=== PATIENT | female | born 1955 | race Caucasian/White ===

== ENCOUNTER 2017-02-25 12:13 | Day surgery (SDC) | payer MEDICARE, OTHER ==
[~2017-02-25] VITALS: Ht 162.6 cm; Wt 107.5 kg
[~2017-02-25 12:13] MED LIST: AMITRIPTYLINE H25 MG PO; ATIVAN0.5 MG PO; CYCLOBENZAPRINE10 MG PO; FLUOXETINE HCL20 MG PO; GABAPENTIN300 MG PO; GABAPENTIN600 MG PO; HYDROCHLOROTHIA25 MG PO; HYDROMORPHONE HC4 MG PO; LAMOTRIGINE100 MG PO; LEVOTHYROXINE75 MCG PO; LIPITOR40 MG PO; LISINOPRIL10 MG PO; LISINOPRIL20 MG PO; LORAZEPAM1 MG PO; METOPROLOL TART25 MG PO; NORCO 10-325 T1 EACH PO; NUCYNTA50 MG PO; PLAVIX75 MG PO; PRAZOSIN HCL5 MG PO; SIMVASTATIN20 MG PO
--- NOTE | 2017-02-25 14:08 | NUR ---
02/25/17 1408 Lori Oquendo 1404-PATIENT ARRIVED TO PACU ON 5L NC 97%. PATIENT REACTIVE TO VOICE. LAYING ON LEFT SIDE. PATIENT ENCOURAGED TO PASS FLATUS. ABDOMEN ROUND AND DISTENDED,
--- NOTE | 2017-02-27 10:36 | OR ---
[facility] [address], [place] [address] Signed DATE OF PROCEDURE: 02/25/17 PREOPERATIVE DIAGNOSES Chronic pain syndrome. Left lower abdominal pain. POSTOPERATIVE DIAGNOSES Intolerance of typical intravenous sedation requiring Propofol infusional sedation. Extensive diverticular changes of sigmoid without obstruction. Polyps x3. PROCEDURE Total colonoscopy to cecum with cold morcellation polypectomy x1 and hot snare polypectomy x2. SURGEON: Maxx Faye M.D. ANESTHESIA Intravenous sedation Fentanyl 150 mcg, Versed 9 mg with addition of Propofol infusional anesthesia (Radha Maxwell CRNA). 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 She is a patient of Dr. Braga. She has had complaints of left lower abdominal pain. Most notably, she has a chronic pain syndrome otherwise. She has had some diarrhea, but no constipation and no rectal bleeding. She has no family history of colon cancer. She is self-described as having "PTSD" as well as depression and numerous other medical issues. She is admitted at this time to undergo colonoscopy understanding the risks of bleeding, infection, perforation, and so on. FINDINGS The prep was quite good. Complete colonoscopy was undertaken to the cecum. There were numerous diverticula of the sigmoid and left colon almost certainly accounting for pain problem. Additionally, she had 3 polyps of the left colon including at 70 cm, 85 cm, and 40 cm, all of which were excised completely. She had significant tolerance for pain medication requiring the addition of Propofol infusional sedation by nurse curatorial specialist with good success. PROCEDURE The patient was brought to the endoscopy suite and placed in lateral decubitus position, given intravenous sedation. Full cardiopulmonary monitoring was maintained. Digital Electronically Signed By: MAXX FAYE MD 02/27/17 1036 PATIENT NAME: NOHEMY ASHTON OPERATIVE REPORT DATE OF : 57 PHYSICIAN: MAXX FAYE MD REPORT #: [id number] REPORT IS CONFIDENTIAL AND NOT TO BE RELEASED WITHOUT AUTHORIZATION [facility] [address], [place] [address] Signed rectal examination was normal. An Olympus video colonoscope was passed in the rectum and manipulated into the sigmoid where numerous diverticula were noted. Despite giving a fair amount of intravenous sedation including fentanyl 150 mcg and Versed 9 mg, she was markedly uncomfortable and unable to tolerate any further manipulation of the scope. This was despite no real angulation deformity, stricture, for other particular problem. On that basis, nurse curatorial specialist, Radha Maxwell, MARANDA, was summoned and was able to give Propofol infusional sedation with airway management. This allowed for tolerance to allow for progression of the colonoscopy. Scope was ultimately manipulated throughout the colon ultimately intubating the cecum itself. The ileocecal valve and appendiceal orifice were normal. The scope was withdrawn from that point. Careful examination was undertaken and impressively good bowel prep was noted. At approximately the splenic flexure at 85 cm with a small polyp, this was excised with hot snare polypectomy technique. Further withdrawal of scope showed another sessile polyp, this one at 70 cm, it was excised similarly. The other polyp at 40 cm was excised with a combination of cold morcellation and snare technique. Retroflexed view in the rectum was normal upon withdrawal the scope. There were no other findings of concern. The patient was taken recovery room in good condition. CONCLUDING DIAGNOSES Left-sided abdominal pain most likely related to diverticular disease. Polyps x3 (excised). Significant tolerance tissue and chronic pain syndrome. PLAN Would recommend high-fiber diet as regards to diverticular disease. Future colonoscopy should include Propofol infusional sedation. We will review pathology reports to better determine the interval of time for future colonoscopy. MD CHRISTOPHER Lopez/Devon /[id number] Electronically Signed By: MAXX FAYE MD 02/27/17 1036 PATIENT NAME: NOHEMY ASHTON OPERATIVE REPORT DATE OF : 57 PHYSICIAN: MAXX FAYE MD REPORT #: [id number] REPORT IS CONFIDENTIAL AND NOT TO BE RELEASED WITHOUT AUTHORIZATION [facility] [address] [place] [id number] Signed cc: Clayton Braga DO Electronically Signed By: MAXX FAYE MD 02/27/17 1036 PATIENT NAME: NOHEMY ASHTON MAHIN OPERATIVE REPORT DATE OF : 57 PHYSICIAN: MAXX FAYE MD REPORT #: [id number] REPORT IS CONFIDENTIAL AND NOT TO BE RELEASED WITHOUT AUTHORIZATION
== END 2017-02-25 14:56 | disposition home or self-care (01) ==
LOC: OPS 12:13 → DS 13:00 → OPS 13:00
PROVIDERS: Surgery
PROC: 0DBF8ZX Excision of Right Large Intestine, Via Natural or Artificial Opening Endoscopic, Diagnostic (ICD-10-PCS; 2017-02-25)
PROC: 0DBE8ZX Excision of Large Intestine, Via Natural or Artificial Opening Endoscopic, Diagnostic (ICD-10-PCS; 2017-02-25)
PROC: 0DBN8ZX Excision of Sigmoid Colon, Via Natural or Artificial Opening Endoscopic, Diagnostic (ICD-10-PCS; principal; 2017-02-25 13:00)
DX: D12.6 Benign neoplasm of colon, unspecified (principal); K57.30 Diverticulosis of large intestine without perforation or abscess without bleeding; M19.90 Unspecified osteoarthritis, unspecified site; K21.9 Gastro-esophageal reflux disease without esophagitis; E78.00 Pure hypercholesterolemia, unspecified; E03.9 Hypothyroidism, unspecified; I10 Essential (primary) hypertension; G47.30 Sleep apnea, unspecified; Z96.651 Presence of right artificial knee joint; Z88.2 Allergy status to sulfonamides; Z88.8 Allergy status to other drugs, medicaments and biological substances; Z88.5 Allergy status to narcotic agent; Z99.81 Dependence on supplemental oxygen; Z90.89 Acquired absence of other organs; Z90.710 Acquired absence of both cervix and uterus; Z90.49 Acquired absence of other specified parts of digestive tract; Z98.890 Other specified postprocedural states; Z79.899 Other long term (current) drug therapy
CPT/HCPCS: 00810; J0694; J2250; J2704; J3010; J7120

== ENCOUNTER 2018-07-01 08:36 | Emergency (ER) | payer MEDICARE, OTHER ==
[~2018-07-01] VITALS: Ht 162.6 cm; Wt 108.9 kg
[~2018-07-01 08:36] MED LIST changes: +FLUTICASONE PRO16 GM NAS; +HYDROCODON-ACE1 EAC8 PO; +LISINOPRIL40 MG PO; +METOPROLOL TART50 MG PO; +MIRALAX17 GM PO; +NARCAN4 MG NAS; +NORVASC10 MG PO; +SENNA LAX8.6 MG PO; +SERTRALINE HCL50 MG PO; +TRAMADOL HCL50 MG PO
== END 2018-07-01 09:18 | disposition home or self-care (01) ==
LOC: ED 08:36
DX: G89.18 Other acute postprocedural pain (principal); M25.562 Pain in left knee; Z96.652 Presence of left artificial knee joint; G47.30 Sleep apnea, unspecified; Z86.73 Personal history of transient ischemic attack (TIA), and cerebral infarction without residual deficits; I10 Essential (primary) hypertension; E03.9 Hypothyroidism, unspecified; Z90.710 Acquired absence of both cervix and uterus; Z91.041 Radiographic dye allergy status; Z88.6 Allergy status to analgesic agent; Z91.09 Other allergy status, other than to drugs and biological substances; Z88.8 Allergy status to other drugs, medicaments and biological substances; Z79.899 Other long term (current) drug therapy
CPT/HCPCS: 96372; 99283-25; J2270

== ENCOUNTER 2018-07-16 11:40 | Emergency (ER) | payer MEDICARE, OTHER ==
[~2018-07-16] VITALS: Ht 162.6 cm; Wt 108.9 kg
--- OUTSIDE RECORDS SUMMARY | 2018-07-16 11:42 | XMS ---
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 Mindy VISIT COUNT (12 MO.) 3 R[facility] Gaspar TOTAL 3 NOTE: Visits indicate total known visits. ED/UCC VISIT TRACKING (12 MO.) 07/16/2018 11:41 [facility] [place] TYPE: Emergency COMPLAINT: - LT KNEE PAIN 07/01/2018 08:37 [facility] [place] TYPE: Emergency COMPLAINT: - LEFT KNEE PAIN/POST OP PROB DIAGNOSES: - Personal history of transient ischemic attack (TIA), and cerebral infarction without residual deficits - Presence of left artificial knee joint - Radiographic dye allergy status - Other prison (current) drug therapy - Other allergy status, other than to drugs and biological substances - Other acute postprocedural pain - Sleep apnea, unspecified - Acquired absence of both cervix and uterus - Pain in left knee - Essential (primary) hypertension - Allergy status to other drugs, medicaments and biological substances status - Hypothyroidism, unspecified - Allergy status to analgesic agent status 05/31/2018 17:51 [facility] [place] TYPE: Emergency COMPLAINT: - L KNEE PAIN,NON INJURY DIAGNOSES: - Pain in left knee - Encounter for other general examination INPATIENT VISIT TRACKING (12 MO.) 05/23/2018 06:40 [facility] [place] TYPE: Medical Surgical COMPLAINT: - LT TOTAL KNEE REPLACEMENT DIAGNOSES: - Radiographic dye allergy status - Personal history of nicotine dependence - intermediate frame tender (current) use of opiate analgesic - Allergy status to other drugs, medicaments and biological substances status - [facility]FP (current) use of antithrombotics/antiplatelets - MCFP (current) use of antithrombotics/antiplatelets - Hyperlipidemia, unspecified - Unilateral primary osteoarthritis, left knee - Hypothyroidism, unspecified - Personal history of nicotine dependence - Spondylolysis, lumbar region - Personal history of transient ischemic attack (TIA), and cerebral infarction without residual deficits - Hypothyroidism, unspecified - Spondylolysis, lumbar region - Unilateral primary osteoarthritis, left knee - Anxiety disorder, unspecified - Allergy status to narcotic agent status - Fibromyalgia - Sleep terrors [night terrors] - Anxiety disorder, unspecified - Essential (primary) hypertension - Personal history of transient ischemic attack (TIA), and cerebral infarction without residual deficits - Allergy status to narcotic agent status - Dorsalgia, unspecified - Allergy status to other drugs, medicaments and biological substances status - Chronic pain syndrome - Other prison (current) drug therapy - Sleep terrors [night terrors] - Essential (primary) hypertension - Fibromyalgia - Radiographic dye allergy status - Hyperlipidemia, unspecified - Other acute postprocedural pain - MCFP (current) use of opiate analgesic - Other acute postprocedural pain - Chronic pain syndrome - Other prison (current) drug therapy [email or web address]
== END 2018-07-16 14:40 | disposition home or self-care (01) ==
LOC: ED 11:40
DX: M48.061 Spinal stenosis, lumbar region without neurogenic claudication (principal); M46.96 Unspecified inflammatory spondylopathy, lumbar region; I10 Essential (primary) hypertension; E03.9 Hypothyroidism, unspecified; Z91.041 Radiographic dye allergy status; Z88.8 Allergy status to other drugs, medicaments and biological substances; Z88.6 Allergy status to analgesic agent; Z88.5 Allergy status to narcotic agent; Z79.899 Other long term (current) drug therapy
CPT/HCPCS: 72131; 73560; 80053; 81001; 85025; 96374; 96375; 99284-25; J1170; J2405

== ENCOUNTER 2019-08-13 10:34 | Emergency (ER) | payer MEDICARE, OTHER ==
[~2019-08-13] VITALS: Ht 162.6 cm; Wt 117.9 kg
--- OUTSIDE RECORDS SUMMARY | 2019-08-13 10:38 | XMS ---
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 Mindy VISIT COUNT (12 MO.) 1 [facility] 1 RUPALI Gaspar TOTAL 2 NOTE: Visits indicate total known visits. ED/UCC VISIT TRACKING (12 MO.) 08/13/2019 10:35 [facility] [place] TYPE: Emergency COMPLAINT: - SOB, [facility] DIAGNOSES: - poss DVT - Other specified soft tissue disorders - Leg Pain - Pain in left lower leg INPATIENT VISIT TRACKING (12 MO.) No inpatient visits to display in this time frame [email or web address]
[2019-08-13] MEDS ORDERED: CHLORTHALIDONE25 MG PO (14:57)
[2019-08-13] MEDS ORDERED: CELEBREX200 MG PO (14:58)
[2019-08-13] MEDS ORDERED: NEURONTIN300 MG PO (14:59)
[2019-08-13] MEDS ORDERED: K-TAB ER20 MEQ PO (15:32)
[2019-08-13] MEDS ORDERED: LASIX20 MG PO (15:32)
--- NOTE | 2019-08-13 19:08 | EKG ---
[facility] [address] [facility] [place], [place] [address] Signed Undetermined rhythm Cannot rule out Anterior infarct , age undetermined ST \T\ T wave abnormality, consider inferolateral ischemia Abnormal ECG When compared with ECG of 15-APR-2018 13:06, Significant changes have occurred Confirmed by ELIA HIDALGO MD ([id number]) on 08/13/2019 7:08:46 PM Electronically Signed By: ELIA HIDALGO MD 08/13/19 1908 PATIENT NAME: NOHEMY ASHTON MAHIN Electrocardiogram DATE OF : 57 PHYSICIAN: ELIA HIDALGO MD REPORT #: [id number] REPORT IS CONFIDENTIAL AND NOT TO BE RELEASED WITHOUT AUTHORIZATION
--- NOTE | 2019-08-13 19:09 | EKG ---
[facility] [address] [place] [address] Signed Sinus bradycardia Otherwise normal ECG When compared with ECG of 13-AUG-2019 09:39, (Unconfirmed) Previous ECG has undetermined rhythm, needs review QRS duration has decreased Minimal criteria for Anterior infarct are no longer present ST no longer depressed in Inferior leads T wave inversion no longer evident in Inferior leads T wave inversion no longer evident in Lateral leads QT has shortened Confirmed by ELIA HIDALGO MD ([id number]) on 08/13/2019 7:08:56 PM Electronically Signed By: ELIA HIDALGO MD 08/13/19 1909 PATIENT NAME: NOHEMY ASHTON Electrocardiogram DATE OF : 57 PHYSICIAN: ELIA HIDALGO MD REPORT #: [id number] REPORT IS CONFIDENTIAL AND NOT TO BE RELEASED WITHOUT AUTHORIZATION
--- NOTE | 2019-08-14 10:00 | NUR ---
Heart Failure nurse follow up call post ED visit. 08/13 spoke to pt on phone she will call me if she wants further HF ed and support after PCP visit. Has not had an echo for definitive diagnosis/ treatment plans. Discussed importance of self management.
== END 2019-08-13 15:45 | disposition home or self-care (01) ==
LOC: ED 10:34
DX: I11.0 Hypertensive heart disease with heart failure (principal); I50.9 Heart failure, unspecified; G47.30 Sleep apnea, unspecified; Z86.73 Personal history of transient ischemic attack (TIA), and cerebral infarction without residual deficits; E03.9 Hypothyroidism, unspecified; Z87.891 Personal history of nicotine dependence; Z91.041 Radiographic dye allergy status; Z88.8 Allergy status to other drugs, medicaments and biological substances; Z88.6 Allergy status to analgesic agent; Z88.5 Allergy status to narcotic agent; Z91.048 Other nonmedicinal substance allergy status; Z79.899 Other long term (current) drug therapy
CPT/HCPCS: 71045; 80053; 83735; 83880; 84484; 85025; 85379; 93005; 93010; 96374; 99285-25; J1940

== ENCOUNTER 2020-01-29 10:36 | Emergency (ER) | payer MEDICARE, OTHER ==
[~2020-01-29] VITALS: Ht 162.6 cm; Wt 122.5 kg
--- OUTSIDE RECORDS SUMMARY | ~2020-01-29 | XMS | Encounter Summary ---
Demographics + + + | Address | [address] | | | [place] [address] | + + + | Home Phone | | + + + | Preferred Language | Unknown | + + + | Marital Status | | + + + | Anglican Affiliation | Unknown | + + + | Race | White | + + + | Ethnic Group | Not or | + + + Author + + + | Author | [facility] | | | and [place] | + + + | Organization | [facility] | | | and [place] | + + + | Address | Unknown | + + + | Phone | Unavailable | + + + Support + + + + + | Name | Relationship | Address | Phone | + + + + + | Keisha Franki | ECON | Unknown | | + + + + + | Amina Contreras | ECON | [address] | | | | | [place] | | | | | [address] | | + + + + + Care Team Providers + +------+ + | Care Lead Welder Name | Role | Phone | + +------+ + | Crow Braga DO | PCP | | + +------+ + Reason for Visit Diagnostic/Screening (Routine) +--------+--------+ + + + + | Status | Reason | Specialty | Diagnoses / | Referred By | Referred To | | | | | Procedures | Contact | Contact | +--------+--------+ + + + + | Closed | | Radiology | Procedures | Provider, | | | | | | MRI Lumbar | Historical, | | | | | | Spine wo | [address] | | | | | | Contrast | [address] | | | | | | | [place] | | | | | | | [address] | | +--------+--------+ + + + + Encounter Details +--------+ + + + + | Date | Type | Department | Care Team | Description | +--------+ + + + + | 11/24/ | Imaging | [facility] | Provider, | | | 2016 | Exam | [facility] | [address], [address] | | | | | IM[address] | [address] | | | | | [address] | [place] [address] | | | | | [place] [address] | | | | | | [phone] | | | +--------+ + + + + Social History + + + +--------+ + | Tobacco Use | Types | Packs/Day | Years | Date | | | | | Used | | + + + +--------+ + | Former Smoker | Cigarettes | 0.5 | 42 | Quit: 12/31/2013 | + + + +--------+ + + +---+---+---+ | Smokeless Tobacco: | | | | | Never Used | | | | + +---+---+---+ + + +---------+ + | Alcohol Use | Drinks/Week | oz/Week | Comments | + + +---------+ + | No | 0 Standard drinks | 0.0 | rare | | | or equivalent | | | + + +---------+ + + + + | Sex Assigned at | Date Recorded | | | | + + + | Not on file | | + + + documented as of this encounter Functional Status + + + + | Functional Status | Response | Date of Assessment | + + + + | Are you deaf or do you have serious | No | 04/03/2016 | | difficulty hearing? | | | + + + + | Are you blind or do you have serious | No | 04/03/2016 | | difficulty seeing, even when wearing | | | | glasses? | | | + + + + | Do you have serious difficulty walking or | No | 04/03/2016 | | climbing stairs? (5 years old or older) | | | + + + + | Do you have difficulty dressing or bathing? | No | 04/03/2016 | | (5 years old or older) | | | + + + + | Because of a physical, mental, or emotional | No | 04/03/2016 | | condition, do you have difficulty doing | | | | errands alone such as visiting a doctor's | | | | office or shopping? [15 years old or | | | | older)] | | | + + + + + + + + | Cognitive Status | Response | Date of Assessment | + + + + | Because of a physical, mental, or emotional | No | 04/03/2016 | | condition, do you have serious difficulty | | | | concentrating, remembering, or making | | | | decisions? (5 years old or older) | | | + + + + documented as of this encounter Plan of Treatment Not on filedocumented as of this encounter Procedures + +--------+ + + + | Procedure Name | Priori | Date/Time | Associated Diagnosis | Comments | | | ty | | | | + +--------+ + + + | MRI LUMBAR SPINE WO | Routin | 11/20/2016 | | Results for this | | CONTRAST | e | 2:55 PM | | procedure are in the | | | | PDT | | results section. | + +--------+ + + + documented in this encounter Results MRI Lumbar Spine wo Contrast (11/20/2016 2:55 PM PDT) + + | Specimen | + + | | + + + + + | Narrative | Performed At | + + + | External films for comparison only - no result from Mal. | [facility] | + + + + +---------+ + + | Performing | Address | City/State/Zipcode | Phone Number | | Organization | | | | + +---------+ + + | [facility] | | | | + +---------+ + + documented in this encounter Visit Diagnoses Not on filedocumented in this encounter"
--- OUTSIDE RECORDS SUMMARY | ~2020-01-29 | XMS | Encounter Summary ---
Demographics + + + | Address | [address] | | | [place] [address] | + + + | Home Phone | | + + + | Preferred Language | Unknown | + + + | Marital Status | | + + + | Methodist Affiliation | Unknown | + + + | Race | White | + + + | Ethnic Group | Not or | + + + Author + + + | Author | [facility] | | | and [place] | + + + | Organization | [facility] | | | and [place] | + + + | Address | Unknown | + + + | Phone | Unavailable | + + + Support + + + + + | Name | Relationship | Address | Phone | + + + + + | Keisha Doan | ECON | Unknown | | + + + + + | Amina Contreras | ECON | [address] | | | | | [place] | | | | | [address] | | + + + + + Care Team Providers + +------+ + | Care Generating Station Mechanic Name | Role | Phone | + +------+ + | Crow Braga DO | PCP | | + +------+ + Encounter Details +--------+ + + + + | Date | Type | Department | Care Team | Description | +--------+ + + + + | 03/11/ | Hospital | [facility] | Joel Burger, | | | 2016 | Encounter | [facility] | DO [address] | | | | | [address] | [address] [place], [place] | | | | | [place], [place] | [id number] | | | | | [address] | | | | | | [phone] | | | +--------+ + + + [...] Smokeless Tobacco: | | | | | Former User | | | | + +---+---+---+ + [...] + + documented as of this encounter Medications at Time of Discharge + + + +---------+ + + | Medication | Sig | Dispensed | Refills | Start | End Date | | | | | | Date | | + + + +---------+ + + | atorvaSTATin | Take 40 mg by mouth | | 0 | | | | (LIPITOR) 40 mg | nightly. | | | | | | tablet | | | | | | + + + +---------+ + + | gabapentin | Take 300 mg by mouth | | 0 | 02/18/20 | | | (NEURONTIN) 300 mg | 2 times daily. | | | 12 | | | capsule | | | | | | + + + +---------+ + + | | Take 1-2 tablets by | 120 | 0 | 04/03/20 | | | HYDROcodone-acetamin | mouth every 4 hours | tablet | | 16 | | | ophen (NORCO) 10-325 | as needed for Pain. | | | | | | mg per tablet | | | | | | + + + +---------+ + + | levothyroxine | Take 75 mcg by mouth | | 0 | | | | (SYNTHROID, | every morning | | | | | | LEVOTHROID) 75 MCG | (before breakfast). | | | | | | tablet | | | | | | + + + +---------+ + + | atorvaSTATin | Take 40 mg by mouth. | | 0 | 07/17/19 | | | (LIPITOR) 40 mg | | | | 15 | 8 | | tablet | | | | | | + + + +---------+ + + | clopidogrel | Take 75 mg by mouth | | 0 | | | | (PLAVIX) 75 mg | Daily. | | | | 6 | | tablet | | | | | | + + + +---------+ + + | cyclobenzaprine | Take 5 mg by mouth 3 | | 0 | | | | (FLEXERIL) 10 mg | times daily as | | | | 6 | | tablet | needed. | | | | | + + + +---------+ + + | diazePAM (VALIUM) | Take 1 tablet by | 90 | 0 | 04/03/20 | | | 5 mg tablet | mouth every 8 hours | tablet | | 16 | 7 | | | as needed. | | | | | + + + +---------+ + + | | Take 1 tablet by | | 0 | | | | HYDROcodone-acetamin | mouth every 6 hours | | | | 6 | | ophen (NORCO) 10-325 | as needed for Pain. | | | | | | mg per tablet | | | | | | + + + +---------+ + + | lactulose 10 g/15 | Take 30 mLs by mouth | 240 mL | 2 | 04/03/20 | | | mL solution | 2 times daily. For | | | 16 | 6 | | | constipation | | | | | + + + +---------+ + + | lamoTRIgine | Take 150 mg by mouth | | 0 | | | | (LAMICTAL) 25 MG | Daily. | | | | 6 | | tablet | | | | | | + + + +---------+ + + | lisinopril | Take 20 mg by mouth | | 0 | 02/18/20 | | | (PRINIVIL, ZESTRIL) | Daily. | | | 12 | 9 | | 20 mg tablet | | | | | | + + + +---------+ + + | LORazepam (ATIVAN) | Take 0.5 mg by mouth | | 0 | | | | 0.5 mg tablet | every 6 hours as | | | | 7 | | | needed. | | | | | + + + +---------+ + + | medical marijuana | Inhale into the | | 0 | | | | (CANNABIS) | lungs as needed | | | | 7 | | inhalation | (Patent states " | | | | | | | ONLY USING EDIBLES | | | | | | | NOT SMOKING"). | | | | | + + + +---------+ + + | metoprolol | Take 25 mg by mouth | | 0 | | | | succinate | Daily. | | | | 8 | | (TOPROL-XL) 25 mg 24 | | | | | | | hr tablet | | | | | | + + + +---------+ + + | metoprolol | Take 25 mg by mouth. | | 0 | 07/17/19 | | | tartrate (LOPRESSOR) | | | | 15 | 9 | | 25 mg tablet | | | | | | + + + +---------+ + + | prazosin | Take 5 mg by mouth | | 0 | | | | (MINIPRESS) 5 mg | nightly. | | | | 6 | | capsule | | | | | | + + + +---------+ + + documented as of this encounter Plan of Treatment Not on filedocumented as of this encounter Visit Diagnoses Not on filedocumented in this encounter
--- OUTSIDE RECORDS SUMMARY | ~2020-01-29 | XMS | Encounter Summary ---
Demographics + + + | Address | [address] | | | [place] [address] | + + + | Home Phone | | + + + | Preferred Language | Unknown | + + + | Marital Status | | + + + | Rastafarian Affiliation | Unknown | + + + | Race | White | + + + | Ethnic Group | Not or | + + + Author + + + | Author | [facility] | | | and [place] | + + + | Organization | [facility] | | | and [...] [place] | | | | | [address] | | + + + + + Care Team Providers + +------+ + | Care Public Records Researcher Name | Role | Phone | + +------+ + | Nathan Kent | PCP | | | MD | | | + +------+ + Reason for Referral Evaluate & Treat (Routine) +--------+ + + + + + | Status | Reason | Specialty | Diagnoses / | Referred By | Referred To | | | | | Procedures | Contact | Contact | +--------+ + + + + + | Closed | Specialty | Physical | Diagnoses | Tim, | Jasmine, | | | Services | Medicine and | Bilateral | LI Nelson | Saúl Rosario MD | | | Required | Rehabilitatio | leg numbness | [address] | | | | n | Procedures | [address] | [address] [place] | | | | | HI NEEDLE | [address] | [place], [place] | | | | | EMG EA | [place], | [address] Phone: | | | | | EXTREMITY | [place] [address] | [phone] | | | | | W/PARASPINL | Phone: | Fax: | | | | | AREA LIMITED | [phone] | [phone] | | | | | HI MOTOR | Fax: | | | | | | &/SENS 13/> | [phone] | | | | | | NRV CNDJ | | | | | | | PRECONF | | | | | | | ELTRODE LIMB | | | +--------+ + + + + + Reason for Visit + + + | Reason | Comments | + + + | Back Pain | | + + + Encounter Details +--------+---------+ + + + | Date | Type | Department | Care Team | Description | +--------+---------+ + + + | 10/18/ | Office | [facility] | Omar Dumont, | Chronic low back | | 2019 | Visit | PHYSIATRY [address] | PA-C [address] | pain, unspecified | | | | [address] | [address] [place] | back pain | | | | [place] [facility], [place] | [place] [address] | laterality, with | | | | [address] | [phone] | sciatica presence | | | | [phone] | | unspecified (Primary | | | | | | Dx); Lumbar | | | | | | radiculopathy; | | | | | | Bilateral leg | | | | | | numbness | +--------+---------+ + + + Social History + + [...] + + documented as of this encounter Last Filed Vital Signs + + + + + | Vital Sign | Reading | Time Taken | Comments | + + + + + | Blood Pressure | 142/70 | 10/18/2018 3:25 PM | | | | | PDT | | + + + + + | Pulse | 83 | 10/18/2018 3:25 PM | | | | | PDT | | + + + + + | Temperature | - | - | | + + + + + | Respiratory Rate | - | - | | + + + + + | Oxygen Saturation | - | - | | + + + + + | Inhaled Oxygen | - | - | | | Concentration | | | | + + + + + | Weight | 108.4 kg (239 lb) | 10/18/2018 3:25 PM | | | | | PDT | | + + + + + | Height | 162.6 cm (5' 4") | 10/18/2018 3:25 PM | | | | | PDT | | + + + + + | Body Mass Index | 41.02 | 10/18/2018 3:25 PM | | | | | PDT | | + + + + + documented in this encounter Functional Status + + + [...] + + documented as of this encounter Patient Instructions Patient Instructions Omar Dumont PA-C - 10/18/2018 3:40 PM PDTLeft L4/5 steroid injecti on ordered. Hold plavix 7 days before injection Bilateral leg nerve conduction study ordered Possible Causes of Low Back or Leg Pain BIG: The symptoms in your back or leg may be due to pressure on a nerve. This pressure may be caused by a damaged disk or by abnormal bone growth. Either way, you may feel pain, burni ng, tingling, or numbness. If you have pressure on a nerve that connects to the sciatic nerv e, pain may shoot down your leg. Pressure from the disk Constant wear and tear can weaken a disk over time and cause back pain. The disk can then b e damaged by a sudden movement or injury. If its soft center starts to bulge, the disk may p ress on a nerve. Or the outside of the disk may tear, and the soft center may squeeze throug h and pinch a nerve. Pressure from bone As a disk wears out, the vertebrae right above and below the disk start to touch. This can put pressure on a nerve. Often, abnormal bone (called bone spurs) grows where the vertebrae rub against each other. This can cause the foramen or the spinal canal to narrow (called apple nosis) and press against a nerve. Date Last Reviewed: 08/05/201719996538-2579 [employer]. [address] [place] [address], [place] [address]. All righ ts reserved. This information is not intended as a substitute for professional medical care. Always follow your healthcare professional's instructions. documented in this encounter Progress Notes Omar Dumont PA-C - 10/18/2018 3:40 PM PDTFormatting of this note might be different fro m the original. CHIEF COMPLAINT: Chief Complaint Patient presents with Back Pain HISTORY OF PRESENT ILLNESS: Ann Santiago is a 63 y.o. female being seen today in follow-up for complaints of low b ack pain with radiation down both legs, L>R. She was recently referred to us for a nerve co nduction study to bilateral lower extremities by her primary care provider. In the past, we have seen her for SI joint injections which have offered little relief. She was last seen in December 2017. Since then she has had a new lumbar MRI in 07/2018 which shows mild disc bulge at L4-5 causing mild neural foraminal stenosis left greater than right. There is also mild subarticular recess stenosis in the left L5-S1 region. Also complains of new swelling in the left lower extremity/left foot. She reports this is been a new symptom over the past week or so. He describes the leg symptoms as more of a num bness/tingling. She describes the symptoms as being 80% in the left leg and 20% on the righ t leg. She rates the pain as moderate-severe with and is worse with walking. She describes the pa in as aching, sharp, stabbing and burning with radiation into left hip and down bilaeral lat eral/anterior thighs and into left foot. Her symptoms worsen with standing, walking, bendin g, twisting, stooping. Her symptoms improve with lying down, sleeping at night, use of pain medications. The patient does describe numbness of the bilateral anterior thighs. She reports weakness of the legs. The patient does not report recent falls or trauma. She does not have bowel and bladder dysfunction. She does not have saddle anesthesia. Treatments for these complaints have included physical therapy, use of NSAIDS, tylenol and narcotics. Patient's medications, allergies, past medical, surgical, social and family histories were reviewed and updated as appropriate. CURRENT MEDICATIONS: Current Outpatient Medications Medication Sig Dispense Refill atorvaSTATin (LIPITOR) 40 mg tablet Take 40 mg by mouth nightly. clopidogrel (PLAVIX) 75 mg tablet Take 75 mg by mouth Daily. diazePAM (VALIUM) 5 mg tablet Take 1 tablet by mouth every 6 hours as needed (muscle sp asm). 90 tablet 1 fluticasone (FLONASE) 50 mcg/nasal spray Daily. 0 gabapentin (NEURONTIN) 300 mg capsule Take 300 mg by mouth 2 times daily. (Patient katelynn ng differently: Take 600 mg by mouth 3 times daily. Taking 1 tab am, 1 tab noon, and 2 at be dtime) HYDROcodone-acetaminophen (NORCO) 10-325 mg per tablet Take 1-2 tablets by mouth every 4 hours as needed for Pain. 120 tablet 0 levothyroxine (SYNTHROID, LEVOTHROID) 75 MCG tablet Take 75 mcg by mouth every morning (before breakfast). lisinopril (PRINIVIL,ZESTRIL) 40 MG tablet Take 40 mg by mouth. metoprolol tartrate (LOPRESSOR) 50 mg tablet Take 50 mg by mouth Daily. sertraline (ZOLOFT) 50 mg tablet Take 50 mg by mouth Daily. 0 VOLTAREN 1 % GEL Apply topically 2 times daily. 0 No current facility-administered medications for this visit. ALLERGIES: Allergies Allergen Reactions Bupropion Other reaction(s): Other (See Comments) Per patient "breaking out in rash" Food Hives and Swelling Other reaction(s): Other (See Comments) Per patient "small blisters and redness" Dissolving stitches Ibuprofen Rash Adhesive & Tape Aspirin Bupropion Hcl Cymbalta [Duloxetine] Oxycodone-Aspirin REVIEW OF SYSTEMS: (in the last 24 hours) GENERALLY: No fever, chills, weight changes. EYES: No vision changes. EARS, NOSE, AND THROAT: No hearing loss or tinnitis,no difficulty swallowing, no hoarseness . NEUROMUSCULAR: Please see the review of systems discussed above in the history of present illness. In addition, the patient has no dizziness, no blackouts, no headaches. CARDIOVASCULAR: No chest pain, no palpitations PULMONARY: No shortness of breath, no cough. GASTROINTESTINAL: No nausea, vomiting or diarrhea GENITOURINARY: No dysuria or hematuria SKIN: No rashes. HEMATOLOGIC/LYMPHATIC: No abnormal bleeding PHYSICAL EXAMINATION: Vitals: 10/18/18 1525 BP: 142/70 Pulse: 83 PainSc: 4 PainLoc: Back Body mass index is 41.02 kg/m. GENERAL: The patient is well developed and well nourished. She does appear uncomfortable w hen seated and has to shift around a lot. HEENT: HEAD/FACE: EYES: Normocephalic and atraumatic. There are no areas of recent trauma. Normal sclerae without icterus. SKIN Limited skin exam shows no significant rashes or lesions. There are not scars in the lumbar region. CHEST: The patient is in no acute respiratory distress with unlabored respirations. HEART: There is not lower extremity edema. ABDOMEN: The patient is obese, BMI=41. NEUROLOGIC: The patient is awake, alert, and oriented to time, place, person. She follows simple and complex commands. Her speech is fluent. She comprehends speech well. 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 She has appropriate fund of knowledge Cranial nerves 2-12 appear grossly intact. Sensory exam does not show diminished sensation to light touch in the lower extremities. MUSCULOSKELETAL There is no major palpable deformity of the spine. Straight leg raise and slump-sit are negative. Ga's maneuver and impingement testing were positive for groin pain. There was tenderness to palpation over the sacral sulci. Th e patient localized the majority of the pain to the L5/S1 region. Lumbar facet loading was negative. Strength testing showed 5/5 strength throughout the lower extremities, 4/5 with l eft knee flexion. The patient was unable to heel and toe walk due to hip/back pain. There was no redness, effusion, warmth or joint line tenderness in the knees or ankles. RADIOGRAPHIC REVIEW: The patient's imaging was reviewed in detail with the patient today during the visit. Lumba r MRI in 07/2018 shows mild disc bulge at L4-5 causing mild neural foraminal stenosis left > right. There is also mild subarticular recess stenosis in the left L5-S1 region ASSESSMENT: 1. Chronic low back pain, unspecified back pain laterality, with sciatica presence unspecif ied 2. Lumbar radiculopathy 3. Bilateral leg numbness PLAN: 1) Today we discussed the patient's differential diagnosis with the likely primary issue be ing lumbar radiculopathy. Patient's description of symptoms, physical exam, and imaging sug gest this diagnosis at this time. 2) I counseled patient on treatment options which included conservative self management usi ng OTC NSAIDs/Ice and heat packs, physical therapy, prescription medications, epidural stero id injection, as well as possible surgical intervention. 3) Imaging: As above 4) The patient has had significant conservative care including medications (NSAIDS and narc otics), PT (multiple sessions over the years) and careers counsellor. Unfortunately Ann Santiago continues to have significant discomfort. It appears to me that the pain is primar michelle coming from L5/S1 region. I did feel that Ann Santiago would be a good candidate for interventional procedures a nd I offered a LEFT L4/5 TFESI to be done. Patient is currently taking 1800mg gabapentin/day. She is also taking 4 hydrocodones per da y. No additional medications added. Patient was also scheduled for bilateral lower extremity nerve conduction study. I info rmed her that if L4-5 TF HARMONY resolves most of her symptoms then she can cancel this nerve co nduction study. Due to scheduling I informed her that nerve conduction study may take sever al months before she is able to get an. 5) Patient will follow up with me 3 weeks post injection/as needed to discuss any imaging a nd/or progress with today's treatment plan. 6) If current treatment plan is insufficient for symptom relief we could try NCS/EMG as the next therapy option. I spent 30 minutes in visit with Ann Santiago today with the majority of time spent co unselling the patient on her diagnosis, options for her care, and coordinating her care. ELECTRONICALLY SIGNED BY: Omar Dumont PA-C, 10/18/2018 CC:Jen Bundytronically signed by Omar Dumont PA-C at 10/18/2018 4: 28 PM PDTdocumented in this encounter Plan of Treatment + + +--------+ + + | Name | Type | Priori | Associated Diagnoses | Order Schedule | | | | ty | | | + + +--------+ + + | * [facility] [place] | Outpatient | Routin | Bilateral leg | Ordered: 10/18/2018 | | Physiatry - AMB | Referral | e | numbness | | | Referral | | | | | + + +--------+ + + documented as of this encounter Results FL HARMONY Lumbar Transforaminal (11/21/2018 3:51 PM PDT) + + | Specimen | + + | | + + + + + | Narrative | Performed At | + + + | 11/21/2018 | [facility] | | Transforaminal Epidural Steroid InjectionDiagnosis: Lumbar | | | radiculopathyICD-10 Code M54.16 Ann Santiago presents to the | | | fluoroscopy suite for a fluoroscopically-guided left L4-L5 | | | transforaminal epidural steroid injection as part of conservative | | | management for chronic pain with lumbar radiculopathy and degenerative | | | disc disease. After informed consent was obtained, the patient lay | | | in the prone position on the fluoroscopy table. The area was | | | identified under fluoroscopic guidance. The area was prepped and | | | draped in sterile fashion. A 25-gauge, 1.5-inch needle was inserted | | | into this region and approximately 3 mL of buffered 1% lidocaine was | | | infused. Then, a 22-gauge spinal needle was inserted into the | | | posterior superior transforaminal space and advanced into the epidural | | | space under fluoroscopic guidance. Confirmation into the epidural | | | space was obtained with infusion of approximately 1 mL of Omnipaque | | | contrast which showed epidural flow as well as nerve sheath flow. | | | Then, a combination of 1.5 mL of 1% lidocaine and 1 mL of 10 | | | mg/mL Dexamethasone was infused. The patient tolerated the procedure | | | well without complications. Pre- and post-procedure blood pressures | | | were stable. The patient was given verbal as well as written | | | follow-up instructions. Prior to the start of the procedure, the | | | following were performed and/or verified, including correct patient | | | identity, correct site/side marked and visible, agreement on the | | | procedure to be done, correct patient positioning and an accurate | | | procedure consent form. Any safety precautions based on clinical | | | history and/or medication use have been addressed. I personally | | | performed the procedure above. Estimated blood loss: | | | MinimalComplications: NoneFindings: As expectedAnesthesia: Local | | | 1% Lidocaine | | |addressed. | | |I personally performed the procedure above. | | | | | |Estimated blood loss: Minimal | | |Complications: None | | |Findings: As expected | | |Anesthesia: Local 1% Lidocaine | | | | | + + + + +---------+ + + | Performing | Address | City/State/Zipcode | Phone Number | | Organization | | | | + +---------+ + + | [facility] | | | | + +---------+ + + documented in this encounter Visit Diagnoses + + | Diagnosis | + + | Chronic low back pain, unspecified back pain laterality, with sciatica presence | | unspecified - Primary | + + | Lumbar radiculopathy Thoracic or lumbosacral neuritis or radiculitis, unspecified | + + | Bilateral leg numbness Disturbance of skin sensation | + + documented in this encounter
--- OUTSIDE RECORDS SUMMARY | ~2020-01-29 | XMS | Encounter Summary ---
Demographics + + + | Address | [address] | | | [place] [address] | + + + | Home Phone | | + + + | Preferred Language | Unknown | + + + | Marital Status | | + + + | Scientologist Affiliation | Unknown | + + + | Race | White | + + + | Ethnic Group | Not or | + + + Author + + + | Author | [facility] | | | and [place] | + + + | Organization | [facility] | | | [...] [place] | | | | | [address] | | + + + + + Care Team Providers + +------+ + | Care Commercial Litigation Associate Name | Role | Phone | + +------+ + | Nathan Kent | PCP | | | MD | | | + +------+ + Reason for Visit Service/Procedure (Routine) +--------+--------+ + + + + | Status | Reason | Specialty | Diagnoses / | Referred By | Referred To | | | | | Procedures | Contact | Contact | +--------+--------+ + + + + | Closed | | Radiology | Diagnoses | | [facility] | | | | | Lumbar | [place], | [address] | | | | | radiculopath | Saúl Rosario MD | [place], | | | | | y | [address] | [place] | | | | | Procedures | [address] [place] | [address] | | | | | [place] INJECT | [facility], [place] | Phone: | | | | | ANES/STEROID | [address] | [phone] | | | | | FORAMEN | Phone: | Fax: | | | | | LUMBAR/SACRA | [phone] | [phone] | | | | | [address] [facility] | Fax: | | | | | | [address] | [phone] | | | | | | [place] | | | | | | | TRIAMCINOLON | | | | | | | E ACET INJ | | | | | | | NOS, 10 MG | | | | | | | Left L4-L5 | | | | | | | TFESI | | | | | | | Plavix | | | +--------+--------+ + + + + Encounter Details +--------+ + + + + | Date | Type | Department | Care Team | Description | +--------+ + + + + | 11/21/ | Hospital | [facility] | Omar Dumont, | Lumbar radiculopathy | | 2019 | Encounter | MED CTR XRAY [address] | PA-C [address] | | | | | [place] | [address] [place] | | | | | [place] [address] | [place] [address] | | | | | [phone] | [phone] | | | | | | | | | | | | Rn LactationMireille | | | | | | [place] | | +--------+ + + + + [...] this encounter Last Filed Vital Signs + +---------+ + + | Vital Sign | Reading | Time Taken | Comments | + +---------+ + + | Blood Pressure | 227/88 | 11/21/2018 4:25 PM | | | | | PDT | | + +---------+ + + | Pulse | 70 | 11/21/2018 4:25 PM | | | | | PDT | | + +---------+ + + | Temperature | - | - | | + +---------+ + + | Respiratory Rate | - | - | | + +---------+ + + | Oxygen Saturation | - | - | | + +---------+ + + | Inhaled Oxygen | - | - | | | Concentration | | | | + +---------+ + + | Weight | - | - | | + +---------+ + + | Height | - | - | | + +---------+ + + | Body Mass Index | - | - | | + +---------+ + + documented in this encounter Functional [...] mg | Daily. | | | | | | tablet | | | | | | + + + +---------+ + + | diazePAM (VALIUM) | Take 1 tablet by | 90 | 1 | 07/08/19 | | | 5 mg tablet | mouth every 6 hours | tablet | | 17 | | | | as needed (muscle | | | | | | | spasm). | | | | | + + + +---------+ + + | fluticasone | Daily. | | 0 | 12/17/19 | | | (FLONASE) 50 | | | | 18 | | | mcg/nasal spray | | | | | | + [...] +---------+ + + | lisinopril | Take 40 mg by mouth. | | 0 | | | | (PRINIVIL,ZESTRIL) | | | | | | | 40 MG tablet | | | | | | + + + +---------+ + + | metoprolol | Take 50 mg by mouth | | 0 | | | | tartrate (LOPRESSOR) | Daily. | | | | | | 50 mg tablet | | | | | | + + + +---------+ + + | sertraline | Take 50 mg by mouth | | 0 | 12/17/19 | | | (ZOLOFT) 50 mg | Daily. | | | 18 | | | tablet | | | | | | + + + +---------+ + + | VOLTAREN 1 % GEL | Apply topically 2 | | 0 | 12/10/19 | | | | times daily. | | | 18 | | + + + +---------+ + + documented as of this encounter Plan of Treatment Not on filedocumented as of this encounter Procedures + +--------+ + + + | Procedure Name | Priori | Date/Time | Associated Diagnosis | Comments | | | ty | | | | + +--------+ + + + | FL EPIDURAL STEROID | Routin | 11/21/2018 | Lumbar | Results for this | | INJECTION LUMBAR | e | 3:51 PM | radiculopathy | procedure are in the | | TRANSFORAMINAL | | PDT | | results section. | + +--------+ + + + documented in this encounter Results FL HARMONY Lumbar Transforaminal (11/21/2018 3:51 PM PDT) + + | Specimen | + + | | + + + + + | Narrative | Performed At | + + + | 11/21/2018 | [facility] | | Transforaminal Epidural Steroid InjectionDiagnosis: Lumbar | | | radiculopathyICD-10 Code M54.16 Ann Marie Santiago presents to the | | | [...] + | Diagnosis | + + | Lumbar radiculopathy Thoracic or lumbosacral neuritis or radiculitis, unspecified | + + documented in this encounter Administered Medications + +--------+ +-------+------+------+ | Medication Order | MAR | Action | Dose | Rate | Site | | | Action | Date | | | | + +--------+ +-------+------+------+ | dexamethasone (PF) 10 mg/mL | Given | 11/22/19 | 10 mg | | | | injection 10 mg 10 mg, Other, | | 19 4:18 | | | | | ONCE, Wed11/21/18 at 1600, For 1 | | PM PDT | | | | | dose, When ordered IV push: | | | | | | | Dilute to 10-20 mL with NS and | | | | | | | give slowly over 1-2 minutes., | | | | | | + +--------+ +-------+------+------+ +---+---+ | | | +---+---+ + +-------+ +-------+---+---+ | iohexol (OMNIPAQUE 300) 300 | Given | 11/22/19 | 3 mLs | | | | mg/mL injection 3 mL 3 mL, | | 19 4:14 | | | | | EPIDURAL, ONCE, Wed11/21/18 at | | PM PDT | | | | | 1600, For 1 dose | | | | | | + +-------+ +-------+---+---+ +---+---+ | | | +---+---+ + +-------+ +-------+---+---+ | lidocaine (PF) 1% injection 2 | Given | 11/22/19 | 2 mLs | | | | mL 2 mL, Other, ONCE, Mon | | 19 4:18 | | | | | 11/21/18 at 1600, For 1 dose | | PM PDT | | | | + +-------+ +-------+---+---+ +---+---+ | | | +---+---+ + +-------+ +-------+---+ + | lidocaine buffered 0.9% | Given | 11/22/19 | 3 mLs | | Other | | injection 3 mL 3 mL, | | 19 4:12 | | | (Comment | | Intradermal, ONCE, 11/21/18 at | | PM PDT | | | ) | | 1600, For 1 dose | | | | | | + +-------+ +-------+---+ + +---+---+ | | | +---+---+ documented in this encounter"
--- OUTSIDE RECORDS SUMMARY | ~2020-01-29 | XMS | Encounter Summary ---
Demographics + + + | Address | [address] | | | [place] [address] | + + + | Home Phone | | + + + | Preferred Language | Unknown | + + + | Marital Status | | + + + | Taoism Affiliation | Unknown | + + + | Race | White | + + + | Ethnic Group | Not or | + + + Author + + + | Author | [facility] | | | and [place] | + + + | Organization | [facility] | | | and [...] [place] | | | | | [address] | | + + + + + Care Team Providers + +------+ + | Care Supervisor Riveting Name | Role | Phone | + +------+ + | Crow Braga DO | PCP | | + +------+ + Reason for Visit + +--------+ + | Reason | Onset | Comments | | | Date | | + +--------+ + | Results, Imaging | 10/04/ | | | | 2017 | | + +--------+ + Encounter Details +--------+ + + + + | Date | Type | Department | Care Team | Description | +--------+ + + + + | 10/04/ | Telephone | [facility] | Maged Montgomery MD | Results, Imaging | | 2017 | | [facility] | [address] | | | | | CLIN[facility] [address] | [place] | | | | | [address] [place] [place], | [address] | | | | | [place] [address] | | | | | | [phone] | | | +--------+ + + + [...] + + documented as of this encounter Miscellaneous Notes Telephone Encounter - Maged Montgomery MD - 10/04/2017 5:38 PM PDTcalled and gave MRI of br ain results documented i n this encounter Plan of Treatment Not on filedocumented as of this encounter Visit Diagnoses Not on filedocumented in this encounter"
--- OUTSIDE RECORDS SUMMARY | ~2020-01-29 | XMS | Encounter Summary ---
Demographics + + + | Address | [address] | | | [place] [address] | + + + | Home Phone | | + + + | Preferred Language | Unknown | + + + | Marital Status | | + + + | Evangelical Affiliation | Unknown | + + + | Race | White | + + + | Ethnic Group | Not or | + + + Author + + + | Author | [facility] | | | and [place] | + + + | Organization | [facility] | | | [...] [place] | | | | | [address] | | + + + + + Care Team Providers + +------+ + | Care Program Advocate Name | Role | Phone | + +------+ + | Nathan Kent | PCP | | | MD | | | + +------+ + Reason for Visit + + + | Reason | Comments | + + + | Follow-up | Back Pain | + + + Encounter Details +--------+---------+ + + + | Date | Type | Department | Care Team | Description | +--------+---------+ + + + | 12/28/ | Office | [facility] | Omar Dumont, | Lumbar radiculopathy | | 2018 | Visit | PHYSIATRY [address] | PA-C [address] | (Primary Dx); Pain | | | | [address] | [address] [place] | of left hip joint; | | | | [place] [facility], [place] | [place] [address] | Chronic low back | | | | [address] | [phone] | pain, unspecified | | | | [phone] | | back pain | | | | | | laterality, with | | | | | | sciatica presence | | | | | | unspecified | +--------+---------+ + + + Social History [...] + + + | Blood Pressure | 142/58 | 12/28/2017 3:46 PM | | | | | PDT | | + + + + + | Pulse | 57 | 12/28/2017 3:46 PM | | | | | PDT [...] Weight | 108.4 kg (239 lb) | 12/28/2017 3:46 PM | | | | | PDT | | + + + + + | Height | 162.6 cm (5' 4") | 12/28/2017 3:46 PM | | | | | PDT | | + + + + + | Body Mass Index | 41.02 | 12/28/2017 3:46 PM | | | | | PDT [...] Instructions Patient Instructions Omar Dumont PA-C - 12/28/2017 3:40 PM PDTFormatting of this note m ight be different from the original. Follow up with Omar Dumont PA-C approximately 3 weeks after injection. Please remember to complete pain log form for this visit. Follow-up at the hospital thirty minutes before your scheduled procedure to allow for time to check in. You may eat and drink as usual on the day of the procedure. If you are scheduled for an epidural injection do not take any blood thinning medications f or at least 5-7 days prior to your procedure unless you have been instructed by another phys ician not to discontinue blood thinning medications. If you are having a procedure other than an epidural injection (i.e. facet injection, media l branch block, SI joint injection or other joint injection) it is not absolutely necessary to discontinue blood thinning medications but doing so will decrease the risk of bruising or bleeding. If you have had a prior stroke, DVT or PE or if you are taking blood thinning medication be cause you have atrial fibrillation, a prosthetic cardiac valve replacement or heart stenting do not stop taking your blood thinning medications unless you have permission from your car diologist or primary care provider. All other medications should be taken as usual on the day of the procedure. Common blood thinning medications include: Aspirin (a baby aspirin is o.k.) Ibuprofen (Advil or Motrin) Naproxen (Aleve) Nabumetone (Relafen) Clopidogrel (Plavix) Dipyridamole/ASA (Aggrenox) Warfarin (Coumadin) Dabigatran (Pradaxa) Rivaroxaban (Xarelto) There are many others. If you have questions about your medications and whether or not you should stop any medications please contact our office. If you are having an epidural injection or if you take any medication for relaxation/sedati on on the day of the procedure you must provide a independent driver to take you home. For all procedur es it is recommended that someone else drive you home. ------ Causes of Lumbar (Low Back) Pain Low back pain can be caused by problems with any part of the lumbar spine. A disk can herni ate (push out) and press on a nerve. Vertebrae can rub against each other or slip out of mahendra ce. This can irritate facet joints and nerves. It can also lead to stenosis, a narrowing of the spinal canal or foramen. Pressure from a disk Constant wear and tear on a disk can cause it to weaken and push outward. Part of the disk may then press on nearby nerves. There are two common types of herniated disks: Contained means the soft nucleus is protruding outward. Extruded means the firm annulus has torn, letting the soft center squeeze through. Pressure from bone An unstable spine With age, a disk may thin and wear out. Vertebrae above and below the disk maybegin to to uch. This can put pressure on nerves. It can also cause bone spurs (growths) to form where t he bones rub together. Stenosis results when bone spurs narrow the foramen or spinal canal. This also puts pressur e on nerves. Slipping vertebrae can irritate nerves and joints. They can also worsen stenosi s. In some cases, vertebrae become unstable andslip forward. This is called spondylolisthesi s. Date Last Reviewed: 03/18/201519995137-8621 The [email or web address]. [address] [place] [address], [place] [address]. All righ ts reserved. This information is not intended as a substitute for professional medical care. Always follow your healthcare professional's instructions. documented in this encounter Progress Notes Omar Dumont PA-C - 12/28/2017 3:40 PM PDTFormatting of this note might be different fro m the original. CHIEF COMPLAINT: Chief Complaint Patient presents with Follow-up Back Pain HISTORY OF PRESENT ILLNESS: Ann Santiago is a 62 y.o. female being seen today in follow-up for complaints of low b ack pain with radiation down both legs, L>R. We have seen her for this issue in the past a nd she received bilateral SI injections with about 2 weeks of relief. She recently underwen t a neck fusion with Dr. Burger. She reports the low back pain has worsened in the last 6 m onths. She rates the pain as moderate-severe with [...] not report recent falls or trauma. She doesnot have bowel a nd bladder dysfunction. She does not have saddle anesthesia. Treatments for these complaints have included physical therapy, use of NSAIDS, tylenol and narcotics. Patient's medications, allergies, past medical, surgical, social and family histories were reviewed and updated as appropriate. CURRENT MEDICATIONS: Current Outpatient Prescriptions Medication Sig Dispense Refill atorvaSTATin (LIPITOR) 40 [...] by mouth every morning (before breakfast). lisinopril (PRINIVIL, ZESTRIL) 20 mg tablet Take 20 mg by mouth Daily. lisinopril (PRINIVIL,ZESTRIL) 40 MG tablet Take 40 mg by mouth. metoprolol tartrate (LOPRESSOR) 25 mg tablet Take 25 mg by mouth. sertraline (ZOLOFT) 50 mg tablet Take 50 [...] Rash Adhesive & Tape Aspirin Bupropion Hcl Duloxetine Oxycodone-Aspirin REVIEW OF SYSTEMS: (in the last [...] HEMATOLOGIC/LYMPHATIC: No abnormal bleeding PHYSICAL EXAMINATION: Vitals: 12/28/17 1546 BP: 142/58 Pulse: 57 PainSc: 4 PainLoc: Back Body mass index [...] has no apparent deficits with short or senior living memory. She has appropriate fund of knowledge [...] majority of the pain to the L5/S1 region and bilateral SI region, sh e was very tender to light palpation. Lumbar facet loading was positive with pain at mid ba ck near T5. Strength testing showed 4/5 strength throughout the left lower extremity. The patient was unable to heel and toe walk due to hip/back pain. There was no redness, effusio n, warmth or joint line tenderness in the knees or ankles. RADIOGRAPHIC REVIEW: The patient's imaging was reviewed in detail with the patient today during the visit. Lumba r MRI from 10/2015 shows mild DDD, there is facet arthritis at multiple levels. ASSESSMENT: 1. Lumbar radiculopathy 2. Pain of left hip joint 3. Chronic low back pain, unspecified back pain laterality, with sciatica presence unspecif ied PLAN: 1) Today we discussed the patient's [...] PT (multiple sessions over the years) and client care specialist. Unfortunately Ann Santiago continues to have significant discomfort. It appears to me that the pain is primar michelle coming from L5/S1 region. I did feel that Ann Santiago would be a good candidate for interventional procedures a nd I offered a bilateral L5/S1 TFESI to be done. Patient is currently taking 2400mg of gabapentin daily. She has hx of bipolar mood disorder and therefore cannot be started on TCA for adjunctive therapy for neuropathic pain. 5) Patient will follow up with me 3 weeks post injection to discuss any imaging and/or prog ress with today's treatment plan. 6) If current treatment plan is insufficient for symptom relief we could try bilateral SI i njections as the next therapy option. I spent 30 minutes in visit with Ann Santiago today with the majority of time spent co unselling the patient on her diagnosis, options for her care, and coordinating her care. ELECTRONICALLY SIGNED BY: Omar Dumont PA-C, 12/28/2017 CC: Omi document ed in this encounter Plan of Treatment Not on filedocumented as of this encounter Results [facility] HARMONY Lumbar Transforaminal (02/21/2018 2:21 PM PDT) + + | Specimen | + + | | + + + + -+ | Narrative | Performed At | + + -+ | 02/21/2018 | [facility] | | Bilateral Transforaminal Epidural Steroid Injections Diagnosis: Lumbar | | | radiculopathy ICD-10 Code M54.16 Ann Santiago presents to the | | | fluoroscopy suite for fluoroscopically-guided bilateral L5-S1 | | | transforaminal epidural steroid injections as part of conservative | | | management for chronic pain with lumbar radiculopathy and degenerative | | | disc disease. After informed consent was obtained, the patient lay in | | | the prone position on the fluoroscopy table. The areas were | | | identified under fluoroscopic guidance. The areas were prepped and | | | draped in sterile fashion. A 25-gauge, 1.5-inch needle was inserted | | | into each region and approximately 3 mL of buffered 1% lidocaine was | | | infused. Then, a 22-gauge spinal needle was inserted into the | | | posterior superior transforaminal space bilaterally and advanced into | | | the epidural space under fluoroscopic guidance. Confirmation into the | | | epidural space was obtained with infusion of approximately 1 mL of | | | Omnipaque contrast which showed epidural flow as well as nerve sheath | | | flow. Then, a combination of 2 mL of 1% lidocaine and 2 mL of 10 mg/mL | | | betamethasone was infused, divided between the two sides. The patient | | | tolerated the procedure well without complications. Pre- and | | | post-procedure blood pressures were stable. The patient was given | | | verbal as well as written follow-up instructions. Prior to the start | | | of the procedure, the following were performed and/or verified, | | | including correct patient identity, correct site/side marked and | | | visible, agreement on the procedure to be done, correct patient | | | positioning and an accurate procedure consent form. Any safety | | | precautions based on clinical history and/or medication use have been | | | addressed. I personally performed the procedure above. Estimated blood | | | loss: MinimalComplications: NoneFindings: As expectedAnesthesia: | | | Local 1% Lidocaine | | |visible, agreement on the procedure to be done, correct patient | | |positioning and an accurate procedure consent form. Any safety precautions | | |based on clinical history and/or medication use have been addressed. I | | |personally performed the procedure above. | | | | | |Estimated blood loss: Minimal | | |Complications: None | | |Findings: As expected | | |Anesthesia: Local 1% Lidocaine | | | | | | | | + + -+ + +---------+ + + | Performing | Address | City/State/Zipcode | Phone Number | | Organization | | | | + +---------+ + + | [facility] | | | | + +---------+ + + documented in this encounter Visit Diagnoses + + | Diagnosis | + + | Lumbar radiculopathy - Primary Thoracic or lumbosacral neuritis or radiculitis, | | unspecified | + + | Pain of left hip joint | + + | Chronic low back pain, unspecified back pain laterality, with sciatica presence | | unspecified | + + documented in this encounter
--- OUTSIDE RECORDS SUMMARY | ~2020-01-29 | XMS | Encounter Summary ---
Demographics + + + | Address | [address] | | | [place] [address] | + + + | Home Phone | | + + + | Preferred Language | Unknown | + + + | Marital Status | | + + + | Taoism Affiliation | Unknown | + + + | Race | White | + + + | Ethnic Group | Not or | + + + Author + + + | Author | [facility] | | | and [place] | + + + | Organization | [facility] | | | [...] [place] | | | | | [address] | | + + + + + Care Team Providers + +------+ + | Care Product Development Director Name | Role | Phone | + +------+ + | Crow Braga DO | PCP | | + +------+ + Reason for Visit + +--------+ + | Reason | Onset | Comments | | | Date | | + +--------+ + | Lab Results | 10/19/ | | | | 2017 | | + +--------+ + Encounter Details +--------+ + + + + | Date | Type | Department | Care Team | Description | +--------+ + + + + | 10/19/ | Telephone | [facility] | Maged Montgomery MD | Lab Results | | 2017 | | [facility] | [address] | | | | | CLIN[facility] [address] | [place] | | | | | [address] [place], | [address] | | | | | [place] [address] | | | | | | [phone] | | | +--------+ + + + [...] Telephone Encounter - Maged Montgomery MD - 10/19/2017 5:22 PM PDTCalled and gave blood duy t results, neuropathic workup so far negativeElectronically signed by Maged Montgomery MD at 0 10/19/2017 5:22 PM PDTdocumented in this encounter Plan of Treatment Not on filedocumented as of this encounter Visit Diagnoses Not on filedocumented in this encounter"
--- OUTSIDE RECORDS SUMMARY | ~2020-01-29 | XMS | Encounter Summary ---
Demographics + + + | Address | [address] | | | [place] [address] | + + + | Home Phone | | + + + | Preferred Language | Unknown | + + + | Marital Status | | + + + | Synagogue Affiliation | Unknown | + + + | Race | White | + + + | Ethnic Group | Not or | + + + Author + + + | Author | [facility] | | | and [place] | + + + | Organization | [facility] | | | [...] [place] | | | | | [address] | | + + + + + Care Team Providers + +------+ + | Care Slinger Sequins Name | Role | Phone | + +------+ + | Crow Braga DO | PCP | | + +------+ + Reason for Visit + +--------+ + | Reason | Onset | Comments | | | Date | | + +--------+ + | Procedure | 04/01/ | | | | 2015 | | + +--------+ + Encounter Details +--------+ + + + + | Date | Type | Department | Care Team | Description | +--------+ + + + + | 04/01/ | Telephone | [facility] | Joel Burger, | Procedure | | 2015 | | NEUR[address]URGERY [address] | DO [address] | | | | | [address] [facility] [address] | [address] [place], [place] | | | | | [place], [place] | [id number] | | | | | [address] | | | | | | [phone] | | | +--------+ + + + [...] this encounter Miscellaneous Notes Telephone Encounter - Celeste Bradford Cert MA - 04/01/2016 1:28 PM PDTAll presurgical check -in instructions given Surgery date: 04/03/2016 Check-in Time: 7:15am No solids or liquids after midnight the night before surgery. Follow the cleansing instructions provided beginning the night before surgery after you dustin wer or bathe. No showering the morning of surgery. Please do not wear jewelry, contact lenses, nail albanian (on fingers or toes), or make-up to surgery check-in. If you have dentures, hearing aids, or glasses please bring the cases with you to check-in. Medications instructions: Lisinopril (hold the morning of surgery), Plavix Surgical Admit Anticipated Disposition reviewed and correct: "Yes Confirmation of procedure/approval: "Yes". elephone Shelli Cunningham - 04/01/2016 10:19 AM PDTPatient called to see if she has a check in josue e for surgery yet. documen timi in this encounter Plan of Treatment Not on filedocumented as of this encounter Visit Diagnoses Not on filedocumented in this encounter
--- OUTSIDE RECORDS SUMMARY | ~2020-01-29 | XMS | Encounter Summary ---
Demographics + + + | Address | [address] | | | [place] [address] | + + + | Home Phone | | + + + | Preferred Language | Unknown | + + + | Marital Status | | + + + | Adventism Affiliation | Unknown | + + + | Race | White | + + + | Ethnic Group | Not or | + + + Author + + + | Author | [facility] | | | and [place] | + + + | Organization | [facility] | | | [...] [place] | | | | | [address] | | + + + + + Care Team Providers + +------+ + | Care Meat Carrier Name | Role | Phone | + +------+ + PCP | Unavailable | + +------+ + Encounter Details +--------+ + + + + | Date | Type | Department | Care Team | Description | +--------+ + + + + | 10/08/ | Hospital | [facility] | | | | 1994 | Encounter | MED CTR GENERIC OP | | | | | | CONV DEPT [address] | | | | | | [place], | | | | | | [place] [address] | | | | | | [phone] | | | +--------+ + + + + Social History + +-------+ +--------+------+ | Tobacco Use | Types | Packs/Day | Years | Date | | | | | Used | | + +-------+ +--------+------+ | Never Assessed | | | | | + +-------+ +--------+------+ + + + | Sex Assigned at | Date Recorded | | | | + + + | Not on file | | + + + documented as of this encounter Plan of Treatment Not on filedocumented as of this encounter Visit Diagnoses Not on filedocumented in this encounter"
--- OUTSIDE RECORDS SUMMARY | ~2020-01-29 | XMS | Encounter Summary ---
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 active distress Eyes: Normal inspection, pupils equal and round, non-icteric ENT: Ears normal Nose normal Pharynx normal Neck: Normal inspection Supple No lymphadenopathy Cardiovascular: Regular rate and rhythm, no murmurs Respiratory: Lungs clear, no wheezing, no respiratory distress Abdomen: Soft, non-tender, non-distended No guarding or rebound Genitourinary: Deferred Rectal exam: Deferred Back: Normal inspection Skin: Color normal Warm and dry No rash Neuro: No motor deficit No sensory deficit Normal gait Medical Decision Making and Emergency Department Course Chest pain General The patient presents with a chief complaint of chest discomfort. The list of possible tanna gent diagnoses that the patient requires an evaluation for includes (but is not limited to) hypercoagulable state, anemia, dehydration, renal failure, electrolyte changes, unstable ang butch, aortic dissection, acute myocardial ischemia, arrhythmia, congestive heart failure, per icarditis, effusions, pulmonary edema and anxiety with hyperventilation. I feel that labora tory testing and further diagnostic testing is necessary to ensure that there is no acute em ergent cause of the symptoms. I have ordered a repeat 12 lead EKG, CBC with diff, CMP, INR, CK, CKMB, and troponin. Patient will be placed on the monitoring tech to ensure no life th reatening arrhythmia develops and will be given supplemental oxygen via nasal cannula. ED Department Course 4:02. Troponin here is negative. Hospitalist consult requested. Relevant history and wor kup of the case discussed with the hospitalist personal insurance advisor and they will evaluate patient in the emergency department for admission. Records Reviewed Old medical records. Laboratory Evaluation Labs Reviewed [facility] CARD PANEL W/O TRP (ED ONLY) - Abnormal; Notable for the following: GLUCOSE 132 (*) CREATININE 1.07 (*) CALCIUM 8.0 (*) AST 138 (*) ALT 195 (*) EGFR 56 (*) All other components within normal limits POC CARDIAC TROPONIN Results Procedure Component Value Units Date/Time Cardiac Panel [[id number]] (Abnormal) Collected: 07/15/14 0324 WBC 5.7 K/uL Updated: 07/15/14 0357 RBC 3.74 M/uL HGB 11.9 g/dL HCT 35.3 % MCV 94.4 fl MCH 31.9 pg MCHC 33.8 g/dL RDW SD 42.9 fl PLT 227 K/uL MPV 9.5 fl DIFF TYPE AUTOMATED NEUTROPHILS 53.1 % LYMPHOCYTES 36.7 % MONOCYTES 6.7 % EOSINOPHILS 2.7 % BASOPHILS 0.8 % NEUTROPHILS ABS 3.0 K/uL LYMPHOCYTES ABS 2.1 K/uL MONOCYTES ABS 0.4 K/uL EOSINOPHILS ABS 0.2 K/uL BASOPHILS ABS 0.0 K/uL SODIUM 138 mmol/L POTASSIUM 3.9 mmol/L CHLORIDE 106 mmol/L CO2 26 mmol/L ANION GAP AGAP 11 mmol/L GLUCOSE 132 (H) mg/dL BUN 13 mg/dL CREATININE 1.07 (H) mg/dL BUN/CREAT 12 CALCIUM 8.0 (L) mg/dL TOTAL PROTEIN 7.1 g/dL Albumin 3.6 g/dL GLOBULIN 3.5 g/dL A/G 1.0 TBIL 0.3 mg/dL ALK PHOS 106 U/L AST 138 (H) U/L ALT 195 (H) U/L EGFR 56 (L) mL/min/1.73m2 CPK 185 U/L INR 1.0 APTT 26 seconds MMB 1.9 ng/mL CK-MB Index 1.0 Available labs reviewed and interpreted by me. Radiology Evaluation Imaging Results None Available radiology studies reviewed and interpreted contemporaneously by me. EKG Interpretation Rhythm: Sinus Ventricular Rate: 85 NV Interval: Normal ST Segments: Normal Significant Q-waves: None Blocks: None Flat T waves ED Diagnosis Final diagnosis Chest pain Disposition: ED Disposition Admit/Observation Bed request special needs: None Diagnosis?: chest pain Procedures Additional Documentation Procedures Ronald Johnson MD 07/15/14 0408 onversion Transacti on, Provider Unknown - 07/15/2014 3:00 AM PSTFormatting of this note might be different fro m the original. ED Notes by Deb Steel RN at 07/15/14 0306 Author: Deb Steel RN Service: (none) Author Type: Registered Nurse Filed: 07/15/14299 Date of Service: 07/15/14299 Status: Signed Director Of Strategic Marketing: Deb Steel RN (Registered Nurse) Bed: 20 Expected date: Expected time: Means of arrival: Comments: onver daniela Transaction, Provider Unknown - 07/15/2014 1:42 AM PST ED Notes by Saul Toussaint RN at 07/15/14141 Author: Saul Toussaint RN Service: (none) Author Type: Registered Nurse Filed: 07/15/14142 Date of Service: 07/15/14141 Status: Signed Director Of Strategic Marketing: Saul Toussaint RN (Registered Nurse) Pt is a transfer from [facility] for chest pain. [facility]/o [facility] pain, onset about 2300. Pt also had episodes of chest pain earlier in the day. Pt had complete relief of chest pain with nitro SL x3 doses. Pt also had a dose of plavix in addition to her regular plavix home medication. CV NSR, no chest pain at time of transfer. Pt had mild SOB while she was experiencing chest pain. Is allergic to Aspirin . Saul Toussaint RN 07/15/14142 docume nted in this encounter Miscellaneous Notes Plan of Care - Conversion Transaction, Provider Unknown - 07/16/2014 8:51 PM PST Plan of Care by Lin Nunez RN at 07/16/142050 Author: Lin Nunez RN Service: (none) Author Type: Registered Nurse Filed: 07/16/142050 Date of Service: 07/16/142050 Status: Signed Director Of Strategic Marketing: Lin Nunez RN (Registered Nurse) Problem: Pain Goal: Patient s pain/discomfort is manageable Assess and monitor patient s pain using appropriate pain scale. Collaborate with interdis ciplinary team and initiate plan and interventions as ordered. Re-assess patient s pain le maria dolores approximately 1-2 hours after pain management intervention. Premedicate as needed. Outcome: Progressing Pt states pain level is at baseline. Problem: Safety Goal: Patient will be injury free during hospitalization Assess and monitor vitals signs, neurological status including level of consciousness and o rientation. Assess patient s risk for falls and implement fall prevention plan of care and interventions per hospital policy. Ensure arm band on, uncluttered walking paths in room, adequate room lighting, call light a nd overbed table within reach, bed in low position, wheels locked, side rails up per policy, and non-skid footwear provided. Outcome: Progressing Pt free from injury, call light with in reach bed in lowest position. lan o f [place], Charly Small MD - 07/15/2014 8:29 AM PST Plan of Care by Charly Marlow MD at 07/15/14828 Author: Charly Marlow MD Service: Hospitalist Author Type: Physician Filed: 07/15/142051 Date of Service: 07/15/14828 Status: Signed Director Of Strategic Marketing: Charly Marlow MD (Physician) Patietn seen briefly as had been seen by admitting hospitalist earlier this morning,Patietn no more chest pain Or SOB and cardiac enzymes still normal range. Will continue with plans on admission of Str ess test tomorrow if heart enzymes still normal after 3 sets documented in this encounter Plan of Treatment Not on filedocumented as of this encounter Procedures + +--------+ + + + | Procedure Name | Priori | Date/Time | Associated Diagnosis | Comments | | | ty | | | | + +--------+ + + + | ECG 12 LEAD | Routin | 07/17/2014 | | Results for this | | | e | 4:14 PM | | procedure are in the | | | | PST | | results section. | + +--------+ + + + | CV CARDIAC PROCEDURE | Routin | 07/17/2014 | | Results for this | | | e | 3:03 PM | | procedure are in the | | | | PST | | results section. | + +--------+ + + + | EXTERNAL LAB: CBC | Routin | 07/17/2014 | | Results for this | | | e | 7:29 AM | | procedure are in the | | | | PST | | results section. | + +--------+ + + + | BASIC METABOLIC | Routin | 07/17/2014 | | Results for this | | PANEL | e | 7:29 AM | | procedure are in the | | | | PST | | results section. | + +--------+ + + + | NM MYOCARDIAL | Routin | 07/16/2014 | | Results for this | | PERFUSION MULT SPECT | e | 10:21 AM | | procedure are in the | | | | PST | | results section. | + +--------+ + + + | EXTERNAL LAB: CBC | Routin | 07/16/2014 | | Results for this | | | e | 4:16 AM | | procedure are in the | | | | PST | | results section. | + +--------+ + + + | LIPID PANEL | Routin | 07/16/2014 | | Results for this | | | e | 4:16 AM | | procedure are in the | | | | PST | | results section. | + +--------+ + + + | TSH | Routin | 07/16/2014 | | Results for this | | | e | 4:16 AM | | procedure are in the | | | | PST | | results section. | + +--------+ + + + | PHOSPHORUS | Routin | 07/16/2014 | | Results for this | | | e | 4:16 AM | | procedure are in the | | | | PST | | results section. | + +--------+ + + + | MAGNESIUM | Routin | 07/16/2014 | | Results for this | | | e | 4:16 AM | | procedure are in the | | | | PST | | results section. | + +--------+ + + + | HEMOGLOBIN A1C | Routin | 07/16/2014 | | Results for this | | | e | 4:16 AM | | procedure are in the | | | | PST | | results section. | + +--------+ + + + | BILIRUBIN, DIRECT | Routin | 07/16/2014 | | Results for this | | | e | 4:16 AM | | procedure are in the | | | | PST | | results section. | + +--------+ + + + | COMPREHENSIVE | Routin | 07/16/2014 | | Results for this | | METABOLIC PANEL | e | 4:16 AM | | procedure are in the | | | | PST | | results section. | + +--------+ + + + | TROPONIN I | Routin | 07/15/2014 | | Results for this | | | e | 5:51 PM | | procedure are in the | | | | PST | | results section. | + +--------+ + + + | CK-MB | Routin | 07/15/2014 | | Results for this | | | e | 5:51 PM | | procedure are in the | | | | PST | | results section. | + +--------+ + + + | CK TOTAL | Routin | 07/15/2014 | | Results for this | | | e | 5:51 PM | | procedure are in the | | | | PST | | results section. | + +--------+ + + + | TROPONIN I | Routin | 07/15/2014 | | Results for this | | | e | 11:52 AM | | procedure are in the | | | | PST | | results section. | + +--------+ + + + | CK-MB | Routin | 07/15/2014 | | Results for this | | | e | 11:52 AM | | procedure are in the | | | | PST | | results section. | + +--------+ + + + | CK TOTAL | Routin | 07/15/2014 | | Results for this | | | e | 11:52 AM | | procedure are in the | | | | PST | | results section. | + +--------+ + + + | ECG 12 LEAD | Routin | 07/15/2014 | | Results for this | | | e | 6:34 AM | | procedure are in the | | | | PST | | results section. | + +--------+ + + + | TROPONIN I | Routin | 07/15/2014 | | Results for this | | | e | 5:39 AM | | procedure are in the | | | | PST | | results section. | + +--------+ + + + | CK-MB | Routin | 07/15/2014 | | Results for this | | | e | 5:39 AM | | procedure are in the | | | | PST | | results section. | + +--------+ + + + | CK TOTAL | Routin | 07/15/2014 | | Results for this | | | e | 5:39 AM | | procedure are in the | | | | PST | | results section. | + +--------+ + + + | HISTORICAL LAB PANEL | Routin | 07/15/2014 | | Results for this | | RESULT | e | 3:24 AM | | procedure are in the | | | | PST | | results section. | + +--------+ + + + | ECG 12 LEAD | Routin | 07/15/2014 | | Results for this | | | e | 3:00 AM | | procedure are in the | | | | PST | | results section. | + +--------+ + + + | XR CHEST 1 VIEW | Routin | 07/14/2014 | | Results for this | | | e | 3:02 AM | | procedure are in the | | | | PST | | results section. | + +--------+ + + + documented in this encounter Results ECG 12 lead (07/17/2014 4:14 PM PST) + + + + + + | Component | Value | Ref Range | Performed | Pathologist | | | | | At | Signature | + + + + + + | DIAGNOSIS: | Sinus rhythm with short | | EXTERNAL | | | | PRNonspecific T wave | | LAB | | | | abnormalityAbnormal | | | | | | ECGWhen compared with | | | | | | ECG of 16-JUL-2014 | | | | | | 09:29,Premature atrial | | | | | | complexes are no longer | | | | | | Present Confirmed by | | | | | | CHEKO SCOTT ([id number]) on | | | | | | 07/17/2014 8:32:07 PM | | | | + + + + + + + + | Specimen | + + | | + + + + + | Narrative | Performed At | + + + | Historically converted procedure from [facility] [employer] environment | EXTERNAL LAB | + + + + +---------+ + + | Performing | Address | City/State/Zipcode | Phone Number | | Organization | | | | + +---------+ + + | EXTERNAL LAB | | | | + +---------+ + + CV CARDIAC PROCEDURE (07/17/2014 3:03 PM PST) + + | Specimen | + + | | + + + + + | Narrative | Performed At | + + + | | | | | | | DATE OF PROCEDURE July 17, 2014 PROCEDURES 1. Femoral artery | | | approach. 2. Selective coronary angiography. 3. Left heart | | | catheterization with left ventriculogram. BRIEF HISTORY This is a | | | 59-year-old lady who was admitted with chest discomfort | | | and evaluated by Dr. Massey. Because of her multiple risk factors, | | | coronary angiography was recommended. For details regarding her | | | presentation, kindly refer to Dr. Massey's note. TECHNIQUE | | | Initially we started by choosing radial artery approach for coronary | | | angiography. The radial artery was instrumented with a 5-Qatari | | | sheath. Using a Wholey catheter a JL 3.5 catheter was advanced to the | | | ascending aorta but with multiple attempts it failed to engage with | | | the left main. The patient started having significant radial artery | | | spasm and therefore the radial artery approach was switched to | | | femoral artery approach. The patient was brought to the | | | catheterization lab in the fasting state and was prepped and draped | | | in the usual sterile fashion. Arterial access was obtained via right | | | femoral artery and a 6-Qatari arterial sheath was placed. A 6-Qatari | | | JL4 catheter was then advanced under fluoroscopic guidance and | | | engaged with the ostium of the left main coronary artery, and | | | multiple projections of the left coronary systems were obtained with | | | the use of contrast injections. The catheter was then exchanged to a | | | 6-Qatari JR4 catheter, which was advanced under fluoroscopic guidance | | | and engaged with the ostium of the right coronary artery, and | | | multiple projections of the right coronary artery were obtained with | | | the use of contrast injections. The catheter was then exchanged to a | | | 6-Qatari pigtail catheter which was advanced into the left ventricle, | | | and projections of left ventricular function in the RENAE view were | | | done with contrast injections. FINDINGS CONTRAST USED 88 mL. | | | HEMODYNAMICS Pressures: Aortic pressure 155/72 with mean of 109. | | | LV 158/24 with end-diastolic 30. Gradient: There was no gradient | | | between the LV and aorta. CORONARY ANGIOGRAPHY The coronary | | | system was right dominant. 1. The left main bifurcated into the LAD | | | and left circumflex. Left main was free of disease. 2. Left anterior | | | descending artery and the diagonal branches were free of disease. | | | 3. Left circumflex coronary artery and the marginal branches were free | | | of disease. 4. Right coronary artery was a large dominant vessel | | | and free of disease. LEFT VENTRICULOGRAM An RENAE view showed | | | borderline ejection fraction of 50%. ESTIMATED BLOOD LOSS Less | | | than 50 mL. CONCLUSION/RECOMMENDATIONS 1. Ejection fraction 50%. | | | 2. No significant coronary artery disease. 3. Recommend evaluation | | | for noncardiac chest pain. Read by ELVIS CARTER MD | | | 07/17/2014 09:21 P Electronically signed by Elvis Carter MD on | | | 07/23/2014 5:56 PM | | + + + + + | Procedure Note | + + | Avi Archer Conversion - 01/25/2019 2:42 PM PDT | | | | DATE OF PROCEDURE | | July 17, 2014 | | | | PROCEDURES | | 1. Femoral artery approach. | | 2. Selective coronary angiography. | | 3. Left heart catheterization with left ventriculogram. | | | | BRIEF HISTORY | | This is a 59-year-old lady who was admitted with chest | | discomfort and evaluated by Dr. Massey. Because of her multiple risk | | factors, coronary angiography was recommended. For details regarding her | | presentation, kindly refer to Dr. Massey's note. | | | | TECHNIQUE | | Initially we started by choosing radial artery approach for coronary | | angiography. The radial artery was instrumented with a 5-Qatari sheath. | | Using a Wholey catheter a JL 3.5 catheter was advanced to the ascending | | aorta but with multiple attempts it failed to engage with the left main. | | The patient started having significant radial artery spasm and therefore | | the radial artery approach was switched to femoral artery approach. | | | | The patient was brought to the catheterization lab in the fasting state | | and was prepped and draped in the usual sterile fashion. Arterial access | | was obtained via right femoral artery and a 6-Qatari arterial sheath was | | placed. A 6-Qatari JL4 catheter was then advanced under fluoroscopic | | guidance and engaged with the ostium of the left main coronary artery, and | | multiple projections of the left coronary systems were obtained with the | | use of contrast injections. The catheter was then exchanged to a 6-Qatari | | JR4 catheter, which was advanced under fluoroscopic guidance and engaged | | with the ostium of the right coronary artery, and multiple projections of | | the right coronary artery were obtained with the use of contrast | | injections. The catheter was then exchanged to a 6-Qatari pigtail catheter | | which was advanced into the left ventricle, and projections of left | | ventricular function in the RENAE view were done with contrast injections. | | | | FINDINGS | | | | CONTRAST USED | | 88 mL. | | | | HEMODYNAMICS | | Pressures: Aortic pressure 155/72 with mean of 109. LV 158/24 with | | end-diastolic 30. | | Gradient: There was no gradient between the LV and aorta. | | | | CORONARY ANGIOGRAPHY | | The coronary system was right dominant. | | 1. The left main bifurcated into the LAD and left circumflex. Left main | | was free of disease. | | 2. Left anterior descending artery and the diagonal branches were free of | | disease. | | 3. Left circumflex coronary artery and the marginal branches were free of | | disease. | | 4. Right coronary artery was a large dominant vessel and free of disease. | | | | LEFT VENTRICULOGRAM | | An RENAE view showed borderline ejection fraction of 50%. | | | | ESTIMATED BLOOD LOSS | | Less than 50 mL. | | | | CONCLUSION/RECOMMENDATIONS | | 1. Ejection fraction 50%. | | 2. No significant coronary artery disease. | | 3. Recommend evaluation for noncardiac chest pain. | | | | | | | | | | Read by ELVIS CARTER MD 07/17/2014 09:21 P | | | | | + + External Lab: CBC (07/17/2014 7:29 AM PST) + + + + + + | Component | Value | Ref Range | Performed | Pathologist | | | | | At | Signature | + + + + + + | WBC | 3.8Comment: Testing | 3.8 - 11.0 K/uL | EXTERNAL | | | | performed at [facility];[address] | | LAB | | | | [facility];[place], [place] | | | | | | [address] | | | | + + + + + + | Non- | 3.47 (L)Comment: Testing | 3.70 - 5.10 | EXTERNAL | | | Red Blood | performed at [facility];[address] | M/uL | LAB | | | Cells | [address];[place] | | | | | Counted | [id number] | | | | + + + + + + | Hemoglobin | 11.0 (L)Comment: Testing | 11.3 - 15.5 | EXTERNAL | | | | performed at [facility];[address] | g/dL | LAB | | | | [address];[place] | | | | | | [address] | | | | + + + + + + | Hematocrit, | 32.7 (L)Comment: Testing | 34.0 - 46.0 % | EXTERNAL | | | POC | performed at [facility];[address] | | LAB | | | | [address];[place] | | | | | | [address] | | | | + + + + + + | MCV | 94.4Comment: Testing | 80.0 - 100.0 fl | EXTERNAL | | | | performed at [facility];[address] | | LAB | | | | [address];[place] | | | | | | [address] | | | | + + + + + + | MCH | 31.8Comment: Testing | 27.0 - 34.0 pg | EXTERNAL | | | | performed at [facility];[address] | | LAB | | | | [address];[place] | | | | | | [address] | | | | + + + + + + | MCHC | 33.7Comment: Testing | 32.0 - 35.5 | EXTERNAL | | | | performed at [facility];[address] | g/dL | LAB | | | | [address];[place] | | | | | | [address] | | | | + + + + + + | RDW-CV | 42.9Comment: Testing | 37 - 53 fl | EXTERNAL | | | | performed at [facility];[address] | | LAB | | | | [address];[place] | | | | | | [address] | | | | + + + + + + | Platelet | 194Comment: Testing | 150 - 400 K/uL | EXTERNAL | | | Count | performed at [facility];[address] | | LAB | | | Plasma | [address];[place] | | | | | | [address] | | | | + + + + + + | MPV | 8.6Comment: Testing | fl | EXTERNAL | | | | performed at [facility];[address] | | LAB | | | | [address];[place] | | | | | | [address] | | | | + + + + + + | Differentia | AUTOMATEDComment: | | EXTERNAL | | | l Type | Testing performed at | | LAB | | | | [facility];[address];[place] [address] | | | | + + + + + + | % Segmented | 28.3Comment: Testing | % | EXTERNAL | | | | performed at [facility];[address] | | LAB | | | Neutrophils | [address];[place] | | | | | | [address] | | | | + + + + + + | % | 56.7Comment: Testing | % | EXTERNAL | | | Lymphocytes | performed at [facility];[address] | | LAB | | | | [address];[place] | | | | | | [address] | | | | + + + + + + | % Monocytes | 7.3Comment: Testing | % | EXTERNAL | | | | performed at [facility];[address] | | LAB | | | | [address];[place] | | | | | | [address] | | | | + + + + + + | % | 6.4Comment: Testing | % | EXTERNAL | | | Eosinophils | performed at [facility];[address] | | LAB | | | | [address];[place] | | | | | | [address] | | | | + + + + + + | % Basophils | 1.3Comment: Testing | % | EXTERNAL | | | | performed at [facility];[address] | | LAB | | | | [address];[place] | | | | | | [address] | | | | + + + + + + | Absolute | 1.1 (L)Comment: Testing | 1.9 - 7.4 K/uL | EXTERNAL | | | Segmented | performed at [facility];[address] | | LAB | | | Neutrophils | [address];[place] | | | | | | [address] | | | | + + + + + + | Absolute | 2.2Comment: Testing | 1.0 - 3.9 K/uL | EXTERNAL | | | Lymphocytes | performed at [facility];[address] | | LAB | | | | [address];[place] | | | | | | [address] | | | | + + + + + + | Absolute | 0.3Comment: Testing | 0 - 0.8 K/uL | EXTERNAL | | | Monocytes | performed at [facility];[address] | | LAB | | | | [address];[place] | | | | | | [address] | | | | + + + + + + | Absolute | 0.2Comment: Testing | 0 - 0.5 K/uL | EXTERNAL | | | Eosinophils | performed at [facility];[address] | | LAB | | | | [address];[place] | | | | | | [address] | | | | + + + + + + | Absolute | 0.1Comment: Testing | 0 - 0.1 K/uL | EXTERNAL | | | Basophils | performed at [facility];[address] | | LAB | | | | [address];[place] | | | | | | [address] | | | | + + + + + + + + | Specimen | + + | Blood specimen | | (specimen) | + + + +---------+ + + | Performing | Address | City/State/Zipcode | Phone Number | | Organization | | | | + +---------+ + + | EXTERNAL LAB | | | | + +---------+ + + Basic Metabolic Panel (07/17/2014 7:29 AM PST) + + + + + + | Component | Value | Ref Range | Performed | Pathologist | | | | | At | Signature | + + + + + + | Na | 140Comment: Testing | 135 - 143 | EXTERNAL | | | | performed at [facility];[address] | mmol/L | LAB | | | | [address];[place] | | | | | | [address] | | | | + + + + + + | K | 4.0Comment: Testing | 3.5 - 4.9 | EXTERNAL | | | | performed at [facility];[address] | mmol/L | LAB | | | | [address];[place] | | | | | | [address] | | | | + + + + + + | Cl | 103Comment: Testing | 99 - 109 mmol/L | EXTERNAL | | | | performed at [facility];[address] | | LAB | | | | [address];[place] | | | | | | [address] | | | | + + + + + + | CO2 | 32Comment: Testing | 23 - 32 mmol/L | EXTERNAL | | | | performed at [facility];[address] | | LAB | | | | [address];[place] | | | | | | [address] | | | | + + + + + + | Anion Gap | 9Comment: Testing | 5 - 20 mmol/L | EXTERNAL | | | | performed at [facility];[address] | | LAB | | | | [address];[place] | | | | | | [address] | | | | + + + + + + | Glucose, | 81Comment: Testing | 65 - 99 mg/dL | EXTERNAL | | | Fasting | performed at [facility];[address] | | LAB | | | | [address];[place] | | | | | | [address] | | | | + + + + + + | BUN | 13Comment: Testing | 8 - 25 mg/dL | EXTERNAL | | | | performed at [facility];[address] | | LAB | | | | [address];[place] | | | | | | [address] | | | | + + + + + + | Creatinine | 1.06 (H)Comment: Testing | 0.50 - 1.00 | EXTERNAL | | | | performed at [facility];[address] | mg/dL | LAB | | | | [address];[place] | | | | | | [address] | | | | + + + + + + | BUN/Creatin | 12Comment: Testing | | EXTERNAL | | | ine Ratio | performed at [facility];[address] | | LAB | | | | [address];[place] | | | | | | [address] | | | | + + + + + + | Calcium | 8.4 (L)Comment: NOTE NEW | 8.5 - 10.5 | EXTERNAL | | | | REFERENCE RANGETesting | mg/dL | LAB | | | | performed at [facility];[address] | | | | | | [address];[place] | | | | | | [address] | | | | + + + + + + | Estimated | 57 (L)Comment: GFR <60: | mL/min/1.73m2 | EXTERNAL | | | GFR | CHRONIC KIDNEY DISEASE, | | LAB | | | | IF FOUND OVER A 3 MONTH | | | | | | PERIOD.GFR <15: KIDNEY | | | | | | FAILURE.FOR | | | | | | AMERICANS, MULTIPLY THE | | | | | | CALCULATED GFR BY | | | | | | 1.210.Testing performed | | | | | | at [facility];[address] [facility] | | | | | | [facility];[place] [address] | | | | + + + + + + + + | Specimen | + + | Blood specimen | | (specimen) | + + + +---------+ + + | Performing | Address | City/State/Zipcode | Phone Number | | Organization | | | | + +---------+ + + | EXTERNAL LAB | | | | + +---------+ + + NM Myocardial Perfusion Mult SPECT (07/16/2014 10:21 AM PST) + + | Specimen | + + | | + + + + + | Impressions | Performed At | + + + | 1. There is elevation of the transient ischemic dilatation ratio | | | which is a negative prognostic factor and may suggest subendocardial | | | or balanced vessel ischemia. 2. Left ventricular ejection fraction | | | is calculated at 53%. | | + + + + + + | Narrative | Performed At | + + + | NOHEMY ASHTON 1955 MS MYOCARDIAL PERFUSION SPECT - STRESS | | | AND REST 07/16/2014 8:30 AM INDICATION: Chest pain COMPARISON: | | | None. TECHNIQUE: A same day, rest and stress protocol was | | | performed. For the resting portion of the study the patient was | | | injected intravenously with 20 mCi of technetium 99m labeled Myoview. | | | Gated SPECT imaging was performed in the supine position. The | | | patient was then pharmacologically stressed with 0.4 mg of regadenoson | | | intravenously according to protocol. Resting heart rate rodolfo from | | | 77 beats/min to 102 beats/min which was 62% of the maximum | | | age-predicted heart rate. At the point of maximum stress, the | | | patient received 40 mCi of technetium 99m labeled Myoview | | | intravenously. Gated SPECT images were acquired in the supine | | | position. FINDINGS: There is elevation of the transient ischemic | | | dilatation ratio which measures 1.24. There are no fixed or reversible | | | perfusion defects present between rest and stress imaging. There | | | appears to be normal wall motion and thickening. The following | | | functional data was obtained: End-diastolic volume: 107 mL | | | End-systolic volume: 50 mL Ejection fraction: 53% | | + + + + + | Procedure Note | + + | Avi Archer Conversion - 01/20/2019 6:14 AM GHASSAN ASHTON1955MS MYOCARDIAL | | PERFUSION SPECT - STRESS AND REST07/16/2014 8:30 AM INDICATION: Chest pain COMPARISON: | | None. TECHNIQUE:A same day, rest and stress protocol was performed. For the resting | | portion of the study the patient was injected intravenously with 20 mCi of technetium | | 99m labeled Myoview. Gated SPECT imaging was performed in the supine position. The | | patient was then pharmacologically stressed with 0.4 mg of regadenoson intravenously | | according to protocol. Resting heart rate rodolfo from 77 beats/min to 102 beats/min which | | was 62% of the maximum age-predicted heart rate. At the point of maximum stress, the | | patient received 40 mCi of technetium 99m labeled Myoview intravenously. Gated SPECT | | images were acquired in the supine position. FINDINGS: There is elevation of the | | transient ischemic dilatation ratio which measures 1.24. There are no fixed or | | reversible perfusion defects present between rest and stress imaging. There appears to | | be normal wall motion and thickening. The following functional data was | | obtained:End-diastolic volume: 107 mLEnd-systolic volume: 50 mLEjection fraction: 53% | | IMPRESSION: 1. There is elevation of the transient ischemic dilatation ratio which is a | | negative prognostic factor and may suggest subendocardial or balanced vessel | | ischemia.2. Left ventricular ejection fraction is calculated at 53%. Electronically | | signed by Kenrick Hitchcock MD on 07/16/2014 10:19 AM | |End-diastolic volume: 107 mL | |End-systolic volume: 50 mL | |Ejection fraction: 53% | | | |IMPRESSION: | |1. There is elevation of the transient ischemic dilatation ratio which is a negative progn ostic factor and may suggest subendocardial or balanced vessel ischemia. | |2. Left ventricular ejection fraction is calculated at 53%. | | | | | + + External Lab: [facility] (07/16/2014 4:16 AM PST) + + + + + + | Component | Value | Ref Range | Performed | Pathologist | | | | | At | Signature | + + + + + + | WBC | 3.5 (L)Comment: Testing | 3.8 - 11.0 K/uL | EXTERNAL | | | | performed at [facility], [address] | | LAB | | | | [address], | | | | | | [place] [address] | | | | + + + + + + | Non- | 3.40 (L)Comment: Testing | 3.70 - 5.10 | EXTERNAL | | | Red Blood | performed at [facility], [address] | M/uL | LAB | | | Cells | [address], | | | | | Counted | [place] [address] | | | | + + + + + + | Hemoglobin | 11.1 (L)Comment: Testing | 11.3 - 15.5 | EXTERNAL | | | | performed at [facility], [address] | g/dL | LAB | | | | [address], | | | | | | [place] [address] | | | | + + + + + + | Hematocrit, | 32.9 (L)Comment: Testing | 34.0 - 46.0 % | EXTERNAL | | | POC | performed at [facility], [address] | | LAB | | | | [address], | | | | | | [place] [address] | | | | + + + + + + | MCV | 96.7Comment: Testing | 80.0 - 100.0 fl | EXTERNAL | | | | performed at [facility], [address] | | LAB | | | | [address], | | | | | | [place] [address] | | | | + + + + + + | MCH | 32.7Comment: Testing | 27.0 - 34.0 pg | EXTERNAL | | | | performed at [facility], [address] | | LAB | | | | [address], | | | | | | [place] [address] | | | | + + + + + + | MCHC | 33.9Comment: Testing | 32.0 - 35.5 | EXTERNAL | | | | performed at [facility], [address] | g/dL | LAB | | | | [address], | | | | | | [place] [address] | | | | + + + + + + | RDW-CV | 44.2Comment: Testing | 37 - 53 fl | EXTERNAL | | | | performed at [facility], [address] | | LAB | | | | [address], | | | | | | [place] [address] | | | | + + + + + + | Platelet | 183Comment: Testing | 150 - 400 K/uL | EXTERNAL | | | Count | performed at [facility], [address] | | LAB | | | Plasma | [address], | | | | | | [place] [address] | | | | + + + + + + | MPV | 9.7Comment: Testing | fl | EXTERNAL | | | | performed at [facility], [address] | | LAB | | | | [address], | | | | | | [place] [address] | | | | + + + + + + | Differentia | AUTOMATEDComment: | | EXTERNAL | | | l Type | Testing performed at | | LAB | | | | [facility], [address] | | | | | | [place] | | | | | | [address] | | | | + + + + + + | % Segmented | 24.4Comment: Testing | % | EXTERNAL | | | | performed at [facility], [address] | | LAB | | | Neutrophils | [address], | | | | | | [place] [address] | | | | + + + + + + | % | 59.4Comment: Testing | % | EXTERNAL | | | Lymphocytes | performed at [facility], [address] | | LAB | | | | [address], | | | | | | [place] [address] | | | | + + + + + + | % Monocytes | 9.2Comment: Testing | % | EXTERNAL | | | | performed at [facility], [address] | | LAB | | | | [address], | | | | | | [place] [address] | | | | + + + + + + | % | 6.1Comment: Testing | % | EXTERNAL | | | Eosinophils | performed at [facility], [address] | | LAB | | | | [address], | | | | | | [place] [address] | | | | + + + + + + | % Basophils | 0.9Comment: Testing | % | EXTERNAL | | | | performed at [facility], [address] | | LAB | | | | [address], | | | | | | [place] [address] | | | | + + + + + + | Absolute | 0.8 (L)Comment: Testing | 1.9 - 7.4 K/uL | EXTERNAL | | | Segmented | performed at [facility], [address] | | LAB | | | Neutrophils | [address], | | | | | | [place] [address] | | | | + + + + + + | Absolute | 2.1Comment: Testing | 1.0 - 3.9 K/uL | EXTERNAL | | | Lymphocytes | performed at [facility], [address] | | LAB | | | | [address], | | | | | | [place] [address] | | | | + + + + + + | Absolute | 0.3Comment: Testing | 0 - 0.8 K/uL | EXTERNAL | | | Monocytes | performed at [facility], [address] | | LAB | | | | [address], | | | | | | [place] [address] | | | | + + + + + + | Absolute | 0.2Comment: Testing | 0 - 0.5 K/uL | EXTERNAL | | | Eosinophils | performed at [facility], [address] | | LAB | | | | [address], | | | | | | [place] [address] | | | | + + + + + + | Absolute | 0.0Comment: Testing | 0 - 0.1 K/uL | EXTERNAL | | | Basophils | performed at [facility], [address] | | LAB | | | | [address], | | | | | | [place] [address] | | | | + + + + + + + + | Specimen | + + | Blood specimen | | (specimen) | + + + +---------+ + + | Performing | Address | City/State/Zipcode | Phone Number | | Organization | | | | + +---------+ + + | EXTERNAL LAB | | | | + +---------+ + + TSH (07/16/2014 4:16 AM PST) + + + + + + | Component | Value | Ref Range | Performed | Pathologist | | | | | At | Signature | + + + + + + | TSH | 3.78Comment: Testing | 0.45 - 5.10 | EXTERNAL | | | | performed at [facility], [address] | uIU/mL | LAB | | | | [address], | | | | | | [place] [address] | | | | + + + + + + + + | Specimen | + + | Blood specimen | | (specimen) | + + + +---------+ + + | Performing | Address | City/State/Zipcode | Phone Number | | Organization | | | | + +---------+ + + | EXTERNAL LAB | | | | + +---------+ + + Phosphorus (07/16/2014 4:16 AM PST) + + + + + + | Component | Value | Ref Range | Performed | Pathologist | | | | | At | Signature | + + + + + + | PHOSPHORUS | 3.8Comment: Testing | 2.3 - 4.8 mg/dL | EXTERNAL | | | | performed at [facility], [address] | | LAB | | | | [address], | | | | | | [place] [address] | | | | + + + + + + + + | Specimen | + + | Blood specimen | | (specimen) | + + + +---------+ + + | Performing | Address | City/State/Zipcode | Phone Number | | Organization | | | | + +---------+ + + | EXTERNAL LAB | | | | + +---------+ + + Magnesium (07/16/2014 4:16 AM PST) + + + + + + | Component | Value | Ref Range | Performed | Pathologist | | | | | At | Signature | + + + + + + | Magnesium | 2.4Comment: Testing | 1.7 - 2.4 mg/dL | EXTERNAL | | | | performed at [facility], [address] | | LAB | | | | [address], | | | | | | [place] [address] | | | | + + + + + + + + | Specimen | + + | Blood specimen | | (specimen) | + + + +---------+ + + | Performing | Address | City/State/Zipcode | Phone Number | | Organization | | | | + +---------+ + + | EXTERNAL LAB | | | | + +---------+ + + Hemoglobin A1C (07/16/2014 4:16 AM PST) + + + + + + | Component | Value | Ref Range | Performed | Pathologist | | | | | At | Signature | + + + + + + | Hemoglobin | 5.3Comment: The [place] | 4.0 - 6.0 % | EXTERNAL | | | A1c | Diabetes Association | | LAB | | | | considers a hemoglobin | | | | | | A1c result of <7.0% to | | | | | | be the goal of diabetic | | | | | | therapy. When results | | | | | | are consistently >8.0%, | | | | | | the ADA suggests | | | | | | reevaluation of the | | | | | | treatment regimen. The | | | | | | testing method used is | | | | | | certified traceable to | | | | | | the Diabetes Control and | | | | | | Complications Trial | | | | | | reference method.Testing | | | | | | performed at [facility], [address] | | | | | [address] [facility], | | | | | | [place] [address] | | | | + + + + + + | Glycohemogl | 105Comment: The ADA | mg/dL | EXTERNAL | | | obin | considers an eAG result | | LAB | | | (GHb),Total | of LT 154 mg/dL to be | | | | | | the goal of diabetic | | | | | | therapy. Estimated | | | | | | Average Glucose | | | | | | calculated from | | | | | | hemoglobin A1c by use of | | | | | | the ADA recommended | | | | | | formula.Testing | | | | | | performed at [facility], [address] | | | | | | [facility], | | | | | | [place] [address] | | | | + + + + + + + + | Specimen | + + | Blood specimen | | (specimen) | + + + +---------+ + + | Performing | Address | City/State/Zipcode | Phone Number | | Organization | | | | + +---------+ + + | EXTERNAL LAB | | | | + +---------+ + + Bilirubin, Direct (07/16/2014 4:16 AM PST) + + + + + + | Component | Value | Ref Range | Performed | Pathologist | | | | | At | Signature | + + + + + + | Bilirubin | 0.1Comment: Testing | 0.0 - 0.3 mg/dL | EXTERNAL | | | Direct | performed at [facility], [address] | | LAB | | | | [address], | | | | | | [place] [address] | | | | + + + + + + + + | Specimen | + + | | + + + +---------+ + + | Performing | Address | City/State/Zipcode | Phone Number | | Organization | | | | + +---------+ + + | EXTERNAL LAB | | | | + +---------+ + + Lipid Panel (07/16/2014 4:16 AM PST) + + + + + + | Component | Value | Ref Range | Performed | Pathologist | | | | | At | Signature | + + + + + + | Cholesterol | 136Comment: Testing | mg/dL | EXTERNAL | | | | performed at [facility], [address] | | LAB | | | | [address], | | | | | | [place], [place] [address] | | | | + + + + + + | Triglycerid | 197 (H)Comment: Testing | mg/dL | EXTERNAL | | | es | performed at [facility], [address] | | LAB | | | | [address], | | | | | | [place] [address] | | | | + + + + + + | HDL | 25 (L)Comment: Testing | mg/dL | EXTERNAL | | | | performed at [facility], [address] | | LAB | | | | [address], | | | | | | [place], [place] [address] | | | | + + + + + + | LDL, | 72Comment: Testing | mg/dL | EXTERNAL | | | Calculated | performed at [facility], [address] | | LAB | | | | [address], | | | | | | [place] [address] | | | | + + + + + + + + | Specimen | + + | Blood specimen | | (specimen) | + + + +---------+ + + | Performing | Address | City/State/Zipcode | Phone Number | | Organization | | | | + +---------+ + + | EXTERNAL LAB | | | | + +---------+ + + Comprehensive Metabolic Panel (07/16/2014 4:16 AM PST) + + + + + + | Component | Value | Ref Range | Performed | Pathologist | | | | | At | Signature | + + + + + + | Na | 139Comment: Testing | 135 - 143 | EXTERNAL | | | | performed at [facility], [address] | mmol/L | LAB | | | | [address], | | | | | | [place] [address] | | | | + + + + + + | K | 4.1Comment: Testing | 3.5 - 4.9 | EXTERNAL | | | | performed at [facility], [address] | mmol/L | LAB | | | | [address], | | | | | | [place] [address] | | | | + + + + + + | Cl | 105Comment: Testing | 99 - 109 mmol/L | EXTERNAL | | | | performed at [facility], [address] | | LAB | | | | [address], | | | | | | [place] [address] | | | | + + + + + + | CO2 | 30Comment: Testing | 23 - 32 mmol/L | EXTERNAL | | | | performed at [facility], [address] | | LAB | | | | [address], | | | | | | [place] [address] | | | | + + + + + + | Anion Gap | 8Comment: Testing | 5 - 20 mmol/L | EXTERNAL | | | | performed at [facility], [address] | | LAB | | | | [address], | | | | | | [place] [address] | | | | + + + + + + | Glucose, | 114 (H)Comment: Testing | 65 - 99 mg/dL | EXTERNAL | | | Fasting | performed at [facility], [address] | | LAB | | | | [address], | | | | | | [place] [address] | | | | + + + + + + | BUN | 15Comment: Testing | 8 - 25 mg/dL | EXTERNAL | | | | performed at [facility], [address] | | LAB | | | | [address], | | | | | | [place] [address] | | | | + + + + + + | Creatinine | 0.99Comment: Testing | 0.50 - 1.00 | EXTERNAL | | | | performed at [facility], [address] | mg/dL | LAB | | | | [address], | | | | | | [place] [address] | | | | + + + + + + | BUN/Creatin | 15Comment: Testing | | EXTERNAL | | | ine Ratio | performed at [facility], [address] | | LAB | | | | [address], | | | | | | [place] [address] | | | | + + + + + + | Calcium | 8.8Comment: NOTE NEW | 8.5 - 10.5 | EXTERNAL | | | | REFERENCE RANGETesting | mg/dL | LAB | | | | performed at [facility], [address] | | | | | | [address], | | | | | | [place] [address] | | | | + + + + + + | Protein, | 6.2 (L)Comment: Testing | 6.3 - 8.2 g/dL | EXTERNAL | | | Total | performed at [facility], [address] | | LAB | | | | [address], | | | | | | [place] [address] | | | | + + + + + + | Albumin | 3.6Comment: Testing | 3.6 - 5.0 g/dL | EXTERNAL | | | | performed at [facility], [address] | | LAB | | | | [address], | | | | | | [place] [address] | | | | + + + + + + | Globulin | 2.6Comment: Testing | 1.3 - 4.9 g/dL | EXTERNAL | | | | performed at [facility], [address] | | LAB | | | | [address], | | | | | | [place] [address] | | | | + + + + + + | A/G Ratio | 1.4Comment: Testing | 1.0 - 2.4 | EXTERNAL | | | | performed at [facility], [address] | | LAB | | | | [address], | | | | | | [place] [address] | | | | + + + + + + | Bilirubin | 0.3Comment: Testing | 0.1 - 1.5 mg/dL | EXTERNAL | | | Total | performed at [facility], [address] | | LAB | | | | [address], | | | | | | [place] [address] | | | | + + + + + + | ALP, | 77Comment: Testing | 35 - 115 U/L | EXTERNAL | | | External | performed at [facility], [address] | | LAB | | | | [address], | | | | | | [place] [address] | | | | + + + + + + | AST | 96 (H)Comment: Testing | 10 - 45 U/L | EXTERNAL | | | | performed at [facility], [address] | | LAB | | | | [address], | | | | | | [place] [address] | | | | + + + + + + | ALT | 127 (H)Comment: Testing | 10 - 65 U/L | EXTERNAL | | | | performed at [facility], [address] | | LAB | | | | [address], | | | | | | [place] [address] | | | | + + + + + + | Estimated | >60Comment: GFR <60: | mL/min/1.73m2 | EXTERNAL | | | GFR | CHRONIC KIDNEY DISEASE, | | LAB | | | | IF FOUND OVER A 3 MONTH | | | | | | PERIOD.GFR <15: KIDNEY | | | | | | FAILURE.FOR | | | | | | AMERICANS, MULTIPLY THE | | | | | | CALCULATED GFR BY | | | | | | 1.210.Testing performed | | | | | | at [facility], [address] | | | | | | [address], | | | | | | [place] [address] | | | | + + + + + + + + | Specimen | + + | Blood specimen | | (specimen) | + + + +---------+ + + | Performing | Address | City/State/Zipcode | Phone Number | | Organization | | | | + +---------+ + + | EXTERNAL LAB | | | | + +---------+ + + CK-MB (07/15/2014 5:51 PM PST) + + + + + -+ | Component | Value | Ref Range | Performed | Pathologist | | | | | At | Signature | + + + + + -+ | CK-MB | 1.4Comment: Testing | 0.5 - 3.6 ng/mL | EXTERNAL | | | | performed at [facility];[address] | | LAB | | | | [address];[place], [place] | | | | | | [address] | | | | + + + + + -+ | CK-MB Index | 0.8Comment: CK INDEX | | EXTERNAL | | | | INTERPRETATION: | | LAB | | | | MMB ng/mL | | | | | | | | | | | |CK INDEX INTERPRETATION: | | | | | | MMB ng/mL | | | | | | | | | | + + + + + -+ + + | Specimen | + + | | + + + +---------+ + + | Performing | Address | City/State/Zipcode | Phone Number | | Organization | | | | + +---------+ + + | EXTERNAL LAB | | | | + +---------+ + + Troponin I (07/15/2014 5:51 PM PST) + + + + + + | Component | Value | Ref Range | Performed | Pathologist | | | | | At | Signature | + + + + + + | Troponin I, | <0.020Comment: 0.00 to | 0.00 - 0.10 | EXTERNAL | | | Qual | 0.10 CONSISTENT WITH | ng/mL | LAB | | | | NORMAL POPULATION0.11 | | | | | | to 0.60 CONSISTENT | | | | | | WITH INCREASED RISK FOR | | | | | | ADVERSE OUTCOMES> 0.60 | | | | | | CONSISTENT | | | | | | WITH WHO CRITERIA FOR | | | | | | ACUTE CT Testing | | | | | | performed at [facility];[address] | | | | | | [address];[place], [place] | | | | | | [address] | | | | + + + + + + + + | Specimen | + + | | + + + +---------+ + + | Performing | Address | City/State/Zipcode | Phone Number | | Organization | | | | + +---------+ + + | EXTERNAL LAB | | | | + +---------+ + + CK Total (07/15/2014 5:51 PM PST) + + + + + + | Component | Value | Ref Range | Performed | Pathologist | | | | | At | Signature | + + + + + + | CK, Total | 179Comment: Testing | 30 - 240 U/L | EXTERNAL | | | | performed at [facility];[address] | | LAB | | | | [address];[place], [place] | | | | | | [address] | | | | + + + + + + + + | Specimen | + + | | + + + +---------+ + + | Performing | Address | City/State/Zipcode | Phone Number | | Organization | | | | + +---------+ + + | EXTERNAL LAB | | | | + +---------+ + + CK-MB (07/15/2014 11:52 AM PST) + + + + + -+ | Component | Value | Ref Range | Performed | Pathologist | | | | | At | Signature | + + + + + -+ | CK-MB | 1.7Comment: Testing | 0.5 - 3.6 ng/mL | EXTERNAL | | | | performed at [facility];[address] | | LAB | | | | [address];[place], [place] | | | | | | [address] | | | | + + + + + -+ | CK-MB Index | 0.9Comment: CK INDEX | | EXTERNAL | | | | INTERPRETATION: | | LAB | | | | MMB ng/mL | | | | | | | | | | | |CK INDEX INTERPRETATION: | | | | | | MMB ng/mL | | | | | | | | | | + + + + + -+ + + | Specimen | + + | | + + + +---------+ + + | Performing | Address | City/State/Zipcode | Phone Number | | Organization | | | | + +---------+ + + | EXTERNAL LAB | | | | + +---------+ + + Troponin I (07/15/2014 11:52 AM PST) + + + + + + | Component | Value | Ref Range | Performed | Pathologist | | | | | At | Signature | + + + + + + | Troponin I, | <0.020Comment: 0.00 to | 0.00 - 0.10 | EXTERNAL | | | Qual | 0.10 CONSISTENT WITH | ng/mL | LAB | | | | NORMAL POPULATION0.11 | | | | | | to 0.60 CONSISTENT | | | | | | WITH INCREASED RISK FOR | | | | | | ADVERSE OUTCOMES> 0.60 | | | | | | CONSISTENT | | | | | | WITH WHO CRITERIA FOR | | | | | | ACUTE CT Testing | | | | | | performed at [facility];[address] | | | | | | [address] [facility];[place], [place] | | | | | | [address] | | | | + + + + + + + + | Specimen | + + | | + + + +---------+ + + | Performing | Address | City/State/Zipcode | Phone Number | | Organization | | | | + +---------+ + + | EXTERNAL LAB | | | | + +---------+ + + CK Total (07/15/2014 11:52 AM PST) + + + + + + | Component | Value | Ref Range | Performed | Pathologist | | | | | At | Signature | + + + + + + | CK, Total | 185Comment: Testing | 30 - 240 U/L | EXTERNAL | | | | performed at [facility];[address] | | LAB | | | | [address];[place] | | | | | | [id number] | | | | + + + + + + + + | Specimen | + + | | + + + +---------+ + + | Performing | Address | City/State/Zipcode | Phone Number | | Organization | | | | + +---------+ + + | EXTERNAL LAB | | | | + +---------+ + + ECG 12 lead (07/15/2014 6:34 AM PST) + + + + + + | Component | Value | Ref Range | Performed | Pathologist | | | | | At | Signature | + + + + + + | DIAGNOSIS: | Normal sinus rhythmT | | EXTERNAL | | | | wave abnormality, | | LAB | | | | consider anterolateral | | | | | | ischemiaAbnormal ECGWhen | | | | | | compared with ECG of | | | | | | 15-JUL-2014 03:00,No | | | | | | significant change was | | | | | | foundConfirmed by | | | | | | ELVIS CARTER ([id number]) on | | | | | | 07/15/2014 7:11:39 PM | | | | + + + + + + + + | Specimen | + + | | + + + + + | Narrative | Performed At | + + + | Historically converted procedure from [facility] environment | EXTERNAL LAB | + + + + +---------+ + + | Performing | Address | City/State/Zipcode | Phone Number | | Organization | | | | + +---------+ + + | EXTERNAL LAB | | | | + +---------+ + + CK-MB (07/15/2014 5:39 AM PST) + + + + + -+ | Component | Value | Ref Range | Performed | Pathologist | | | | | At | Signature | + + + + + -+ | CK-MB | 2.1Comment: Testing | 0.5 - 3.6 ng/mL | EXTERNAL | | | | performed at [facility] [facility];[address] | | LAB | | | | [address];[place], [place] | | | | | | [address] | | | | + + + + + -+ | CK-MB Index | 1.2Comment: CK INDEX | | EXTERNAL | | | | INTERPRETATION: | | LAB | | | | MMB ng/mL | | | | | | | | | | | |CK INDEX INTERPRETATION: | | | | | | MMB ng/mL | | | | | | | | | | + + + + + -+ + + | Specimen | + + | | + + + +---------+ + + | Performing | Address | City/State/Zipcode | Phone Number | | Organization | | | | + +---------+ + + | EXTERNAL LAB | | | | + +---------+ + + Troponin I (07/15/2014 5:39 AM PST) + + + + + + | Component | Value | Ref Range | Performed | Pathologist | | | | | At | Signature | + + + + + + | Troponin I, | <0.020Comment: 0.00 to | 0.00 - 0.10 | EXTERNAL | | | Qual | 0.10 CONSISTENT WITH | ng/mL | LAB | | | | NORMAL POPULATION0.11 | | | | | | to 0.60 CONSISTENT | | | | | | WITH INCREASED RISK FOR | | | | | | ADVERSE OUTCOMES> 0.60 | | | | | | CONSISTENT | | | | | | WITH WHO CRITERIA FOR | | | | | | ACUTE CT Testing | | | | | | performed at [facility];[address] | | | | | | [facility];[place], [place] | | | | | | [address] | | | | + + + + + + + + | Specimen | + + | Blood specimen | | (specimen) | + + + +---------+ + + | Performing | Address | City/State/Zipcode | Phone Number | | Organization | | | | + +---------+ + + | EXTERNAL LAB | | | | + +---------+ + + CK Total (07/15/2014 5:39 AM PST) + + + + + + | Component | Value | Ref Range | Performed | Pathologist | | | | | At | Signature | + + + + + + | CK, Total | 175Comment: Testing | 30 - 240 U/L | EXTERNAL | | | | performed at [facility];[address] | | LAB | | | | [address];[place], [place] | | | | | | [address] | | | | + + + + + + + + | Specimen | + + | Blood specimen | | (specimen) | + + + +---------+ + + | Performing | Address | City/State/Zipcode | Phone Number | | Organization | | | | + +---------+ + + | EXTERNAL LAB | | | | + +---------+ + + HISTORICAL LAB PANEL RESULT (07/15/2014 3:24 AM PST) + + + + + -+ | Component | Value | Ref Range | Performed | Pathologist | | | | | At | Signature | + + + + + -+ | WBC | 5.7Comment: Testing | 3.8 - 11.0 K/uL | EXTERNAL | | | | performed at [facility];[address] | | LAB | | | | [address];[place] | | | | | | [address] | | | | + + + + + -+ | Non- | 3.74Comment: Testing | 3.70 - 5.10 | EXTERNAL | | | Red Blood | performed at [facility];[address] | M/uL | LAB | | | Cells | [address];[place] | | | | | Counted | [address] | | | | + + + + + -+ | Hemoglobin | 11.9Comment: Testing | 11.3 - 15.5 | EXTERNAL | | | | performed at [facility];[address] | g/dL | LAB | | | | [address];[place] | | | | | | [address] | | | | + + + + + -+ | Hematocrit, | 35.3Comment: Testing | 34.0 - 46.0 % | EXTERNAL | | | POC | performed at [facility];[address] | | LAB | | | | [address];[place] | | | | | | [address] | | | | + + + + + -+ | MCV | 94.4Comment: Testing | 80.0 - 100.0 fl | EXTERNAL | | | | performed at [facility];[address] | | LAB | | | | [address];[place] | | | | | | [address] | | | | + + + + + -+ | MCH | 31.9Comment: Testing | 27.0 - 34.0 pg | EXTERNAL | | | | performed at [facility];[address] | | LAB | | | | [address];[place] | | | | | | [address] | | | | + + + + + -+ | MCHC | 33.8Comment: Testing | 32.0 - 35.5 | EXTERNAL | | | | performed at [facility];[address] | g/dL | LAB | | | | [address];[place] | | | | | | [address] | | | | + + + + + -+ | RDW-CV | 42.9Comment: Testing | 37 - 53 fl | EXTERNAL | | | | performed at [facility];[address] | | LAB | | | | [address];[place] | | | | | | [address] | | | | + + + + + -+ | Platelet | 227Comment: Testing | 150 - 400 K/uL | EXTERNAL | | | Count | performed at [facility];[address] | | LAB | | | Plasma | [address];[place] | | | | | | [address] | | | | + + + + + -+ | MPV | 9.5Comment: Testing | fl | EXTERNAL | | | | performed at [facility];[address] | | LAB | | | | [address];[place] | | | | | | [address] | | | | + + + + + -+ | Differentia | AUTOMATEDComment: | | EXTERNAL | | | l Type | Testing performed at | | LAB | | | | [facility];[address];[place] [address] | | | | + + + + + -+ | % Segmented | 53.1Comment: Testing | % | EXTERNAL | | | | performed at [facility];[address] | | LAB | | | Neutrophils | [address];[place] | | | | | | [address] | | | | + + + + + -+ | % | 36.7Comment: Testing | % | EXTERNAL | | | Lymphocytes | performed at [facility];[address] | | LAB | | | | [address];[place] | | | | | | [address] | | | | + + + + + -+ | % Monocytes | 6.7Comment: Testing | % | EXTERNAL | | | | performed at [facility];[address] | | LAB | | | | [address];[place] | | | | | | [address] | | | | + + + + + -+ | % | 2.7Comment: Testing | % | EXTERNAL | | | Eosinophils | performed at [facility];[address] | | LAB | | | | [address];[place] | | | | | | [address] | | | | + + + + + -+ | % Basophils | 0.8Comment: Testing | % | EXTERNAL | | | | performed at [facility];[address] | | LAB | | | | [address];[place] | | | | | | [address] | | | | + + + + + -+ | Absolute | 3.0Comment: Testing | 1.9 - 7.4 K/uL | EXTERNAL | | | Segmented | performed at [facility];[address] | | LAB | | | Neutrophils | [address];[place] | | | | | | [address] | | | | + + + + + -+ | Absolute | 2.1Comment: Testing | 1.0 - 3.9 K/uL | EXTERNAL | | | Lymphocytes | performed at [facility];[address] | | LAB | | | | [address];[place] | | | | | | [address] | | | | + + + + + -+ | Absolute | 0.4Comment: Testing | 0 - 0.8 K/uL | EXTERNAL | | | Monocytes | performed at [facility];[address] | | LAB | | | | [address];[place] | | | | | | [address] | | | | + + + + + -+ | Absolute | 0.2Comment: Testing | 0 - 0.5 K/uL | EXTERNAL | | | Eosinophils | performed at [facility];[address] | | LAB | | | | [address];[place] | | | | | | [address] | | | | + + + + + -+ | Absolute | 0.0Comment: Testing | 0 - 0.1 K/uL | EXTERNAL | | | Basophils | performed at [facility];[address] | | LAB | | | | [address];[place] | | | | | | [address] | | | | + + + + + -+ | Na | 138Comment: Testing | 135 - 143 | EXTERNAL | | | | performed at [facility];[address] | mmol/L | LAB | | | | [address];[place] | | | | | | [address] | | | | + + + + + -+ | K | 3.9Comment: Testing | 3.5 - 4.9 | EXTERNAL | | | | performed at [facility];[address] | mmol/L | LAB | | | | [address];[place] | | | | | | [address] | | | | + + + + + -+ | Cl | 106Comment: Testing | 99 - 109 mmol/L | EXTERNAL | | | | performed at [facility];[address] | | LAB | | | | [address];[place] | | | | | | [address] | | | | + + + + + -+ | CO2 | 26Comment: Testing | 23 - 32 mmol/L | EXTERNAL | | | | performed at [facility];[address] | | LAB | | | | [address];[place] | | | | | | [address] | | | | + + + + + -+ | Anion Gap | 11Comment: Testing | 5 - 20 mmol/L | EXTERNAL | | | | performed at [facility];[address] | | LAB | | | | [address];[place] | | | | | | [address] | | | | + + + + + -+ | Glucose, | 132 (H)Comment: Testing | 65 - 99 mg/dL | EXTERNAL | | | Fasting | performed at [facility];[address] | | LAB | | | | [address];[place] | | | | | | [address] | | | | + + + + + -+ | BUN | 13Comment: Testing | 8 - 25 mg/dL | EXTERNAL | | | | performed at [facility];[address] | | LAB | | | | [address];[place] | | | | | | [address] | | | | + + + + + -+ | Creatinine | 1.07 (H)Comment: Testing | 0.50 - 1.00 | EXTERNAL | | | | performed at [facility];[address] | mg/dL | LAB | | | | [address];[place] | | | | | | [address] | | | | + + + + + -+ | BUN/Creatin | 12Comment: Testing | | EXTERNAL | | | ine Ratio | performed at [facility];[address] | | LAB | | | | [address];[place] | | | | | | [address] | | | | + + + + + -+ | Calcium | 8.0 (L)Comment: NOTE NEW | 8.5 - 10.5 | EXTERNAL | | | | REFERENCE RANGETesting | mg/dL | LAB | | | | performed at [facility];[address] | | | | | | [address];[place] | | | | | | [address] | | | | + + + + + -+ | Protein, | 7.1Comment: Testing | 6.3 - 8.2 g/dL | EXTERNAL | | | Total | performed at [facility];[address] | | LAB | | | | [address];[place] | | | | | | [address] | | | | + + + + + -+ | Albumin | 3.6Comment: Testing | 3.6 - 5.0 g/dL | EXTERNAL | | | | performed at [facility];[address] | | LAB | | | | [address];[place] | | | | | | [address] | | | | + + + + + -+ | Globulin | 3.5Comment: Testing | 1.3 - 4.9 g/dL | EXTERNAL | | | | performed at [facility];[address] | | LAB | | | | [address];[place] | | | | | | [address] | | | | + + + + + -+ | A/G Ratio | 1.0Comment: Testing | 1.0 - 2.4 | EXTERNAL | | | | performed at [facility];[address] | | LAB | | | | [address];[place] | | | | | | [address] | | | | + + + + + -+ | Bilirubin | 0.3Comment: Testing | 0.1 - 1.5 mg/dL | EXTERNAL | | | Total | performed at [facility];[address] | | LAB | | | | [address];[place] | | | | | | [address] | | | | + + + + + -+ | ALP, | 106Comment: Testing | 35 - 115 U/L | EXTERNAL | | | External | performed at [facility];[address] | | LAB | | | | [address];[place] | | | | | | [address] | | | | + + + + + -+ | AST | 138 (H)Comment: Testing | 10 - 45 U/L | EXTERNAL | | | | performed at [facility];[address] | | LAB | | | | [address];[place] | | | | | | [address] | | | | + + + + + -+ | ALT | 195 (H)Comment: Testing | 10 - 65 U/L | EXTERNAL | | | | performed at [facility];[address] | | LAB | | | | [address];[place] | | | | | | [address] | | | | + + + + + -+ | Estimated | 56 (L)Comment: GFR <60: | mL/min/1.73m2 | EXTERNAL | | | GFR | CHRONIC KIDNEY DISEASE, | | LAB | | | | IF FOUND OVER A 3 MONTH | | | | | | PERIOD.GFR <15: KIDNEY | | | | | | FAILURE.FOR | | | | | | AMERICANS, MULTIPLY THE | | | | | | CALCULATED GFR BY | | | | | | 1.210.Testing performed | | | | | | at [facility];[address];[place] [address] | | | | + + + + + -+ | CK, Total | 185Comment: Testing | 30 - 240 U/L | EXTERNAL | | | | performed at [facility];[address] | | LAB | | | | [address];[place] | | | | | | [address] | | | | + + + + + -+ | INR | 1.0Comment: REFERENCE | | EXTERNAL | | | | RANGE:0.9 - 1.2 | | LAB | | | | NON-ANTICOAGULATED2.0 | | | | | | - 3.0 ALL OTHER | | | | | | THERAPEUTIC | | | | | | INDICATIONS2.5 - 3.5 | | | | | | MECHANICAL HEART VALVES, | | | | | | RECURRENT OR SYSTEMIC | | | | | | EMBOLISMTesting | | | | | | performed at [facility];[address] | | | | | | [address];[place] | | | | | | [address] | | | | + + + + + -+ | aPTT, | 26Comment: Testing | 23 - 32 seconds | EXTERNAL | | | Patient | performed at [facility];[address] | | LAB | | | | [address];[place] | | | | | | [address] | | | | + + + + + -+ | CK-MB | 1.9Comment: Testing | 0.5 - 3.6 ng/mL | EXTERNAL | | | | performed at [facility];[address] | | LAB | | | | [address];[place] | | | | | | [address] | | | | + + + + + -+ | CK-MB Index | 1.0Comment: CK INDEX | | EXTERNAL | | | | INTERPRETATION: | | LAB | | | | MMB ng/mL | | | | | | | | | | | |CK INDEX INTERPRETATION: | | | | | | MMB ng/mL | | | | | | | | | | + + + + + -+ + + | Specimen | + + | | + + + +---------+ + + | Performing | Address | City/State/Zipcode | Phone Number | | Organization | | | | + +---------+ + + | EXTERNAL LAB | | | | + +---------+ + + ECG 12 lead (07/15/2014 3:00 AM PST) + + + + + + | Component | Value | Ref Range | Performed | Pathologist | | | | | At | Signature | + + + + + + | DIAGNOSIS: | Normal sinus rhythmT | | EXTERNAL | | | | wave abnormality, | | LAB | | | | consider inferior | | | | | | ischemiaAbnormal ECGNo | | | | | | previous ECGs | | | | | | availableThis ECG | | | | | | contains Unconfirmed | | | | | | Interpretation | | | | | | Statements. See ED | | | | | | Record for Physician | | | | | | Interpretation. | | | | | | Confirmed by MUSE READ | | | | | | ONLY, -COMPUTER ([id number]), | | | | | | medical transcription editor Brie Singh | | | | | | ([phone]) on 07/15/2014 7:43:18 | | | | | | AM | | | | + + + + + + + + | Specimen | + + | | + + + + + | Narrative | Performed At | + + + | Historically converted procedure from [facility] environment | EXTERNAL LAB | + + + + +---------+ + + | Performing | Address | City/State/Zipcode | Phone Number | | Organization | | | | + +---------+ + + | EXTERNAL LAB | | | | + +---------+ + + XR Chest 1 Vw (07/14/2014 3:02 AM [facility]TE[facility]) + + | Specimen | + + | | + + + + + | Narrative | Performed At | + + + | This is a non-reportable procedure without a radiologist report and | | | is used for image storage only | | + + + + + | Procedure Note | + + | Gianni, Avi Kamar - 01/20/2019 6:14 AM PDT This is a non-reportable procedure | | without a radiologist report and isused for image storage only | + + documented in this encounter Visit Diagnoses + + | Diagnosis | + + | Chest pain Chest pain, unspecified | + + documented in this encounter
--- OUTSIDE RECORDS SUMMARY | ~2020-01-29 | XMS | Encounter Summary ---
Demographics + + + | Address | [address] | | | [place] [address] | + + + | Home Phone | | + + + | Preferred Language | Unknown | + + + | Marital Status | | + + + | Sikh Affiliation | Unknown | + + + | Race | White | + + + | Ethnic Group | Not or | + + + Author + + + | Author | [facility] | | | and [place] | + + + | Organization | [facility] | | | [...] [place] | | | | | [address] | | + + + + + Care Team Providers + +------+ + | Care Product Design Manager Name | Role | Phone | + +------+ + PCP | Unavailable | + +------+ + Encounter Details +--------+ + + + + | Date | Type | Department | Care Team | Description | +--------+ + + + + | 02/17/ | Abstract | [facility] | DATA MIGRATION ANNE | | | 2011 | | Conversion Location | SR | | | | | [address] [facility] | | | | | | [place], [place] | | | | | | [address] | | | | | | [phone] | | | +--------+ + + + [...] + + + | Blood Pressure | 146/74 | 12/01/2010 12:00 AM | | | | | PDT | | + + + + + | Pulse | - | - | | + [...] + + + + | Weight | 83.5 kg (184 lb) | 12/01/2010 12:00 AM | | | | | PDT | | + + + + + | Height | 165.1 cm (5' 5") | 12/01/2010 12:00 AM | | | | | PDT | | + + + + + | Body Mass Index | 30.62 | 12/01/2010 12:00 AM | | | | | PDT | | + + + + + documented in this encounter Plan of Treatment Not on filedocumented as of this encounter Visit Diagnoses Not on filedocumented in this encounter
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
--- OUTSIDE RECORDS SUMMARY | ~2020-01-29 | XMS | Encounter Summary ---
Demographics + + + | Address | [address] | | | [place] [address] | + + + | Home Phone | | + + + | Preferred Language | Unknown | + + + | Marital Status | | + + + | Worship Affiliation | Unknown | + + + | Race | White | + + + | Ethnic Group | Not or | + + + Author + + + | Author | [facility] | | | and [place] | + + + | Organization | [facility] | | | [...] [place] | | | | | [address] | | + + + + + Care Team Providers + +------+ + | Care Avionics Systems Technician Name | Role | Phone | + +------+ + | Crow Braga DO | PCP | | + +------+ + Encounter Details +--------+ + + + + | Date | Type | Department | Care Team | Description | +--------+ + + + + | 04/03/ | Hospital | [facility] | Joel Burger, | | | 2016 | Encounter | MED CTR XRAY [address] | DO [address] | | | | | [place] | [address] [place], [place] | | | | | [place] [address] | [id number] | | | | | [phone] | | | +--------+ + + + [...] + +--------+ + + + | FL ALICIA STATS NO | Routin | 04/03/2016 | | Results for this | | CHARGE | e | 10:32 AM | | procedure are in the | | | | PDT | | results section. | + +--------+ + + + documented in this encounter Results JANAY Pinzon Statmeg No Charge (04/03/2016 10:32 AM PDT) + + | Specimen | + + | | + + + + + | Narrative | Performed At | + + + | No Radiologist interpretation, please see Chart Review. | [facility] | + + + + +---------+ + + | Performing | Address | City/State/Zipcode | Phone Number | | Organization | | | | + +---------+ + + | [facility] | | | | + +---------+ + + documented in this encounter Visit Diagnoses Not on filedocumented in this encounter
--- OUTSIDE RECORDS SUMMARY | ~2020-01-29 | XMS | Encounter Summary ---
Demographics + + + | Address | [address] | | | [place] [address] | + + + | Home Phone | | + + + | Preferred Language | Unknown | + + + | Marital Status | | + + + | Anabaptist Affiliation | Unknown | + + + | Race | White | + + + | Ethnic Group | Not or | + + + Author + + + | Author | [facility] | | | and [place] | + + + | Organization | [facility] | | | [...] [place] | | | | | [address] | | + + + + + Care Team Providers + +------+ + | Care Raisin Washer Name | Role | Phone | + +------+ + | Crow Braga DO | PCP | | + +------+ + Encounter Details +--------+ + + + + | Date | Type | Department | Care Team | Description | +--------+ + + + + | 04/03/ | Hospital | [facility] | Sadia Grijalva | | | 2016 | Encounter | MED CTR ACUTE | D, PT [address] | | | | | PHYSICAL THERAPY | [address] | | | | | [address] | [id number] | | | | | [place] [address] | | | | | | [phone] | | | +--------+ + + + [...]
--- OUTSIDE RECORDS SUMMARY | ~2020-01-29 | XMS | Encounter Summary ---
Demographics + + + | Address | [address] | | | [place] [address] | + + + | Home Phone | | + + + | Preferred Language | Unknown | + + + | Marital Status | | + + + | Restoration Affiliation | Unknown | + + + [...] [place] | | | | | [address] | | + + + + + Care Team Providers + +------+ + | Care First Aid Instructor Name | Role | Phone | + +------+ + | Crow Braga DO | PCP | | + +------+ + Reason for Visit +--------+--------+ + | Reason | Onset | Comments | | | Date | | +--------+--------+ + | Other | 12/01/ | | | | 2012 | | +--------+--------+ + Encounter Details +--------+ + + + + | Date | Type | Department | Care Team | Description | +--------+ + + + + | 12/01/ | Telephone | [facility] | Saúl Ferraro | Other | | 2012 | | PHYSIATRY [address] | [address] | | | | [address] [facility] [address] | [address] [place] | | | | | [place] | [address] | | | | | [address] | | | | | | [phone] | | | +--------+ + + + [...] this encounter Miscellaneous Notes Telephone Encounter - Verenice Wang - 12/02/2012 10:51 AM PDTPatient scheduledElectronical ly signed by Verenice Wang at 12/02/2012 10:51 AM PDTTelephone Encounter - Mary Suarez - 12/01/2012 2:05 PM PDTLeft message for patient to return call to schedule appointment for MAILROOM COORDINATOR-ChronicAlia/Omi/ImagingOnIsite/Electronically signed by Mary Suarez at 2:07 PM PDTdocumented in this encounter Plan of Treatment Not on filedocumented as of this encounter Visit Diagnoses Not on filedocumented in this encounter"
--- OUTSIDE RECORDS SUMMARY | ~2020-01-29 | XMS | Encounter Summary ---
Demographics + + + | Address | [address] | | | [place] [address] | + + + | Home Phone | | + + + | Preferred Language | Unknown | + + + | Marital Status | | + + + | Christianity Affiliation | Unknown | + + + | Race | White | + + + | Ethnic Group | Not or | + + + Author + + + | Author | [facility] | | | and [place] | + + + | Organization | [facility] | | | [...] [place] | | | | | [address] | | + + + + + Care Team Providers + +------+ + | Care Information Assurance Officer Name | Role | Phone | + +------+ + | Crow Braga DO | PCP | | + +------+ + Encounter Details +--------+ + + + + | Date | Type | Department | Care Team | Description | +--------+ + + + + | 12/17/ | Imaging | [facility] | Provider, | | | 2017 | Exam | MED CTR EXTERNAL | [address] | | | | | IMAGING [address] | [address] | | | | | [address] | [place] [address] | | | | | [place] [address] | | | | | | [phone] | | | +--------+ + + + [...] + +--------+ + + + | XR CERVICAL SPINE 4 | Routin | 12/16/2016 | | Results for this | | OR 5 VWS | e | 8:20 AM | | procedure are in the | | | | PDT | | results section. | + +--------+ + + + documented in this encounter Results XR Cervical Spine 4 or 5 Vws (12/16/2016 8:20 AM PDT) + + | Specimen | + + | | + + + + + | Narrative | Performed At | + + + | External films for comparison only - no result from [facility]. | [facility] | + + + + +---------+ + + | Performing | Address | City/State/Zipcode | Phone Number | | Organization | | | | + +---------+ + + | [facility] | | | | + +---------+ + + documented in this encounter Visit Diagnoses Not on filedocumented in this encounter"
--- OUTSIDE RECORDS SUMMARY | ~2020-01-29 | XMS | Encounter Summary ---
Demographics + + + | Address | [address] | | | [place] [address] | + + + | Home Phone | | + + + | Preferred Language | Unknown | + + + | Marital Status | | + + + | Hoahaoism Affiliation | Unknown | + + + | Race | White | + + + | Ethnic Group | Not or | + + + Author + + + | Author | [facility] | | | and [place] | + + + | Organization | [facility] | | | and [...] [place] | | | | | [address] | | + + + + + Care Team Providers + +------+ + | Care Joy Loader Name | Role | Phone | + +------+ + | Crow Braga DO | PCP | | + +------+ + Encounter Details +--------+ + + + + | Date | Type | Department | Care Team | Description | +--------+ + + + + | 12/17/ | Hospital | [facility] | Joel Burger, | Chronic back pain, | | 2016 | Encounter | MED CTR XRAY [address] | DO [address] | unspecified back | | | | [place] | [address] [place], [place] | pain laterality, | | | | [place] [address] | [id number] | unspecified location | | | | [phone] | | | +--------+ + + + [...] Comments | + + +---------+ + | Yes | 0 Standard drinks | 0.0 | [...] tablet by | | 0 | | 10/28/201 | | HYDROcodone-acetamin | mouth every 6 [...] + + + +---------+ + + | tapentadol | Take 50-100 mg by | | 0 | | | | (NUCYNTA) 50 mg TABS | mouth every 4 hours | | | | 6 | | | as needed. | | [...] + +--------+ + + + | XR LUMBAR SPINE 4 + | Routin | 12/18/2015 | Chronic back pain, | Results for this | | VW | e | 4:47 PM | unspecified back | procedure are in the | | | | PDT | pain laterality, | results section. | | | | | unspecified location | | + +--------+ + + + documented in this encounter Results XR Lumbar Spine 4 + Vw (12/18/2015 4:47 PM PDT) + + | Specimen | + + | | + + + + + | Narrative | Performed At | + + + | XR LUMBAR SPINE 4 + VW 12/18/2015 4:46 PM HISTORY: Back pain. | [facility] | | COMPARISON: Multiple priors. FINDINGS: There is slight left | [facility] | | curvature of the lumbar spine. Mild spondylosis is seen. No | [facility] | | instability is visualized with flexion and extension. Bone | - IM[facility] | | mineralization is mildly decreased. Vertebral body height are | | | preserved with no evidence for compression fractures. Disc height are | | | maintained. Multilevel facet sclerosis and hypertrophy are present. | | | Visualized ribs and pelvic osseous structures show no acute findings. | | | There is extensive atherosclerosis. Mild degenerative changes are | | | noted of the hips. IMPRESSION - Degenerative changes, no | | | instability. Dictated and Signed by: Dell Kim MD | | | Electronically signed: 12/18/2015 5:10 PM | | + + + + + | Procedure Note | + + | Gianni, Rad Results In - 12/18/2015 5:13 PM PDT XR LUMBAR SPINE 4 + VW 12/18/2015 4:46 | | PMHISTORY: Back pain.COMPARISON: Multiple priors.FINDINGS:There is slight left curvature | | of the lumbar spine. Mild spondylosis is seen. Noinstability is visualized with flexion | | and extension. Bone mineralization ismildly decreased. Vertebral body height are | | preserved with no evidence forcompression fractures. Disc height are maintained. | | Multilevel facet sclerosisand hypertrophy are present. Visualized ribs and pelvic | | osseous structures showno acute findings. There is extensive atherosclerosis. Mild | | degenerative changesare noted of the hips.IMPRESSION -Degenerative changes, no | | instability.Dictated and Signed by: Dell Kim MD Electronically signed: 12/18/2015 | | 5:10 PM | |compression fractures. Disc height are maintained. Multilevel facet sclerosis | |and hypertrophy are present. Visualized ribs and pelvic osseous structures show | |no acute findings. There is extensive atherosclerosis. Mild degenerative changes | |are noted of the hips. | | | |IMPRESSION - | |Degenerative changes, no instability. | | | |Dictated and Signed by: Dell Kim MD | | Electronically signed: 12/18/2015 5:10 PM | + + + + + + + | Performing | Address | City/State/Zipcode | Phone Number | | Organization | | | | + + + + + | [facility] | [address] | [place] | [phone] | | [facility] | | [phone] | | | - IMAGING | | | | + + + + + documented in this encounter Visit Diagnoses + + | Diagnosis | + + | Chronic back pain, unspecified back pain laterality, unspecified location | + + documented in this encounter
--- OUTSIDE RECORDS SUMMARY | ~2020-01-29 | XMS | Encounter Summary ---
Demographics + + + | Address | [address] | | | [place] [address] | + + + | Home Phone | | + + + | Preferred Language | Unknown | + + + | Marital Status | | + + + | Yazidi Affiliation | Unknown | + + + | Race | White | + + + | Ethnic Group | Not or | + + + Author + + + | Author | [facility] | | | and [place] | + + + | Organization | [facility] | | | [...] [place] | | | | | [address] | | + + + + + Care Team Providers + +------+ + | Care Business Intelligence Architect Name | Role | Phone | + +------+ + | Crow Braga DO | PCP | | + +------+ + Reason for Referral Diagnostic/Screening (Routine) +--------+--------+ + + + + | Status | Reason | Specialty | Diagnoses / | Referred By | Referred To | | | | | Procedures | Contact | Contact | +--------+--------+ + + + + | Closed | | Radiology | Diagnoses | Omi, | [facility] | | | | | Dizziness | Crow E, | [address] | | | | | and | DO [address] | [place], | | | | | g[place] | [place] | [place] | | | | | Procedures | [place], [place] | [address] | | | | | MRI Brain w | [address] | Phone: | | | | | wo Contrast | Phone: | [phone] | | | | | | [phone] | Fax: | | | | | | Fax: | [phone] | | | | | | [phone] | | +--------+--------+ + + + + Reason for Visit Diagnostic/Screening (Routine) +--------+--------+ + + + + | Status | Reason | Specialty | Diagnoses / | Referred By | Referred To | | | | | Procedures | Contact | Contact | +--------+--------+ + + + + | Closed | | Radiology | Diagnoses | Omi, | [facility] | | | | | Dizziness | Crow Floyd, | [address] | | | | | and | DO [address] | [place], | | | | | giddiness | [address] | [place] | | | | | Procedures | [place], [place] | [address] | | | | | MRI Brain w | [address] | Phone: | | | | | wo Contrast | Phone: | [phone] | | | | | | [phone] | Fax: | | | | | | Fax: | [phone] | | | | | | [phone] | | +--------+--------+ + + + + Encounter Details +--------+ + + + + | Date | Type | Department | Care Team | Description | +--------+ + + + + | 01/15/ | Hospital | [facility] | Crow Braga | Dizziness and | | 2016 | Encounter | MED CTR MRI [address] | E, DO [address] | [place] | | | | [place], | [place] | | | | | [place] [address] | [address] | | | | | [phone] | [phone] | | | | | | | | +--------+ + + + [...] + + + +---------+ + + | meclizine | Take 25 mg by mouth | | 0 | | | | (ANTIVERT) 25 mg | Daily. | | | | [...] + +--------+ + + + | MRI BRAIN W WO | Routin | 01/16/2016 | Dizziness and | Results for this | | CONTRAST | e | 11:28 AM | giddiness | procedure are in the | | | | PDT | | results section. | + +--------+ + + + documented in this encounter Results MRI Brain w wo Contrast (01/16/2016 11:28 AM PDT) + + | Specimen | + + | | + + + + + | Narrative | Performed At | + + + | UNENHANCED AND ENHANCED BRAIN MRI 01/16/2016 10:45 AM CLINICAL | [facility] | | HISTORY: Dizziness and giddiness COMPARISON: Cervical MRI | | | May 2015 TECHNIQUE: The following 1.5T MR sequences of the | | | brain were obtained: 1. Axial and sagittal T1. 2. Axial T2, | | | FLAIR, GRE, DWI and ADC. 3. Following the uneventful intravenous | | | administration of ?10 mL Gadavist, axial and coronal T1 sequences | | | were obtained. FINDINGS: Several tiny rounded T2/FLAIR | | | hyperintense foci are scattered about the subcortical and deep | | | cerebral white matter. Few small, rounded foci isointense to | | | cerebrospinal fluid in the left basal ganglia may reflect dilated | | | perivascular spaces. The cerebral parenchyma, ventricles, brainstem | | | and cerebellum are otherwise unremarkable. There is no mass effect, | | | abnormal enhancement or diffusion restriction, evidence of | | | intracranial hemorrhage or extra-axial fluid collection/mass. There | | | is minimal mucous membrane thickening within the inferior right | | | maxillary sinus. Changes of ethmoidectomy are noted. The sellar | | | region, mastoid air cells, basilar cisterns and osseous structures | | | are otherwise unremarkable. Major intracranial vessels and dural | | | sinuses appear patent and grossly unremarkable. IMPRESSION - 1. | | | NON-SPECIFIC SMALL, NON-ENHANCING T2/FLAIR HYPERINTENSE FOCI WITHIN | | | THE CEREBRAL WHITE MATTER. DIFFERENTIAL CONSIDERATIONS ARE BROAD | | | AND INCLUDE CHRONIC, MICROVASCULAR ISCHEMIC GLIOSIS IN ADDITION TO | | | MIGRAINE, POST INFECTIOUS/POST INFLAMMATORY PHENOMENA, DEMYELINATING | | | DISEASE AND VASCULITIS. 2. MINIMAL RIGHT MAXILLARY SINUS | | | DISEASE. Dictated and Signed by: Colten Lambert MD | | | Electronically signed: 01/16/2016 11:43 AM | | + + + + + | Procedure Note | + + | Gianni, Rad Results In - 01/16/2016 11:46 AM PDT UNENHANCED AND ENHANCED BRAIN MRI | | 01/16/2016 10:45 AMCLINICAL HISTORY: Dizziness and giddiness COMPARISON: Cervical MRI | | May 2015TECHNIQUE: The following 1.5T MR sequences of the brain were obtained:1. | | Axial and sagittal T1.2. Axial T2, FLAIR, GRE, DWI and ADC.3. Following the uneventful | | intravenous administration of ?10 mL Gadavist,axial and coronal T1 sequences were | | obtained.FINDINGS: Several tiny rounded T2/FLAIR hyperintense foci are scattered | | aboutthe subcortical and deep cerebral white matter. Few small, rounded fociisointense | | to cerebrospinal fluid in the left basal ganglia may reflect dilatedperivascular spaces. | | The cerebral parenchyma, ventricles, brainstem andcerebellum are otherwise | | unremarkable. There is no mass effect, abnormalenhancement or diffusion restriction, | | evidence of intracranial hemorrhage orextra-axial fluid collection/mass. There is | | minimal mucous membrane thickeningwithin the inferior right maxillary sinus. Changes of | | ethmoidectomy are noted. The sellar region, mastoid air cells, basilar cisterns and | | osseous structuresare otherwise unremarkable. Major intracranial vessels and dural | | sinuses appearpatent and grossly unremarkable.IMPRESSION -1. NON-SPECIFIC SMALL, | | NON-ENHANCING T2/FLAIR HYPERINTENSE FOCI WITHIN THECEREBRAL WHITE MATTER. DIFFERENTIAL | | CONSIDERATIONS ARE BROAD AND INCLUDECHRONIC, MICROVASCULAR ISCHEMIC GLIOSIS IN ADDITION | | TO MIGRAINE, POSTINFECTIOUS/POST INFLAMMATORY PHENOMENA, DEMYELINATING DISEASE AND | | VASCULITIS.2. MINIMAL RIGHT MAXILLARY SINUS DISEASE.Dictated and Signed by: Colten | | MD Fausto Electronically signed: 01/16/2016 11:43 AM | |The sellar region, mastoid air cells, basilar cisterns and osseous structures | |are otherwise unremarkable. Major intracranial vessels and dural sinuses appear | |patent and grossly unremarkable. | | | |IMPRESSION - | |1. NON-SPECIFIC SMALL, NON-ENHANCING T2/FLAIR HYPERINTENSE FOCI WITHIN THE | |CEREBRAL WHITE MATTER. DIFFERENTIAL CONSIDERATIONS ARE BROAD AND INCLUDE | |CHRONIC, MICROVASCULAR ISCHEMIC GLIOSIS IN ADDITION TO MIGRAINE, POST | |INFECTIOUS/POST INFLAMMATORY PHENOMENA, DEMYELINATING DISEASE AND VASCULITIS. | | | |2. MINIMAL RIGHT MAXILLARY SINUS DISEASE. | | | |Dictated and Signed by: Colten Lambert MD | | Electronically signed: 01/16/2016 11:43 AM | + + + +---------+ + + | Performing | Address | City/State/Zipcode | Phone Number | | Organization | | | | + +---------+ + + | [facility] | | | | + +---------+ + + documented in this encounter Visit Diagnoses + + | Diagnosis | + + | Dizziness and giddiness | + + documented in this encounter Administered Medications + +--------+ +--------+------+------+ | Medication Order | MAR | Action | Dose | Rate | Site | | | Action | Date | | | | + +--------+ +--------+------+------+ | gadobutrol (GADAVIST) injection | Given | 01/16/20 | 10 mLs | | | | 10 mL 10 mL, Intravenous, ONCE | | 16 11:30 | | | | | PRN, Other, Starting Michelle 01/16/16 | | AM PDT | | | | | at 1129, For 1 dose, MRI | | | | | | + +--------+ +--------+------+------+ +---+---+ | | | +---+---+ documented in this encounter
--- OUTSIDE RECORDS SUMMARY | ~2020-01-29 | XMS | Encounter Summary ---
Demographics + + + | Address | [address] | | | [place] [address] | + + + | Home Phone | | + + + | Preferred Language | Unknown | + + + | Marital Status | | + + + | Congregational Affiliation | Unknown | + + + | Race | White | + + + | Ethnic Group | Not or | + + + Author + + + | Author | [facility] | | | and [place] | + + + | Organization | [facility] | | | and [place] | + + + | Address | Unknown | + + + | Phone | Unavailable | + + + Support + + + + + | Name | Relationship | Address | Phone | + + + + + | Keisha Parkinsonred | ECON | Unknown | | + + + + + | Amina Contreras | ECON | [address] | | | | | [place] | | | | | [address] | | + + + + + Care Team Providers + +------+ + | Care Mercury Washer Name | Role | Phone | + +------+ + | Crow Braga DO | PCP | | + +------+ + Reason for Visit + + + | Reason | Comments | + + + | Back Pain | New Patient | + + + Evaluate & Treat (Routine) +--------+--------+ + + + + | Status | Reason | Specialty | Diagnoses / | Referred By | Referred To | | | | | Procedures | Contact | Contact | +--------+--------+ + + + + | Closed | | Neurosurgery | Diagnoses | | Jennyfer, | | | | | Low back | [place], | Joel Honeycutt, DO | | | | | pain Left | Krysta Burch, | [address] | | | | | leg pain | PA-C [address] | | | | | Procedures | MIRA Bishop | [place] | | | | | [place] OFFICE | Ave | [address] Phone: | | | | | CONSULTATION | Kate, | [phone] | | | | | NEW/ESTAB | [place] | Fax: | | | | | PATIENT 61 | [address] | [phone] | | | | | MIN | Phone: | | | | | | | [phone] | | | | | | | Fax: | | | | | | | [phone] | | +--------+--------+ + + + + Encounter Details +--------+---------+ + + + | Date | Type | Department | Care Team | Description | +--------+---------+ + + + | 12/22/ | Office | [facility] | Brody Steiner, | Cervical spinal | | 2015 | Visit | NEUROSURGERY [address] | PA-C [address] | stenosis (Primary | | | | [address] | [address] [place] | Dx); Foram[place] | | | | [place], [place] | [place] [address] | stenosis of cervical | | | | [address] | [phone] | region; | | | | [phone] | | Osteoarthritis of | | | | | | spine with | | | | | | radiculopathy, | | | | | | cervical region; | | | | | | Acquired | | | | | | spondylolisthesis; | | | | | | Cervical | | | | | | radiculopathy | +--------+---------+ + + + Social History [...] + + + | Blood Pressure | 141/65 | 12/23/2015 10:56 AM | | | | | PDT | | + + + + + | Pulse | 66 | 12/23/2015 10:56 AM | | | | | PDT | | + + + + + | Temperature | - | - | | + + + + + | Respiratory Rate | 18 | 12/23/2015 10:56 AM | | | | | PDT | | + + + + + | Oxygen Saturation | - | - | | + + + + + | Inhaled Oxygen | - | - | | | Concentration | | | | + + + + + | Weight | 102.4 kg (225 lb | 12/23/2015 10:56 AM | | | | 12.8 oz) | PDT | | + + + + + | Height | 162.6 cm (5' 4") | 12/23/2015 10:56 AM | | | | | PDT | | + + + + + | Body Mass Index | 38.76 | 12/23/2015 10:56 AM | | | | | PDT | | + + + + + documented in this encounter Patient Instructions Patient Instructions Brody Steiner PA - 12/23/2015 11:55 AM PDTPlease continue to mode rate your activities as tolerated. I will schedule you a follow-up with Dr. Burger to [facility] surgery. I suspect he will offer a C4-C5 fusion. documented in this encounter Progress Notes Lary Monroy RN - 12/23/2015 11:12 AM PDTFormatting of this note might be d ifferent from the original. SERGIO Toth [address] [place] [address], [address] [place] [address] FAX: NEUROSURGERY HISTORY AND PHYSICAL EXAMINATION CHIEF COMPLAINT: Chief Complaint Patient presents with Back Pain New Patient HISTORY OF PRESENT ILLNESS: The patient is a 60 y.o. female with the complaint of neck chris n, left arm pain, right arm pain, hand numbness, headaches, arm weakness, coordination probl ems and clumsiness symptoms that began Several years ago. The patient describes constant ach ing neck pain with regular sharp shooting pain going into her right shoulder and right shoul jamal blade. The symptoms have been gradually worsening. She rates the pain as severe. The symptoms ar e continuous. She describes the pain as sharp, numbing, tingling, aching and throbbing. The patient describes arm symptoms that occur on both sides but worse on the right. The ar m symptoms account for 50% of her symptoms. The arm symptoms are intermittent, and the symp toms travel from the The neck and into her right shoulder. She also has been noticing tingl ing and numbness in her fourth and fifth digits of her right hand.. Patient has had cubital tunnel surgery on her right elbow. The patient also describes the loss of fine motor skill s, declining handwriting, the loss of strength in the arm, the loss of hand strength in and weakness of the hand. The patient does not report any change in bowel or bladder function recently. Her symptoms improve with rest and changing position. Her symptoms worsen with changing position, twisting and moderate exertion. She has tried physical therapy which did not give her significant long lasting relief. Nati conner had an injection performed back in July which gave her 3-4 weeks of relief. She is currently taking gabapentin and hydrocodone. Although this helps it certainly does not hel p her pain significantly. PAST MEDICAL HISTORY: Past Medical History Diagnosis Date Hypertension Fibromyalgia Hyperlipidemia Stroke (HCC) Irregular heartbeat Depression Anxiety Anemia Ulcer (HCC) Thyroid disease Trochanteric bursitis 01/05/2013 Bipolar disorder (HCC) 01/05/2013 Post traumatic stress disorder (PTSD) 01/05/2013 Fibromyalgia Myofascial pain 04/25/2015 Shoulder pain, right 04/25/2015 Neck pain 05/01/2015 DDD (degenerative disc disease), cervical - C4/C5 05/15/2015 Foraminal stenosis of cervical region- bilateral C4/C5 05/15/2015 Cervical radiculopathy 07/23/2015 Osteoarthritis PAST SURGICAL HISTORY: Past Surgical History Procedure Laterality Date Hysterectomy Gallbladder surgery Ear surgery - ear lobe repair x 2 Meniscus repair Right knee Cyst removal Left knee Joint replacement Right 05/21 knee Lung surgery Shoulder surgery Right CURRENT MEDICATIONS: Current Outpatient Prescriptions Medication Sig Dispense Refill atorvaSTATin (LIPITOR) 40 mg tablet Take 40 mg by mouth nightly. clopidogrel (PLAVIX) 75 mg tablet Take 75 mg by mouth Daily. cyclobenzaprine (FLEXERIL) 10 mg tablet Take 5 mg by mouth 3 times daily as needed. gabapentin (NEURONTIN) 300 mg capsule Take 300 mg by mouth 2 times daily. (Patient katelynn patel differently: Take 300 mg by mouth 3 times daily. Taking 1 am, 1 noon, and 2 at bedtime) HYDROcodone-acetaminophen (NORCO) 10-325 mg per tablet Take 1 tablet by mouth every 6 h ours as needed for Pain. HYDROmorphone (DILAUDID) 2 mg tablet Take 1 tablet by mouth every 6 hours as needed for Pain. (Patient taking differently: Take 4 mg by mouth every 6 hours as needed for Pain.) 30 tablet 0 lamoTRIgine (LAMICTAL) 25 MG tablet Take 150 mg by mouth Daily. levothyroxine (SYNTHROID, LEVOTHROID) 75 MCG tablet Take 75 mcg by mouth every morning (before breakfast). lisinopril (PRINIVIL, ZESTRIL) 20 mg tablet Take 20 mg by mouth Daily. (Patient taking differently: Take 10 mg by mouth Daily.) LORazepam (ATIVAN) 0.5 mg tablet Take 0.5 mg by mouth every 6 hours as needed. medical marijuana (CANNABIS) inhalation Inhale into the lungs as needed. metoprolol succinate (TOPROL-XL) 25 mg 24 hr tablet Take 25 mg by mouth Daily. prazosin (MINIPRESS) 5 mg capsule Take 5 mg by mouth nightly. tapentadol (NUCYNTA) 50 mg TABS Take 50-100 mg by mouth every 4 hours as needed. No current facility-administered medications for this visit. ALLERGIES: Allergies Allergen Reactions Adhesive & Tape Aspirin Bupropion Bupropion Hcl Duloxetine Food Hives and Swelling Dissolving stitches Oxycodone-Aspirin SOCIAL HISTORY: The patient reports that she quit smoking about 1 years ago. Her smoking use included Ciga rettes. She has a 21 pack-year smoking history. She has quit using smokeless tobacco. She re ports that she does not drink alcohol or use illicit drugs. FAMILY HISTORY: Family History Problem Relation Age of Onset Other (see comment) Father Brain tumor Alcohol abuse Father Alcohol abuse Mother Heart attack Brother Mental illness Brother Alcohol abuse Brother High cholesterol Sister Alcohol abuse Sister Hypertension Sister Mental illness Sister Arthritis Sister Hypertension Child Alcohol abuse Paternal Grandfather Heart disease Paternal Grandfather Tobacco Use Paternal Grandfather Alcohol abuse Paternal Grandmother Tobacco Use Paternal Grandmother Heart disease Paternal Grandmother Heart disease Maternal Grandfather Mental illness Maternal Grandmother Stroke Maternal Grandmother Arthritis Maternal Grandmother Mental illness Paternal Uncle Arthritis Paternal Uncle Mental illness Paternal Aunt Arthritis Paternal Aunt Mental illness Maternal Uncle Arthritis Maternal Uncle Arthritis Maternal Aunt Mental illness Maternal Aunt REVIEW OF SYSTEMS GENERALLY: No fever, no night sweats, + anemia, + fatigue, + recent profound weight haile es. EYES: No eye problems, + use of corrective lenses, + eye injury, no double vision, no blin dness. EARS, NOSE, AND THROAT: + changes in taste or smell, + hearing difficulty, + ringing in th e ears, no ear drainage, + dizziness, no voice changes, no difficulty swallowing, + signific ant snoring, + sleep apnea, + sinus problems, + major dental work. NEUROLOGICALLY: Please see the review of systems discussed above in the history of present illness. In addition, the patient has numbness/pain of arms, numbness/pain of legs, awake with numbness/pain, weakness, muscle aching, coordination difficulty, head injury, back inju ry, pain in neck and back, hx of stroke, loss of consciousness, tremor/shaking, headaches, m igraine, memory loss, speech difficulty. PSYCHIATRIC: + depression, + sleep disorders, + anxiety, + bipolar disorder, no psychotic episodes. CARDIOVASCULAR: No heart attacks, no heart murmur, no heart fluttering, + chest pain, + an kle swelling. LUNG DISEASE: No shortness of breath, no cough, no tuberculosis, no bloody cough, no asth ma, no emphysema/COPD. GASTROINTESTINAL: No bowel disease, no nausea or vomiting, no rectal bleeding, no constipa tion, no stool incontinence, no liver disease, no gallbladder disease, no abdominal pain, no ulcers. KIDNEY DISEASE: + urinary frequency, no painful or difficult urination, no incontinence. ENDOCRINE: No diabetes, + thyroid disease, no osteopenia or osteoporosis, no breast draina ge. SKIN: No breast lumps, no skin changes, no rashes, no itches. HEMATOLOGIC/LYMPHATIC: No enlarged lymph nodes, no easy or unusual bleeding, no personal h istory of cancer. RHEUMATOLOGIC: + joint arthritis, no rheumatoid arthritis. PHYSICAL EXAMINATION: Blood pressure 141/65, pulse 66, resp. rate 18, height 1.626 m (5' 4"), weight 102.422 kg ( 225 lb 12.8 oz). Body mass index is 38.74 kg/(m^2). GENERAL: Ann Santiago is in no acute distress with unlabored respirations. The patien t does appear uncomfortable throughout the exam today. HEENT: Head: Normocephalic/atraumatic with no areas of recent trauma. Eyes: Normal sclerae without icterus. Ears: No drainage or tenderness. Nasopharnyx: Clear without drainage. Oropharnyx: Clear without erythema. NECK (ANTERIOR): Supple and without palpable masses. CHEST: Clear to ausculation without crackles or wheeze. HEART: Regular rate and rhythm without murmurs. ABDOMEN: Soft, non-tender, non-distended, and without palpable masses. The patient is obese . SPINE: There is tenderness in the midline of the cervical spine at the C-4, C-5 and C-6. Range of motion of the neck is limited. Rotation and/or extension does not cause symptoms to radiate into either arm. Flexion and extension of the neck does cause moderate discomfor t. There is tenderness of the midline of the lumbar spine There is no major deformity noted. EXTREMITIES: No cyanosis, clubbing, or edema. Distal pulses are palpable. NEUROLOGICAL EXAM: MENTAL STATUS: The patient is awake, alert, and oriented. She follows simple and complex commands. Her speech is fluent, she comprehends speech well, and she repeats well. She has no apparent deficits with short or long wall shear operator memory. CRANIAL NERVES: II: Acuity is intact. Jacobo are full to confrontation. III, IV, : The pupils are reactive. Extraocular movements are intact. No ptosis is note d. V: Facial sensation is intact and symmetric. VII: Facial movements are symmetric. VIII: Hearing is intact bilaterally. IX, X: The uvula and palate move appropriately. XI: Shrug is equal bilaterally. XII: Tongue protrusion is midline. MOTOR EXAM: (5 IS NORMAL) * Indicates pain limited MUSCLE/ MOVEMENT: RIGHT LEFT Deltoids 4* 5 Biceps 4* 5 Triceps 4* 5 Wrist Flexion 5 unable to evaluate Wrist Extension 5 unable to evaluate Median Intrinsics 5 5 Ulnar Intrinsics 5 5 Lay Out Carpenter Strength 4 4 Hip Flexion 5 5 Hip Extension 4 4 Knee Flexion 4 4 Knee Extension 5 4 Dorsiflexion 5 5 Extensor Hallicus Longus 5 5 Plantarflexion 5 5 SENSORY EXAM: Sensory exam shows diminished sensation to light touch or pain throughout C8 dermatomes of her right hand and L5 dermatomes of her left leg. Patient also has hypersensitivity over th e right trapezius and deltoid region. REFLEXES: (2 OR 2+ IS NORMAL) REFLEX: RIGHT LEFT BICEPS 2+ 2+ BRACHIORADIALIS 2+ 2+ TRICEPS 2+ 2+ PATELLAR 2+ 2+ ACHILLES 1+ 1+ VALERO'S ABSENT ABSENT PLANTAR DOWNGOING DOWNGOING GAIT: Gait is steady. PERIPHERAL NERVE/MISC: Tinel is negative at the wrists and elbows bilaterally. Phalen is negative. Straight leg raise is negative bilaterally. Ga's test of the hips is negative bilaterally. TEST AND RADIOGRAPHIC REVIEW: The patient's imaging was reviewed in detail with the patient today during the visit. The MRI from 2014 shows cervical lumbar spondylosis. Worst level is at C4-C5 or there is mild s pondylolisthesis. In addition there is a moderate bulged disc causing moderate spinal canal stenosis. There is also fairly significant bilateral foraminal stenosis at this level. Th ere other levels showing foraminal stenosis but none as significant as the C4-C5 level. Cervical x-rays show subluxation at C4-C5 on flexion extension views. There is also loss o f disc height at this level. Review of her MRI shows generalized lumbar spondylosis with arcz-ny-pwyuwxmu bulging disks at L4-L5 and L5-S1. I do not appreciate any significant spinal canal stenosis. The david ing nerves do not appear to be significantly affected. There is moderate foraminal stenosis on the right at L4-L5 and L5-S1. Her more symptomatic left side does not show significant foraminal stenosis affecting the L5 nerve. ASSESSMENT: NEUROSURGICAL DIAGNOSES: Encounter Diagnoses Name Primary? Cervical spinal stenosis Yes Foraminal stenosis of cervical region Osteoarthritis of spine with radiculopathy, cervical region Acquired spondylolisthesis Cervical radiculopathy GENERAL DIAGNOSES: Past Medical History Diagnosis Date Hypertension Fibromyalgia Hyperlipidemia Stroke (HCC) Irregular heartbeat Depression Anxiety Anemia Ulcer (HCC) Thyroid disease Trochanteric bursitis 01/05/2013 Bipolar disorder (HCC) 01/05/2013 Post traumatic stress disorder (PTSD) 01/05/2013 Fibromyalgia Myofascial pain 04/25/2015 Shoulder pain, right 04/25/2015 Neck pain 05/01/2015 DDD (degenerative disc disease), cervical - C4/C5 05/15/2015 Foraminal stenosis of cervical region- bilateral C4/C5 05/15/2015 Cervical radiculopathy 07/23/2015 Osteoarthritis PLAN: Ann Santiago presented today, and it was a pleasure seeing this patient and assessing her neurologic problems. The patient has cervical pathology worst at C4-C5 with foraminal stenosis and spinal canal stenosis. The patient has progressive symptoms despite non-operative measures. I had a lengthy discussion with the patient about her options for care including surgical a nd non-surgical options. In discussing the surgical options, we discussed in detail the patient's options for an ant erior cervical disectomy and fusion at C4-C5. The patient understands that in most instance s the recovery from surgery can be lengthy and sometimes difficult. Patient will meet with Dr. Burger to discuss surgery. It is certainly possible that he may alter the current recom mendation of C4-C5 fusion as he sees fit. Patient will continue to moderate her activities as tolerated in the meantime. Patient is aware that long-term she may also need low back surgery. The patient would like to be considered for surgery as discussed and would like us to seek authorization and clearance for the operation. ELECTRONICALLY SIGNED BY: SERGIO Toth, 12/23/2015 11:59 documented in this encounter Plan of Treatment Not on filedocumented as of this encounter Visit Diagnoses + + | Diagnosis | + + | Cervical spinal stenosis - Primary Spinal stenosis in cervical region | + + | Foraminal stenosis of cervical region Spinal stenosis in cervical region | + + | Osteoarthritis of spine with radiculopathy, cervical region | + + | Acquired spondylolisthesis | + + | Cervical radiculopathy Brachial neuritis or radiculitis nos | + + documented in this encounter
--- OUTSIDE RECORDS SUMMARY | ~2020-01-29 | XMS | Encounter Summary ---
Demographics + + + | Address | [address] | | | [place] [address] | + + + | Home Phone | | + + + | Preferred Language | Unknown | + + + | Marital Status | | + + + | Temple Affiliation | Unknown | + + + | Race | White | + + + | Ethnic Group | Not or | + + + Author + + + | Author | [facility] | | | and [place] | + + + | Organization | [facility] | | [...] [place] | | | | | [address] | | + + + + + Care Team Providers + +------+ + | Care Underground Mining Section Foreman Name | Role | Phone | + +------+ + | Crow Braga DO | PCP | | + +------+ + Encounter Details +--------+ + + + + | Date | Type | Department | Care Team | Description | +--------+ + + + + | // | Orders Only | [facility] [place] | Mika Holland | Radiculopathy, | | 2015 | | [facility] [address] | cervical (Primary | | | | [address] | [address] [place] | Dx); Cervicalgia | | | | [place], [place] | [place] [address] | | | | | [address] | [phone] | | | | | [phone] | | | +--------+ + + + [...] on filedocumented as of this encounter Results XR Cervical Spine 4 or 5 Vws (12/18/2015 4:49 PM PDT) + + | Specimen | + + | | + + + + + | Narrative | Performed At | + + + | XR CERVICAL SPINE 4 OR 5 VWS 12/18/2015 4:49 PM HISTORY: | [facility] | | Cervicalgia. COMPARISON: Multiple priors. FINDINGS: | [facility] | | Visualized skull base and facial structures demonstrate no acute | [facility] | | findings. Prevertebral soft tissues are normal. There is mild to | - IMAGING | | moderate spondylosis. Minimal retrolisthesis is observed of C4 over | | | C5. Minimal anterolistheses are observed of C5 over C6 and C6 over C7. | | | No instability is present during flexion and extension. Bone | | | mineralization is normal. The dens is normal. Vertebral body height | | | are preserved with no evidence for compression fractures. Mild disc | | | narrowing is at C4-5. Facet joints are intact. Mild atherosclerosis | | | are noted of the bilateral neck. Visualized upper chest demonstrates | | | no acute findings. IMPRESSION - Degenerative changes, no | | | instability. Dictated and Signed by: Dell Kim MD | | | Electronically signed: 12/18/2015 5:12 PM | | + + + + + | Procedure Note | + + | Gianni, Rad Results In - 12/18/2015 5:15 PM PDT XR CERVICAL SPINE 4 OR 5 VWS 12/18/2015 | | 4:49 PMHISTORY: Cervicalgia.COMPARISON: Multiple priors.FINDINGS:Visualized skull base | | and facial structures demonstrate no acute findings.Prevertebral soft tissues are | | normal.There is mild to moderate spondylosis. Minimal retrolisthesis is observed of | | C4over C5. Minimal anterolistheses are observed of C5 over C6 and C6 over C7. | | Noinstability is present during flexion and extension. Bone mineralization isnormal. The | | dens is normal. Vertebral body height are preserved with no evidencefor compression | | fractures. Mild disc narrowing is at C4-5. Facet joints areintact. Mild atherosclerosis | | are noted of the bilateral neck. Visualized upperchest demonstrates no acute findings. | | IMPRESSION -Degenerative changes, no instability.Dictated and Signed by: Dell Kim MD | | Electronically signed: 12/18/2015 5:12 PM | |over C5. Minimal anterolistheses are observed of C5 over C6 and C6 over C7. No | |instability is present during flexion and extension. Bone mineralization is | |normal. The dens is normal. Vertebral body height are preserved with no evidence | |for compression fractures. Mild disc narrowing is at C4-5. Facet joints are | |intact. Mild atherosclerosis are noted of the bilateral neck. Visualized upper | |chest demonstrates no acute findings. | | | |IMPRESSION - | |Degenerative changes, no instability. | | | |Dictated and Signed by: Dell Kim MD | | Electronically signed: 12/18/2015 5:12 PM | + + + + + + + | Performing | Address | City/State/Zipcode | Phone Number | | Organization | | | | + + + + + | [facility] | [address] | [place] | [phone] | | [facility] | | [address] | | | - IMAGING | | | | + + + + + documented in this encounter Visit Diagnoses + + | Diagnosis | + + | Radiculopathy, cervical - Primary Brachial neuritis or radiculitis nos | + + | Cervicalgia | + + documented in this encounter"
--- OUTSIDE RECORDS SUMMARY | ~2020-01-29 | XMS | Encounter Summary ---
Demographics + + + | Address | [address] | | | [place] [address] | + + + | Home Phone | | + + + | Preferred Language | Unknown | + + + | Marital Status | | + + + | Mosque Affiliation | Unknown | + + + | Race | White | + + + | Ethnic Group | Not or | + + + Author + + + | Author | [facility] | | | and [place] | + + + | Organization | [facility] | | [...] [place] | | | | | [address] | | + + + + + Care Team Providers + +------+ + | Care Mine Expert Name | Role | Phone | + +------+ + | Crow Braga DO | PCP | | + +------+ + Encounter Details +--------+ + + + + | Date | Type | Department | Care Team | Description | +--------+ + + + + | 01/27/ | Hospital | [facility] | Conversion | Pain | | 2016 | Encounter | CONVERSION [address] | Transaction, | | | | | [address] | Provider Unknown | | | | | [place] | [phone] | | | | | [address] | | | | | | [phone] | | | +--------+ + + + [...] + +--------+ + + + | MRI CERVICAL SPINE | Routin | 05/13/2015 | | Results for this | | WO CONTRAST | e | 5:30 AM | | procedure are in the | | | | PST | | results section. | + +--------+ + + + documented in this encounter Results MRI Cervical Spine wo Contrast (05/13/2015 5:30 AM PST) + + | Specimen | + + | | + + + + + | Narrative | Performed At | + + + | This is a non-reportable procedure without a radiologist report and | | | is used for image storage only | | + + + + + | Procedure Note | + + | Avi Archer - 01/19/2019 8:49 PM PDT This is a non-reportable procedure | | without a radiologist report and isused for image storage only | + + documented in this encounter Visit Diagnoses + + | Diagnosis | + + | Pain Generalized pain | + + documented in this encounter
--- OUTSIDE RECORDS SUMMARY | ~2020-01-29 | XMS | Encounter Summary ---
Demographics + + + | Address | [address] | | | [place] [address] | + + + | Home Phone | | + + + | Preferred Language | Unknown | + + + | Marital Status | | + + + | Presybeterian Affiliation | Unknown | + + + | Race | White | + + + | Ethnic Group | Not or | + + + Author + + + | Author | [facility] | | | and [place] | + + + | Organization | [facility] | | | [...] [place] | | | | | [address] | | + + + + + Care Team Providers + +------+ + | Care Preschool Assistant Name | Role | Phone | + +------+ + | Crow Braga DO | PCP | | + +------+ + Encounter Details +--------+ + + + + | Date | Type | Department | Care Team | Description | +--------+ + + + + | 09/20/ | Orders Only | [facility] | Maged Montgomery MD | Chronic pain | | 2018 | | HOSPITAL NE[facility]OLOGY | [address] | syndrome (Primary | | | | CLINIC [address] | [place], [place] | Dx) | | | | [address] [place], | [address] | | | | | [place] [address] | | | | | | [phone] | | | +--------+ + + + [...] | Diagnosis | + + | Chronic pain syndrome - Primary | + + documented in this encounter"
--- OUTSIDE RECORDS SUMMARY | ~2020-01-29 | XMS | Encounter Summary ---
Demographics + + + | Address | [address] | | | [place] [address] | + + + | Home Phone | | + + + | Preferred Language | Unknown | + + + | Marital Status | | + + + | Restorationist Affiliation | Unknown | + + + | Race | White | + + + | Ethnic Group | Not or | + + + Author + + + | Author | [facility] | | | and [place] | + + + | Organization | [facility] | | | [...] [place] | | | | | [address] | | + + + + + Care Team Providers + +------+ + | Care Occupational Analyst Name | Role | Phone | + +------+ + | Crow Braga DO | PCP | | + +------+ + Encounter Details +--------+ + + + + | Date | Type | Department | Care Team | Description | +--------+ + + + + | 05/27/ | Hospital | [facility] | Joel Burger, | Status post cervical | | 2016 | Encounter | MED CTR XRAY [address] | DO [address] | spinal fusion; | | | | [place] | [address] [place], [place] | Cervical spondylosis | | | | [place] [address] | [phone] | with radiculopathy | | | | [phone] | | | +--------+ + + + [...] + + + | XR CERVICAL SPINE 2 | Routin | 05/27/2016 | Status post | Results for this | | OR 3 VIEWS | e | 8:08 AM | cervical spinal | procedure are in the | | | | PST | fusion Cervical | results section. | | | | | spondylosis with | | | | | | radiculopathy | | + +--------+ + + + documented in this encounter Results XR Cervical Spine 2 or 3 Views (05/27/2016 8:08 AM PST) + + | Specimen | + + | | + + + + + | Narrative | Performed At | + + + | CERVICAL SPINE: 05/27/2016 8:08 AM CLINICAL HISTORY: s/p | [facility] | | cervical fusion COMPARISON: 04/03/2016 FINDINGS: Upright AP | [facility] | | and lateral views of the cervical spine. Anterior compression | [facility] | | plate and screws and interbody bone graft in stable position | - IMAGING | | extending from C4-C5. Alignment is normally maintained. Hardware | | | position is unchanged. Vertebral body heights are normal. No acute | | | bony abnormality. Adjacent soft tissues are radiographically normal. | | | IMPRESSION - Stable C4-C5 ACDF. Dictated and Signed by: Randell | | | MD Mack Electronically signed: 05/27/2016 9:34 AM | | + + + + + | Procedure Note | + + | Avi Archer Results In - 05/27/2016 9:37 AM PST CERVICAL SPINE: 05/27/2016 8:08 AM | | | | CLINICAL HISTORY: s/p cervical fusion | | | | COMPARISON: 04/03/2016 | | | | FINDINGS: Upright AP and lateral views of the cervical spine. | | | | Anterior compression plate and screws and interbody bone graft in stable | | position extending from C4-C5. Alignment is normally maintained. Hardware | | position is unchanged. Vertebral body heights are normal. No acute bony | | abnormality. Adjacent soft tissues are radiographically normal. | | | | IMPRESSION - Stable C4-C5 ACDF. | | | | Dictated and Signed by: Randell Giron MD | | Electronically signed: 05/27/2016 9:34 AM | + + + + + + + | Performing | Address | City[facility]State[facility] | Phone Number | | Organization | | | | + + + + + | [facility] | [address] | [place], [place] | [phone] | | [facility] | | [address] | | | - IMAGING | | | | + + + + + documented in this encounter Visit Diagnoses + + | Diagnosis | + + | Status post cervical spinal fusion Arthrodesis status | + + | Cervical spondylosis with radiculopathy Cervical spondylosis with myelopathy | + + documented in this encounter
--- OUTSIDE RECORDS SUMMARY | ~2020-01-29 | XMS | Encounter Summary ---
Demographics + + + | Address | [address] | | | [place] [address] | + + + | Home Phone | | + + + | Preferred Language | Unknown | + + + | Marital Status | | + + + | Scientology Affiliation | Unknown | + + + | Race | White | + + + | Ethnic Group | Not or | + + + Author + + + | Author | [facility] | | | and [place] | + + + | Organization | [facility] | | | [...] [place] | | | | | [address] | | + + + + + Care Team Providers + +------+ + | Care Invoicing Specialist Name | Role | Phone | + +------+ + | Nathan Kent | PCP | | | MD | | | + +------+ + Reason for Visit + +--------+ + | Reason | Onset | Comments | | | Date | | + +--------+ + | Injections | 01/19/ | | | | 2017 | | + +--------+ + Encounter Details +--------+ + + + + | Date | Type | Department | Care Team | Description | +--------+ + + + + | 01/19/ | Telephone | [facility] | Omar Dumont, | Injections | | 2017 | | PHYSIATRY [address] | PA-C [address] | | | | | [address] | [address] [place] | | | | | [place], [place] | [place] [address] | | | | | [address] | [phone] | | | | | [phone] | | | +--------+ + + + [...] this encounter Miscellaneous Notes Telephone Encounter - Heather Tsang - 02/01/2018 1:30 PM PDTPatient returned call. Inform sarah regarding wheelchair request and injection was relayed to her at this time. She stated that she also needed to speak with Ramila regarding "what her Ortho doctor is saying" but since she was currently unavailable she instead requested to schedule a follow up with Omar and "talk to him directly about it". She has been scheduled for a follow up on 02/24/18.Elec tronically signed by Heather Tsang at 02/01/2018 1:32 PM PDTTelephone Encounter - Emelia Kwong, Principal Consulting Engineer - 01/31/2018 1:50 PM PDTAttempted to contact patient concerning wheel chair request. No vm was able to be left as mailbox is FULL. We have attempted to cont act this patient SEVERAL times in regards to her wheel chair request, and her injection sche duled for 02/08. If patient returns our call please inform her we WILL NOT be facilitating her request for an electric wheel chair, and a letter has been sent to her primary requesting destini hensley handle this matter. I have spoken with Dr. Kent's office who is awaiting the arrival of the letter faxed this afternoon. In regards to the patient's injections please advise her per her primary care physician, marquise hensley is to stop taking the medication Plavix 5 days before her injection which is scheduled for 02/08, and resume taking it the day after (02/09). elephone Encounter - Mariela Estrada - 2017 11:48 AM PDTPatient has called again and is extremely upset because she has not receive d any of our calls. She stated she has had her phone right by her side for the last 2 weeks and has no missed calls from our office. Patient also said her PCP would not complete wheel hair request and must go through [facility] for this. Please advise elephone Encounter - Ramila Kwong, Medical Assnilson bueno - 01/27/2018 3:32 PM PDTAttempted to contact patient concerning her wheelchair reques t. She did not answer and no vm was able to be left. If patient returns call please relay th is information. Per Omar Dumont PA-C: Please ask PCP to process request, as our office does not have the resources to process req uest in a timely manner. Thanks, Omar HILL-Shauntronically signed by Ramila Kwong Principal Consulting Engineer at 01/27/2018 3:38 PM PDTTelephone Encounter - Maryuri Zacarias - 01/27/2018 8:10 AM PDTAnn Marie Santiago is calling back wanting an update on orders for a wheelchair. Patient would like a call [facility] today. Please advise el ephone Encounter - Ramila Kwong, Principal Consulting Engineer - 01/19/2018 1:48 PM PDTWe have atte mpted to reach this patient several times concerning her prescription for a wheel chair, wit h no success. I attempted to return the patient's call today, but it went straight to and her mail box is full, as it has been every time we have attempted to contact this patient. If the patient returns the call, the prescription is waiting for her upfront, and we are nury dy to schedule. Also please inform the patient we have been unsuccessful in contacting her m tito times, and her mailbox is FULL, so we are unable to leave messages. Electronically s igned by Ramila Kwong, Principal Consulting Engineer at 01/19/2018 1:52 PM PDTTelephone Encounter - Denae Jacobs - 01/19/2018 1:11 PM PDTPatient is calling to schedule injections, we were unable to reach her when we called the first time. Also, in her appointment with Omar they discussed getting her a wheelchair, and she would like to know how to go about doing that.Electronically signed by Denae Jacobs at 8 1:12 PM PDTdocumented in this encounter Plan of Treatment Not on filedocumented as of this encounter Visit Diagnoses Not on filedocumented in this encounter
--- OUTSIDE RECORDS SUMMARY | ~2020-01-29 | XMS | Encounter Summary ---
Demographics + + + | Address | [address] | | | [place] [address] | + + + | Home Phone | | + + + | Preferred Language | Unknown | + + + | Marital Status | | + + + | Jewish Affiliation | Unknown | + + + | Race | White | + + + | Ethnic Group | Not or | + + + Author + + + | Author | [facility] | | | and [place] | + + + | Organization | [facility] | | | [...] [place] | | | | | [address] | | + + + + + Care Team Providers + +------+ + | Care Texture Artist Name | Role | Phone | + +------+ + | Crow Braga DO | PCP | | + +------+ + Reason for Visit +--------+ + | Reason | Comments | +--------+ + | Other | Neurotrax | +--------+ + Encounter Details +--------+ + + + + | Date | Type | Department | Care Team | Description | +--------+ + + + + | 10/06/ | Procedure | [facility] | Maged Montgomery MD | Post-traumatic | | 2018 | visit | HOSPITAL NEUROLOGY | [address] | headache, not | | | | CLINIC [address] | [place], [place] | intractable, | | | | [address] [place], | [address] | unspecified | | | | [place] [address] | | chronicity pattern; | | | | [phone] | | Memory loss | +--------+ + + + + Social [...] + + documented as of this encounter Procedure Notes Kezia Elena, CC PIT STEWARD - 10/06/2017 2:30 PM PDTAssociated Order(s): NEUROTRAX: COMPUTE RIZED NEUROCOGNATIVE TESTINGProcedure(s): NEUROTRAX: COMPUTERIZED NEUROCOGNATIVE TESTINGPre- Procedure Diagnose(s): Post-traumatic headache, not intractable, unspecified chronicity scooby yoli; Memory lossOrdering Provider Dr. Montgomery Supervising Provider Dr. Montgomery Interpreting Provider Dr. Montgomery Testing performed by Kezia Elena Start Time 2;40 Stop Time 3;15 Duration of Test 55 minutes Ann Santiago is a 62 y.o. old pt who presents for a neurotrax . Pt tolerated test with out difficulty. neurotrax results given to Dr. Montgomery for review and follow up. Physician Interpretation: Borderline Abnormal NeuroTrax Testing. With mild evidence of cognitive dysfunction. Abnormal NeuroTrax Testing showing deficits in: Memory with score of 98.7 was Normal Executive Function with score of 101.5 was Normal Attention with score of 84.8 was Abnormal Information Processing Speed with score of 88.5 was Abnormal Visual Spatial Processing with score of 116.8 was Normal Verbal Function with score of 111.6 was Normal Motor Skills with score of 75.5 was Abnormal Results demonstrate: Borderline abnormal neuro tract testing with evidence of mild cognitive dysfunction. Pleas e correlate clinically Thank you for allowing us to participate in the care of your patient. Sincerely, Dr. Maged Montgomery 10/06/201715:14 Neurologist documented in this enc ounter Plan of Treatment Not on filedocumented as of this encounter Procedures + +--------+ + + + | Procedure Name | Priori | Date/Time | Associated Diagnosis | Comments | | | ty | | | | + +--------+ + + + | NEUROTRAX: | Today | 10/06/2017 | Post-traumatic | Results for this | | COMPUTERIZED | | 9:30 PM | headache, not | procedure are in the | | NEUROCOGNATIVE | | PDT | intractable, | results section. | | TESTING | | | unspecified | | | | | | chronicity pattern | | | | | | Memory loss | | + +--------+ + + + documented in this encounter Results NEUROTRAX: COMPUTERIZED NEUROCOGNATIVE TESTING (10/06/2017 9:30 PM PDT) + + + | Narrative | Performed At | + + + | Maged Montgomery MD 10/11/2017 16:[address] Montgomery | | | Supervising Provider Dr. Montgomery Interpreting Provider Dr. Montgomery Testing | | | performed by Kezia Elena Start Time 2;40 Stop Time 3;15 | | | Duration of Test 55 minutes Ann Santiago is a 62 y.o. old pt | | | who presents for a neurotrax . Pt tolerated test with out | | | difficulty. neurotrax results given to Dr. Montgomery for review and | | | follow up. Physician Interpretation: Borderline Abnormal | | | NeuroTrax Testing. With mild evidence of cognitive dysfunction. | | | Abnormal NeuroTrax Testing showing deficits in: Memory with | | | score of 98.7 was Normal Executive Function with score of 101.5 was | | | Normal Attention with score of 84.8 was Abnormal Information | | | Processing Speed with score of 88.5 was Abnormal Visual Spatial | | | Processing with score of 116.8 was Normal Verbal Function with score | | | of 111.6 was Normal Motor Skills with score of 75.5 was Abnormal | | | Results demonstrate: Borderline abnormal neuro tract testing with | | | evidence of mild cognitive dysfunction. Please correlate | | | clinically Thank you for allowing us to participate in the care of | | | your patient. Sincerely, Dr. Maged Montgomery | | | 10/06/201715:14 Neurologist | | + + + documented in this encounter Visit Diagnoses + + | Diagnosis | + + | Post-traumatic headache, not intractable, unspecified chronicity pattern | + + | Memory loss | + + documented in this encounter"
--- OUTSIDE RECORDS SUMMARY | ~2020-01-29 | XMS | Encounter Summary ---
Demographics + + + | Address | [address] | | | [place] [address] | + + + | Home Phone | | + + + | Preferred Language | Unknown | + + + | Marital Status | | + + + | Cheondoism Affiliation | Unknown | + + + [...] [place] | | | | | [address] | | + + + + + Care Team Providers + +------+ + | Care Electronic Warfare Linguist Name | Role | Phone | + +------+ + | Crow Braga DO | PCP | | + +------+ + Reason for Visit + + + | Reason | Comments | + + + | Suture / Staple | | | Removal | | + + + Encounter Details +--------+---------+ + + + | Date | Type | Department | Care Team | Description | +--------+---------+ + + + | 04/16/ | Office | [facility] | Joel Burger, | Encounter for staple | | 2016 | Visit | NEUROSURGERY [address] | DO [address] | removal (Primary | | | | [address] | [address] [place], [place] | Dx) | | | | [place], [place] | [address] | | | | | [address] | | | | | | [phone] | | | +--------+---------+ + + + Social History [...] +---------+ + + | Blood Pressure | 159/80 | 04/16/2016 10:21 AM | | | | | PST | | + +---------+ + + | Pulse | 72 | 04/16/2016 10:21 AM | | | | | PST | | + +---------+ + + | [...] documented as of this encounter Progress Notes Elaine Richmond RN - 04/16/2016 10:43 AM PSTStaples removed per protocol. Incision well ap proximated. No redness, swelling or drainage noted. documented in this encounter Plan of Treatment Not on filedocumented as of this encounter Visit Diagnoses + + | Diagnosis | + + | Encounter for staple removal - Primary Encounter for removal of sutures | + + documented in this encounter"
--- OUTSIDE RECORDS SUMMARY | ~2020-01-29 | XMS | Encounter Summary ---
Demographics + + + | Address | [address] | | | [place] [address] | + + + | Home Phone | | + + + | Preferred Language | Unknown | + + + | Marital Status | | + + + | Baptism Affiliation | Unknown | + + + [...] [place] | | | | | [address] | | + + + + + Care Team Providers + +------+ + | Care Recorder Helper Seismograph Name | Role | Phone | + +------+ + | Crow Braga DO | PCP | | + +------+ + Reason for Visit + +--------+ + | Reason | Onset | Comments | | | Date | | + +--------+ + | Imaging Only | 10/06/ | 6M PO Xray | | | 2016 | | + +--------+ + Encounter Details +--------+ + + + + | Date | Type | Department | Care Team | Description | +--------+ + + + + | 10/06/ | Telephone | [facility] | Joel Burger, | Imaging Only (6M PO | | 2016 | | NEUROSURGERY [address] | DO [address] | Xray ) | | | | [address] | [address] [place], [place] | | | | | [place] | [id number] | | | | | [address] | | | | | | [phone] | | | +--------+ + + + [...] this encounter Miscellaneous Notes Telephone Encounter - Homar Cedeño - 11/06/2016 12:42 PM PDTIncoming fax received of imaging reports: Faxed request for images/reports to [facility] to be pushed to PACS. Requested dodie ging: XR LUMBAR DOS: 11/05/2016 (please see letter tab in patient's chart for request) FYI routed to Neurosurgery clinical pool elephone Encounter - Rambo Bradford Cert MA - 10/27/2016 11:23 AM PDTI spoke with Ann. She has been scheduled to see Max Song, PAC on 11/12 and plans to have XR of her lumbar spine at [facility] prior elephone Rambo Noble Cert MA - 10/27/2016 8:57 AM PDTI attempted to reach Ann again, no ans wer and no VM. RAMBO BRADFORD elephone Rambo Noble Cert MA - 10/26/2016 9:36 AM PDTI attempted to reach Ann. No answer a nd no VM option. I will continue to try and reach her elephone Encounter - Joel Burger DO - 10/25/2016 8:13 AM PDTThe cervical x-ray looks good. We have not seen her for her low back. She could f ollow-up with a PA with a 4-view lumbar x-ray if she would like. Thanks. elephone Enco Rambo Melendrez Cert MA - 10/23/2016 10:[address] Burger, Please see patients XR and advise Thank you erussellphon shellie Saul - Mattie Zacarias - 10/23/2016 10:32 AM PDTPatient called to follow up on her xrays she completed at [facility]. Patient would like a call back with results.Electronically elmo d by Mattie Zacarias at 10/23/2016 10:32 AM PDTTelephone Encounter - Rambo Bradford Cert MA - 10/21/2016 2:03 PM PDTOnce the XR is on I-site I will forward this message to Dr. Burger for review erussellphkhushboo Saul - Homar Cedeño - 10/21/2016 1:16 PM PDTPatient called to let Dr. Burger know that she completed her XR's at [facility]. I have faxed a request to [facility] to push XR imaging. Patient also reports that she saw her orthopedic doctor and they told her to call u s to let us know that she is having pain that goes down to her right leg, and it is getting "harder and harder for me to walk." Patient can be reached at [phone] (home) elephone Encounter - Abbi Jacinto Automotive Parts Advisor - 10/12/2016 11:24 AM PDTCalled patient and notified of 6 month post op xray's to be completed. Patient states she will complete at [facility] on Wednesday. Order was routed. Electronically signed by Earl Fernandez at 01/2017 11:24 AM PDTTelephone Encounter - Abbi Jacinto Medical Assistant - 10/06/2016 8: 40 AM PDTCalled patient to remind her of 6 month Post-op xray's. I was unable to leave voice mail due to no voicemail box set up. documented in this encounter Plan of Treatment Not on filedocumented as of this encounter Visit Diagnoses Not on filedocumented in this encounter
--- OUTSIDE RECORDS SUMMARY | ~2020-01-29 | XMS | Encounter Summary ---
Demographics + + + | Address | [address] | | | [place] [address] | + + + | Home Phone | | + + + | Preferred Language | Unknown | + + + | Marital Status | | + + + | Presybeterian Affiliation | Unknown | + + + | Race | White | + + + | Ethnic Group | Not or | + + + Author + + + | Author | [facility] | | | and [place] | + + + | Organization | [facility] | | | [...] [place] | | | | | [id number] | | + + + + + Care Team Providers + +------+ + | Care Radiation Monitor Name | Role | Phone | + +------+ + | Crow Braga DO | PCP | | + +------+ + Encounter Details +--------+---------+ + + + | Date | Type | Department | Care Team | Description | +--------+---------+ + + + | 04/03/ | Surgery | [facility] | Joel Burger, | C4-5 Anterior | | 2016 | | MED [facility] OR [facility] | DO [address] | Cervical Discectomy | | | | [address] | [address] | with Fusion and | | | | [place], [place] | [id number] | Plating | | | | [address] | | | | | | [phone] | | | +--------+---------+ + + + [...] + + + | Blood Pressure | 164/98 | 04/03/2016 7:00 AM | | | | | PDT | | + + + + + | Pulse | 84 | 04/03/2016 7:00 AM | | | | | PDT | | + + + + + | Temperature | 36.5 C (97.7 F) | 04/03/2016 7:00 AM | | | | | PDT | | + + + + + | Respiratory Rate | 18 | 04/03/2016 7:00 AM | | | | | PDT | | + + + + + | Oxygen Saturation | 96% | 04/03/2016 7:00 AM | | | | | PDT | | + + + + + | Inhaled Oxygen | - | - | | | Concentration | | | | + + + + + | Weight | 103.4 kg (228 lb) | 04/03/2016 7:00 AM | | | | | PDT | | + + + + + | Height | 162.6 cm (5' 4") | 04/03/2016 7:00 AM | | | | | PDT | | + + + + + | Body Mass Index | 39.14 | 04/03/2016 7:00 AM | | | | | PDT [...] + documented as of this encounter Discharge Instructions Instructions Brody Steiner PA - 04/03/2016Discharge Instructions for Cervical Fusion You had a cervical fusion. During this procedure, your doctor lockedtogether (fused) some of the bones in the curve of your neck. This limits the movement of these bones to help rel ieve your pain. Here s what you need to know about home care following a cervical fusion. Activity Arrange your household to keep the items you need within reach. Remove electrical cords, throw rugs,and anything else that may cause you to fall. Follow your doctor s instructions for wearing acervical collar or brace. The neck co llar or brace is important because it supports and correctly positions your neck after surge ry. Be sure to follow instructions for its care, use, and the length of time you must wear i t. Don t raise your hands over your head [id number])after your surgery. Don t drive until your doctor says it s OK. This will most likely be when you can mo ve your neck from side to side freely and without pain. Never drive while you are taking opi oid pain medication. Walk as much as possible. You may also go up and down stairs as much as you can tolerate . Walking outside or walking on a treadmill at a slow speed with no incline is OK. Don t lift anything heavier than5 pounds. Ask your doctor when you can return to work. Other home care Take your medication exactly as directed. Talk to your doctor about pain medication. Don t take nonsteroidal, anti-inflammatory medications (NSAIDs),such as ibuprofen un less your doctor approves. They may delay or prevent proper fusion of bone. As long as you keep your incision dry you may shower as desired after your surgery. You may allow shower water to run over the incision and get it wet after 5 days, but do not subm erse the incision under water until after you see your provider at your 1 month post op visi t. You may be instructed to use a neck collar while you shower. If so, carefully remove it when you finish showering. Then keep your neck correctly positioned as you gently pat dry y our skin, the incision, and the neck collar. Then put the neck collar back on. Don t soak in bathtubs, hot tubs, or swimming pools until instructed by your doctor. Your incision mayhave beenclosed using sutures, joby, or strips of tape. You can allow strips of tape to fall off on their own. Don t rub the incision, or apply creams or lotions onit. If you smoke, quit. Smoking slows healing of bone. Enroll in a stop-smoking program to i mprove your chances of success. Follow-up Most patients will have a 4 week follow up appointment. Please get your 1 month post op x-rays prior to this your 1 month post op appointment. [id number] [employer]. [address] [place] [address]. All righ ts reserved. This information is not intended as a substitute for professional medical care. Always follow your healthcare professional's instructions. documented in this encounter Medications at Time [...] + + documented as of this encounter H&P Notes Joel Burger DO - 04/03/2016 7:52 AM PDTSURGICAL INTERIM HISTORY & PHYSICAL UPDATE Pt. Name/Age/: Ann Santiago 60 y.o. 1955 Date of admission: 04/03/2016 The current H&P was reviewed. The patient was reexamined. Re-evaluation of the patient co nfirms the necessity for the scheduled procedure. No change has occurred in the patient s condition since the H&P was completed less than 30 days ago. VERIFICATION OF CONSENT (PARQ) The patient was counseled regarding the procedure, its indications, risks, potential compli cations and alternatives. Any questions were answered. Consent was obtained. Electronically signed by: Joel Burger DO, 04/03/2016 7:52 [facility] reyJoel marks DO - 04/03/2016 7:52 AM PDT Joel Burger DO [address] [facility], [address] [place], [place] [id number] FAX: NEUROSURGERY HISTORY AND PHYSICAL EXAMINATION CHIEF COMPLAINT: Chief Complaint Patient presents with Follow-up Discuss Surgery HISTORY OF PRESENT ILLNESS: The patient is a 60 y.o. female with the complaint of neck pa in, left arm pain, right arm pain, hand numbness, headaches, arm weakness, coordination prob lems and clumsiness symptoms that began Several years ago. The patient describes constant ac sobia neck pain with regular sharp shooting pain going into her right shoulder and right shou lder blade. The symptoms have been gradually worsening. She rates the pain as severe. The symptoms are continuous. She describes the pain as sharp, numbing, tingling, aching and throbbing. The patient describes arm symptoms that occur on both sides but worse on the right. The a rm symptoms account for 50% of her symptoms. The arm symptoms are intermittent, and the sy mptoms travel from the The neck and into her right shoulder. She also has been noticing ti ngling and numbness in her fourth and fifth digits of her right hand.. Patient has had cub ital tunnel surgery on her right elbow. The patient also describes the loss of fine motor skills, declining handwriting, the loss of strength in [...] not give her significant long lasting relief. Alex kelly had an injection performed back in July which gave her 3-4 weeks of relief. She is currently taking gabapentin and hydrocodone. Although this helps it certainly does not help her pain significantly. Since her last visit her symptoms are unchanged. She presents to discuss definitive treatme nt options. PAST MEDICAL HISTORY: Past Medical History Diagnosis [...] mg by mouth 2 times daily. (Patient taking differently: Take 300 mg by mouth 3 times daily. Taking 1 am, 1 noon, and 2 at bedtim e) HYDROcodone-acetaminophen (NORCO) 10-325 mg per tablet Take 1 tablet by mouth every 6 hours as needed for Pain. lamoTRIgine (LAMICTAL) 25 MG tablet Take 150 mg by mouth Daily. levothyroxine (SYNTHROID, LEVOTHROID) 75 MCG tablet Take 75 mcg by mouth every morn ing (before breakfast). lisinopril (PRINIVIL, ZESTRIL) 20 mg tablet Take 20 mg by mouth Daily. (Patient genesis ing differently: Take 10 mg by mouth Daily.) LORazepam (ATIVAN) 0.5 mg tablet Take 0.5 mg by mouth every 6 hours as needed. meclizine (ANTIVERT) 25 mg tablet Take 25 mg by mouth Daily. medical marijuana (CANNABIS) inhalation Inhale into the lungs as needed (Patent s tates " ONLY USING EDIBLES NOT SMOKING"). metoprolol succinate (TOPROL-XL) 25 mg 24 hr tablet Take 25 mg by mouth Daily. prazosin (MINIPRESS) 5 mg capsule Take 5 mg by mouth nightly. No current facility-administered medications for this visit. ALLERGIES: Allergies Allergen Reactions Adhesive & Tape Aspirin Bupropion Bupropion Hcl Duloxetine Food Hives and Swelling Dissolving stitches Oxycodone-Aspirin SOCIAL HISTORY: The patient reports that she quit smoking about 2 years ago. Her smoking use included Ciga [...] anemia, + fatigue, + recent profound weight rhea nges. EYES: No eye problems, + use of corrective lenses, + eye injury, no double vision, no bli ndness. EARS, NOSE, AND THROAT: + changes in taste or smell, + hearing difficulty, + ringing in t he ears, no ear drainage, + dizziness, no voice changes, no difficulty swallowing, + signifi cant snoring, + sleep apnea, + sinus problems, + major dental work. NEUROLOGICALLY: Please see the review of systems discussed above in the history of presen t illness. In addition, the patient has numbness/pain of arms, numbness/pain of legs, awak e with numbness/pain, weakness, muscle aching, coordination difficulty, head injury, back in jury, pain in neck and back, hx of stroke, loss of consciousness, tremor/shaking, headaches, migraine, memory loss, speech difficulty. PSYCHIATRIC: + depression, + sleep disorders, + anxiety, + bipolar disorder, no psychotic episodes. CARDIOVASCULAR: No heart attacks, no heart murmur, no heart fluttering, + chest pain, + a nkle swelling. LUNG DISEASE: No shortness of breath, no cough, no tuberculosis, no bloody cough, no as thma, no emphysema/COPD. GASTROINTESTINAL: No bowel disease, no nausea or vomiting, no rectal bleeding, no constip ation, no stool incontinence, no liver disease, no gallbladder disease, no abdominal pain, n o ulcers. KIDNEY DISEASE: + urinary frequency, no painful or difficult urination, no incontinence. ENDOCRINE: No diabetes, + thyroid disease, no osteopenia or osteoporosis, no breast drain age. SKIN: No breast lumps, no skin changes, no rashes, no itches. HEMATOLOGIC/LYMPHATIC: No enlarged lymph nodes, no easy or unusual bleeding, no personal history of cancer. RHEUMATOLOGIC: + joint arthritis, no rheumatoid arthritis. PHYSICAL EXAMINATION: Blood pressure 125/63, pulse 69, resp. rate 12, height 1.626 m (5' 4"), weight 103.42 kg (2 28 lb). Body mass index is 39.12 kg/(m^2). GENERAL: Ann Santiago is in no acute distress with unlabored respirations. The pat ient does appear uncomfortable throughout the exam today. [...] and without palpable masses. The patient is obe se. SPINE: There is tenderness in the midline of the cervical spine at the C-4, C-5 and C-6. Range of motion of the neck is limited. Rotation and/or extension does not cause symptoms to radiate into either arm. Flexion and extension of the neck does cause moderate discomf ort. There is tenderness of the midline of the lumbar spine There is no major deformity noted. EXTREMITIES: No cyanosis, clubbing, or edema. Distal pulses are palpable. NEUROLOGICAL EXAM: MENTAL STATUS: The patient is awake, alert, and oriented. She follows simple and complex commands. Her speech is fluent, she comprehends speech well, and she repeats well. She has no apparent deficits with short or keno terminal operator memory. CRANIAL NERVES: II: Acuity is intact. Jacobo are full to confrontation. III, IV, : The pupils are reactive. Extraocular movements are intact. No ptosis is noted. V: Facial sensation is intact and symmetric. [...] Intrinsics 5 5 Ulnar Intrinsics 5 5 Investment Banking Analyst Strength 4 4 Hip Flexion 5 5 Hip Extension 4 4 Knee Flexion 4 4 Knee Extension 5 4 Dorsiflexion 5 5 Extensor Hallicus Longus 5 5 Plantarflexion 5 5 SENSORY EXAM: Sensory exam shows C5-type dysesthesia, right worse than left. REFLEXES: (2 OR 2+ IS NORMAL) REFLEX: [...] is at C4-C5 or there is mild spondylolisthesis. In addition there is a moderate bulged disc causing moderate spinal ca nal stenosis. There is also fairly significant bilateral foraminal stenosis at this level. There other levels showing foraminal stenosis but none as significant as the C4-C5 level. Cervical x-rays show subluxation at C4-C5 on flexion extension views. There is also loss of disc height at this level. Review of her MRI shows generalized lumbar spondylosis with [id number] bulging disks at L4-L5 and L5-S1. I do not appreciate any significant spinal canal stenosis. The trave rsing nerves do not appear to be significantly affected. There is moderate foraminal steno sis on the right at L4-L5 and L5-S1. Her more symptomatic left side does not show signific ant foraminal stenosis affecting the L5 nerve. ASSESSMENT: NEUROSURGICAL DIAGNOSES: Encounter Diagnoses Name Primary? Osteoarthritis of spine with radiculopathy, cervical region Yes Cervical stenosis of spinal canal Cervical radicular pain Cervicalgia GENERAL DIAGNOSES: Past Medical History Diagnosis Date Hypertension Fibromyalgia Hyperlipidemia Stroke ([facility]) Irregular heartbeat Depression Anxiety Anemia Ulcer (HCC) [...] erior cervical disectomy and fusion at C4-C5. She would like to proceed with ACDF C4-5. We discussed the risks, alternatives, and benefits to surgical intervention with Ms. Ann Marie hensley in clinic. These risks included but were not limited to , stroke, heart attack, num bness, weakness, paralysis, failure of fusion, failure of hardware, subsidence, adjacent seg ment degeneration, cerebrospinal fluid leak, bleeding, infection, injury to surrounding tiss ues and organs, injury from positioning, injury to the nerves, difficulty with breathing, di fficulty with swallowing, difficulty with voice change, and need for additional surgery. Surgical options were discussed and the technique to be employed was described in detail to her. All her questions were answered. We discussed that the goal of the surgery is to prevent progression of her disease, but it is not considered a cure. We also discussed that although some patients may obtain 100% sy mptom relief, it is realistic to anticipate that some symptoms will continue postoperatively despite a successful surgery. We also discussed that there is no guarantee that surgery will provide improvement in her c ondition, and indeed may even worsen the symptoms. We also discussed that in the course of the procedure the operative plan may be altered to include more, less, or different levels depending upon findings in order to provide her with the best possible outcome. I recommend and would prescribe a cervical collar before surgery to improve her stability n ow to support her weak muscles and to reduce pain by restricting mobility. documented in this en counter Miscellaneous Notes Plan of Care - Sadia Grijalva, PT - 04/03/2016 6:08 PM PDTFormatting of this note migh t be different from the original. Problem: Patient Care Overview (Adult) Goal: Care Team Goals & Evaluation PROBLEM-RELATED GOALS: Patient pain less than 2/10 04/03/16 1. Pt will be mod I for her BADLs and functional mobility by 04/03/16. STRATEGY TO ACHIEVE GOALS: - Maintenance of cervical precautions. RESTRAINT-RELATED GOALS: STRATEGIES TO ACHIEVE RESTRAINT GOALS: Physical Therapy OPIB Initial Evaluation, Treatment, Discharge Note Patient Information Patient Name: Ann Santiago Date of : 1955 Age: 60 y.o. History No diagnosis found. Date of Onset: 04/03/16 Past Medical History Diagnosis Date Hypertension Fibromyalgia Hyperlipidemia Stroke (HCC) Irregular heartbeat Depression Anxiety Anemia Ulcer (HCC) Thyroid disease Trochanteric bursitis 01/05/2013 Bipolar disorder (HCC) 01/05/2013 Post traumatic stress disorder (PTSD) 01/05/2013 Fibromyalgia Myofascial pain 04/25/2015 Shoulder pain, right 04/25/2015 Neck pain 05/01/2015 DDD (degenerative disc disease), cervical - C4/C5 05/15/2015 Foraminal stenosis of cervical region- bilateral C4/C5 05/15/2015 Cervical radiculopathy 07/23/2015 Osteoarthritis Past Surgical History Procedure Laterality Date Hysterectomy Gallbladder surgery Ear surgery - ear lobe repair x 2 Meniscus repair Right knee Cyst removal Left knee Joint replacement Right 05/21 knee Lung surgery Shoulder surgery Right Carpal tunnel release Bilateral Allergies Allergen Reactions Adhesive & Tape Aspirin Bupropion Bupropion Hcl Duloxetine Food Hives and Swelling Dissolving stitches Oxycodone-Aspirin Precautions/Limitations: falls, orthotic/bracing, swallowing (A-Brace) Left Upper Extremity Weight-Bearing: partial weight-bearing (No overhead push, pull, lift) Right Upper Extremity Weight-Bearing: partial weight-bearing (No overhead push, pull, lift) Left Lower Extremity Weight-Bearing: full weight-bearing Right Lower Extremity Weight-Bearing: full weight-bearing EVALUATION: SUBJECTIVE: History of Presenting Problem: Ann Santiago is a 60 y.o. female with c/o n abbey pain and UE pain, hand numbness, headaches, arm weakness, coordination problems and clum siness symptoms that began several years ago. Sx not controlled with conservative methods an d pt is now s/p C4-5 decompression and fusion. Attended Spine Class. A-Bracing. PT Diagnosis: pain, weakness, balance deficits, impaired functional mobility Impairments Found: gait, locomotion, and balance, ergonomics and body mechanics Previous Level of Function: Transferring: independent Ambulation: independent Toileting: independent Bathing: independent Dressing: independent Eating: independent Communication: understands/communicates without difficulty Equipment Currently Used at Home: none Prior Functional Level Comment: Walking was limited due to nerve damage in Sujatha LE; used a wal jean stick and carried her cell phone for safety. Was walking her dog (marifer craig) Role/Relationships: Role Relationships Comment: Pt has supportive family; is going home to stay with daughter f or 1 week post op. Daughter has 3 steps with 1 rail to enter her home. Living Environment/Accessibility: Lives With: alone Living Arrangements: (lives in an RV) Home Accessibility: no concerns Number of Stairs to Enter Home: 5 (no handrail) Financial Concerns: none Transportation Available: none Patient s Goals: Pt wants to heal up and have less pain; plans to have surgery on her chelsy k as soon as her neck heals. OBJECTIVE : Patient Status/Goals: Reflects last filed data of patient status; may be from multiple contributors. Bed Mobility Assistive Device: HOB elevated Supine to Sit, Level of [place]: modified independence Sit to Supine, Level of [place]: modified independence Transfers Sit-Stand, Level of [place]: supervision required Stand-Sit, Level of [place]: supervision required [id number], Assistive Device: 2 wheeled walker (FWW) Gait Pt's BP was high, so limited gait to just 5 ft x 2 (to and from bathroom); pt reports that Sujatha LE fatigues quickly and starts to hurt and go numb if she walks too far Level of [place] : supervision required, verbal cues required Assistive Device: 2 wheeled walker (FWW) Distance (feet): 5 ft x 2; 20 ft, 60 ft Stairs Up/down 4 steps w/ 1 rail and walking stick and daughter providing CGA. ROM Cervical ROM not tested but LE ROM appears to be grossly WFL Strength Pt with adjunct instructor strength WFL (R slightly stronger than L) STG GOALS Bed Mobility Goal, Activity Type: supine to sit/sit to supine [place] Level: independent (on flat bed) Assistive Device: none Time to Achieve: 2 - 3 days Goal Status: new Transfer Training Goal, Activity Type: sit to stand/stand to sit [place] Level: modified independence Assistive Device: 2 wheeled walker (FWW) Time to Achieve: 2 - 3 days Goal Status: new Gait Training Goal, [place] Level: modified independence Assistive Device: 2 wheeled walker (FWW) Distance: 150 ft Time to Achieve: 2 - 3 days Goal Status: new Stairs Goal, [place] Level: contact guard assist (daughter says that she can assist he r mom as needed; pt also has walking stick that she can use on the stairs) Number of Stairs: 3 Time to Achieve: 2 - 3 days Goal Status: new Additional Goal #1: Pt able to state post op precautions and manage cervical collar indepen dently Time to Achieve: 2 - 3 days Goal Status: new Start of Care/Start of Certification Date: 04/03/16 End of Certification Date: 04/03/16 Physical Therapy Anticipated Discharge Needs are: home with assist Post discharge physical therapy recommendation: Outpatient PT services (if recommended by Geovanny Zapata at time of follow up). Equipment Recommendations: 2 wheeled walker (FWW) (pt has a FWW and a walking stick alread y) Medicare Functional Limitation Reporting: Current Status [id number] Mobility walking and moving around functional limitation, current status, at therapy episode outset and at reporting intervals CK At least 40 percent but less than 60 pe rcent impaired, limited or restricted Discharge Status [id number] Mobility walking and moving around functional limitation, discharge status CK At least 40 percent but less than 60 percent impaired, limited or restricted Goal G8979 Mobility walking and moving around functional limitation, projected goal status CK At least 40 percent but less than 60 percent impaired, limited or restricted Outcome Measures Tools: AMPAC 6 Clicks and clinical judgement Justification of Severity Rating: AMPAC 6 Clicks score of 18/24 indicates a 47% functional mobility impairment. Patient and/or family has indicated understanding of treatment needs and actively participa timi in the creation of this plan for care. Today's Treatment Start Time: 1550 Stop time: 1615 and Start Time: 0 Stop time: 1750 Time Calculation: 35 minutes Total Treatment Time: 35 minutes TimedTreatment Code Minutes: 20 minutes Objective: Treatment Provided: PT eval completed. Pt seen for review of post op precautions and cervic al collar, as well as functional mobility training in room and bathroom and later in hallway and stairwell (after BP was within safe limits) in order to work towards goal of increasing safety and independence in order to progress toward prior level of function. Daughter also instructed in how to guard and assist pt on stairs. Education: Pt provided with ed re: PT POC and expected progression of rehab. Also see above . Assessment: Physical therapy orders received and acknowledged. Objective impairments includ e pain, weakness, balance deficits, impaired functional mobility. These impairments are caus ing functional limitations with patient s inability to walk longer distances and perform t asks that require > 5 lbs of force but are not severe enough to prevent pt from discharging to daughter's home tonight. Complexities contributing to the need for skilled therapy includ e fibromyalgia, PTSD. Plan for next treatment: 3E;1P;KH;review precautions, cervical collar, functional mobility and stair training Electronically signed by: Sadia Grijalva, PT, 04/03/2016 17:53 lan of Care - Shae Canas, Speech Pathologist - 04/03/2016 5:50 PM PDTFormatting of this note mi ght be different from the original. Problem: Patient Care Overview (Adult) Goal: Care Team Goals & Evaluation PROBLEM-RELATED GOALS: Patient pain less than 2/10 04/03/16 1. Pt will be mod I for her BADLs and functional mobility by 04/03/16. STRATEGY TO ACHIEVE GOALS: - Maintenance of cervical precautions. RESTRAINT-RELATED GOALS: STRATEGIES TO ACHIEVE RESTRAINT GOALS: Speech Therapy Swallow Plan of Care Initial Evaluation Note Patient Information Patient Name: Ann Santiago Date of : 1955 Age: 60 y.o. History No diagnosis found. Date of Onset: 04/03/16 Past Medical History Diagnosis Date Hypertension Fibromyalgia Hyperlipidemia Stroke (HCC) Irregular heartbeat Depression Anxiety Anemia Ulcer (HCC) Thyroid disease Trochanteric bursitis 01/05/2013 Bipolar disorder (HCC) 01/05/2013 Post traumatic stress disorder (PTSD) 01/05/2013 Fibromyalgia Myofascial pain 04/25/2015 Shoulder pain, right 04/25/2015 Neck pain 05/01/2015 DDD (degenerative disc disease), cervical - C4/C5 05/15/2015 Foraminal stenosis of cervical region- bilateral C4/C5 05/15/2015 Cervical radiculopathy 07/23/2015 Osteoarthritis Past Surgical History Procedure Laterality Date Hysterectomy Gallbladder surgery Ear surgery - ear lobe repair x 2 Meniscus repair Right knee Cyst removal Left knee Joint replacement Right 05/21 knee Lung surgery Shoulder surgery Right Carpal tunnel release Bilateral Allergies Allergen Reactions Adhesive & Tape Aspirin Bupropion Bupropion Hcl Duloxetine Food Hives and Swelling Dissolving stitches Oxycodone-Aspirin Precautions/Limitations: falls, orthotic/bracing, swallowing (A-Brace) Left Upper Extremity Weight-Bearing: partial weight-bearing (No overhead push, pull, lift) Right Upper Extremity Weight-Bearing: partial weight-bearing (No overhead push, pull, lift) Left Lower Extremity Weight-Bearing: full weight-bearing Right Lower Extremity Weight-Bearing: full weight-bearing Summary: Pt seen for initial swallow eval s/p admit for C4-5 diskectomy and osteophytect ania. Dtr present. Pt states in clear voice, no history of dysphagia, or GERD. Oral motor exa m revealed no gross abnormalities. She reported mild tingling in both hands but has no diff iculty cutting foods. Thin liquids trialed by straw with no overt difficulty. TREAD CUTTER observed t he Pt manipulate containers and self feed bites of puree, ground, chopped, mixed, and bread texture. She used liquid washes to assist with bolus passage. Pt tolerated each item with mi n reports of food sticking in throat and no pain during swallow. TREAD CUTTER rec'd the Pt consume re gular foods with thin liquids. Education provided about healing process, use of slow rate, a nd small bites, alternating liquids/solids. All questions answered. No further TREAD CUTTER services at this time. Speech Language Pathology Anticipated Discharge Needs are: home with family/caregiver Post discharge speech language pathology recommendation: no further Speech Therapy NOMS (National Outcome Measures-Standardized) FCM/NOMS Swallowin/CH Independent, no limits Planned Interventions: patient/caregiver education TREAD CUTTER Diagnosis: Swallow WNL At bedside, signs of aspiration included: none Risk of aspiration: Minimal Patient Status/Goals: Reflects last filed data of patient status; may be from multiple contributors. Swallow Recommendations Recommended Solid Texture: regular Recommended Liquid Texture: thin liquids Recommended Medication Delivery: whole pills with thin liquids Swallow Non Instrumental/Clinical Swallow Exam Consistencies Trialed: thin liquids Mode of Presentation: self fed Oral Phase Results: intact oral phase without signs of dysfunction Pharyngeal Phase Results: safe swallow, no signs/symptoms of aspiration or penetration STG Goals Solid Texture Goal: Pt will tolerate regular textures with no overt s/s of airway compromis e. Time to Achieve Goals: 1 day Goal Status: new Start Time: 1619 Stop time: 1635 Time Calculation: 16 minutes Missed Treatment Time: minutes Total Treatment Time: 16 minutes TimedTreatment Code Minutes: 0 minutes Electronically signed by: Shae Kelly, SPEECH PATHO, 04/03/2016 17:43 lan of Care - Ilana Cai, OT - 04/03/2016 5:45 PM PDTFormatting of this note mi ght be different from the original. Problem: Patient Care Overview (Adult) Goal: Care Team Goals & Evaluation PROBLEM-RELATED GOALS: Patient pain less than 2/10 04/03/16 1. Pt will be mod I for her BADLs and functional mobility by 04/03/16. STRATEGY TO ACHIEVE GOALS: - Maintenance of cervical precautions. RESTRAINT-RELATED GOALS: STRATEGIES TO ACHIEVE RESTRAINT GOALS: Occupational Therapy Acute Initial Evaluation Note Patient Information Patient Name: Ann Santiago Date of : 1955 Age: 60 y.o. History No diagnosis found. Date of Onset: 04/03/16 Past Medical History Diagnosis Date Hypertension Fibromyalgia Hyperlipidemia Stroke (HCC) Irregular heartbeat Depression Anxiety Anemia Ulcer (HCC) Thyroid disease Trochanteric bursitis 01/05/2013 Bipolar disorder (HCC) 01/05/2013 Post traumatic stress disorder (PTSD) 01/05/2013 Fibromyalgia Myofascial pain 04/25/2015 Shoulder pain, right 04/25/2015 Neck pain 05/01/2015 DDD (degenerative disc disease), cervical - C4/C5 05/15/2015 Foraminal stenosis of cervical region- bilateral C4/C5 05/15/2015 Cervical radiculopathy 07/23/2015 Osteoarthritis Past Surgical History Procedure Laterality Date Hysterectomy Gallbladder surgery Ear surgery - ear lobe repair x 2 Meniscus repair Right knee Cyst removal Left knee Joint replacement Right 05/21 knee Lung surgery Shoulder surgery Right Carpal tunnel release Bilateral Allergies Allergen Reactions Adhesive & Tape Aspirin Bupropion Bupropion Hcl Duloxetine Food Hives and Swelling Dissolving stitches Oxycodone-Aspirin Precautions/Limitations: falls, orthotic/bracing, swallowing (A-Brace) Left Upper Extremity Weight-Bearing: partial weight-bearing (No overhead push, pull, lift) Right Upper Extremity Weight-Bearing: partial weight-bearing (No overhead push, pull, lift) Left Lower Extremity Weight-Bearing: full weight-bearing Right Lower Extremity Weight-Bearing: full weight-bearing Evaluation SUBJECTIVE: History of Presenting Problem: Ann Santiago is a 60 y.o. who presents to abhilash for The patient is a 60 y.o. female with c/o neck pain and UE pain, hand numbness, he adaches, arm weakness, coordination problems and clumsiness symptoms that began several year s ago. Sx not controlled with conservative methods and pt is now s/p C4-5 decompression and fusion. Attended Spine Class. A-Bracing. Patient is right handed. OT Diagnosis: Mildly impaired ADLs, decreaesd functional mobility Previous Level of Function: Transferring: independent Ambulation: independent Toileting: independent Bathing: independent Dressing: independent Eating: independent Communication: understands/communicates without difficulty Equipment Currently Used at Home: none Prior Functional Level Comment: Walking was limited due to nerve damage in L LE; used a Relive stick and carried her cell phone for safety. Was walking her dog ([email or web address]) Role/Relationships: Role Relationships Comment: Pt has supportive family; is going home to stay with daughter f or 1 week post op. Daughter has 3 steps with 1 rail to enter her home. Living Environment/Accessibility: Lives With: alone Living Arrangements: (lives in an RV) Home Accessibility: no concerns Number of Stairs to Enter Home: 5 (no handrail) Financial Concerns: none Transportation Available: none Patient s Goals: I want to eat. Go home today. OT Visit Summary: Pt seen for OT evaluation following C4-5 ACDF. Pt alert & oriented, mob ilizing into bathroom w/ walking stick. Good understanding of cervical precautions. Toilet ed w/ mod I. U/LB dressing w/ mod I. Reviewed any questions/concerns. Pt will be staying w/ her dgtr x 1 1/2 weeks. Dgtr present & supportive. Occupational Therapy will follow Ann Santiago (1 x evaluation and 1 x treatment) Occupational Therapy Anticipated Discharge Needs: Ongoing occupational therapy required. DC disposition TBD. Post discharge occupational therapy recommendation: No further OT. Equipment Recommendations: None @ this time. Identified Problems Needing Skilled Intervention: Mildly impaired ADLs, decreaesd functio nal mobility, gait, locomotion, and balance, ergonomics and body mechanics Planned Interventions:Planned Therapy Interventions: ADL retraining, transfer training, ort hotic fitting/training Patient Status/Goals Reflects last filed data of patient status; may be from multiple contributors. ADLs UB Dressing, Level of [place]: modified independence Provided tips to ease over the head to don dress. Ensure sleeves are over her elbows, then raise over head. LB, Level of [place]: modified independence Toileting, Level of [place]: modified independence Transfers Toilet, Level of [place]: modified independence Toilet, Assistive Device: (walking stick) STG Goals OT Additional Goal #1: Pt will verbalize and demonstrate good understanding of cervical pre cautions. Time to Achieve: 1 day Goal Status: new, met Assessment: Occupational therapy orders received and acknowledged. Objective impairments i nclude mildly impaired ADLs, fxl mobility not requiring acute OT intervention. Prognosis: good, to achieve stated therapy goals Patient and/or family has indicated understanding of treatment needs and actively participa timi in the creation of this plan for care. Today's Treatment Start Time: 1646 Stop time: 1709 Time Calculation: 23 minutes Missed Treatment Time: minutes Total Treatment Time: 23 minutes TimedTreatment Code Minutes: 13 minutes Objective: Pt seen for OT evaluation. Please see above for addt'l info on status & outcom e. Education: Cervical precautions; safety Treatment Provided: ADL training; functional mobility; safety awareness Assessment: OT evaluation completed. Pt doing well post-operatively. Completed ADLs w/ mo d I. Dgtr supportive and pt will be staying w/ her for the first week. No OT concerns. Plan for next treatment: No further OT. Pt d/cing home today. Electronically signed by: Ilana Cai OT, 04/03/2016 17:37 lan of Care - Shimon Mcleod RN - 04/03/2016 1:19 PM PDTProblem: Patient Care Overview (Adult) Goal: Care Team Goals & Evaluation PROBLEM-RELATED GOALS: Patient pain less than 2/10 04/03/16 STRATEGY TO ACHIEVE GOALS: RESTRAINT-RELATED GOALS: STRATEGIES TO ACHIEVE RESTRAINT GOALS: Outcome: Improving Goal Evaluation: patient sitting up in bed wearing brace for comfort. Family at bedside. No c/o pain p Note - Tomer Burger DO - 04/03/2016 10:41 AM PDTDATE: 04/03/2016 SURGEON: Joel Burger DO PATIENT ACCOUNTING REPRESENTATIVE: ALEX Oh PREOPERATIVE DIAGNOSES: 1. Cervical spondylosis. 2. Cervical stenosis, C4-5. 3. Cervical radiculopathy. 4. Cervicalgia. POSTOPERATIVE DIAGNOSES: 1. Cervical spondylosis. 2. Cervical stenosis, C4-5. 3. Cervical radiculopathy. 4. Cervicalgia. PROCEDURE PERFORMED: 1. C4-5 anterior interbody diskectomy with decompression of the spinal cord and osteophytec abhijit. 2. C4-5 anterior interbody arthrodesis. 3. C4-5 insertion of interbody PEEK cage. 4. C4-C5 anterior instrumentation. 5. Use of allograft. 6. Microsurgical techniques. 7. Fluoroscopic guidance for localization and instrumentation. ANESTHESIA: General endotracheal anesthesia. ESTIMATED BLOOD LOSS: 25 mL. DRAINS: None. COMPLICATIONS: None. DISPOSITION: Patient stable to the PACU. INDICATION FOR THE PROCEDURE: Ms. Santiago is a 60-year-old woman, who presented with signs and symptoms and radiographic evidence of cervical spondylosis and stenosis - neck and arm p ain. MRI and x-rays of the cervical spine demonstrated the disease. She tried and failed mul tiple conservative treatment modalities and her symptoms progressed. Given the progression o f her symptoms, she decided to proceed with anterior cervical fusion C4-5. SURGICAL RISKS: The patient was well-apprised of all objectives, benefits, risks, and poten tial complications of the procedure, including, but not limited to worsening of the current status, possible need for further procedures, risks of infection, headache, CSF leak, possib le spinal cord injury resulting in paralysis, infection, neck hematoma, hoarseness of voice, injury to major vessels causing hemorrhage, stroke, loss of language function, coma, and ev en . Informed consent was obtained and secured in the chart after the patient voiced un derstanding of these risks and decided to proceed with the operation. DESCRIPTION OF THE PROCEDURE: The patient was transferred to operating room #2. She was giv en preoperative prophylactic IV antibiotics. The patient was sedated and intubated without d ifficulty by the Anesthesia service. Eyes were taped shut after ointment was applied to prev ent corneal abrasion. A Elaine Hugger was placed over the lower body to maintain control of co re body temperature. The patient was placed in the supine position with an IV bag under her scapulae and a Cloward pillow behind her neck. All pressure points were carefully padded. Th e skin was prepped and draped in standard surgical fashion. The area was marked with a lisa ng pen, utilizing standard landmarks such as midline and cricoid cartilage. A transverse neck incision was performed opposite the C4-5 level with a #10 scalpel blade. The incision was deepened through the platysmal muscle and the edges were undermined using s harp dissection. Hemostasis was achieved using Bovie electrocautery as well as bipolar force ps. Further blunt and sharp dissection was carried down in a plane lateral to the omohyoid m uscle and medial to the carotid sheath until the anterior longitudinal ligament was reached in front of the spine. The C-arm fluoroscopy unit was draped with sterile drapes and brought into the operative fi eld. The level of C4-5 was confirmed by placing a marker needle under fluoroscopic x-ray. Th e longus colli muscles were undermined with monopolar electrocautery on either side until th e uncovertebral joints were exposed. [place] distraction pins were placed at the C4 and C5 ve rtebral bodies, and the diskectomy was initiated with a #11 blade at the C4-5 level. Diskect ania was carried out utilizing pituitary rongeurs, Kerrison rongeurs, and curettes to widen a nd remove the anterior disk-spur complex. The diskectomy was carried down to the level of th e posterior longitudinal ligament using high-speed electric drilling. Then, abrasion of the disk endplates was performed, and the posterior disk-spur complexes were removed down to the level of the posterior longitudinal ligament. The PLL was entered with 1B Codman curette. I t was excised completely to fully expose the dura and further decompress the spinal cord. The osteophytectomy was completed with high-speed electric drilling to excise osteophytes a t the posterior margin of the superior and inferior endplates and the neural foramina bilate rally. These were decompressed using high-speed electric drilling as well as Kerrison rongeu rs. Using a blunt nerve hook, the foramina and undersurface of both vertebral bodies were tr acked, and exiting nerve root was found to be well decompressed. The clean disk space was sized appropriately with a trial, and a 6 x 16 x 14 mm PEEK cage f rom Crelow was chosen and filled with Burt paste allograft. To achieve arthrodesis, en dplates of the disk space were abraded and the permanent spacer was inserted into the disk s pace. It fit well and was snug. Next, the [place] pins were removed and bone wax was placed where the pins were to arrest eugenie ne bleeding. A 25 mm [place] Flat Translational plate was chosen. This is by Crelow. It was p laced on top of the spine. Then, 4.0 x 14 mm variable angled screws were placed in each hole at C4. 4.0 x 14 mm variable angled screws were placed at C5. Four screws were placed all to gether. Fluoroscopic x-ray confirmed good placement of the spacers, plate, and screws. The wound wa s inspected, and hemostasis was achieved. A 3-0 Vicryl suture was used to reapproximate the platysmal layer in running fashion. Surgical joby were used for the skin layer. Mastisol and Steri-Strips were placed over the incision. All sponge counts, needle counts, and instru ment counts were correct at the end of the case x2. The patient tolerated the procedure well and was transferred in stable condition to the recovery room. rief Op Note - Joel Burger DO - 04/03/2016 10 :40 AM PDT Brief Operative Note Ann Santiago 60 y.o. female 1955 [id number] Proc. Date 04/03/2016 Preop Dx Spondylosis and stenosis C4-5 Postop Dx same Procedure C4-5 Anterior Cervical Discectomy with Fusion and Plating Anesthesia General Surgeon Joel Burger DO - Primary Forging Press Operator ALEX Aquino - Assisting EBL 25 mL Findings Findings consistent with scheduled procedure. No other abnormalities found. Complications none Specimens * No specimens in log * Drains Electronically signed by: Joel Burger DO 04/03/2016 10:40 [facility] Joel Burger DO at 03/08 10:41 AM PDTdocumented in this encounter Plan of Treatment Not on filedocumented as of this encounter Procedures + +--------+ + + + | Procedure Name | Priori | Date/Time | Associated Diagnosis | Comments | | | ty | | | | + +--------+ + + + | XR CERVICAL SPINE 2 | STAT | 04/03/2016 | | Results for this | | OR 3 VIEWS | | 12:18 PM | | procedure are in the [...] | + +--------+ + + + | FUSION CERVICAL | | 04/03/2016 | Other spondylosis | | | ANTERIOR W/ PLATING | | 9:09 AM | with radiculopathy, | | | | | PDT | cervical region | | + +--------+ + + + +---+--------+ | | Case | | | Notes | | | | | | Origin | | | al | | | Schedu | | | ler | | | Commen | | | ts/Not | | | es | | | Sent | | | Over | | | 02/18/ | | | 2015 @ | | | | | | 1521:C | | | -Arm, | | | Drill, | | | | | | Micros | | | cope | | | Est | | | time: | | | 1H | | | Biolog | | | ics: | | | Grafto | | | n | | | Table: | | | | | | Skytro | | | n | +---+--------+ | | | | | Specia | | | l | | | Needs | | | Albert | | | | | | Moses | | | - | | | Atlant | | | is | | | Transi | | | tional | | | , Peek | +---+--------+ + +--------+ +---+ + | EXTRA LAVENDER TOP | Routin | 04/03/2016 | | Results for this | | TUBE | e | 8:12 AM | | procedure are in the | | | | PDT | | results section. | + +--------+ +---+ + | EXTRA GREEN TOP TUBE | Routin | 04/03/2016 | | Results for this | | | e | 8:11 AM | | procedure are in the | | | | PDT | | results section. | + +--------+ +---+ + | PTT | Routin | 04/03/2016 | | Results for this | | | e | 8:09 AM | | procedure are in the | | | | PDT | | results section. | + +--------+ +---+ + | PROTIME INR | Routin | 04/03/2016 | | Results for this | | | e | 8:09 AM | | procedure are in the | | | | PDT | | results section. | + +--------+ +---+ + | TYPE AND SCREEN | Routin | 04/03/2016 | | Results for this | | | e | 8:08 AM | | procedure are in the | | | | PDT | | results section. | + +--------+ +---+ + documented in this encounter Results XR Cervical Spine 2 or 3 Views (04/03/2016 12:18 PM PDT) + + | Specimen | + + | | + + + + + | Narrative | Performed At | + + + | XR CERVICAL SPINE 2 OR 3 VIEWS 04/03/2016 12:17 PM HISTORY: post | [facility] | | op cervical surgery. COMPARISON: Multiple priors. FINDINGS: | | | Visualized skull base and facial structures demonstrate no acute | | | findings. Mild prevertebral soft tissue swelling is present with gas | | | consistent with recent surgery. There has been interval placement | | | of hardware for anterior fusion from C4 through C5 with spacer | | | hardware at C4-5. The hardware are intact. There is minimal | | | anterolisthesis of C5 over C6. Bone mineralization is mildly | | | decreased. The dens is normal. Vertebral body height are preserved | | | with no evidence for compression fractures. Disc height are | | | maintained. Multilevel facet sclerosis and hypertrophy are seen. | | | There is mild atherosclerosis of the bilateral neck. Visualized upper | | | chest demonstrates no acute findings. IMPRESSION - Interval | | | anterior fusion from C4 through C5. Dictated and Signed by: Dell | | | MD Julio Electronically signed: 04/03/2016 12:21 PM | | + + + + + | Procedure Note | + + | Gianni, Rad Results In - 04/03/2016 12:24 PM PDT XR CERVICAL SPINE 2 OR 3 VIEWS | | 04/03/2016 12:17 PMHISTORY: post op cervical surgery.COMPARISON: Multiple | | priors.FINDINGS:Visualized skull base and facial structures demonstrate no acute | | findings. Mildprevertebral soft tissue swelling is present with gas consistent with | | recentsurgery.There has been interval placement of hardware for anterior fusion from | | [id number] C5 with spacer hardware at C4-5. The hardware are intact. There isminimal | | anterolisthesis of C5 over C6. Bone mineralization is mildly decreased.The dens is | | normal. Vertebral body height are preserved with no evidence forcompression fractures. | | Disc height are maintained. Multilevel facet sclerosisand hypertrophy are seen. There is | | mild atherosclerosis of the bilateral neck.Visualized upper chest demonstrates no acute | | findings. IMPRESSION -Interval anterior fusion from C4 through C5.Dictated and Signed | | by: Dell Kim MD Electronically signed: 04/03/2016 12:21 PM | |through C5 with spacer hardware at C4-5. The hardware are intact. There is | |minimal anterolisthesis of C5 over C6. Bone mineralization is mildly decreased. | |The dens is normal. Vertebral body height are preserved with no evidence for | |compression fractures. Disc height are maintained. Multilevel facet sclerosis | |and hypertrophy are seen. There is mild atherosclerosis of the bilateral neck. | |Visualized upper chest demonstrates no acute findings. | | | |IMPRESSION - | |Interval anterior fusion from C4 through C5. | | | |Dictated and Signed by: Dell Kim MD | | Electronically signed: 04/03/2016 12:21 PM | + + + +---------+ + + | Performing | Address | City/State/Zipcode | Phone Number | | Organization | | | | + +---------+ + + | [facility] | | | | + +---------+ + + JANAY PenaJean Paul Prieto (04/03/2016 10:32 AM PDT) + + | [...] | | | + +---------+ + + Extra Lavender Top Tube (04/03/2016 8:12 AM PDT) + +-------+ + + + | Component | Value | Ref Range | Performed | Pathologist | | | | | At | Signature | + +-------+ + + + | Extra | Done | | [facility] | | | Lavender | | | [facility] | | | Top Tube | | | MEDICAL | | | | | | CENTER - | | | | | | LABORATORY | | + +-------+ + + + + + | Specimen | + + | Blood | + + + + + + + | Performing | Address | City/State/Zipcode | Phone Number | | Organization | | | | + + + + + | [facility] | [address] | [place] | [phone] | | [facility] | | [address] | | | - LABORATORY | | | | + + + + + Extra Green Top Tube (04/03/2016 8:11 AM PDT) + +-------+ + + + | Component | Value | Ref Range | Performed | Pathologist | | | | | At | Signature | + +-------+ + + + | Extra Green | Done | | [facility] | | | Top Tube | | | [facility] | | | | | | MEDICAL | | | | | | CENTER - | | | | | | LABORATORY | | + +-------+ + + + + + | Specimen | + + | Blood | + + + + + + + | Performing | Address | City/State/Zipcode | Phone Number | | Organization | | | | + + + + + | [facility] | [address] | [place] | [phone] | | [facility] | | [address] | | | - LABORATORY | | | | + + + + + PTT (04/03/2016 8:09 AM PDT) + +-------+ + + + | Component | Value | Ref Range | Performed | Pathologist | | | | | At | Signature | + +-------+ + + + | aPTT | 34 | 22 - 36 seconds | [facility] | | | | | | [facility] | | | | | | MEDICAL | | | | | | CENTER - | | | | | | LABORATORY | | + +-------+ + + + + + | Specimen | + + | Blood | + + + + + + + | Performing | Address | City/State/Zipcode | Phone Number | | Organization | | | | + + + + + | [facility] | [address] | [place] | [phone] | | [facility] | | [address] | | | - LABORATORY | | | | + + + + + Protime INR (04/03/2016 8:09 AM PDT) + + + + + + | Component | Value | Ref Range | Performed | Pathologist | | | | | At | Signature | + + + + + + | Prothrombin | 13.1 | 11.3 - 13.9 | [facility] | | | Time | | seconds | [facility] | | | | | | MEDICAL | | | | | | CENTER - | | | | | | LABORATORY | | + + + + + + | INR | 0.97Comment: Usual Oral | 0.90 - 1.10 | [facility] | | | | Anticoagulation Range: | | [facility] | | | | 2.0 - 3.0High | | MEDICAL | | | | Level Oral | | CENTER - | | | | Anticoagulation Range: | | LABORATORY | | | | 2.5 - 3.5 | | | | + + + + + + + + | Specimen | + + | Blood | + + + + + + + | Performing | Address | City/State/Zipcode | Phone Number | | Organization | | | | + + + + + | [facility] | [address] | [place] | [phone] | | [facility] | | [address] | | | - LABORATORY | | | | + + + + + Type and Screen (04/03/2016 8:08 AM PDT) + + + + + + | Component | Value | Ref Range | Performed | Pathologist | | | | | At | Signature | + + + + + + | ABO | O | | [facility] | | | | | | [facility] | | | | | | MEDICAL | | | | | | CENTER - | | | | | | BLOOD BANK | | + + + + + + | Rh Type | Positive | | [facility] | | | | | | [facility] | | | | | | MEDICAL | | | | | | CENTER - | | | | | | BLOOD BANK | | + + + + + + | Antibody | Negative | | [facility] | | | Screen | | | [facility] | [facility] | [facility] - | | | | | | BLOOD BANK | | + + + + + + + + | Specimen | + + | Blood specimen | | (specimen) | + + + + + + + | Performing | Address | City/State/Zipcode | Phone Number | | Organization | | | | + + + + + | [facility] | [address] | [place], [place] | | | [facility] | | [address] | | | - BLOOD BANK | | | | + + + + + documented in this encounter Visit Diagnoses + + | Diagnosis | + + | Other spondylosis with radiculopathy, cervical region | + + documented in this encounter
--- OUTSIDE RECORDS SUMMARY | ~2020-01-29 | XMS | Encounter Summary ---
Demographics + + + | Address | [address] | | | [place] [address] | + + + | Home Phone | | + + + | Preferred Language | Unknown | + + + | Marital Status | | + + + | Roman Catholic Affiliation | Unknown | + + + | Race | White | + + + | Ethnic Group | Not or | + + + Author + + + | Author | [facility] | | | and [place] | + + + | Organization | [facility] | | | and [...] [place] | | | | | [address] | | + + + + + Care Team Providers + +------+ + | Care River Guide Name | Role | Phone | + [...] [facility] | | | | | | J[place], | [address] | | | | | Sacroiliitis | Saúl Rosario MD | [place], | | | | | ([facility]) | [address] | [place] | | | | | Procedures | [place] | [address] | | | | | [place] INJECT SI | [facility], [place] | Phone: | | | | | JOINT | [address] | [phone] | | | | | ARTHRGRPHY&/ | Phone: | Fax: | | | | | ANES/STEROID | [phone] | [phone] | | | | | W/IMAGE [place] | Fax: | | | | | | | [phone] | | | | | | TRIAMCINOLON | | | | | | | E ACET INJ | | | | | | | NOS, 10 MG | | | | | | | Appt 06/17? 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 | | | | | Sacroiliac pain | | | | | | Fibromyalgia | | + +--------+ + + + | FL SACROILIAC | Routin | 06/18/2016 | Chronic bilateral | Results for this | | INJECTION LEFT | e | 2:44 PM | low back pain with | procedure are in the | | | | PST | bilateral sciatica | results section. | | | | | Sacroiliac pain | | | | | | Fibromyalgia | | + +--------+ + + + documented in this encounter Results FL Sacroiliac Injection Right (06/18/2016 2:44 PM PST) + + | Specimen | + + | | + + + + + | Narrative | Performed At | + + + | 06/18/2016 Bilateral Sacroiliac Joint Injection Clinical History: | [facility] | | Sacroiliitis ICD-10 M46.1 Ann Santiago presents to the | [facility] | | fluoroscopy suite for fluoroscopically guided bilateral sacroiliac [facility] | | joint steroid injections as part of conservative management for | - IMAGING | | chronic pain with sacroiliitis. After informed consent was obtained | | | the patient laid in the prone position on the fluoroscopy table. The | | | bilateral sacroiliac joints were identified under fluoroscopic | | | guidance. The areas were prepped and draped in sterile fashion. A 25 | | | gauge 1-1/2 inch needle was inserted into each region and | | | approximately 3 mL of buffered 1% lidocaine was infused. Then a 22 | | | gauge spinal needle was inserted into the inferior joint spaces | | | under fluoroscopic guidance. Confirmation into the sacroiliac joints | | | obtained with infusion of approximately 1 mL of Omnipaque contrast | | | which showed flow within the joint spaces. Then a combination of 2 | | | mL 1% lidocaine and 2 mL of 40 mg per milliliter Kenalog was | | | infused divided between the two sides. The patient tolerated the | | | procedure well without complications. Pre- and post procedure blood | | | pressures were stable. The patient was given verbal as well as | | | written followup instructions. Prior to the start of the | | | procedure the following were performed and verified including | | | correct patient identity, correct site/side marked and visible, | | | agreement of the procedure to be done, correct patient positioning | | | and an accurate procedure consent form. Any safety precautions based | | | on clinical history and/or medications have been addressed. I | | | personally performed the procedure above. Estimated blood loss: | | | Minimal Complications: None Findings: As expected Anesthesia: | | | Local 1% Lidocaine | | + + + + + + + + | Performing | Address | City/State/Zipcode | Phone Number | | Organization | | | | + + + + + | [facility] | [address] | [place], [place] | [phone] | | [facility] | | [address] | | | - IMAGING | | | | + + + + + FL Sacroiliac Injection Left (06/18/2016 2:44 PM PST) + + | Specimen | + + | | + + + + + | Narrative | Performed At | + + + | 06/18/2016 Bilateral Sacroiliac Joint Injection Clinical History: | [facility] | | Sacroiliitis ICD-10 M46.1 Ann Santiago presents to the | [facility] | | fluoroscopy suite for fluoroscopically guided bilateral sacroiliac [facility] | | joint steroid injections as part of conservative management for | - IMAGING | | chronic pain with sacroiliitis. After informed consent was obtained | | | the patient laid in the prone position on the fluoroscopy table. The | | | bilateral sacroiliac joints were identified under fluoroscopic | | | guidance. The areas were prepped and draped in sterile fashion. A 25 | | | gauge 1-1/2 inch needle was inserted into each region and | | | approximately 3 mL of buffered 1% lidocaine was infused. Then a 22 | | | gauge spinal needle was inserted into the inferior joint spaces | | | under fluoroscopic guidance. Confirmation into the sacroiliac joints | | | obtained with infusion of approximately 1 mL of Omnipaque contrast | | | which showed flow within the joint spaces. Then a combination of 2 | | | mL 1% lidocaine and 2 mL of 40 mg per milliliter Kenalog was | | | infused divided between the two sides. The patient tolerated the | | | procedure well without complications. Pre- and post procedure blood | | | pressures were stable. The patient was given verbal as well as | | | written followup instructions. Prior to the start of the | | | procedure the following were performed and verified including | | | correct patient identity, correct site/side marked and visible, | | | agreement of the procedure to be done, correct patient positioning | | | and an accurate procedure consent form. Any safety precautions based | | | on clinical history and/or medications have been addressed. I | | | personally performed the procedure above. Estimated blood loss: | | | Minimal Complications: None Findings: As expected Anesthesia: | | | Local 1% Lidocaine | | + + + + + + + + | Performing | Address | City/State/Zipcode | Phone Number | | Organization | | | | + + + + + | [facility] | [address] | [place] | [phone] | | [facility] | | [address] | | | - IMAGING | | | | + + + + + documented in this encounter Visit Diagnoses + + | Diagnosis | + + | Chronic bilateral low back pain with bilateral sciatica | + + | Sacroiliac pain Disorders of sacrum | + + | Fibromyalgia Mylagia and myositis, unspecified | + + documented in this encounter Administered Medications + +--------+ +-------+------+------+ | Medication Order | MAR | Action | Dose | Rate | Site | | | Action | Date | | | | + +--------+ +-------+------+------+ | iohexol (OMNIPAQUE 300) 300 | Given | 06/18/19 | 4 mLs | | | | mg/mL injection 4 mL 4 mL, | | 17 2:52 | | | | | Other, ONCE, [facility] 06/18/16 at 1500, | | PM PST | | | | | For 1 dose | | | | | | + +--------+ +-------+------+------+ +---+---+ | | | +---+---+ + +-------+ +-------+---+---+ | lidocaine 1% injection 2 mL 2 | Given | 06/18/19 | 2 mLs | | | | mL, Other, ONCE, [facility] 06/18/16 at | | 17 2:54 | | | | | 1500, For 1 dose | | PM PST | | | | + +-------+ +-------+---+---+ +---+---+ | | | +---+---+ + +-------+ +--------+---+---+ | lidocaine buffered 1% injection | Given | 06/18/19 | 10 mLs | | | | 10 mL 10 mL, Other, ONCE, Michelle | | 17 2:50 | | | | | 06/18/16 at 1500, For 1 dose | | PM PST | | | | + +-------+ +--------+---+---+ +---+---+ | | | +---+---+ + +-------+ +-------+---+---+ | triamcinolone acetonide | Given | 06/18/19 | 80 mg | | | | (KENALOG-40) 40 mg/mL injection | | 17 2:54 | | | | | 80 mg 80 mg, Other, ONCE, Michelle | | PM PST | | | | | 06/18/16 at 1500, For 1 dose, | | | | | | | Shake well. Not for IV use., | | | | | | + +-------+ +-------+---+---+ +---+---+ | | | +---+---+ documented in this encounter
--- OUTSIDE RECORDS SUMMARY | ~2020-01-29 | XMS | Encounter Summary ---
Demographics + + + | Address | [address] | | | [place] [address] | + + + | Home Phone | | + + + | Preferred Language | Unknown | + + + | Marital Status | | + + + | Faith Affiliation | Unknown | + + + | Race | White | + + + | Ethnic Group | Not or | + + + Author + + + | Author | [facility] | | | and [place] | + + + | Organization | [facility] | [...] [place] | | | | | [address] | | + + + + + Care Team Providers + +------+ + | Care Automobile Lights Assembler Name | Role | Phone | + +------+ + | Crow Braga DO | PCP | | + +------+ + Encounter Details +--------+ + + + + | Date | Type | Department | Care Team | Description | +--------+ + + + + | 12/17/ | Hospital | [facility] | Mika Holland | Radiculopathy, | | 2016 | Encounter | MED CTR XRAY [address] | cervical; | | | | [place] | [address] [place] | Cervicalgia | | | | [place] [address] | [place] [address] | | | | | [phone] | [phone] | | | | | | | [...] XR CERVICAL SPINE 4 | Routin | 12/18/2015 | Radiculopathy, | Results for this | | OR 5 VWS | e | 4:49 PM | cervical | procedure are in the | | | | PDT | Cervicalgia | results section. | + +--------+ + [...] | + + + + + | [facility] | [address] | [place] | [phone] | | [facility] | | [address] | | | - IMAGING | | | | + + + + + documented in this encounter Visit Diagnoses + + | Diagnosis | + + | Radiculopathy, cervical Brachial neuritis or radiculitis nos | + + | Cervicalgia | + + documented in this encounter
--- OUTSIDE RECORDS SUMMARY | ~2020-01-29 | XMS | Encounter Summary ---
Demographics + + + | Address | [address] | | | [place] [address] | + + + | Home Phone [...] [place] | | | | | [address] | | + + + + + Care Team Providers + +------+ + | Care Copy Director Name | Role | Phone | [...] [facility] | | | | | Cervical | [place], | [address] | | | | | spondylosis | Saúl Rosario MD | [place], | | | | | Procedures | [address] | [place] | | | | | [place] | [facility] | [address] | | | | | DX[address] | [place], [place] | Phone: | | | | | | [address] | [phone] | | | | | EPIDURAL/SUB | Phone: | Fax: | | | | | [place] | [phone] | [phone] | | | | | LUMBAR/SACRA | Fax: | | | | | | L [place] | [phone] | | | | | | TRIAMCINOLON | | | | | | | E ACET INJ | | | | | | | NOS, 10 MG | | | | | | | [place] NJX | | | | | | | DX/THER SBST | | | | | | | | | | | | | | EPIDURAL/SUB | | | | | | | HOWARD | | | | | | | CERV/THORACI | | | | | | | C C7-T1 | | | | | | | OSKAR | | | +--------+--------+ + + + + Encounter Details +--------+ + + + + | Date | Type | Department | Care Team | Description | +--------+ + + + + | 07/15/ | Hospital | [facility] | [place], | Upper back | | 2016 | Encounter | MED CTR XRAY [address] | [address] | pain/posterior | | | | [address] [place] | [facility] [address] | shoulder pian on | | | | [place] [address] | [place] [address] | right side; Neck | | | | [phone] | [phone] | pain; DDD | | | | | | (degenerative disc | | | | | 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, [place] | 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 | | INTERLAMINAR | | | right side Neck | | | | | | pain DDD | | | | | | (degenerative disc | | | | | | disease), cervical - | | | | | | C4/C5 Foram[place] | | | | | | stenosis of cervical | | | | | | region- bilateral | | | | | | C4/C5 | | + +--------+ + + + documented in this encounter Results FL HARMONY Cerv Thor Interlaminar (07/23/2015 1:10 PM PST) + + | Specimen | + + | | + + + + + | Narrative | Performed At | + + + | 07/23/2015 CERVICAL INTERLAMINAR EPIDURAL STEROID INJECTION | [facility] | | CLINICAL HISTORY: ICD-10 CODE M54.12 CERVICAL RADICULOPATHY Ann | [facility] | | Marie Santiago presents to the fluoroscopy suite for a [facility] | | fluoroscopically-guided C7-T1 interlaminar epidural steroid injection, | - IMAGING | | right of midline, as part of conservative management for chronic | | | pain with cervical radiculopathy and degenerative disk disease. | | | After informed consent was obtained, the patient lay in the prone | | | position on the fluoroscopy table. The area was identified under | | | fluoroscopic guidance. The area was prepped and draped in sterile | | | fashion. A 25-gauge, 1.5-inch needle was inserted into this region | | | and approximately 3 mL of buffered 1% lidocaine was infused. Then a | | | 22-gauge epidural needle was advanced into the epidural space at the | | | C7-T1 level. Confirmation into the epidural space was obtained | | | with loss of resistance, as well as infusion of approximately 1 mL | | | of Isovue contrast which showed epidural flow. Then, a combination | | | of 2.5 mL of normal saline and 1.5 mL of 6 mg/mL Celestone was | | | infused. The patient tolerated the procedure well without | | | complications. Pre- and post-procedure blood pressures were stable. | | | The patient was given verbal as well as written followup | | | instructions. Prior to the start of the procedure, the following | | | were performed and verified, including correct patient identity, | | | correct site/side marked and visible, agreement on the procedure to | | | be done, correct patient positioning and an accurate procedure | | | consent form. Any safety precautions based on clinical history | | | and/or medication use have been addressed. I personally performed | | | the procedure above. Estimated blood loss: Minimal | | | Complications: None Findings: As expected Anesthesia: Local 1% | | | Lidocaine | | + + + + + + + + | Performing | Address | City/State[facility] | Phone Number | | Organization | | | | + + + + + | [facility] | [address] | [place] | [phone] | | [facility] | | [address] | | | - IMAGING | | | | + + + + + documented in this encounter Visit Diagnoses + + | Diagnosis | + + | Upper back pain/posterior shoulder pian on right side Pain in thoracic spine | + + | Neck pain Cervicalgia | + + | DDD (degenerative disc disease), cervical - C4/C5 Degeneration of cervical | | intervertebral disc | + + | Foraminal stenosis of cervical region- bilateral C4/C5 Spinal stenosis in cervical | | region | + + documented in this encounter
--- OUTSIDE RECORDS SUMMARY | ~2020-01-29 | XMS | Clinical Summary ---
Demographics + + + | Address | [address] | | | [place] [address] | + + + | Home Phone | | + + + | Preferred Language | Unknown | + + + | Marital Status | | + + + | Pentecostal Affiliation | Unknown | + + + [...] [place] | | | | | [address] | | + + + + + Care Team Providers + +------+ + | Care Home Care Administrator Name | Role | Phone | + +------+ + | Nathan Kent | PCP | | | MD | | | + +------+ + Allergies + + + + + + | Active Allergy | Reactions | Severity | Noted | Comments | | | | | Date | | + + + + + + | Adhesive & Tape | | | | | + + + + + + | Aspirin | | | | | + + + + + + | Bupropion | | Medium | 06/20/19 | Other reaction(s): | | | | | 15 | Other (See | | | | | | Comments) Per | | | | | | patient "breaking | | | | | | out in rash" | + + + + + + | Bupropion Hcl | | | | | + + + + + + | Duloxetine | | | 04/25/20 | | | | | | 15 | | + + + + + + | Food | Hives, Swelling | Medium | 06/20/19 | Other reaction(s): | | | | | 15 | Other (See | | | | | | Comments) Per | | | | | | patient "small | | | | | | blisters and | | | | | | redness" | | | | | | Dissolving stitches | + + + + + + | Ibuprofen | Rash | Medium | 01/13/20 | | | | | | 17 | | + + + + + + | Oxycodone-Aspirin | | | | | + + + + + + Medications + + + +---------+------+------+-------+ | Medication | Sig | Dispensed | Refills | Star | End | Statu | | | | | | t | Date | s | | | | | | Date | | | + + + +---------+------+------+-------+ | gabapentin | Take 300 mg by mouth | | 0 | 02/05 | | Activ | | (NEURONTIN) 300 mg | 2 times daily. | | | 08/24 | | e | | capsule | | | | 12 | | | + + + +---------+------+------+-------+ +---+ + | | Additional | | | InformationPatient | | | taking differently: | | | 600 mg Oral 3 TIMES | | | DAILY, Taking 1 tab | | | am, 1 tab noon, and | | | 2 at bedtime, | | | Reported on | | | 09/17/2017 3:36 PM | +---+ + + + +--------+---+------+---+-------+ | levothyroxine | Take 75 mcg by mouth | | 0 | | | Activ | | (SYNTHROID, | every morning | | | | | e | | LEVOTHROID) 75 MCG | (before breakfast). | | | | | | | tablet | | | | | | | + + +--------+---+------+---+-------+ | atorvaSTATin | Take 40 mg by mouth | | 0 | | | Activ | | (LIPITOR) 40 mg | nightly. | | | | | e | | tablet | | | | | | | + + +--------+---+------+---+-------+ | | Take 1-2 tablets by | 120 | 0 | 10/2 | | Activ | | HYDROcodone-acetamin | mouth every 4 hours | tablet | | 8/20 | | e | | ophen (NORCO) 10-325 | as needed for Pain. | | | 16 | | | | mg per tablet | | | | | | | + + +--------+---+------+---+-------+ | diazePAM (VALIUM) | Take 1 tablet by | 90 | 1 | 02/0 | | Activ | | 5 mg tablet | mouth every 6 hours | tablet | | /20 | | e | | | as needed (muscle | | | 17 | | | | | spasm). | | | | | | + + +--------+---+------+---+-------+ | clopidogrel | Take 75 mg by mouth | | 0 | | | Activ | | (PLAVIX) 75 mg | Daily. | | | | | e | | tablet | | | | | | | + + +--------+---+------+---+-------+ | lisinopril | Take 40 mg by mouth. | | 0 | | | Activ | | (PRINIVIL,ZESTRIL) | | | | | | e | | 40 MG tablet | | | | | | | + + +--------+---+------+---+-------+ | VOLTAREN 1 % GEL | Apply topically 2 | | 0 | 07/0 | | Activ | | | times daily. | | | 5/20 | | e | | | | | | 18 | | | + + +--------+---+------+---+-------+ | sertraline | Take 50 mg by mouth | | 0 | 07/1 | | Activ | | (ZOLOFT) 50 mg | Daily. | | | 2/20 | | e | | tablet | | | | 18 | | | + + +--------+---+------+---+-------+ | fluticasone | Daily. | | 0 | 07/1 | | Activ | | (FLONASE) 50 | | | | 2/20 | | e | | mcg/nasal spray | | | | 18 | | | + + +--------+---+------+---+-------+ | metoprolol | Take 50 mg by mouth | | 0 | | | Activ | | tartrate (LOPRESSOR) | Daily. | | | | | e | | 50 mg tablet | | | | | | | + + +--------+---+------+---+-------+ Active Problems + + + | Problem | Noted Date | + + + | Lumbar radiculopathy | 12/28/2017 | + + + | Sleep apnea | 09/17/2017 | + + + + + | Overview: Overview: | | on CPAP | + + + + + | Chronic bilateral low back pain with sciatica | 06/16/2016 | + + + | Sacroiliac pain | 06/16/2016 | + + + | Facet arthritis of lumbar region | 06/16/2016 | + + + | HTN (hypertension) | 04/03/2016 | + + + | Beta Doris use | 04/03/2016 | + + + | Class II, BMI 35-39.9 | 04/03/2016 | + + + | H/O Dizziness/Vertigo | 04/03/2016 | + + + | H/O Anemia | 04/03/2016 | + + + | H/O Neutropenia | 04/03/2016 | + + + | H/O Hysterectomy | 04/03/2016 | + + + | H/O Long-term (current) use of anticoagulants - PLAVIX | 04/03/2016 | + + + | H/O Stroke/CVA - year/sequella? 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 | 05/15/2015 | + + + | Neck pain | 05/01/2015 | + + + | Myofascial pain | 04/25/2015 | + + + | Shoulder pain, right | 04/25/2015 | + + + | Dizziness | 06/21/2014 | + + + | HLD (hyperlipidemia) | 06/21/2014 | + + + | Vertigo | 06/21/2014 | + + + | Trochanteric bursitis | 01/05/2013 | + + + | Upper back pain/posterior shoulder pian on right side | 01/05/2013 | + + + | Fibromyalgia | 01/05/2013 | + + + | Bipolar affective disorder | 01/05/2013 | + + + | Depression | 01/05/2013 | + + + | Anxiety | 01/05/2013 | + + + | Post traumatic stress disorder (PTSD) | 01/05/2013 | + + + | HIP PAIN | | + + + | Chronic low back pain | | + + + Family History + + +------+ + | Medical History | Relation | Name | Comments | + + +------+ + | Heart attack | Brother | | | + + +------+ + | Mental illness | Brother | | | + + +------+ + | Alcohol abuse | Brother | | | + + +------+ + | Hypertension | Child | | | + + +------+ + | Alcohol abuse | Father | | | + + +------+ + | Other (see comment) | Father | | Brain tumor | + + +------+ + | Arthritis | Maternal | | | | | Aunt | | | + + +------+ + | Mental illness | Maternal | | | | | Aunt | | | + + +------+ + | Heart disease | Maternal | | | | | Grandfath | | | | | er | | | + + +------+ + | Arthritis | Maternal | | | | | Grandmoth | | | | | er | | | + + +------+ + | Mental illness | Maternal | | | | | Grandmoth | | | | | er | | | + + +------+ + | Stroke | Maternal | | | | | Grandmoth | | | | | er | | | + + +------+ + | Mental illness | Maternal | | | | | Uncle | | | + + +------+ + | Arthritis | Maternal | | | | | Uncle | | | + + +------+ + | Alcohol abuse | Mother | | | + + +------+ + | Mental illness | Paternal | | | | | Aunt | | | + + +------+ + | Arthritis | Paternal | | | | | Aunt | | | + + +------+ + | Alcohol abuse | Paternal | | | | | Grandfath | | | | | er | | | + + +------+ + | Heart disease | Paternal | | | | | Grandfath | | | | | er | | | + + +------+ + | Tobacco Use | Paternal | | | | | Grandfath | | | | | er | | | + + +------+ + | Alcohol abuse | Paternal | | | | | Grandmoth | | | | | er | | | + + +------+ + | Heart disease | Paternal | | | | | Grandmoth | | | | | er | | | + + +------+ + | Tobacco Use | Paternal | | | | | Grandmoth | | | | | er | | | + + +------+ + | Mental illness | Paternal | | | | | Uncle | | | + + +------+ + | Arthritis | Paternal | | | | | Uncle | | | + + +------+ + | High cholesterol | Sister | | | + + +------+ + | Alcohol abuse | Sister | | | + + +------+ + | Hypertension | Sister | | | + + +------+ + | Mental illness | Sister | | | + + +------+ + | Arthritis | Sister | | | + + +------+ + + +------+ + + | Relation | Name | Status | Comments | + +------+ + + | Brother | | | [place] | | | | (Age | | | | | 43 ) | | + +------+ + + | Brother | | | | + +------+ + + | Brother | | | | + +------+ + + | Brother | | | | + +------+ + + | Child | | Alive | | + +------+ + + | Child | | | | + +------+ + + | Father | | | pneumonia | | | | (Age | | | | | 79) | | + +------+ + + | Maternal Aunt | | | | + +------+ + + | Maternal Aunt | | | | + +------+ + + | Maternal Grandfather | | | Accidental | + +------+ + + | Maternal Grandmother | | | age | | | | (Age | | | | | 89 ) | | + +------+ + + | Maternal Uncle | | | | + +------+ + + | Maternal Uncle | | | | + +------+ + + | Mother | | Alive | | + +------+ + + | Paternal Aunt | | | | + +------+ + + | Paternal Aunt | | | | + +------+ + + | Paternal Grandfather | | | | + +------+ + + | Paternal Grandmother | | | | | | | (Age | | | | | 53) | | + +------+ + + | Paternal Uncle | | | | + +------+ + + | Paternal Uncle | | | | + +------+ + + | Sister | | Alive | | + +------+ + + | Sister | | | | + +------+ + + | Sister | | | | + +------+ + + | Sister | | | | + +------+ + + | Sister | | | | + +------+ + + | Sister | | | | + +------+ + + Social History + + + [...] on file | | + + + Last Filed Vital Signs + + + + + | Vital Sign | Reading | Time Taken | Comments | + + + + + | Blood Pressure | 160/49 | 12/14/2018 5:09 PM | | | | | PDT | | + + + + + | Pulse | 65 | 12/14/2018 5:09 PM | | | | | PDT | | + + + + + | Temperature | 36.6 C (97.9 F) | 12/14/2018 5:09 PM | | | | | PDT | | + + + + + | Respiratory Rate | 16 | 12/14/2018 5:09 PM | | | | | PDT | | + + + + + | Oxygen Saturation | 98% | 12/14/2018 5:09 PM | | | | | PDT | | + + + + + | Inhaled Oxygen | - | - | | | Concentration | | | | + + + + + | Weight | 118.1 kg (260 lb 5.8 | 12/21/2018 8:28 AM | | | | oz) | PDT | | + + + + + | Height | 162.6 cm (5' 4") | 12/21/2018 8:28 AM | | | | | PDT | | + + + + + | Body Mass Index | 44.69 | 12/21/2018 8:28 AM | | | | | PDT | | + + + + + Plan of Treatment + + + + + | Health Maintenance | Due Date | Last | Comments | | | | Done | | + + + + + | Hepatitis C | | | | | Screening | 6 | | | + + + + + | Medication | | | | | Management | 6 | | | + + + + + | Colorectal Cancer | | | | | Screening | 6 | | | | (Colonoscopy) | | | | + + + + + | Vaccine: Zoster (1 | | | | | of 2) | 6 | | | + + + + + | Breast Cancer | | | | | Screening | 1 | | | + + + + + | Adult Annual | | | | | Wellness Visit | 5 | | | + + + + + | Med Mgmt: BUN | | 10/10/19 | | | | 9 | 18, | | | | | 03/11/20 | | | | | 16, | | | | | 07/17/19 | | | | | 15, | | | | | Addition | | | | | al | | | | | history | | | | | exists | | + + + + + | Med Mgmt: Cr | | 10/10/19 | | | | 9 | 18, | | | | | 03/11/20 | | | | | 16, | | | | | 07/17/19 | | | | | 15, | | | | | Addition | | | | | al | | | | | history | | | | | exists | | + + + + + | Med Mgmt: K | | 10/10/19 | | | | 9 | 18, | | | | | 03/11/20 | | | | | 16, | | | | | 07/17/19 | | | | | 15, | | | | | Addition | | | | | al | | | | | history | | | | | exists | | + + + + + | Med Mgmt: TSH | | 10/10/19 | | | | 9 | 18, | | | | | 07/16/19 | | | | | 15 | | + + + + + | Med Mgmt: eGFR | | 10/10/19 | | | | 9 | 18, | | | | | 03/11/20 | | | | | 16, | | | | | 07/17/19 | | | | | 15, | | | | | Addition | | | | | al | | | | | history | | | | | exists | | + + + + + | Vaccine: Influenza | | 01/27/20 | | | (#1) | 0 | 17, | | | | | 04/16/20 | | | | | 15 | | + + + + + | Vaccine: | | 02/23/20 | | | Dtap/Tdap/Td (2 - | 4 | 14 | | | Td) | | | | + + + + + Implants + +--------+--------+ +--------+--------+--------+ | Implanted | Type | Area | Manufacture | Device | Shelf | Model | | | | | r | | Expira | / | | | | | | Identi | tion | Serial | | | | | | fier | Date | / Lot | + +--------+--------+ +--------+--------+--------+ | Cage Guillermina Ptc [id number] - | Generi | Anteri | [employer] - | | 10/28/ | [id number] | | [id number]: Qty: 1 on | c | or: | MEDT | | 4 | 4 / | | 04/03/2016 by Joel Burger | | Spine | | | | /[id number] | | DO [place] at [facility] | | Cervic | | | | | | [facility] | | al | | | | | + +--------+--------+ +--------+--------+--------+ | Allgrft Grftn Pls 1cc Aseptic | Graft | Anteri | [employer] - | | 11/25/ | [id number] | | - [id number]: Qty: 1 | | or: | MEDT | | 2018 | | | on 04/03/2016 by Jennyfer, | | Spine | | | | [id number] | | Joel Honeycutt DO at [facility] | | Cervic | | | | [id number] | | [facility] | | al | | | | / | + +--------+--------+ +--------+--------+--------+ | Plate Ant Truro Cerv 25mm | Plate | Anteri | [employer] - | | | [id number] | | - [id number]: Qty: 1 | | or: | MEDT | | | 5 / / | | on 04/03/2016 by Jennyfer | | Spine | | | | | | Joel Honeycutt DO at [facility] | | Cervic | | | | | | [facility] | | al | | | | | + +--------+--------+ +--------+--------+--------+ | Screw Slf-Drl V/A 4.0x14mm - | Screw | Anteri | SOFAMOR | | | [id number] | | [id number]: Qty: 4 on | | or: | DANEK - DIV | | | / | | 04/03/2016 by Joel Burger | | Spine | [employer] | | | | | DO [place] at [facility] | | Cervic | - [id number] | | | | | [facility] | | al | | | | | + +--------+--------+ +--------+--------+--------+ Results Not on filefrom Last 3 Months Insurance + +--------+ +--------+ +---------+--------+ | Payer | Benefi | Subscriber | Effect | Phone | Address | Type | | | t Plan | ID | valentin | | | | | | / | | Dates | | | | | | Group | | | | | | + +--------+ +--------+ +---------+--------+ | MEDICARE | MEDICA | [id number] | 06/07/19 | [phone] | | Medica | | | RE | | 16-Pre | 5 | | re | | | PART A | | sent | | | | | | AND B | | | | | | + +--------+ +--------+ +---------+--------+ | MEDICARE | MEDICA | [id number] | 06/07/19 | [phone] | | Medica | | | RE | | 16-Pre | 5 | | re | | | PART A | | sent | | | | | | AND B | | | | | | + +--------+ +--------+ +---------+--------+ | [place] | MEDICA | [id number] | | [phone] | | Medica | | | ID | | 018-Pr | 2 | | id | | | [place] | | esent | | | | + +--------+ +--------+ +---------+--------+ | [place] | MEDICA | [id number] | | [phone] | | Medica | | | ID | | 018-Pr | 2 | | id | | | [place] | | esent | | | | + +--------+ +--------+ +---------+--------+ + +--------+ +--------+ + + | Guarantor Name | Accoun | Relation to | Date | Phone | Billing Address | | | t Type | Patient | of | | | | | | | | | | + +--------+ +--------+ + + | Ann Santiago | Person | Self [birth year] | [address] | | | al/Jorge | | 1954 | [phone] | [place] | | | [place] | | | [address] (Home) | [address] | + +--------+ +--------+ + + | Ann Santiago | Person | Self | [birth year] | [address] | | | al/Fam | | 1955 | [phone] | [address] [place] | | | [place] | | | [address] (Home) | [address] | + +--------+ +--------+ + + Advance Directives + + + + + | Type | Date Recorded | Patient | Explanation | | | | Car Rider | | + + + + + | Power of | 04/03/2016 | | | | | 7:58 AM | | | + + + + + | Advance | 10/04/2017 9:42 | | | | Directive | AM | | | + + + + + + + + + + | Code Status | Date | Date | Comments | | | Activated | Inactivated | | + + + + + | Full Code | 04/03/2016 | 04/03/2016 | | | | 12:39 PM | 8:24 PM | | + + + + +
--- OUTSIDE RECORDS SUMMARY | ~2020-01-29 | XMS | Encounter Summary ---
Demographics + + + | Address | [address] | | | [place] [address] | + + + | Home Phone | | + + + | Preferred Language | Unknown | + + + | Marital Status | | + + + | Hinduism Affiliation | Unknown | + + + | Race | White | + + + | Ethnic Group | Not or | + + + Author + + + | Author | [facility] | | | and [place] | + + + | Organization | [facility] | | [...] [place] | | | | | [address] | | + + + + + Care Team Providers + +------+ + | Care [employer]s [employer] Footballs Reverser Name | Role | Phone | + +------+ + | Crow Braga DO | PCP | | + +------+ + Reason for Visit +--------+--------+ + | Reason | Onset | Comments | | | Date | | +--------+--------+ + | Other | 08/09/ | Transportation | | | 2017 | | +--------+--------+ + Encounter Details +--------+ + + + + | Date | Type | Department | Care Team | Description | +--------+ + + + + | 08/09/ | Telephone | [facility] | Maged Montgomery MD | Other | | 2017 | | [facility] | [address] | (Transportation) | | | | CLINIC [address] | [place] | | | | | [address] [place], | [address] | | | | | [place] [address] | | | | | | [phone] | | | +--------+ + + + [...] this encounter Miscellaneous Notes Telephone Encounter - Yuki Ma - 08/09/2017 4:20 PM Umer Mckinley we have this patient coming for a consultation appt. with Dr. Montgomery on 09/09/17 at 9:45 am and she was told t hat since she is partial Medicaid that they would not be able to transport her to her appt. Pt lives in [place] and can only drive in town and her daughter cannot take her that owen y. Is there anything we can do to help pt get here from [place]? Thank you so much, Tavia Ochoa nelson this encounter Plan of Treatment Not on filedocumented as of this encounter Visit Diagnoses Not on filedocumented in this encounter"
--- OUTSIDE RECORDS SUMMARY | ~2020-01-29 | XMS | Encounter Summary ---
Demographics + + + | Address | [address] | | | [place] [address] | + + + | Home Phone [...] Author + + + | Author | [facility] | | | and [place] | + + + | Organization | [facility] | | | [...] [place] | | | | | [address] | | + + + + + Care Team Providers + +------+ + | Care Jewelry Coater Name | Role | Phone | + +------+ + | Crow Braga DO | PCP | | + +------+ + Reason for Visit + + + | Reason | Comments | + + + | Back Pain | low back pain radiating down L>R legs | + + + Evaluate & Treat (Routine) +--------+ + + + + + | Status | Reason | Specialty | Diagnoses / | Referred By | Referred To | | | | | Procedures | Contact | Contact | +--------+ + + + + + | Closed | Specialty | Physical | Diagnoses | Jennyfer, | Jasmine, | | | Services | Medicine and | Right leg | Joel Honeycutt DO | Saúl Rosario MD | | | Required | Rehabilitatio | pain | [address] | [address] | | | | n | Chronic low | [address] | [address] | | | | | back pain | [place] | [place] | | | | | without | [address] | [address] Phone: | | | | | sciatica, | Phone: | [phone] | | | | | unspecified | [phone] | Fax: | | | | | back pain | Fax: | [phone] | | | | | laterality | [phone] | | +--------+ + + + + + Encounter Details +--------+---------+ + + + | Date | Type | Department | Care Team | Description | +--------+---------+ + + + | 06/16/ | Office | [facility] | [place], | Chronic bilateral | | 2017 | Visit | PHYSIATRY [address] | [address] | low back pain with | | | | [address] | [address] | bilateral sciatica | | | | [place] | [place] [address] | (Primary Dx); | | | | [address] | [phone] | Sacroiliac pain; | | | | [phone] | | Fibromyalgia; Facet | | | | | | arthritis of lumbar | | | | | | region (HCC) | +--------+---------+ + + + Social History [...] + + + | Blood Pressure | 150/77 | 06/16/2016 10:11 AM | | | | | PST | | + + + + + | Pulse | 66 | 06/16/2016 10:11 AM | | | | | PST | | + + + + + [...] + + + + | Weight | 108 kg (238 lb) | 06/16/2016 10:11 AM | | | | | PST | | + + + + + | Height | 162.6 cm (5' 4") | 06/16/2016 10:11 AM | | | | | PST | | + + + + + | Body Mass Index | 40.85 | 06/16/2016 10:11 AM | | | | | PST | | + + + + + [...] of this encounter Patient Instructions Patient Instructions Tavia Buck PA-C - 06/16/2016 10:26 AM PST1) Sacroiliac joint injection 2) Follow up in 3 weeks Sacroiliitis: This is the term used to describe sacroiliac joint pain which connect the sacrum (very end of the spine) and pelvic bone. It occurs when there is movement of one pelvic bone on the other or a decrease in joint mobility with bending and twisting movements, mis-stepping, or when there is a leg length discrepancy. There can be pain to the buttocks region, into the groin or posterior thigh. Treatment consists of rest, physical therapy, Sacroiliac Belt, apple roid joint injections into the sacroiliac joint. Steroids are a very strong anti-inflammatory, this helps reduce pain by reducing swelling. Complications of steroids are bleeding, infection, and an increase of blood sugars if you a re diabetic. assisted risk can lead to osteoporosis which is why we limited the number of injections to 3 times per year. With a sacroiliac joint injection, the steroid is placed i nside this joint. The procedure is about 20 minutes long. You will lie on your back while x-rays are taken. Once the region is marked, it is numbed and then injected with steroids. Follow-up at the hospital thirty minutes before [...] of the procedure you must provide a utility worker driver to take you home. For all procedur es it is recommended that someone else drive you home. documented in this encounter Progress Notes Tavia Buck PA-C - 06/16/2016 10:33 AM PSTFormatting of this note might be differe nt from the original. CHIEF COMPLAINT: Chief Complaint Patient presents with Back Pain low back pain radiating down L>R legs HISTORY OF PRESENT ILLNESS: The patient is a 61 y.o. female being seen today in follow-up for complaints of low back pa in with radiation down both legs. This is a new issue, we have been her before for her nec k pain. She recently underwent a neck fusion with Dr. Burger. She reports the low back chris n has worsened in the last 6 months. She rates the pain as mild with rest and a 8 on scale of 1-10 with activities. She describ es the pain as aching, sharp, stabbing or burning. Her symptoms worsen with standing, walk ing, bending, twisting, stooping. Her symptoms improve with lying down, sleeping at night, use of pain medications. The patient does describe numbness of the bilateral anterior thighs. She does not report weakness of the legs. The patient does not report recent falls or trauma. She doesnot have bowel and bladder dysfunction. She does not have saddle anesthesia. Treatments for these complaints have included physical therapy, use of NSAIDS, tylenol and narcotics. Patient's medications, allergies, past medical, surgical, social and family histories were reviewed and updated as appropriate. CURRENT MEDICATIONS: Current Outpatient Prescriptions Medication Sig Dispense Refill atorvaSTATin (LIPITOR) 40 mg tablet Take 40 mg by mouth nightly. diazePAM (VALIUM) 5 mg tablet Take 1 tablet by mouth every 8 hours as needed. 90 tablet 0 gabapentin (NEURONTIN) 300 mg capsule Take [...] Inhale into the lungs as needed (Patent states " ONLY USING EDIBLES NOT SMOKING"). metoprolol succinate (TOPROL-XL) 25 mg 24 hr tablet Take 25 mg by mouth Daily. No current facility-administered medications for this visit. ALLERGIES: Allergies Allergen Reactions Adhesive & Tape Aspirin Bupropion Bupropion Hcl Duloxetine Food Hives and Swelling Dissolving stitches Oxycodone-Aspirin REVIEW OF SYSTEMS: (in the last [...] rashes. HEMATOLOGIC/LYMPHATIC: No abnormal bleeding PHYSICAL EXAMINATION: Filed Vitals: 06/16/16 1011 BP: 150/77 Pulse: 66 PainSc: 4 PainLoc: Back Body mass index is 40.83 kg/(m^2). GENERAL: The patient is well developed and [...] lower extremity edema. ABDOMEN: The patient is not overweight. NEUROLOGIC: The patient is awake, alert, and oriented to time, place, person. She follows simple and complex commands. Her speech is fluent. She comprehends speech well. She has no apparent deficits with short or watermelon inspector memory. She has appropriate fund of knowledge Cranial nerves 2-12 appear grossly intact. Sensory exam does not show diminished sensation to light touch in the lower extremities. REFLEX: RIGHT LEFT PATELLAR 0- total knee replacement 1+ ACHILLES 2+ 2+ MUSCULOSKELETAL There is no major palpable deformity of the spine. Straight leg raise and slump-sit are negative. Ga's maneuver and impingement testing were negative for any groin pain. There was tenderness to palpation over the right greater trochanters bilateral sacral sulci. The patient localized the majority of the pain to the L3-L5 region and bilateral SI region. Lumbar facet loading was positive. Strength testing showed 5/5 strength throughout the lower extremities. The patient was able to heel and toe walk without difficulty. There was no redness, effusion, warmth or joint line tenderness in the knees or ankles. RADIOGRAPHIC REVIEW: The patient's imaging was reviewed in detail with the patient today during the visit. Lumba r MRI from 10/2015 shows mild DDD, there is facet arthritis at multiple levels. ASSESSMENT: 1. Chronic bilateral low back pain with bilateral sciatica 2. Sacroiliac pain 3. Fibromyalgia 4. Facet arthritis of lumbar region (HCC) PLAN: 1. The patient has had significant conservative care including medications (NSAIDS and narc otics), PT (multiple sessions over the years) and after school caregiver. Unfortunately she elisa nues to have significant discomfort. It appears to me that the pain is primarily coming fro m the sacroiliac joints. I did feel that she would be a good candidate for interventional p rocedures and I offered bilateral SI joint injections. 2. Medications have been reviewed at today's visit with no changes made at this time. 3. She will follow up 3 weeks after the steroid injection, if at that time she continue to have back pain I will order facet steroid injections. She would have to participate in phy sical therapy. ELECTRONICALLY SIGNED BY: Tavia Buck PA-C, 06/16/2016 CC: [facility] umented in this encounter Plan of Treatment Not on filedocumented as of this encounter Results [place] Sacroiliac Injection Right (06/18/2016 2:44 PM PST) + + | Specimen | + + | | + + + + + | Narrative | Performed At | + + + | 06/18/2016 Bilateral Sacroiliac Joint Injection Clinical History: | [facility] | | Sacroiliitis ICD-10 M46.1 Ann Santiago presents to the | [facility] | | fluoroscopy suite for fluoroscopically guided bilateral sacroiliac [facility] | | joint steroid injections as [...] + + | Performing | Address | City/State[facility] | Phone Number | | Organization | | | | + + + + + | [facility] | [address] | [place], [place] | [phone] | | [facility] | | [address] | | | - IMAGING | | [...] M46.1 Ann Santiago presents to the | [facility] | | fluoroscopy suite for fluoroscopically guided bilateral sacroiliac [facility] | | joint steroid injections as [...] + + | Performing | Address | City/State/[facility] | Phone Number | | Organization | | | | + + + + + | [facility] | [address] | [place] | [phone] | | [facility] | | [address] | | | - IMAGING | | | | + + + + + documented in this encounter Visit Diagnoses + + | Diagnosis | + + | Chronic bilateral low back pain with bilateral sciatica - Primary | + + | Sacroiliac pain Disorders of sacrum | + + | Fibromyalgia Mylagia and myositis, unspecified | + + | Facet arthritis of lumbar region Lumbosacral spondylosis without myelopathy | + + documented in this encounter
--- OUTSIDE RECORDS SUMMARY | ~2020-01-29 | XMS | Encounter Summary ---
Demographics + + + | Address | [address] | | | [place] [address] | + + + | Home Phone | | + + + | Preferred Language | Unknown | + + + | Marital Status | | + + + | Muslim Affiliation | Unknown | + + + | Race | White | + + + | Ethnic Group | Not or | + + + Author + + + | Author | [facility] | | | and [place] | + + + | Organization | [facility] | | | [...] [place] | | | | | [address] | | + + + + + Care Team Providers + +------+ + | Care Clay Maker Name | Role | Phone | + +------+ + | Nathan Kent | PCP | | | MD | | | + +------+ + Reason for Visit + + + | Reason | Comments | + + + | Leg Pain | | + + + Encounter Details +--------+ + + + + | Date | Type | Department | Care Team | Description | +--------+ + + + + | 12/14/ | Emergency | [facility] | Saúl Stewart | Pain and swelling of | | 2019 | | [facility] | DO [address] | left lower leg | | | | CENTER [address] | [address] [facility] | (Primary Dx) | | | | [place] | [place] [address] | | | | | [address] | [phone] | | | | | [phone] | | | +--------+ + + + [...] + + + + | Weight | 106.6 kg (235 lb) | 12/14/2018 5:09 PM | | | | | PDT | | + + + + + | Height | 162.6 cm (5' 4") | 12/14/2018 5:09 PM | | | | | PDT | | + + + + + | Body Mass Index | 40.34 | 12/14/2018 5:09 PM | | | [...] documented as of this encounter Discharge Instructions AttachmentsThe following attachments cannot be sent through Care Everywhere.BLAKE (Faroese)geoffrey ocumented in this encounter Medications at Time of [...] + + documented as of this encounter ED Notes Saúl Stewart DO - 01/10/2019 9:39 AM PDTFormatting of this note might be differ ent from the original. [facility] Ann Santiago Emergency Department Encounter Note [address] [place] [address] PCP:Nathan Kent MD [phone] History ED Triage Notes, ED Triage Notes Shari Mercedes RN 12/14/2018 17:12 Patient c/o left leg pain and swelling on and off for about a month as well as SOB for abou t two weeks. Thinks she may have a blood clot. CC: Leg Pain HPI: Ann Santiago is a 63 y.o. female who presents to the ED for evaluation of left le g pain and swelling intermittently for about a month. She has had occasional episodes of sh ortness of breath as well. She is concerned about a blood clot in her leg. She denies any fevers, chills or lightheadedness. PMH: Past Medical History: Diagnosis Date Anemia Anxiety Bipolar disorder (HCC) 01/05/2013 Cervical radiculopathy 07/23/2015 Chronic bilateral low back pain with sciatica 06/16/2016 DDD (degenerative disc disease), cervical - C4/C5 05/15/2015 Depression Facet arthritis of lumbar region 06/16/2016 Fibromyalgia Fibromyalgia Foraminal stenosis of cervical region- bilateral C4/C5 05/15/2015 Hyperlipidemia Hypertension Irregular heartbeat Myofascial pain 04/25/2015 Neck pain 05/01/2015 Osteoarthritis Post traumatic stress disorder (PTSD) 01/05/2013 Sacroiliac pain 06/16/2016 Shoulder pain, right 04/25/2015 Stroke (HCC) Thyroid disease Trochanteric bursitis 01/05/2013 Ulcer PSH: Past Surgical History: Procedure Laterality Date CARPAL TUNNEL RELEASE Bilateral CERVICAL SPINE SURGERY Anterior 04/03/2016 Procedure: C4-5 Anterior Cervical Discectomy with Fusion and Plating; Surgeon: Joel bay DO; Location: [facility] MAIN OR CYST REMOVAL Left knee EAR SURGERY - EAR LOBE REPAIR X 2 GALLBLADDER SURGERY HYSTERECTOMY JOINT REPLACEMENT Right 05/21 knee LUNG SURGERY meniscus repair Right knee SHOULDER SURGERY Right 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 clopidogrel (PLAVIX) 75 mg tablet Take 75 mg by mouth Daily. diazePAM (VALIUM) 5 mg tablet Take 1 tablet by mouth every 6 hours as needed (muscle sp asm). fluticasone (FLONASE) 50 mcg/nasal spray Daily. gabapentin (NEURONTIN) 300 mg capsule Take 300 mg by mouth 2 times daily. (Patient katelynn patel differently: Take 600 mg by mouth 3 times daily. Taking 1 tab am, 1 tab noon, and 2 at be dtime) HYDROcodone-acetaminophen (NORCO) 10-325 mg per tablet Take 1-2 tablets by mouth every 4 hours as needed for Pain. levothyroxine (SYNTHROID, LEVOTHROID) 75 MCG tablet Take 75 mcg by mouth every morning (before breakfast). lisinopril (PRINIVIL,ZESTRIL) 40 MG tablet Take 40 mg by mouth. metoprolol tartrate (LOPRESSOR) 50 mg tablet Take 50 mg by mouth Daily. sertraline (ZOLOFT) 50 mg tablet Take 50 mg by mouth Daily. VOLTAREN 1 % GEL Apply topically 2 times daily. Allergies: She is allergic to bupropion; food; ibuprofen; adhesive & tape; aspirin; bupropi on hcl; cymbalta [duloxetine]; and oxycodone-aspirin.. Social History: She reports that she quit smoking about 5 years ago. Her smoking use inclu ded cigarettes. She has a 21.00 pack-year smoking history. 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 She reports that she does not drink alcohol or use drugs.. Review of Systems Constitutional: Negative for chills and fever. HENT: Negative for congestion. Eyes: Negative for visual disturbance. Respiratory: Negative for shortness of breath. Cardiovascular: Positive for leg swelling. Negative for chest pain. Gastrointestinal: Negative for abdominal pain, diarrhea, nausea and vomiting. Genitourinary: Negative for dysuria and hematuria. Musculoskeletal: Positive for myalgias. Negative for arthralgias. Skin: Negative for rash. Neurological: Negative for weakness. Psychiatric/Behavioral: Negative for behavioral problems. Physical Exam Vital Signs: Temp: 36.6 C (97.9 F) Pulse: 65 Resp: 16 BP: 160/49 SpO2: 98 % Physical Exam Constitutional: She is oriented to person, place, and time. She appears well-developed and well-nourished. No distress. HENT: Head: Normocephalic and atraumatic. Nose: Nose normal. Eyes: Pupils are equal, round, and reactive to light. EOM are normal. Neck: Normal range of motion. Neck supple. Cardiovascular: Normal rate, regular rhythm and intact distal pulses. No murmur heard. Pulmonary/Chest: Effort normal and breath sounds normal. No respiratory distress. Abdominal: Soft. She exhibits no distension. There is no tenderness. There is no rebound an d no guarding. Musculoskeletal: Normal range of motion. She exhibits tenderness. She exhibits no edema or deformity. Neurological: She is alert and oriented to person, place, and time. No cranial nerve defici t. Skin: Skin is warm and dry. No rash noted. Psychiatric: She has a normal mood and affect. Her behavior is normal. Nursing note and vitals reviewed. ED Course and Medical Decision Making Ann Santiago presented to the Emergency Department for evaluation, and she was triaged to room ED17. I reviewed the nursing notes, and she was evaluated by me. IMPRESSION 1. Pain and swelling of left lower leg Medical Decision Making as of Jan 10 09 Tue Jan 10, 2019 0941 VAS Lower Extremity Venous Left 0941 IMPRESSION - No evidence for deep venous tendinosis in the left lower extremity. 0941 Ultrasound ruled out DVT. No further work-up indicated at this time. Patient express ed understanding condition is agreed with plan. She was discharged in stable condition. Coding Saúl Stewart DO 01/10/19 0941 Shari Heredia RN - 12/14/2018 5:11 PM PDTPatient c/o left leg pain and swelling on and off for about a month as well as SOB for about two weeks. Thinks she may have a blood clot. documented in this encounter Plan of Treatment Not on filedocumented as of this encounter Procedures + +--------+ + + + | Procedure Name | Priori | Date/Time | Associated Diagnosis | Comments | | | ty | | | | + +--------+ + + + | VAS LOWER EXTREMITY | STAT | 12/14/2018 | | Results for this | | VENOUS LEFT | | 6:53 PM | | procedure are in the | | | | PDT | | results section. | + +--------+ + + + documented in this encounter Results VAS Lower Extremity Venous Left (12/14/2018 6:53 PM PDT) + + | Specimen | + + | | + + + + + | Narrative | Performed At | + + + | EXAM: VAS LOWER EXTREMITY VENOUS LEFT dated 12/14/2018 6:21 PM. | [facility] | | HISTORY: LEG PAIN. COMPARISON: None. TECHNIQUE: Compression | | | sonography was performed from the groin through the popliteal fossa | | | in the Left lower extremity. Grayscale and spectral Doppler | | | analysis is performed. FINDINGS: There is phasic respiratory flow | | | in all areas sampled. There is response to Valsalva in the common | | | femoral vein. There is response to calf augmentation in all areas | | | sampled. There is normal and complete compressibility in all areas | | | sampled. There are no visible thrombi. Images are somewhat | | | limited due to the patient's body habitus. IMPRESSION - No | | | evidence for deep venous tendinosis in the left lower extremity. | | | The preliminary findings were conveyed to the ordering provider, by | | | the painting trades worker, immediately following the exam. Dictated and | | | Signed by: Linden Haynes MD Electronically signed: 12/14/2018 | | | 7:08 PM | | + + + + + | Procedure Note | + + | Gianni, Rad Results In - 12/14/2018 7:11 PM PDT EXAM: VAS LOWER EXTREMITY VENOUS LEFT | | dated 12/14/2018 6:21 PM.HISTORY: LEG PAIN.COMPARISON: None.TECHNIQUE: Compression | | sonography was performed from the groin through thepopliteal fossa in the Left lower | | extremity. Grayscale and spectral Doppleranalysis is performed.FINDINGS: There is | | phasic respiratory flow in all areas sampled. There isresponse to Valsalva in the | | common femoral vein. There is response to calfaugmentation in all areas sampled. There | | is normal and complete compressibilityin all areas sampled. There are no visible | | thrombi.Images are somewhat limited due to the patient's body habitus.IMPRESSION -No | | evidence for deep venous tendinosis in the left lower extremity.The preliminary findings | | were conveyed to the ordering provider, by thesonographer, immediately following the | | exam.Dictated and Signed by: Linden Haynes MD Electronically signed: 12/14/2018 7:08 | | PM | |augmentation in all areas sampled. There is normal and complete compressibility | |in all areas sampled. There are no visible thrombi. | | | |Images are somewhat limited due to the patient's body habitus. | | | |IMPRESSION - | | | |No evidence for deep venous tendinosis in the left lower extremity. | | | |The preliminary findings were conveyed to the ordering provider, by the | |painting trades worker, immediately following the exam. | | | | | |Dictated and Signed by: Linden Haynes MD | | Electronically signed: 12/14/2018 7:08 PM | + + + +---------+ + + | Performing | Address | City/State/Zipcode | Phone Number | | Organization | | | | + +---------+ + + | [facility] | | | | + +---------+ + + documented in this encounter Visit Diagnoses + + | Diagnosis | + + | Pain and swelling of left lower leg - Primary | + + documented in this encounter
--- OUTSIDE RECORDS SUMMARY | ~2020-01-29 | XMS | Encounter Summary ---
Demographics + + + | Address | [address] | | | [place] [address] | + + + | Home Phone | | + + + | Preferred Language | Unknown | + + + | Marital Status | | + + + | Islam Affiliation | Unknown | + + + | Race | White | + + + | Ethnic Group | Not or | + + + Author + + + | Author | [facility] | | | and [place] | + + + | Organization | [facility] | | [...] [place] | | | | | [address] | | + + + + + Care Team Providers + +------+ + | Care Oracle Erp Architect Name | Role | Phone | [...] + + + | Closed | | MRI | Diagnoses | Duncan, | OP ST | | | | | Lumbar | Ronald Zapata, | KATARINA | | | | | radiculopath | PA-C [address] | HOSPITAL | | | | | y Lumbar | [address] | [address] | | | | | foraminal | [address] | [address] | | | | | stenosis | [place], | [place], [place] | | | | | Pain of left | [place] [address] | [address] | | | | | lower | Phone: | Phone: | | | | | extremity | [phone] | [phone] | | | | | Facet | Fax: | Fax: | | | | | arthropathy, | [phone] | [phone] | | | | | lumbar | | | | | | | Procedures | | | | | | | MRI Lumbar | | | | | | | Spine wo | | | | | | | Contrast | | | +--------+--------+ + + + + Reason for Visit + + + | Reason | Comments | + + + | Back Pain | Back pain that radiates into bilateral legs. Pain is worse on | | | left leg. | + + + Encounter Details +--------+---------+ + + + | Date | Type | Department | Care Team | Description | +--------+---------+ + + + | 11/12/ | Office | [facility] [place] | Ronald Song | Lumbar radiculopathy | | 2017 | Visit | NEUROSURGERY [address] | D, PA-Albert [address] | (Primary Dx); | | | | [address] | [address] | Lumbar foraminal | | | | [place], [place] | [place], [place] | stenosis; Pain of | | | | [address] | [address] | left lower | | | | [phone] | | extremity; Facet | | | | | | arthropathy, lumbar | +--------+---------+ + + + Social History [...] + + + | Blood Pressure | 155/71 | 11/12/2016 7:51 AM | | | | | PDT | | + + + + + | Pulse | 63 | 11/12/2016 7:51 AM | | | | | PDT [...] Weight | 108.4 kg (239 lb) | 11/12/2016 7:51 AM | | | | | PDT | | + + + + + | Height | 162.6 cm (5' 4") | 11/12/2016 7:51 AM | | | | | PDT | | + + + + + | Body Mass Index | 41.02 | 11/12/2016 7:51 AM | | | | | PDT [...] of this encounter Patient Instructions Patient Instructions Ronald Song PA-C - 11/12/2016 8:00 AM PDTWe will have you get a new MRI of your lumbar spine Follow up in office with Dr. Burger to discuss results and recommendations. documented in this encounter Progress Notes Ronald Song PA-C - 11/12/2016 8:00 AM PDTFormatting of this note might be differen t from the original. Ronald Song PA-C [address] [facility], [address] [place], [place] [id number] FAX: NEUROSURGERY FOLLOW-UP CHIEF COMPLAINT: Chief Complaint Patient presents with Back Pain Back pain that radiates into bilateral legs. Pain is worse on left leg. HISTORY OF PRESENT ILLNESS: The patient is a 61 y.o. female that had a ACDF for neck pain, arm pain, and arm weakness around 7 months ago. She is healing well from her cervical fusio n. 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 She returns to discuss her lower back symptoms. Her low back pain has been getting worse fo r the past couple months. It seems to start insidiously. Her pain prior was in her low back and down the lateral aspect of left thigh. She complains of worsening cramping in her calf a nd across the top of her foot. She has been seeing Dr. Ferraro for her sciatic type pain. The pain down the back of her left thigh is diminished. Today, the leg pain is worse than t he back pain. Denies bowel of bladder issues. PAST MEDICAL HISTORY: Past Medical History: Diagnosis Date Anemia Anxiety Bipolar disorder (HCC) 01/05/2013 Cervical radiculopathy 07/23/2015 Chronic bilateral low back pain with sciatica 06/16/2016 DDD (degenerative disc disease), cervical - C4/C5 05/15/2015 Depression Facet arthritis of lumbar region (HCC) 06/16/2016 Fibromyalgia Fibromyalgia Foraminal stenosis of cervical region- bilateral C4/C5 05/15/2015 Hyperlipidemia Hypertension Irregular heartbeat Myofascial pain 04/25/2015 Neck pain 05/01/2015 Osteoarthritis Post traumatic stress disorder (PTSD) 01/05/2013 Sacroiliac pain 06/16/2016 Shoulder pain, right 04/25/2015 Stroke ([facility]) Thyroid disease Trochanteric bursitis 01/05/2013 Ulcer ([facility]) PAST SURGICAL HISTORY: Past Surgical History: Procedure Laterality Date CARPAL TUNNEL RELEASE Bilateral CERVICAL SPINE SURGERY Anterior 04/03/2016 Procedure: C4-5 Anterior Cervical Discectomy with Fusion and Plating; Surgeon: Joel bay DO; Location: [facility] MAIN OR CYST REMOVAL Left knee EAR SURGERY - EAR LOBE REPAIR X 2 GALLBLADDER SURGERY HYSTERECTOMY JOINT REPLACEMENT Right 05/21 knee LUNG SURGERY meniscus repair Right knee SHOULDER SURGERY Right CURRENT MEDICATIONS: Current Outpatient Prescriptions Medication Sig Dispense Refill atorvaSTATin (LIPITOR) 40 mg tablet Take 40 mg by mouth nightly. clopidogrel (PLAVIX) 75 mg tablet Take 75 mg by mouth Daily. diazePAM (VALIUM) 5 mg tablet Take 1 tablet by mouth every 6 hours as needed (muscle sp asm). 90 tablet 1 gabapentin (NEURONTIN) 300 mg capsule Take 300 mg by mouth 2 times daily. (Patient katelynn ng differently: Take 300 mg by mouth 3 [...] differently: Take 10 mg by mouth Daily.) metoprolol succinate (TOPROL-XL) 25 mg 24 hr tablet Take 25 mg by mouth Daily. No current facility-administered medications for this visit. ALLERGIES: Allergies Allergen Reactions Adhesive & Tape Aspirin Bupropion Bupropion Hcl Duloxetine Food Hives and Swelling Dissolving stitches Oxycodone-Aspirin SOCIAL HISTORY: The patient reports that she quit smoking about 2 years ago. Her smoking use included Ciga rettes. She has a 21.00 pack-year smoking history. She has never used smokeless tobacco. She reports that she uses drugs, including Marijuana. She reports that she does not drink alcoh ol. FAMILY HISTORY: Family History Problem Relation Age of Onset Other (see comment) Father Brain tumor Alcohol abuse Father Alcohol abuse Mother Alcohol abuse Paternal Grandfather Heart disease Paternal Grandfather Tobacco Use Paternal Grandfather Alcohol abuse Paternal Grandmother Tobacco Use Paternal Grandmother Heart disease Paternal Grandmother Heart disease Maternal Grandfather Mental illness Maternal Grandmother Stroke Maternal Grandmother Arthritis Maternal Grandmother Heart attack Brother Mental illness Brother Alcohol abuse Brother High cholesterol Sister Alcohol abuse Sister Hypertension Sister Mental illness Sister Arthritis Sister Hypertension Child Mental illness Paternal Uncle Arthritis Paternal Uncle Mental illness Paternal Aunt Arthritis Paternal Aunt Mental illness Maternal Uncle Arthritis Maternal Uncle Arthritis Maternal Aunt Mental illness Maternal Aunt REVIEW OF SYSTEMS GENERALLY: No fever, no night sweats, no anemia, + fatigue, + recent profound weight hodge ges. EYES: No eye problems, + use of corrective lenses, no eye injury, no double vision, no bli ndness. EARS, NOSE, AND THROAT: No changes in taste or smell, + hearing difficulty, no ringing in the ears, no ear drainage, no dizziness, no voice changes, no difficulty swallowing, + signi ficant snoring, + sleep apnea, + sinus problems, no major dental work. NEUROLOGICALLY: Please see the review of systems discussed above in the history of present illness. In addition, the patient has numbness/pain of legs, awake with numbness/pain, wea kness, coordination difficulty, change in walk, pain in neck, pain in back. PSYCHIATRIC: + depression, no sleep disorders, + anxiety, + bipolar disorder, no psychotic episodes. CARDIOVASCULAR: No heart attacks, no heart murmur, no heart fluttering, no chest pain, no ankle swelling. LUNG DISEASE: No shortness of breath, no cough, no tuberculosis, no bloody cough, no asth ma, no emphysema/COPD. GASTROINTESTINAL: No bowel disease, no nausea or vomiting, no rectal bleeding, no constipa tion, no stool incontinence, no liver disease, no gallbladder disease, no abdominal pain, no ulcers. KIDNEY DISEASE: No urinary frequency, no painful or difficult urination, no incontinence. ENDOCRINE: No diabetes, no thyroid disease, no osteopenia or osteoporosis, no breast drain age. SKIN: No breast lumps, no skin changes, no rashes, no itches. HEMATOLOGIC/LYMPHATIC: No enlarged lymph nodes, no easy or unusual bleeding, no personal h istory of cancer. RHEUMATOLOGIC: + joint arthritis, no rheumatoid arthritis. INTERIM PHYSICAL EXAMINATION: Blood pressure 155/71, pulse 63, height 1.626 m (5' 4"), weight 108.4 kg (239 lb), not curr ently . Body mass index is 41.02 kg/m. GENERAL: Ann Santiago is in no acute distress with unlabored respirations. HEENT: HEAD/FACE: Normocephalic and atraumatic. There are no areas of recent trauma. SPINE: The patient s incision has healed further and is again without drainage, erythema, or discharge EXTREMITIES: No lower extremity edema. NEUROLOGICAL EXAMINATION: MENTAL STATUS: The patient is awake, alert, and oriented. She follows simple and complex commands MOTOR EXAM: Motor strength is 5/5 UE 4/5 left hip flex, 4/5 left knee ext SENSORY EXAM: The sensory examination improved from the preoperative exam. REFLEXES: Reflexes are unchanged from her preoperative history and physical. RADIOGRAPHIC REVIEW: The patient s postoperative x-rays show stable instrumentation and alignment and were rev iewed with the patient today. There have been no interval changes since the immediate posto perative films. ASSESSMENT: S/P ACDF C4-5: Encounter Diagnoses Name Primary? Lumbar radiculopathy Yes Lumbar foraminal stenosis Pain of left lower extremity Facet arthropathy, lumbar Past Medical History: Diagnosis Date Anemia Anxiety Bipolar disorder ([facility]) 01/05/2013 Cervical radiculopathy 07/23/2015 Chronic bilateral low back pain with sciatica 06/16/2016 DDD (degenerative disc disease), cervical - C4/C5 05/15/2015 Depression Facet arthritis of lumbar region ([facility]) 06/16/2016 Fibromyalgia Fibromyalgia Foraminal stenosis of cervical region- bilateral C4/C5 05/15/2015 Hyperlipidemia Hypertension Irregular heartbeat Myofascial pain 04/25/2015 Neck pain 05/01/2015 Osteoarthritis Post traumatic stress disorder (PTSD) 01/05/2013 Sacroiliac pain 06/16/2016 Shoulder pain, right 04/25/2015 Stroke ([facility]) Thyroid disease Trochanteric bursitis 01/05/2013 Ulcer ([facility]) PLAN: Overall, the patient is doing well. The patient's cervical preoperative symptoms are impr oving at this point. We discussed that with the mild pathology in her previous MRI that surgery would be not rec ommended previously. She understands that surgery is not always the cure for pain, but she would be interested if it will help her pain. The patients previous MRI shows mild foraminal stenosis in her L4-5 and L5-S1 levels. It se ems like her symptoms have progressed quite a bit since we have met prior. She is unable to walk the same distance she could 6 months ago. I would like to get a new MRI of her lumbar s pine to assess these issues. We will be able to offer additional therapies and ensure no sig nificant pathology. She will also get a new xray of her neck to assess fusion status. She will follow up with Dr. Burger in office to discuss the results and recommendations. ELECTRONICALLY SIGNED BY: Ronald Song PA-C, 11/12/2016 8:19 documented in this encounter Plan of Treatment + +---------+--------+ + + | Name | Type | Priori | Associated Diagnoses | Order Schedule | | | | ty | | | + +---------+--------+ + + | MRI Lumbar Spine wo | Imaging | Routin | Lumbar | Expected: | | Contrast | | e | radiculopathy | 11/12/2016, Expires: | | | | | Lumbar foraminal | 11/12/2017 | | | | | stenosis Pain of | | | | | | left lower extremity | | | | | | Facet arthropathy, | | | | | | lumbar | | + +---------+--------+ + + documented as of this encounter Procedures + +--------+ + + + | Procedure Name | Priori | Date/Time | Associated Diagnosis | Comments | | | ty | | | | + +--------+ + + + | IMAGING REPORT - | | 11/20/2016 | | Results for this | | EXTERNAL SCAN | | 12:00 AM | | procedure are in the | | | | PDT | | results section. | + +--------+ + + + | IMAGING REPORT - | | 11/05/2016 | | Results for this | | EXTERNAL SCAN | | 12:00 AM | | procedure are in the | | | | PDT | | results section. | + +--------+ + + + documented in this encounter Results IMAGING REPORT - EXTERNAL SCAN (11/20/2016 12:00 AM PDT) + + + | Narrative | Performed At | + + + | Ordered by an | | | unspecified provider. | | + + + IMAGING REPORT - EXTERNAL SCAN (11/05/2016 12:00 AM PDT) + + + | Narrative | Performed At | + + + | Ordered by an | | | unspecified provider. | | + + + documented in this encounter Visit Diagnoses + + | Diagnosis | + + | Lumbar radiculopathy - Primary Thoracic or lumbosacral neuritis or radiculitis, | | unspecified | + + | Lumbar foraminal stenosis Spinal stenosis, lumbar region, without neurogenic | | claudication | + + | Pain of left lower extremity | + + | Facet arthropathy, lumbar Lumbosacral spondylosis without myelopathy | + + documented in this encounter
--- OUTSIDE RECORDS SUMMARY | ~2020-01-29 | XMS | Encounter Summary ---
Demographics + + + | Address | [address] | | | [place] [address] | + + + | Home Phone [...] [place] | | | | | [address] | | + + + + + Care Team Providers + +------+ + | Care Tomography Technologist Name | Role | Phone | + +------+ + | Crow Braga DO | PCP | | + +------+ + Encounter Details +--------+ + + + + | Date | Type | Department | Care Team | Description | +--------+ + + + + | 11/09/ | Imaging | [facility] | Provider, | | | 2017 | Exam | [facility] | MD [address] | | | | | IMAGING [address] | Annette Prieto | | | | | [address] | [place] [address] | | | | | [place] [address] | | | | | | [phone] | | | +--------+ + + + [...] + + + | XR LUMBAR SPINE | Routin | 11/05/2016 | | Results for this | | COMPLETE INCLUDING | e | 8:50 AM | | procedure are in the | | BENDING 6 + VW | | PDT | | results section. | + +--------+ + + + documented in this encounter Results XR Lumbar Spine Complete With Bending 6+ (11/05/2016 8:50 AM PDT) + + | Specimen | + + | | + + + + + | Narrative | Performed At | + + + | External films for comparison only - no result from [place]. | [facility] | + + + + +---------+ + + | Performing | Address | City/State/Zipcode | Phone Number | | Organization | | | | + +---------+ + + | [facility] | | | | + +---------+ + + documented in this encounter Visit Diagnoses Not on filedocumented in this encounter"
--- OUTSIDE RECORDS SUMMARY | ~2020-01-29 | XMS | Encounter Summary ---
Demographics + + + | Address | [address] | | | [place] [address] | + + + | Home Phone | | + + + | Preferred Language | Unknown | + + + | Marital Status | | + + + | Islam Affiliation | Unknown | + + + | Race | White | + + + | Ethnic Group | Not or | + + + Author + + + | Author | [facility] | | | and [place] | + + + | Organization | [facility] | | | [...] [place] | | | | | [address] | | + + + + + Care Team Providers + +------+ + | Care Manager Paid Name | Role | Phone | + +------+ + | Crow Braga DO | PCP | | + +------+ + Encounter Details +--------+ + + + + | Date | Type | Department | Care Team | Description | +--------+ + + + + | 07/08/ | Hospital | [facility] | Ronald Song | S/P cervical spinal | | 2017 | Encounter | MED CTR XRAY [address] | D, PA-C [address] | fusion; Cervical | | | | [place] | [address] | radiculopathy | | | | [place] [address] | [place], [place] | | | | | [phone] | [address] | | | | | | | [...] XR CERVICAL SPINE 2 | Routin | 07/08/2016 | S/P cervical | Results for this | | OR 3 VIEWS | e | 2:57 PM | spinal fusion | procedure are in the | | | | PST | Cervical | results section. | | | | | radiculopathy | | + +--------+ + + + documented in this encounter Results XR Cervical Spine 2 or 3 Views (07/08/2016 2:57 PM PST) + + | Specimen | + + | | + + + + + | Narrative | Performed At | + + + | EXAM: XR CERVICAL SPINE 2 OR 3 VIEWS HISTORY: s/p cervical | [facility] | | fusion TECHNIQUE: AP and lateral views of the cervical spine | [facility] | | COMPARISON: 05/27/2016. FINDINGS: Status post C4-C5 ACDF. | [facility] | | Surgical hardware appears intact. Alignment is normal. No | - IMAGING | | fractures are evident. Paraspinous soft tissues are unremarkable. | | | IMPRESSION - No radiographic evidence of interval complication. | | | CRITICAL VALUE: No Dictated and Signed by: Yohan Mccauley MD | | | Electronically signed: 07/08/2016 3:01 PM | | + + + + + | Procedure Note | + + | Gianni, Rad Results In - 07/08/2016 3:04 PM PST EXAM: XR CERVICAL SPINE 2 OR 3 VIEWS | | | | HISTORY: s/p cervical fusion | | | | TECHNIQUE: AP and lateral views of the cervical spine | | | | COMPARISON: 05/27/2016. | | | | FINDINGS: | | Status post C4-C5 ACDF. Surgical hardware appears intact. | | Alignment is normal. | | No fractures are evident. | | Paraspinous soft tissues are unremarkable. | | | | IMPRESSION - | | No radiographic evidence of interval complication. | | | | CRITICAL VALUE: No | | | | Dictated and Signed by: Yohan Mccauley MD | | Electronically signed: 07/08/2016 3:01 PM | + + + + + + + | Performing | Address | City/State/Zipcode | Phone Number | | Organization | | | | + + + + + | [facility] | [address] | [place] | [phone] | | [facility] | | [address] | | | - IMAGING | | | | + + + + + documented in this encounter Visit Diagnoses + + | Diagnosis | + + | S/P cervical spinal fusion Arthrodesis status | + + | Cervical radiculopathy Brachial neuritis or radiculitis nos | + + documented in this encounter"
--- OUTSIDE RECORDS SUMMARY | ~2020-01-29 | XMS | Encounter Summary ---
Demographics + + + | Address | [address] | | | [place] [address] | + + + | Home Phone | | + + + | Preferred Language | Unknown | + + + | Marital Status | | + + + | Catholic Affiliation | Unknown | + + [...] [place] | | | | | [address] | | + + + + + Care Team Providers + +------+ + | Care Bricklayer Supervisor Name | Role | Phone | + +------+ + | Crow Braga DO | PCP | | + +------+ + Reason for Referral Service/Procedure (Routine) +--------+--------+ + + + + | Status | Reason | Specialty | Diagnoses / | Referred By | Referred To | | | | | Procedures | Contact | Contact | +--------+--------+ + + + + | Closed | | DME | Diagnoses | Duncan, | | | | | | Gait | Ronald Zapata, | | | | | | abnormality | PA-C [address] | | | | | | Procedures | [address] | | | | | | DME: Walker | [address] | | | | | | | [place], | | | | | | | [place] [address] | | | | | | | Phone: | | | | | | | [phone] | | | | | | | Fax: | | | | | | | [phone] | | +--------+--------+ + + + + Reason for Visit +--------+--------+ + | Reason | Onset | Comments | | | Date | | +--------+--------+ + | DME | 11/16/ | | | | 2016 | | +--------+--------+ + Encounter Details +--------+ + + + + | Date | Type | Department | Care Team | Description | +--------+ + + + + | 11/16/ | Telephone | [facility] | Joel Burger, | DME | | 2017 | | NEUROSURGERY [address] | DO [address] | | | | | [address] | [address] [place], [place] | | | | | [place], [place] | [address] | | | | | [address] | | | | | | [phone] | | | +--------+ + + + [...] this encounter Miscellaneous Notes Telephone Encounter - Rambo Bradford Cert MA - 12/04/2016 12:46 PM [facility] called and spoke manisha Juarez. She has decided she would like the order sent to [facility] in [place], [place] . I have faxed this as requested to F: [phone] RAMBO BRADFORD elephone Ronald Leiva PA-C - 12/03/2016 5:54 PM [facility] have provided a prescription for a w alker. I hope this will aid her walking and stability. elephone Encounter - Rambo Bradford Cert MA - 017 4:00 PM PDTNick, This patient has not surgery since March 2016 and [facility] Please advise on wether or not you want to provide her with a walker. Thank you Rambo elephone Maureen Fitzgerald - 11/16/2016 3:24 PM PDTPatient would like to get a prescriptio n for a walker. Please send prescription to [facility] in [place]. Please call patient at if you have any question. documented in this encounter Plan of Treatment + +------+--------+ + + | Name | Type | Priori | Associated Diagnoses | Order Schedule | | | | ty | | | + +------+--------+ + + | DME: Walker | DME | Routin | Gait abnormality | Ordered: 12/03/2016 | | | | e | | | + +------+--------+ + + documented as of this encounter Visit Diagnoses + + | Diagnosis | + + | Gait abnormality - Primary Abnormality of gait | + + documented in this encounter"
--- OUTSIDE RECORDS SUMMARY | ~2020-01-29 | XMS | Encounter Summary ---
Demographics + + + | Address | [address] | | | [place] [address] | + + + | Home Phone | | + + + | Preferred Language | Unknown | + + + | Marital Status | | + + + | Anabaptism Affiliation | Unknown | + + + | Race | White | + + + | Ethnic Group | Not or | + + + Author + + + | Author | [facility] | | | and [place] | + + + | Organization | [facility] | | | [...] [place] | | | | | [address] | | + + + + + Care Team Providers + +------+ + | Care Armored Cable Machine Operator Name | Role | Phone | + +------+ + | Crow Braga DO | PCP | | + +------+ + Encounter Details +--------+ + + + + | Date | Type | Department | Care Team | Description | +--------+ + + + + | 10/27/ | Orders Only | [facility] [place] | Joel Burger, | Bilateral leg pain | | 2017 | | NEUROSURGERY [address] | DO [address] | (Primary Dx); Back | | | | [address] | [address] [place], [place] | pain, unspecified | | | | [place], [place] | [id number] | back location, | | | | [address] | | unspecified back | | | | [phone] | | pain laterality, | | | | | | unspecified | | | | | | chronicity | +--------+ + + + + Social [...] as of this encounter Plan of Treatment + +---------+--------+ + + | Name | Type | Priori | Associated Diagnoses | Order Schedule | | | | ty | | | + +---------+--------+ + + | XR Lumbar Spine 4 + | Imaging | Routin | Bilateral leg pain | Expected: | | Vw | | e | Back pain, | 10/27/2016, Expires: | | | | | unspecified back | 10/27/2017 | | | | | location, | | | | | | unspecified back | | | | | | pain laterality, | | | | | | unspecified | | | | | | chronicity | | + +---------+--------+ + + documented as of this encounter Visit Diagnoses + + | Diagnosis | + + | Bilateral leg pain - Primary Pain in limb | + + | Back pain, unspecified back location, unspecified back pain laterality, unspecified | | chronicity | + + documented in this encounter"
--- OUTSIDE RECORDS SUMMARY | ~2020-01-29 | XMS | Encounter Summary ---
Demographics + + + | Address | [address] | | | [place] [address] | + + + | Home Phone [...] + + + | Author | [facility] | | | and [place] | + + + | Organization | [facility] | | [...] [place] | | | | | [address] | | + + + + + Care Team Providers + +------+ + | Care J2Ee Application Developer Name | Role | Phone | + +------+ + | Crow Braga DO | PCP | | + +------+ + Encounter Details +--------+ + + + + | Date | Type | Department | Care Team | Description | +--------+ + + + + | 01/27/ | Hospital | [facility] | Conversion | Pain | | 2016 | Encounter | CONVERSION [address] | Transaction, | | | | | [address] | Provider Unknown | | | | | [place] | [phone] | | | | | [address] | | | | | | [phone] | | | +--------+ + + + [...] | | WO CONTRAST | e | 5:26 AM | | procedure are in the | | | | PST | | results section. | + +--------+ + + + documented in this encounter Results MRI Cervical Spine wo Contrast (05/13/2015 5:26 AM PST) + + | Specimen | [...]
--- OUTSIDE RECORDS SUMMARY | ~2020-01-29 | XMS | Encounter Summary ---
Demographics + + + | Address | [address] | | | [place] [address] | + + + | Home Phone | | + + + | Preferred Language | Unknown | + + + | Marital Status | | + + + | Buddhist Affiliation | Unknown | + + + [...] [place] | | | | | [address] | | + + + + + Care Team Providers + +------+ + | Care Focusing Machine Operator Name | Role | Phone | + +------+ + | Crow Braga DO | PCP | | + +------+ + Encounter Details +--------+ + + + + | Date | Type | Department | Care Team | Description | +--------+ + + + + | 03/11/ | Hospital | [facility] | Joel Burger, | Cervical | | 2016 | Encounter | MED CTR XRAY [address] | DO [address] | radiculopathy; | | | | [place] | [address] [place], [place] | Arthralgia of hip, | | | | [place] [address] | [address] | unspecified | | | | [phone] | | laterality; Chronic | | | | | Vern Lee MD | low back pain, | | | | | [address] | unspecified back | | | | | [place] | pain laterality, | | | | | [address] | with sciatica | | | | | | presence | | | | | | unspecified; | | | | | | Trochanteric | | | | | | bursitis, | | | | | | unspecified | | | | | | laterality; Upper | | | | | | back pain/posterior | | | | | | shoulder pian on | | | | | | right side; | | | | | | Fibromyalgia; | | | | | | Bipolar affective | | | | | | disorder, current | | | | | | episode manic, | | | | | | current episode | | | | | | severity unspecified | | | | | | (HCC); Other | | | | | | depression; Anxiety; | | | | | | Post traumatic | | | | | | stress disorder | | | | | | (PTSD); Myofascial | | | | | | pain; Right shoulder | | | | | | pain, unspecified | | | | | | chronicity; Neck | | | | | | pain; DDD | | | | | | (degenerative disc | | | | | | disease), cervical - | | | | | | C4/C5; Foraminal | | | | | | stenosis of cervical | | | | | | region- bilateral | | | | | | C4/C5; Pre-op | | | | | | testing | +--------+ + + + + Social [...] +--------+ + + + | XR CHEST PA AND | Routin | 03/11/2016 | Cervical | Results for this | | LATERAL | e | 10:44 AM | radiculopathy | procedure are in the | | | | PDT | Arthralgia of hip, | results section. | | | | | unspecified | | | | | | laterality Chronic | | | | | | low back pain, | | | | | | unspecified back | | | | | | pain laterality, | | | | | | with sciatica | | | | | | presence unspecified | | | | | | Trochanteric | | | | | | bursitis, | | | | | | unspecified | | | | | | laterality Upper | | | | | | back pain/posterior | | | | | | shoulder pian on | | | | | | right side | | | | | | Fibromyalgia | | | | | | Bipolar affective | | | | | | disorder, current | | | | | | episode manic, | | | | | | current episode | | | | | | severity unspecified | | | | | | (HCC) Other | | | | | | depression Anxiety | | | | | | Post traumatic | | | | | | stress disorder | | | | | | (PTSD) Myofascial | | | | | | pain Right shoulder | | | | | | pain, unspecified | | | | | | chronicity Neck | | | | | | pain DDD | | | | | | (degenerative disc | | | | | | disease), cervical - | | | | | | C4/C5 Foraminal | | | | | | stenosis of cervical | | | | | | region- bilateral | | | | | | C4/C5 Pre-op | | | | | | testing | | + +--------+ + + + documented in this encounter Results XR Chest PA and Lateral (03/11/2016 10:44 AM PDT) + + | Specimen | + + | | + + + + + | Narrative | Performed At | + + + | EXAM: XR CHEST PA AND LATERAL HISTORY: PRE OPERATIVE EXAM | [facility] | | TECHNIQUE: Upright PA and Lateral Chest COMPARISON: None. | [facility] | | FINDINGS: Heart appears mildly enlarged.. Mediastinal and | [facility] | | hilar contours are within normal limits. There is mild nonspecific | - IMAGING | | prominence of the pulmonary interstitium. No focal pulmonary opacity. | | | No pleural effusion. No pneumothorax. No acute osseous | | | abnormality. IMPRESSION - No acute cardiopulmonary abnormality. | | | CRITICAL VALUE: No. Dictated and Signed by: Yohan Mccauley MD | | | Electronically signed: 03/11/2016 10:49 AM | | + + + + + | Procedure Note | + + | Gianni, Avi Results In - 03/11/2016 10:53 AM PDT EXAM: XR CHEST PA AND LATERAL | | | | HISTORY: PRE OPERATIVE EXAM | | | | TECHNIQUE: Upright PA and Lateral Chest | | | | COMPARISON: None. | | | | FINDINGS: | | | | Heart appears mildly enlarged.. | | Mediastinal and hilar contours are within normal limits. | | There is mild nonspecific prominence of the pulmonary interstitium. No focal | | pulmonary opacity. No pleural effusion. No pneumothorax. | | No acute osseous abnormality. | | | | IMPRESSION - | | No acute cardiopulmonary abnormality. | | | | CRITICAL VALUE: No. | | | | Dictated and Signed by: Yohan Mccauley MD | | Electronically signed: 03/11/2016 10:49 AM | + + + + + + + | Performing | Address | City/State/Zipcode | Phone Number | | Organization | | | | + + + + + | [facility] | [address] | [place] | [phone] | | [facility] | | [id number] | | | - IMAGING | | | | + + + + + documented in this encounter Visit Diagnoses + + | Diagnosis | + + | Cervical radiculopathy Brachial neuritis or radiculitis nos | + + | Arthralgia of hip, unspecified laterality | + + | Chronic low back pain, unspecified back pain laterality, with sciatica presence | | unspecified | + + | Trochanteric bursitis, unspecified laterality | + + | Upper back pain/posterior shoulder pian on right side Pain in thoracic spine | + + | Fibromyalgia Mylagia and myositis, unspecified | + + | Bipolar affective disorder, current episode manic, current episode severity | | unspecified (HCC) | + + | Other depression | + + | Anxiety Anxiety state, unspecified | + + | Post traumatic stress disorder (PTSD) Posttraumatic stress disorder | + + | Myofascial pain Mylagia and myositis, unspecified | + + | Right shoulder pain, unspecified chronicity | + + | Neck pain Cervicalgia | + + | DDD (degenerative disc disease), cervical - C4/C5 Degeneration of cervical | | intervertebral disc | + + | Foraminal stenosis of cervical region- bilateral C4/C5 Spinal stenosis in cervical | | region | + + | Pre-op testing Preoperative examination, unspecified | + + documented in this encounter
--- OUTSIDE RECORDS SUMMARY | ~2020-01-29 | XMS | Encounter Summary ---
Demographics + + + | Address | [address] | | | [place] [address] | + + + | Home Phone | | + + + | Preferred Language | Unknown | + + + | Marital Status | | + + + | Sabianist Affiliation | Unknown | + + + | Race | White | + + + | Ethnic Group | Not or | + + + Author + + + | Author | [facility] | | | and [place] | + + + | Organization | [facility] | | [...] [place] | | | | | [address] | | + + + + + Care Team Providers + +------+ + | Care Case Management Social Worker Name | Role | Phone | + +------+ + | Nathan Kent | PCP | | | MD | | | + +------+ + Reason for Visit + +--------+ + | Reason | Onset | Comments | | | Date | | + +--------+ + | Medication Refill | 01/06/ | | | | 2017 | | + +--------+ + Encounter Details +--------+--------+ + + + | Date | Type | Department | Care Team | Description | +--------+--------+ + + + | 01/06/ | Refill | [facility] [place] | Omar Dumont, | Medication Refill | | 2017 | | [address]SI[address]RY [address] | PA-C [address] | | | | | [address] | [address] | | | | | [place] | [place] [address] | | | | | [address] | [phone] | | | | | [phone] | | | +--------+--------+ + + + Social History + + [...] this encounter Miscellaneous Notes Telephone Encounter - Ramila Kwong Director Of Mobile Marketing - 01/24/2018 10:51 AM PDTPatient called to schedule injection, and is now scheduled for 02/08/18. Patient stated no one is curr ently managing her Plavix because she has a new primary care physician. I advised the patien t I would call her PCP's office to ensure that it is okay for the patient to come off her Pl avix prior to the procedure. The patient verbalized understanding. Patient inquired about her prescription for a wheelchair. I advised the patient our office needed to know where she would like the prescription sent. She stated the medical supply [facility] in [place] is called [facility]. She also stated she needs the prescription to be for an electric wheelchair as she has elbow an shoulder issues. I stated I would discuss thi s matter with Omar, and proceed when we have more info. Patient verbalized understanding and was thankful for the call. Prescription, copies of insurance info, and most recent chart not faxed to [facility] in [place]. 10 :52 AM PDTTelephone Encounter - Ramila Kwong Medical Assistant - 01/18/2018 11:22 AM PD TAttempted to contact patient concerning prescription for wheelchair. Patient did not answer and no message was able to be left. elep emani Encounter - Ramila Kwong Medical Assistant - 01/10/2018 11:11 AM PDTAttempted to c ontact patient to let her know we have the prescription for her wheelchair available and nury dy to be picked up. Patient did not answer and no message was able to be left. Electronicall y signed by Earl Dugan Assistant at 01/10/2018 11:12 AM PDTTelephone Encounter - Ilana Keenan RN - 01/07/2018 10:02 AM PDTCalled patient to notify her that her pre scription for a wheelchair has been approved by [facility] and is ready for her to hop picker. P atient did not answer and mailbox is full. elephone Encounter - Isamar Hdz - 01/06/2018 11:56 AM P DTPatient called in wanting to ask omar for prescription for a wheel chair for her, to be p aid thru her insurance. Please adviseElectronically signed by Isamar Hdz at 01/06 11:58 AM PDTdocumented in this encounter Plan of Treatment Not on filedocumented as of this encounter Visit Diagnoses Not on filedocumented in this encounter"
--- OUTSIDE RECORDS SUMMARY | ~2020-01-29 | XMS | Encounter Summary ---
Demographics + + + | Address | [address] | | | [place] [address] | + + + | Home Phone | | + + + | Preferred Language | Unknown | + + + | Marital Status | | + + + | Bahai Affiliation | Unknown | + + + | Race | White | + + + | Ethnic Group | Not or | + + + Author + + + | Author | [facility] | | | and [place] | + + + | Organization | [facility] | | [...] [place] | | | | | [id number] | | + + + + + Care Team Providers + +------+ + | Care Primer Press Operator Name | Role | Phone | + +------+ + | Crow Braga DO | PCP | | + +------+ + Reason for Visit + + + | Reason | Comments | + + + | Neck Pain | radiating into right shoulder | + + + Evaluate & Treat (Routine) +--------+--------+ + + + + | Status | Reason | Specialty | Diagnoses / | Referred By | Referred To | | | | | Procedures | Contact | Contact | +--------+--------+ + + + + | Closed | | Physical | Diagnoses | Omi, | Jasmine, | | | | Medicine and | Other | Crow Floyd, | Saúl Rosario MD | | | | Rehabilitatio | spondylosis, | DO [address] | [address] | | | | n | cervical | [address] | [address] | | | | | region | [place], [place] | [place] | | | | | | [address] | [address] Phone: | | | | | | Phone: | [phone] | | | | | | [phone] | Fax: | | | | | | Fax: | [phone] | | | | | | [phone] | | +--------+--------+ + + + + Encounter Details +--------+---------+ + + + | Date | Type | Department | Care Team | Description | +--------+---------+ + + + | 04/25/ | Office | [facility] | [place], | Upper back | | 2014 | Visit | PHYSIATRY [address] | [address] | pain/posterior | | | | [address] | [address] | shoulder pian on | | | | [place], [place] | [place] [address] | right side (Primary | | | | [address] | [phone] | Dx); Fibromyalgia; | | | | [phone] | | Myofascial pain; | | | | | | Shoulder pain, right | +--------+---------+ + + + Social History [...] + + + | Blood Pressure | 163/82 | 04/25/2015 3:35 PM | | | | | PST | | + + + + + | Pulse | 71 | 04/25/2015 3:35 PM | | | | | PST [...] + + + + | Weight | 105.2 kg (232 lb) | 04/25/2015 3:35 PM | | | | | PST | | + + + + + | Height | 160 cm (5' 3") | 04/25/2015 3:35 PM | | | | | PST | | + + + + + | Body Mass Index | 41.1 | 04/25/2015 3:35 PM | | | | | PST | | + + + + + documented in this encounter Patient Instructions Patient Instructions Tavia Buck PA-C - 04/25/2015 3:59 PM PST- Ice the area as n eeded 20 minutes per hour. Multiple times as needed over the next few days. - Watch for signs of infection (redness around injection site, swelling, fever) - No strenuous activity for 24-48 hours after the procedure. - Please call the office with questions or concerns. documented in this encounter Progress Notes Tavia Buck PA-C - 04/29/2015 7:53 AM PSTFormatting of this note might be differe nt from the original. CHIEF COMPLAINT: Chief Complaint Patient presents with Neck Pain radiating into right shoulder HISTORY OF PRESENT ILLNESS: The patient is a 59 y.o. female being seen today for complaint s of neck pain and right shoulder pain that began over 2 years ago from no injury or insult. Her PCP ordered some xrays of the neck and shoulder and referred her here for possible apple roid injection. Since the symptoms began, she has noticed that symptoms have been chronic and constant. She describes the pain as a aching and sharp feeling. She rates the pain as moderate. Her sympt oms worsen with movement of the shoulder, reaching over head, turning her neck. Her symptom s improve with rest, being still. She denies any pain down the arms. The patient does not describe numbness of the arms or legs. She does report weakness of t he arms stating she cannot open jars anymore. She does not have bowel and bladder dysfuncti on. She does not have saddle anesthesia. Treatments for these complaints have included physical therapy, use of NSAIDS and tylenol. Patient's medications, allergies, past medical, surgical, social and family histories were reviewed and updated as appropriate. PAST MEDICAL HISTORY: Past Medical History Diagnosis Date Hypertension Fibromyalgia Hyperlipidemia Stroke (HCC) Irregular heartbeat Depression Anxiety Anemia Ulcer Thyroid disease Trochanteric bursitis 01/05/2013 Bipolar disorder (HCC) 01/05/2013 Post traumatic stress disorder (PTSD) 01/05/2013 Fibromyalgia Myofascial pain 04/25/2015 Shoulder pain, right 04/25/2015 PAST SURGICAL HISTORY: Past Surgical History Procedure Laterality Date Hysterectomy Gallbladder surgery Ear surgery - ear lobe repair x 2 Meniscus repair Right knee Cyst removal Left knee CURRENT MEDICATIONS: Current Outpatient Prescriptions Medication Sig Dispense Refill atorvaSTATin (LIPITOR) 40 mg tablet Take 40 mg by mouth nightly. clopidogrel (PLAVIX) 75 mg tablet Take 75 mg by mouth Daily. cyclobenzaprine (FLEXERIL) 10 mg tablet Take 5 mg by mouth 3 times daily as needed. gabapentin (NEURONTIN) 300 mg capsule Take 300 mg by mouth 2 times daily. (Patient taki ng differently: Take 600 mg by mouth 3 times daily.) HYDROcodone-acetaminophen (NORCO) 10-325 mg per tablet Take 1 tablet by mouth every 6 h ours as needed for Pain. lamoTRIgine (LAMICTAL) 25 [...] Tape Aspirin Bupropion Bupropion Hcl Duloxetine Oxycodone-Aspirin SOCIAL HISTORY: The patient reports that she has been smoking Cigarettes. She has a 21 pack-year smoking history. She does not have any smokeless tobacco history on file. FAMILY HISTORY: History reviewed. No pertinent family history. REVIEW OF SYSTEMS: GENERALLY: No fever, chills, no night sweats, no weight gain, no weight loss, no anemia, no fatigue. EYES: No eye problems, no impaired sight, no eye glasses/contacts, no eye injury, no doubl e vision, no transient blindness. EARS, NOSE, THROAT and MOUTH: No change in sense taste/smell, no hearing difficulty, no ri nging in ears, no drainage from ears, no ear injury, no dizziness, no voice change, no diffi culty swallowing, no snoring, no sleep apnea/CPAP, no sinus trouble, no dental work. NEUROMUSCULAR: No numbness/pain of arms, no numbness/pain of legs, no awake with numbness/ pain, no weakness, no muscle aching, no coordination difficulty, no change in walk, no head injury, no neck injury, no back injury, no pain in neck, no pain in back, no stroke, no jayme ting spells, no loss of consciousness, no tremor/shaking, no seizures, no headaches, no migr aines, no memory loss, no speech difficulty, no confusion, no numbness of face. PSYCHIATRIC: No depression, no difficulty sleeping, no anxiety, no bipolar disorder. CARDIOVASCULAR/PULMONARY: No heart attack, no heart murmur, no fluttering heart, no shortn ess of breath, no cough, no Tuberculosis, no chest pain, no swelling ankles, no bloody cough ing, no asthma, no COPD/emphysema. GASTROINTESTINAL: No bowel disease, no nausea/vomiting, no rectal bleeding/hemorroids, no constipation, no fecal/stool incontinence, no liver/gallbladder disease, no abdominal pain. KIDNEY DISEASE: No frequent urination, no painful/difficult with urination, no urinary inco ntinence, no bladder problems, no impotence, no irregular period, no vaginal discharge. ENDOCRINE: No diabetes, no thyroid disease, no osteoporosis/osteopenia, no drainage from br easts. INTEGUMENTARY/SKIN: No lump in breasts, no skin disease or skin changes, no rash/itch. HEMATOLOGIC: No enlarged lymph nodes, no ease or unusual bleeding, no cancer. RHEUMATOLOGIC: No joint pain/arthritis, no Rheumatoid Arthritis PHYSICAL EXAMINATION: Filed Vitals: 04/25/15 1535 BP: 163/82 Pulse: 71 PainSc: 3 PainLoc: Neck Body mass index is 41.11 kg/(m^2). GENERAL: The patient is well developed and well nourished. She does not appear uncomfortab le when seated. HEENT: HEAD/FACE: EYES: EARS: NASOPHARNYX: OROPHARNYX: Normocephalic and atraumatic. There are no areas of recent trauma. Normal sclerae without icterus. No drainage or tenderness. Clear without drainage. Clear without erythema. SKIN Limited skin exam shows no significant rashes or lesions. There are not scars in the cervical region. CHEST: The patient is in no acute respiratory distress with unlabored respirations. HEART: There is not lower extremity edema. ABDOMEN: The patient is overweight. NEUROLOGIC: The patient is awake, alert, and oriented to time, place, person. She follows simple and complex commands. Her speech is fluent. She comprehends speech well. She has no apparent deficits with short or rodent exterminator memory. She has appropriate fund of knowledge Cranial nerves 2-12 appear grossly intact. Sensory exam does not show diminished sensation to light touch in the lower extremities. REFLEX: RIGHT LEFT BICEPS 2+ 2+ BRACHIORADIALIS 2+ 2+ TRICEPS 2+ 2+ PATELLAR 2+ 2+ ACHILLES 2+ 2+ VALERO'S Negative Negative PLANTAR Downgoing Downgoing MUSCULOSKELETAL There is no tenderness in the midline of the cervical or thoracic spine. T here is no major palpable deformity of the spine. Range of motion testing of the cervical spine was limited in all directions. Spurling sign was negative. Shoulder examination shows well preserved range of motion with external rotation, internal rotation and abduction, she did have pain with abduction and forward flexion on the right. Impingement testing was Positive. There was no tenderness over the bicipital groove, there was tenderness over the right AC joint. Speed's test was Negative. Empty can test was Nega tive. Strength testing, including strength testing of the infraspinatus, supraspinatus an d subscapularis, in bilateral upper extremities showed 5/5 strength with no focal weakness. RADIOGRAPHIC REVIEW: The patient's imaging was reviewed in detail with the patient today during the visit. The images from 03/2015 show cervical DDD mostly at C4-C5, facet hypertrphy, possible foraminal stenosis at this level due to bony encroachment. Right shoulder xray shows AC arthritis. ASSESSMENT: 1. Upper back pain/posterior shoulder pian on right side 2. Fibromyalgia 3. Myofascial pain 4. Shoulder pain, right PLAN: 1. I do think a lot of her neck pain is due to fibromyalgia and myofascial pain. We discu ssed trigger point injections and she would like to proceed with this. After the patient gave consent for the procedure the trigger point injections were performe d using sterile no-touch technique and a 25 gauge 1.5 inch needle. The areas were prepped w ith alcohol. The needle was then advanced into 8 different trigger points and a total of 4 mL each of 0.5% bupivicaine and 1% lidocaine was injected divided between the 8 sites. The patient was instructed to ice the areas and to watch for signs of infection. 2. We discussed a right shoulder acromial steroid injection. She would like to proceed wi th this. Description of procedure: After the patient gave consent for the procedure the area for in jection was located by palpation and was marked. The area was then prepped with Betadine sw abs and alcohol. A 25 gauge 1 1/2 inch needle was then inserted into the joint subacromial space. Attempted aspiration showed no fluid in the needle hub. A combination of 1 mL of 40 mg/mL Kenalog and 2 mL each of 0.5% Bupivicaine and 1% Lidocaine was injected. The patient tolerated the procedure well and was instructed to ice the area for 15-20 minut es several times over the next few days and to watch for any signs of infection. 3. We discussed that is she did not get relief from either of this injections, she may be a candidate for a cervical MRI and further investigation. 4. She is to call our office Wednesday to see how she is doing. ELECTRONICALLY SIGNED BY: Tavia Buck PA-C, 04/25/2015 CC: Omi documented in t his encounter Plan of Treatment Not on filedocumented as of this encounter Visit Diagnoses + + | Diagnosis | + + | Upper back pain/posterior shoulder pian on right side - Primary Pain in thoracic | | spine | + + | Fibromyalgia Mylagia and myositis, unspecified | + + | Myofascial pain Mylagia and myositis, unspecified | + + | Shoulder pain, right Pain in joint, shoulder region | + + documented in this encounter Administered Medications + + + +-------+------+ + | Medication Order | MAR | Action | Dose | Rate | Site | | | Action | Date | | | | + + + +-------+------+ + | bupivacaine (MARCAINE) 0.5% | Given by | 04/25/20 | 5 mLs | | Other | | injection 5 mL 5 mL, | Other | 15 4:11 | | | (Comment | | Subcutaneous, ONCE, Michelle 04/25/15 | | PM PST | | | ) | | at 1615, For 1 dose | | | | | | + + + +-------+------+ + +---+---+ | | | +---+---+ + + + +-------+---+---+ | lidocaine 1% injection 5 mL 5 | Given by | 04/25/20 | 5 mLs | | | | mL, Infiltration, ONCE, Michelle | Other | 15 4:12 | | | | | 04/25/15 at 1615, For 1 dose | | PM PST | | | | + + + +-------+---+---+ +---+---+ | | | +---+---+ + + + +-------+---+---+ | triamcinolone acetonide | Given by | 04/25/20 | 40 mg | | | | (KENALOG-40) 40 mg/mL injection | Other | 15 4:12 | | | | | 40 mg 40 mg, Intra-articular, | | PM PST | | | | | ONCE, [facility] 04/25/15 at 1615, For 1 | | | | | | | dose, Evan well. Not for IV | | | | | | | use., | | | | | | + + + +-------+---+---+ +---+---+ | | | +---+---+ documented in this encounter
--- OUTSIDE RECORDS SUMMARY | ~2020-01-29 | XMS | Encounter Summary ---
Demographics + + + | Address | [address] | | | [place] [address] | + + + | Home Phone [...] [place] | | | | | [address] | | + + + + + Care Team Providers + +------+ + | Care Generating Plant Superintendent Name | Role | Phone | + +------+ + | Crow Braga DO | PCP | | + +------+ + Encounter Details +--------+ + + + + | Date | Type | Department | Care Team | Description | +--------+ + + + + | 04/03/ | Anesthesia | [facility] | Dory Miller, | | | 2016 | Event | [facility] | DO [address] | | | | | [address] | [place], [place] | | | | | [place], [place] | [address] | | | | | [address] | | | | | | [phone] | Zohaib Díaz, | | | | | | MD [address] | | | | | | [place], [place] | | | | | | [address] | | | | | | | | +--------+ + + + + Anesthesia Record + + + + + | Procedure Name | Responsible | Anesthesia Start | Anesthesia Stop Time | | | Anesthesiologist | Time | | + + + + + | C4-5 Anterior | Dory Miller DO | 04/03/16 0924 | 04/03/16 1038 | | Cervical Discectomy | | | | | with Fusion and | | | | | Plating (Anterior | | | | | Neck) | | | | + + + + + +----+---+ + + | Da | T | Event | Comment | | te | i | | | | | m | | | | | e | | | +----+---+ + + | 10 | 0 | | | | /2 | 8 | | | | 8/ | 5 | | | | 20 | 7 | | | | 16 | | | | +----+---+ + + | | 0 | An Checkout | Pre-use anesthesia machine/equipment checkout. | | | 9 | | | | | 2 | | | | | 4 | | | +----+---+ + + | | 0 | An Start | Reassessment prior to anesthesia induction/procedure. | | | 9 | | | | | 2 | | | | | 4 | | | +----+---+ + + | | 0 | Preoxygenat | | | | 9 | ed | | | | 2 | | | | | 8 | | | +----+---+ + + | | 0 | Pre-Procedu | | | | 9 | ral Timeout | | | | 2 | Completed | | | | 8 | | | +----+---+ + + | | 0 | An | | | | 9 | Induction | | | | 2 | | | | | 9 | | | +----+---+ + + | | 0 | An | | | | 9 | Intubation | | | | 3 | | | | | 1 | | | +----+---+ + + | | 0 | Antibiotic | | | | 9 | Given | | | | 4 | | | | | 3 | | | +----+---+ + + | | 0 | [place] | | | | 9 | 43-degrees | | | | 4 | | | | | 3 | | | +----+---+ + + | | 0 | First | | | | 9 | Inc/Proc St | | | | 4 | | | | | 3 | | | +----+---+ + + | | 1 | AN No | TOF 4/4 with sustained tetanus. | | | 0 | Residual | | | | 2 | NMB | | | | 5 | | | +----+---+ + + | | 1 | Breathing | | | | 0 | Spontaneous | | | | 3 | ly | | | | 0 | | | +----+---+ + + | | 1 | Oropharynx | | | | 0 | Suctioned | | | | 3 | | | | | 0 | | | +----+---+ + + | | 1 | an stop | | | | 0 | data | | | | 3 | | | | | 3 | | | +----+---+ + + | | 1 | An Stop | Patient handed off to recovery nurse. | | | 3 | | | | | 8 | | | +----+---+ + + +------+ | Meds | +------+ + + + | Name | Total | + + + | midazolam | 2 mg | + + + | fentaNYL injection (2 mL) | 200 mcg | + + + | propofol (DIPRIVAN) injection | 150 mg | | (bolus) (20 mL) | | + + + | lidocaine 2% | 100 mg | + + + | rocuronium | 50 mg | + + + | ondansetron | 4 mg | + + + | dexamethasone | 10 mg | + + + | phenylephrine (Injection) | 500 mcg | + + + | neostigmine | 5 mg | + + + | glycopyrrolate | 1.2 mg | + + + | ceFAZolin (ANCEF, KEFZOL) 2 g in | 2 g | | sodium chloride 0.9% 50 mL IVPB | | + + + | acetaminophen (TYLENOL) tablet | 1 g | | 975 mg | | + + + | gabapentin (NEURONTIN) capsule | 600 mg | | 600 mg | | + + + | dexmedetomidine (Bolus) | 100 mcg | + + + | magnesium sulfate injection 500 | 2 g | | mg/mL (vial) | | + + + | lactated ringers (LR) infusion | 1,000 mL | + + + + + | Name | + + | N2O Flow Rate (L/Min) | + + | O2 Flow Rate (L/Min) | + + | Insp O2 | + + | Exp SEV | + + | Air Flow Rate (L/Min) | + + + + | No blood administrations on file. | + + +--------+ + + + | Type | Details | Placement | Removal | +--------+ + + + | Periph | 04/03/16; 0802; Right; Distal; | 04/03/16 0802 by | 04/03/16 1627 by | | eral | Forearm; [id number] catheter | Leann Butt RN | Shimon Friedman RN | | IV | system; 18 gauge; Coagulation, | | | | | Blood Bank; 0; distraction, | | | | | intradermal injection; no longer | | | | | indicated, catheter/device | | | | | intact; short term use; 04/03/16; | | | | | 1627 | | | +--------+ + + + | Airway | Placement Date: 04/03/16; | 04/03/16930 by | 04/03/16 1052 by | | | Placement Time: 930 (created via | Dory Miller DO | Leann Butt RN | | | procedure documentation); Mask | | | | | Ventilation: EZ; Airway Grade: 1; | | | | | Successful Technique: Mac; | | | | | Laryngoscope Blade Size: 3; | | | | | Attempts: 1; Airway Type: | | | | | endotracheal; Size: 7; Airway | | | | | Tube Secured At: 23; Other | | | | | Equipment: stylette; Placement | | | | | Check: exhaled CO2 detection | | | | | device, bilateral chest rise, | | | | | suprasternal notch palpation; | | | | | Removal: per protocol; Removal | | | | | Date: 04/03/16; Removal Time: | | | | | 1052 | | | +--------+ + + + | Read | 04/03/16; 954; Right; neck; | 04/03/16954 by | 04/03/16 1800 by | | only - | joby; short term use; | Pedrito Nunez RN | Shimon Friedman RN | | | 04/03/16; 1800 | | | | Incisi | | | | | on | | | | +--------+ + + + documented in this encounter Social History + + + +--------+ + [...] + + documented as of this encounter OR Notes Anesthesia Postprocedure Evaluation - Dory Miller DO - 04/03/2016 11:18 AM PDTFormat ting of this note might be different from the original. ANESTHESIA POSTANESTHESIA EVALUATION Ann Santiago 60 y.o. female 1955 [id number] Procedure(s) C4-5 Anterior Cervical Discectomy with Fusion and Plating (Anterior Neck) Cooperates? Yes Mental Status Performs simple tasks. Respiratory Satisfactory - Airway patent (self maintained). Cardiovascular Satisfactory Blood pressure and heart rate acceptable Temperature Satisfactory Pain Satisfactory N/V Control Satisfactory Hydration Satisfactory No signs of dehydration Complications None apparent Filed Vitals: 04/03/16 1045 04/03/16 1050 04/03/16 1055 BP: 115/54 118/63 128/61 Pulse: 74 79 78 Temp: Resp: 13 15 14 SpO2: 98% 98% 94% Electronically signed by Dory Miller DO 04/03/2016 11:18 [facility] nesthesia Procedur e Notes - Dory Miller DO - 04/03/2016 9:52 AM PDTAssociated Order(s): ANE AIRWAY NOT EAnesthesia Airway Placement 04/03/2016 9:31 Preprocedure check: patient identified, oxygen, airway assessed, suction, airway equipment checked and patient reassessment prior to induction Mask ventilation: easy Successful technique: Mac Laryngoscope blade size: 3 Airway grade: 1 (Full view of glottis) Other equipment: stylette Attempts: 1 Airway type: endotracheal Size: 7 Cuffed: cuffed Route, reference point: right side of mouth Tube depth: 23 cm Tube secured with: adhesive tape Trauma: none Tube placement verification: bilateral chest rise, carbon dioxide detection and suprasterna l notch palpation Performing provider: DORY MILLER nesthesia Preproce dure Evaluation - Dory Miller DO - 04/02/2016 8:42 PM PDTFormatting of this note andrei ht be different from the original. ANESTHESIA PREANESTHESIA EVALUATION Ann Santiago 60 y.o. female 1955 [id number] Procedure(s): C4-5 Anterior Cervical Discectomy with Fusion and Plating (N/A Neck) Medical history, anesthesia, medications, allergy, NPO status verified histories reviewed. ECG reviewed. Labs reviewed. Review of Systems / Med History Cardiovascular (+) hypertension Neurology (+) CVA, back pain Psychology (+) anxiety, depression, bipolar disorder, post-traumatic stress disorder Gastrointestinal/Hepatic (+) hyperlipidemia Endocrine (+) obesity: morbid BMI 40+ Physical Exam Airway MP III, TM >3 FB, Mouth opening >2 FB. Neck: full ROM, extends >30 degrees. Jaw protru daniela normal. Dental Grossly normal except where noted below.; (+) dentures-lower and dentures-upper. CV cardiovascular normal Pulm Clear to auscultation bilaterally. Neuro Grossly normal. Anesthesia Plan ASA 3 Type: General. Induction: Intravenous. Potential problems: None anticipated. Monitors: Standard ASA monitors. Consent statement:Anesthetic plan, alternatives, risks and benefits discussed with patient. Risks discussed included (but were not limited to): backache, dental injury, muscle aches, pain, sore throat, nausea, perioperative CV events, respiratory events, . Consenting person understands and agrees to proceed. Electronically Signed by: Dory Miller DO ESig date/time: 04/03/2016 8:48 documented in this encounter Plan of Treatment Not on filedocumented as of this encounter Procedures + +--------+ + + + | Procedure Name | Priori | Date/Time | Associated Diagnosis | Comments | | | ty | | | | + +--------+ + + + | ANE AIRWAY NOTE | Routin | 04/03/2016 | | Results for this | | | e | 9:53 AM | | procedure are in the | | | | PDT | | results section. | + +--------+ + + + documented in this encounter Results Anesthesia Airway Note (04/03/2016 9:53 AM PDT) + + + | Narrative | Performed At | + + + | Dory Miller DO 04/03/2016 9:53 Anesthesia | | | Airway Placement 04/03/2016 9:31 Preprocedure check: patient | | | identified, oxygen, airway assessed, suction, airway equipment | | | checked and patient reassessment prior to induction Mask | | | ventilation: easy Successful technique: Mac Laryngoscope blade | | | size: 3 Airway grade: 1 (Full view of glottis) Other equipment: | | | stylette Attempts: 1 Airway type: endotracheal Size: 7 Cuffed: | | | cuffed Route, reference point: right side of mouth Tube depth: 23 cm | | | Tube secured with: adhesive tape Trauma: none Tube placement | | | verification: bilateral chest rise, carbon dioxide detection and | | | suprasternal notch palpation Performing provider: DORY MILLER | | | SHE[place] | | + + + documented in this encounter Visit Diagnoses Not on filedocumented in this encounter Administered Medications + +--------+ +------+------+------+ | Medication Order | MAR | Action | Dose | Rate | Site | | | Action | Date | | | | + +--------+ +------+------+------+ | acetaminophen (TYLENOL) tablet | Given | 04/03/20 | 1 g | | | | 975 mg 975 mg (rounded from | | 16 9:21 | | | | | 1,000 mg), Oral, ONCE, Fri | | AM PDT | | | | | 04/03/16 at 0745, For 1 dose, | | | | | | | Pre-op | | | | | | + +--------+ +------+------+------+ +-------+ +--------+---+---+ | Given | 04/03/20 | 975 mg | | | | | 16 7:38 | | | | | | AM PDT | | | | +-------+ +--------+---+---+ +---+---+ | | | +---+---+ + +---------+ +-----+---+---+ | ceFAZolin (ANCEF, KEFZOL) 2 g | New Bag | 04/03/20 | 2 g | | | | in sodium chloride 0.9% 50 mL | | 16 9:43 | | | | | IVPB 2 g, Intravenous, | | AM PDT | | | | | Administer over 30 Minutes, Prior | | | | | | | to Incision, Starting Fri | | | | | | | 04/03/16 at 0722, For 1 dose, | | | | | | | Administer within 1 hour of | | | | | | | surgical incision., Pre-op, | | | | | | | Indications: Surgical Prophylaxis | | | | | | + +---------+ +-----+---+---+ +---+---+ | | | +---+---+ + +-------+ +-------+---+---+ | dexamethasone (DECADRON) 10 | Given | 04/03/20 | 10 mg | | | | mg/mL injection Intravenous, | | 16 9:30 | | | | | PRN, Starting Wed04/03/16 at | | AM PDT | | | | | 0930, Anesthesia Intra-op | | | | | | + +-------+ +-------+---+---+ +---+---+ | | | +---+---+ + +-------+ +---------+---+---+ | dexmedetomidine (PRECEDEX) in | Given | 04/03/20 | 100 mcg | | | | sodium chloride bolus infusion | | 16 9:48 | | | | | Intravenous, PRN, Starting Fri | | AM PDT | | | | | 04/03/16 at 0948, Anesthesia | | | | | | | Intra-op | | | | | | + +-------+ +---------+---+---+ +---+---+ | | | +---+---+ + +-------+ +---------+---+---+ | fentaNYL (PF) injection | Given | 04/03/20 | 100 mcg | | | | Intravenous, PRN, Pain, Starting | | 16 9:55 | | | | | 04/03/16 at 0928, Anesthesia | | AM PDT | | | | | Intra-op | | | | | | + +-------+ +---------+---+---+ +-------+ +---------+---+---+ | Given | 04/03/20 | 100 mcg | | | | | 16 9:28 | | | | | | AM PDT | | | | +-------+ +---------+---+---+ +---+---+ | | | +---+---+ + +-------+ +--------+---+---+ | gabapentin (NEURONTIN) capsule | Given | 04/03/20 | 600 mg | | | | 600 mg 600 mg, Oral, ONCE, Fri | | 16 9:21 | | | | | 04/03/16 at 0745, For 1 dose, | | AM PDT | | | | | Pre-op | | | | | | + +-------+ +--------+---+---+ +-------+ +--------+---+---+ | Given | 04/03/20 | 600 mg | | | | | 16 7:38 | | | | | | AM PDT | | | | +-------+ +--------+---+---+ +---+---+ | | | +---+---+ + +-------+ +------+---+---+ | glycopyrrolate (ROBINUL) | Given | 04/03/20 | 1 mg | | | | injection Intravenous, PRN, | | 16 10:22 | | | | | Secretions, Starting Wed04/03/16 | | AM PDT | | | | | at 0930, Anesthesia Intra-op | | | | | | + +-------+ +------+---+---+ +-------+ +--------+---+---+ | Given | 04/03/20 | 0.2 mg | | | | | 16 9:30 | | | | | | AM PDT | | | | +-------+ +--------+---+---+ +---+---+ | | | +---+---+ + +---------+ +---+---+---+ | lactated ringers (LR) infusion | New Bag | 04/03/20 | | | | | at 10-100 mL/hr, Intravenous, | | 16 9:24 | | | | | CONTINUOUS, Starting Wed04/03/16 | | AM PDT | | | | | at 0745, TKO., Pre-op | | | | | | + +---------+ +---+---+---+ +---+---+ | | | +---+---+ + +-------+ +--------+---+---+ | lidocaine (PF) 2% injection | Given | 04/03/20 | 100 mg | | | | Intravenous, PRN, Starting Fri | | 16 9:29 | | | | | 04/03/16 at 0929, Anesthesia | | AM PDT | | | | | Intra-op | | | | | | + +-------+ +--------+---+---+ +---+---+ | | | +---+---+ + +-------+ +-----+---+---+ | magnesium sulfate 500 mg/mL | Given | 04/03/20 | 2 g | | | | injection PRN, Starting Fri | | 16 9:45 | | | | | 04/03/16 at 0945, Anesthesia | | AM PDT | | | | | Intra-op | | | | | | + +-------+ +-----+---+---+ +---+---+ | | | +---+---+ + +-------+ +------+---+---+ | midazolam (VERSED) 1 mg/mL | Given | 04/03/20 | 2 mg | | | | injection Intravenous, PRN, | | 16 9:24 | | | | | Anxiety, Starting Wed04/03/16 at | | AM PDT | | | | | 0924, Anesthesia Intra-op | | | | | | + +-------+ +------+---+---+ +---+---+ | | | +---+---+ + +-------+ +------+---+---+ | neostigmine (BLOXIVERZ) 1 mg/mL | Given | 04/03/20 | 5 mg | | | | injection Intravenous, PRN, | | 16 10:22 | | | | | Starting 04/03/16 at 1022, | | AM PDT | | | | | Anesthesia Intra-op | | | | | | + +-------+ +------+---+---+ +---+---+ | | | +---+---+ + +-------+ +------+---+---+ | ondansetron (ZOFRAN) injection | Given | 04/03/20 | 4 mg | | | | Intravenous, PRN, Nausea, | | 16 10:22 | | | | | Vomiting, Starting 04/03/16 | | AM PDT | | | | | at 1022, Anesthesia Intra-op | | | | | | + +-------+ +------+---+---+ +---+---+ | | | +---+---+ + +-------+ +---------+---+---+ | phenylephrine (NAN-SYNEPHRINE) | Given | 04/03/20 | 100 mcg | | | | 100 mcg/mL injection | | 16 10:13 | | | | | Intravenous, PRN, Starting Fri | | AM PDT | | | | | 04/03/16 at 0932, Anesthesia | | | | | | | Intra-op | | | | | | + +-------+ +---------+---+---+ +-------+ +---------+---+---+ | Given | 04/03/20 | 100 mcg | | | | | 16 10:08 | | | | | | AM PDT | | | | +-------+ +---------+---+---+ | Given | 04/03/20 | 100 mcg | | | | | 16 9:36 | | | | | | AM PDT | | | | +-------+ +---------+---+---+ +---+---+ | | | +---+---+ + +-------+ +--------+---+---+ | propofol (DIPRIVAN) injection | Given | 04/03/20 | 150 mg | | | | Intravenous, PRN, Starting Fri | | 16 9:29 | | | | | 04/03/16 at 0929, Anesthesia | | AM PDT | | | | | Intra-op | | | | | | + +-------+ +--------+---+---+ +---+---+ | | | +---+---+ + +-------+ +-------+---+---+ | rocuronium (ZEMURON) injection | Given | 04/03/20 | 50 mg | | | | Intravenous, PRN, Starting Fri | | 16 9:29 | | | | | 04/03/16 at 0929, Anesthesia | | AM PDT | | | | | Intra-op | | | | | | + +-------+ +-------+---+---+ +---+---+ | | | +---+---+ documented in this encounter"
--- OUTSIDE RECORDS SUMMARY | ~2020-01-29 | XMS | Encounter Summary ---
Demographics + + + | Address | [address] | | | [place] [address] | + + + | Home Phone | | + + + | Preferred Language | Unknown | + + + | Marital Status | | + + + | Latter Day Affiliation | Unknown | + + + [...] [place] | | | | | [address] | | + + + + + Care Team Providers + +------+ + | Care Flooring Professional Name | Role | Phone | + +------+ + | Nathan Kent | PCP | | | MD | | | + +------+ + Encounter Details +--------+ + + + + | Date | Type | Department | Care Team | Description | +--------+ + + + + | 07/13/ | Imaging | [facility] | Provider, | | | 2019 | Exam | [facility] | MD [address] | | | | | IMAGING [address] | | | | | [address] [place] | [place] [address] | | | | | [place] [address] | | | | | | [phone] | | | +--------+ + + + [...] + + + | XR LUMBAR SPINE 2 OR | Routin | 07/04/2018 | | Results for this | | 3 VW | e | 2:05 PM | | procedure are in the | | | | PST | | results section. | + +--------+ + + + documented in this encounter Results XR Lumbar Spine 2 or 3 Vw (07/04/2018 2:05 PM PST) + + | Specimen | + + | | + + + + + | Narrative | Performed At | + + + | External films for comparison only | [facility] | | | | | No results will be in the chart. | | + + + + +---------+ + + | Performing | Address | City/State/Zipcode | Phone Number | | Organization | | | | + +---------+ + + | [facility] | | | | + +---------+ + + documented in this encounter Visit Diagnoses Not on filedocumented in this encounter"
--- OUTSIDE RECORDS SUMMARY | ~2020-01-29 | XMS | Encounter Summary ---
Demographics + + + | Address | [address] | | | [place] [address] | + + + | Home Phone [...] + + + | Author | [facility] | | | and [place] | + + + | Organization | [facility] | | | [...] [place] | | | | | [address] | | + + + + + Care Team Providers + +------+ + | Care Pharmacy Informaticist Name | Role | Phone | + +------+ + | Crow Brgaa DO | PCP | | + +------+ [...] | n | Chronic low | [address] [place] | | | | | back pain | [place], [place] | [place] | | | | | without | [address] | [address] Phone: | | | | | sciatica, | Phone: | [phone] | | | | | unspecified | [phone] | Fax: | | | | | back pain | Fax: | [phone] | | | | | laterality | [phone] | | +--------+ + + + + + Reason for Visit + +--------+ + | Reason | Onset | Comments | | | Date | | + +--------+ + | Leg Swelling | 05/04/ | | | | 2015 | | + +--------+ + Encounter Details +--------+ + + + + | Date | Type | Department | Care Team | Description | +--------+ + + + + | 05/04/ | Telephone | [facility] | Joel Burger, | Leg Swelling | | 2015 | | NEUROSURGERY [address] | DO [address] | | | | | [address] | [address] [place], [place] | | | | | [place], [place] | [id number] | | | | | [address] | | | | | | [phone] | | | +--------+ + + + [...] Encounter - Celeste Bradford Cert MA - 05/05/2016 2:02 PM PSTI spoke with Ann. She said that [address] Ferraro and he said he wouldn't do an injection for her then. I let her know that a lot can change in 4 years and it's hard to say if he will do one or not without seeing him again. She is anxious to have back surgery but I let her k now she will need to heal enough from the neck surgery before doing her back. She is set to f/u in July and I let her know that the back surgery can be discussed at that time. Marshall hensley understands. She is okay to have a referral placed for eval and treat with Dr. Ferraro to see what conservative options she has in the meantime. Referral placed to physiatry. elephone Joel Ryan DO - 05/04/2016 4:59 PM PSTEveryone is different as far as comfortable position goes. She could see Dr. Ferraro for eval and treat for steroid injections that might help. If she would like that, please make the referral. Thanks. elephone Ernestinao freder - Celeste Bradford Cert MA - 05/04/2016 1:26 PM PSTI spoke with Ann. She says she wa s seen by Dr. Braga recently and is having some swelling and pain in her right leg behind her knees. She has a lot of cramping in her left calf. She has low back pain and says she has discussed this with Dr. Burger and says he is supposed to do her back surgery once she i s healed from her neck. She is having difficulty sleeping due to the back pain and wonders if Dr. Burger has any suggestions, she feels se has tried every position possible and cant get comfortable. She does not want to more medication. She called because Dr. Braga told her to call us. Please advise. She is S/P C4-5 ACDF on 04/03/2016 Next visit is on 05/21/16 elephone Encounter - Tom Smith 05/04/2016 11:20 AM PSTPatient called to spe ak with Celeste regarding swelling in her legs. Please return call. documented in this encounter Plan of Treatment + + +--------+ + + | Name | Type | Priori | Associated Diagnoses | Order Schedule | | | | ty | | | + + +--------+ + + | * [facility] | Outpatient | Routin | Right leg pain | Ordered: 05/05/2016 | | Physiatry - AMB | Referral | e | Chronic low back | | | Referral | | | pain without | | | | | | sciatica, | | | | | | unspecified back | | | | | | pain laterality | | + + +--------+ + + documented as of this encounter Visit Diagnoses + + | Diagnosis | + + | Right leg pain - Primary Pain in limb | + + | Chronic low back pain without sciatica, unspecified back pain laterality | + + documented in this encounter"
--- OUTSIDE RECORDS SUMMARY | ~2020-01-29 | XMS | Encounter Summary ---
Demographics + + + | Address | [address] | | | [place] [address] | + + + | Home Phone | | + + + | Preferred Language | Unknown | + + + | Marital Status | | + + + | Christianity Affiliation | Unknown | + + + | Race | White | + + + | Ethnic Group | Not or | + + + Author + + + | Author | [facility] | | | and [place] | + + + | Organization | [facility] | | | and [place] | + + + | Address | Unknown | + + + | Phone | Unavailable | + + + Support + + + + + | Name | Relationship | Address | Phone | + + + + + | Keisha Doan | ECON | Unknown | | + + + + + | Amnia Contreras | ECON | [address] | | | | | [place] | | | | | [address] | | + + + + + Care Team Providers + +------+ + | Care Clinical Researcher Name | Role | Phone | + +------+ + | Crow Braga DO | PCP | | + +------+ + Reason for Visit + +--------+ + | Reason | Onset | Comments | | | Date | | + +--------+ + | Imaging Only | 04/08/ | 1 year PO cervical x-rays | | | 2016 | | + +--------+ + Encounter Details +--------+ + + + + | Date | Type | Department | Care Team | Description | +--------+ + + + + | 04/08/ | Telephone | [facility] | Joel Burger, | Imaging Only (1 year | | 2016 | | NEUROSURGERY [address] | DO [address] | PO cervical x-rays) | | | | [address] | [address] [place], [place] | | | | | [place] | [id number] | | | | | [address] | | | | | | [phone] | | | +--------+ + + + [...] encounter Miscellaneous Notes Telephone Encounter - Rambo Cullen Cert MA - 04/08/2017 3:39 PM PDTI spoke with Ann. S he was given her XR results. She was advised per Dr. Burger to f/u with Physiatry for her s ymptoms. She said she will do this if what her knee doctor is doing does not help. RAMBO CULLEN elephone Encounte r - Joel Burger DO - 04/08/2017 2:32 PM PDTX-rays look great. Healing is progressing n icely. Her MRI of the lumbar spine from 11/20/16 looks okay. I don't see anything that would explai n her numbness. Please have her follow-up with physiatry to discuss. She has seen them befor eRena Pickett. elephone Encounter - Tosin Welch Bistro Attendant - 04/08/2017 2:06 PM PDTCalled patient to remind her to c sheryllete her 1 year PO cervical x-rays. Patient will give us a call once completed. I will se t a reminder to request images from [facility]. Patient also complains of bilateral leg numbness, and pain from the left knee to her pelvic area, she stated her primary doctor gave her steroids but did not relieve her leg symptoms. She would like to know if she should get new imaging or schedule an appointment to come see us. Please advise. documented in this encounter Plan of Treatment Not on filedocumented as of this encounter Visit Diagnoses Not on filedocumented in this encounter"
--- OUTSIDE RECORDS SUMMARY | ~2020-01-29 | XMS | Encounter Summary ---
Demographics + + + | Address | [address] | | | [place] [address] | + + + | Home Phone | | + + + | Preferred Language | Unknown | + + + | Marital Status | | + + + | Pentecostalism Affiliation | Unknown | + + + | Race | White | + + + | Ethnic Group | Not or | + + + Author + + + | Author | [facility] | | | and [place] | + + + | Organization | [facility] | | | and [...] [place] | | | | | [address] | | + + + + + Care Team Providers + +------+ + | Care Segmental Paving Supervisor Name | Role | Phone | + +------+ + | Crow Braga DO | PCP | | + +------+ + Encounter Details +--------+ + + + + | Date | Type | Department | Care Team | Description | +--------+ + + + + | 04/03/ | Hospital | [facility] | Joel Burger, | Impaired functional | | 2016 | Encounter | [facility] | DO [address] | mobility and | | | | [address] | [address] [place], [place] | activity tolerance | | | | [place] [address] | [id number] | (Primary Dx); | | | | [phone] | | Cervical | | | | | Brody Steiner, | radiculopathy | | | | | PA-C [address] | | | | | | [address] | | | | | | [place] [address] | | | | | | [phone] | | | | | | | [...] + + + | Blood Pressure | 156/98 | 04/03/2016 4:46 PM | | | | | PDT | | + + + + + | Pulse | 80 | 04/03/2016 4:46 PM | | | | | PDT | | + + + + + | Temperature | 36.7 C (98.1 F) | 04/03/2016 4:00 PM | | | | | PDT | | + + + + + | Respiratory Rate | 18 | 04/03/2016 4:00 PM | | | | | PDT | | + + + + + | Oxygen Saturation | 92% | 04/03/2016 4:09 PM | | | | | PDT [...] t raise your hands over your head aam2rhwu(s)after your surgery. Don t drive until your [...] this your 1 month post op appointment. [id number] [employer]. [address] [place] [address], [place] [address]. All righ ts reserved. This information is [...] signed by: Joel Burger DO, 04/03/2016 7:52 [facility] reyerJoel DO - 04/03/2016 7:52 AM PDT Joel Burger DO [address] [facility], [address] [place] [address] FAX: NEUROSURGERY HISTORY AND PHYSICAL EXAMINATION CHIEF [...] has no apparent deficits with short or fpc memory. CRANIAL NERVES: II: Acuity is intact. [...] Intrinsics 5 5 Ulnar Intrinsics 5 5 Band Master Strength 4 4 Hip Flexion 5 5 [...] her MRI shows generalized lumbar spondylosis with [id number] bulging disks at L4-L5 and L5-S1. I [...] C4/C5 05/15/2015 Cervical radiculopathy 07/23/2015 Osteoarthritis PLAN: nAn Santiago presented today, and it was a [...] nerve damage in L LE; used a [employer] stick and carried her cell phone for safety. Was walking her dog (marifer [employer] Role/Relationships: Role Relationships Comment: Pt has supportive [...] HOB elevated Supine to Sit, Level of [place]: modified independence Sit to Supine, Level of [place]: modified independence Transfers Sit-Stand, Level of [place]: supervision required Stand-Sit, Level of [place]: supervision required Oja-Hxcye-Daq, Assistive Device: 2 wheeled walker (FWW) Gait Pt's BP was high, so limited gait to just 5 ft x 2 (to and from bathroom); pt reports that L LE fatigues quickly and starts to hurt and go numb if she walks too far Level of [place] : supervision required, verbal cues required Assistive Device: 2 wheeled walker (FWW) Distance (feet): 5 ft x 2; 20 ft, 60 ft Stairs Up/down 4 steps w/ 1 rail and walking stick and daughter providing CGA. ROM Cervical ROM not tested but LE ROM appears to be grossly WFL Strength Pt with automatic oven operator strength WFL (R slightly stronger than L) STG GOALS Bed Mobility Goal, Activity Type: supine to sit/sit to supine [place] Level: independent (on flat bed) Assistive Device: none Time to Achieve: 2 - 3 days Goal Status: new Transfer Training Goal, Activity Type: sit to stand/stand to sit [place] Level: modified independence Assistive Device: 2 wheeled walker (FWW) Time to Achieve: 2 - 3 days Goal Status: new Gait Training Goal, [place] Level: modified independence Assistive Device: 2 wheeled walker (FWW) Distance: 150 ft Time to Achieve: 2 - 3 days Goal Status: new Stairs Goal, [place] Level: contact guard assist (daughter says that [...] 1550 Stop time: 1615 and Start Time: 1740 Stop time: 1750 Time Calculation: 35 minutes [...] trialed by straw with no overt difficulty. FRONT WINDOW CASHIER observed t he Pt manipulate containers and self feed bites of puree, ground, chopped, mixed, and bread texture. She used liquid washes to assist with bolus passage. Pt tolerated each item with mi n reports of food sticking in throat and no pain during swallow. FRONT WINDOW CASHIER rec'd the Pt consume re gular foods with thin liquids. Education provided about healing process, use of slow rate, a nd small bites, alternating liquids/solids. All questions answered. No further FRONT WINDOW CASHIER services at this time. Speech Language Pathology Anticipated Discharge Needs are: home with family/caregiver Post discharge speech language pathology recommendation: no further Speech Therapy NOMS (National Outcome Measures-Standardized) FCM/NOMS Swallowin/CH Independent, no limits Planned Interventions: patient/caregiver education FRONT WINDOW CASHIER Diagnosis: Swallow WNL At bedside, signs of [...] 04/03/2016 17:43 lan of Care - Ilana Cai OT - 04/03/2016 5:45 PM PDTFormatting of [...] is a 60 y.o. who presents to [facility] for The patient is a 60 y.o. [...] nerve damage in L LE; used a [employer] stick and carried her cell phone for safety. Was walking her dog ([employer]) Role/Relationships: Role Relationships Comment: Pt has supportive [...] multiple contributors. ADLs UB Dressing, Level of [place]: modified independence Provided tips to ease over the head to don dress. Ensure sleeves are over her elbows, then raise over head. LB, Level of [place]: modified independence Toileting, Level of [place]: modified independence Transfers Toilet, Level of [place]: modified independence Toilet, Assistive Device: (walking stick) [...] OT, 04/03/2016 17:37 lan of Care - M Shimon Luna, RN - 04/03/2016 1:19 PM PDTProblem: Patient [...] AM PDTDATE: 04/03/2016 SURGEON: Joel Burger DO TABLEAU DEVELOPER: ALEX Oh PREOPERATIVE DIAGNOSES: 1. Cervical spondylosis. [...] until th e uncovertebral joints were exposed. [place] distraction pins were placed at the C4 [...] x 14 mm PEEK cage f rom [employer] was chosen and filled with Mele paste allograft. To achieve arthrodesis, en dplates of the disk space were abraded and the permanent spacer was inserted into the disk s pace. It fit well and was snug. Next, the [place] pins were removed and bone wax was placed where the pins were to arrest eugenie ne bleeding. A 25 mm Motley [employer] plate was chosen. This is by [employer]. It was p laced on top of [...] Note Ann Santiago 60 y.o. female 1955 [id number] Proc. Date 04/03/2016 Preop Dx Spondylosis and stenosis C4-5 Postop Dx same Procedure C4-5 Anterior Cervical Discectomy with Fusion and Plating Anesthesia General Surgeon Joel Burger DO - Primary Assistant Head Cashier ALEX Aquino - Assisting EBL 25 mL Findings Findings consistent with scheduled procedure. No other abnormalities found. Complications none Specimens * No specimens in log * Drains Electronically signed by: Joel Burger DO 04/03/2016 10:40 [facility] Joel Burger DO at [...] | | tional | | | , [place] | +---+--------+ + +--------+ +---+ + | [...] hardware for anterior fusion from | | T9omwujiz C5 with spacer hardware at C4-5. The [...] | | | + +---------+ + + FL Albert-Jean Paul Statmeg No Charge (04/03/2016 10:32 AM PDT) [...] [address] | [place] | [phone] | | [facility] | | [address] | | | - LABORATORY | | [...] | | Top Tube | | | [facility] | | [...] ST. | [address] | [place] | [phone] | | [facility] | | [address] | | | - LABORATORY | | | | + + + + + PTT (04/03/2016 8:09 AM PDT) + +-------+ + + + | Component | Value | Ref Range | Performed | Pathologist | | | | | At | Signature | + +-------+ + + + | aPTT | 34 | 22 - 36 seconds | [facility] | | | | | | [facility] | | | | | | [...] [address] | [place] | [phone] | | [facility] | | [address] | | | - LABORATORY | | [...] | Time | | seconds | [facility] | | | | [...] [address] | [place] | [phone] | | [facility] | | [address] | | | - LABORATORY | | [...] ST. | [address] | [place] | | | [facility] | | [address] | | | - BLOOD BANK | | | | + + + + + documented in this encounter Visit Diagnoses + + | Diagnosis | + + | Impaired functional mobility and activity tolerance - Primary | + + | Cervical radiculopathy Brachial neuritis or radiculitis nos | + + | Foraminal stenosis of cervical region- bilateral C4/C5 Spinal stenosis in cervical | | region | + + | DDD (degenerative disc disease), cervical - C4/C5 Degeneration of cervical | | intervertebral disc | + + documented in this encounter [...] | | +---+---+ + +-------+ +--------+---+---+ | diazePAM (VALIUM) injection | Given | 04/03/20 | 2.5 mg | | | | 2.5-5 mg 2.5-5 mg, Intravenous, | | 16 11:37 | | | | | EVERY 6 HOURS PRN, Muscle spasms, | | AM PDT | | | | | Starting 04/03/16 at 1127, | | | | | | | Use if methocarbamol and | | | | | | | cyclobenzaprine ineffective or | | | | | | | not ordered. Use PO option unless | | | | | | | NPO status or unable to | | | | | | | tolerate., Post-op/Phase II | | | | | | + +-------+ +--------+---+---+ +---+---+ | | | +---+---+ + +-------+ +------+---+---+ | diazePAM (VALIUM) tablet 5 mg | Given | 04/03/20 | 5 mg | | | | 5 mg, Oral, EVERY 6 HOURS PRN, | | 16 6:20 | | | | | Muscle spasms, Starting Fri | | PM PDT | | | | | 04/03/16 at 1239, Use if | | | | | | | methocarbamol and cyclobenzaprine | | | | | | | ineffective or not ordered., | | | | | | | Post-op/Phase II | | | | | | + +-------+ +------+---+---+ +---+---+ | | | +---+---+ + +-------+ +--------+---+---+ | gabapentin (NEURONTIN) capsule | Given | 04/03/20 | 300 mg | | | | 300 mg 300 mg, Oral, 3 TIMES | | 16 2:24 | | | | | DAILY, First dose on Wed04/03/16 | | PM PDT | | | | | at 1400, Post-op/Phase II | | | | | | + +-------+ +--------+---+---+ +---+---+ | | | +---+---+ + +-------+ +--------+---+---+ | gabapentin (NEURONTIN) capsule | Given | 04/03/20 | 600 mg | | | | 600 mg 600 mg, Oral, ONCE, Wed | | 16 9:21 | | | [...] | | +---+---+ + +-------+ +---------+---+---+ | HYDROcodone-acetaminophen | Given | 04/03/20 | 2 | | | | (NORCO) 10-325 mg per tablet 1-2 | | 16 6:20 | tablets | | | | tablet 1-2 tablet, Oral, EVERY 4 | | PM PDT | | | | | HOURS PRN, Pain, Starting Fri | | | | | | | 04/03/16 at 1239, Post-op/Phase | | | | | | | II | | | | | | + +-------+ +---------+---+---+ +-------+ +---------+---+---+ | Given | 04/03/20 | 2 | | | | | 16 2:25 | tablets | | | | | PM PDT | | | | +-------+ +---------+---+---+ +---+---+ | | | +---+---+ + +-------+ +---------+---+---+ | HYDROmorphone (DILAUDID) | Given | 04/03/20 | 0.25 mg | | | | injection 0.2-0.5 mg 0.2-0.5 mg, | | 16 11:32 | | | | | Intravenous, EVERY 5 MIN PRN, | | AM PDT | | | | | Pain, Starting Wed04/03/16 at | | | | | | | 1127, Maximum total dose 4 mg. | | | | | | | PACU IV Narcotic Priority: Only | | | | | | | use fentanyl for immediate | | | | | | | post-op pain (one dose) or | | | | | | | breakthrough pain when any other | | | | | | | IV narcotics ordered have been | | | | | | | ineffective (if ordered). If | | | | | | | both morphine and hydromorphone | | | | | | | are ordered, use morphine first, | | | | | | | and use hydromporphone if | | | | | | | morphine ineffective., | | | | | | | Recovery/Phase I | | | | | | + +-------+ +---------+---+---+ +---+---+ | | | +---+---+ + +-------+ +-------+---+---+ | lisinopril (HANY LONGRIL) | Given | 04/03/20 | 10 mg | | | | tablet 10 mg 10 mg, Oral, DAILY, | | 16 3:19 | | | | | First dose on Wed04/03/16 at | | PM PDT | | | | | 1300, Post-op/Phase II | | | | | | + +-------+ +-------+---+---+ +---+---+ | | | +---+---+ + +---------+ +--------+--------+---+ | methocarbamol (ROBAXIN) 750 mg | New Bag | 04/03/20 | 750 mg | 143.3 | | | in sodium chloride 0.9% 100 mL | | 16 3:14 | | mL/hr | | | IVPB 750 mg, Intravenous, | | PM PDT | | | | | Administer over 45 Minutes, EVERY | | | | | | | 8 HOURS (3 times per day), First | | | | | | | dose on Wed04/03/16 at 1400, | | | | | | | For 4 doses, Post-op/Phase II | | | | | | + +---------+ +--------+--------+---+ +---+---+ | | | +---+---+ + +-------+ +-------+---+---+ | metoprolol succinate | Given | 04/03/20 | 25 mg | | | | (TOPROL-XL) ER tablet 25 mg 25 | | 16 3:14 | | | | | mg, Oral, DAILY, First dose on | | PM PDT | | | | | Wed04/03/16 at 1300, Tablet may | | | | | | | be cut where scored but do not | | | | | | | crush., Post-op/Phase II | | | | | | + +-------+ +-------+---+---+ +---+---+ | | | +---+---+ + +-------+ +------+---+---+ | morphine injection 2-4 mg 2-4 | Given | 04/03/20 | 2 mg | | | | mg, Intravenous, EVERY 2 HOURS | | 16 2:20 | | | | | PRN, Pain, Starting Wed04/03/16 | | PM PDT | | | | | at 1239, If oral route not an | | | | | | | option. Slow IV push, not faster | | | | | | | than 2mg/minute. First dose must | | | | | | | be lowest dose, titrate to | | | | | | | effective dose by repeat of | | | | | | | lowest dose every 30 minutes prn | | | | | | | pain, may not exceed maximum dose | | | | | | | ordered per interval. Use | | | | | | | Pasero Sedation Scale., | | | | | | | Post-op/Phase II | | | | | | + +-------+ +------+---+---+ +---+---+ | | | +---+---+ + +-------+ + +---+---+ | phenol (CHLORASEPTIC) spray 1-2 | Given | 04/03/20 | 2 sprays | | | | spray 1-2 spray, Mouth/Throat, | | 16 2:18 | | | | | EVERY 3 HOURS PRN, Sore Throat, | | PM PDT | | | | | Starting 04/03/16 at 1239, To | | | | | | | back of throat, Post-op/Phase II | | | | | | + +-------+ + +---+---+ +---+---+ | | | +---+---+ + +-------+ +--------+---+---+ | senna (SENOKOT) tablet 8.6 mg | Given | 04/03/20 | 8.6 mg | | | | 8.6 mg, Oral, 2 TIMES DAILY PRN, | | 16 2:25 | | | | | Constipation, Starting Fri | | PM PDT | | | | | 04/03/16 at 1239, If docusate | | | | | | | ineffective or not ordered, | | | | | | | Post-op/Phase II | | | | | | + +-------+ +--------+---+---+ +---+---+ | | | +---+---+ + +---------+ +---+-------+---+ | sodium chloride 0.9% (NS) | New Bag | 04/03/20 | | 100 | | | infusion at 100 mL/hr, | | 16 8:03 | | mL/hr | | | Intravenous, CONTINUOUS, Starting | | AM PDT | | | | | 04/03/16 at 0745, Pre-op | | | | | | + +---------+ +---+-------+---+ +---+---+ | | | +---+---+ documented in this encounter
--- OUTSIDE RECORDS SUMMARY | ~2020-01-29 | XMS | Encounter Summary ---
Demographics + + + | Address | [address] | | | [place] [address] | + + + | Home Phone [...] [place] | | | | | [address] | | + + + + + Care Team Providers + +------+ + | Care Marketing Program Coordinator Name | Role | Phone | + +------+ + | Crow Braga DO | PCP | | + +------+ + Reason for Visit + + + | Reason | Comments | + + + | Back Pain | radiating into bilateral hips and knees | + + + Encounter Details +--------+---------+ + + + | Date | Type | Department | Care Team | Description | +--------+---------+ + + + | 08/05/ | Office | [facility] | [place], | Sacroiliac pain | | 2017 | Visit | PHYSIATRY [address] | [address] | (Primary Dx) | | | | [address] | [address] | | | | | [facility] [place] | [place] [address] | | | | | [address] | [phone] | | | | | [phone] | | | +--------+---------+ + + + [...] + + + | Blood Pressure | 131/65 | 08/05/2016 1:22 PM | | | | | PST | | + + + + + | Pulse | 73 | 08/05/2016 1:22 PM | | | | | PST [...] + + + + | Weight | 105.7 kg (233 lb) | 08/05/2016 1:22 PM | | | | | PST | | + + + + + | Height | 162.6 cm (5' 4") | 08/05/2016 1:22 PM | | | | | PST | | + + + + + | Body Mass Index | 39.99 | 08/05/2016 1:22 PM | | | | | PST [...] Instructions Patient Instructions Tavia Buck PA-C - 08/05/2016 1:54 PM PST1) Steroid injectio ns can be done very 3-4 months, longer better, call us when pain returns Sacroiliitis: This is the term used to [...] blood sugars if you a re diabetic. terminal press operator risk can lead to osteoporosis which is why we limited the number of injections to 3 times per year. With a sacroiliac joint injection, the steroid is placed i nside this joint. The procedure is about 20 minutes long. You will lie on your back while x-rays are taken. Once the region is marked, it is numbed and then injected with steroids. documented in this encounter Progress Notes Tavia Buck PA-C - 08/05/2016 1:57 PM PSTFormatting of this note might be differe nt from the original. CHIEF COMPLAINT: Chief Complaint Patient presents with Back Pain radiating into bilateral hips and knees HISTORY OF PRESENT ILLNESS: The patient is [...] worsened in the last 6 months. She saw me in the past and it was recommended she rec eived a bilateral SI joint injection, this was done 06/18/2016, she reports excellent relief of her back pain and leg pain. She rates the pain as mild with rest and mild. She describes the pain as aching, sharp, st abbing or burning. Her symptoms worsen with standing, walking, bending, twisting, stooping. Her symptoms improve with [...] by mouth every 6 hours as needed. metoprolol succinate (TOPROL-XL) 25 mg [...] No abnormal bleeding PHYSICAL EXAMINATION: Filed Vitals: 08/05/16 1322 BP: 131/65 Pulse: 73 PainSc: 5 PainLoc: Back Body mass index is 39.97 kg/(m^2). GENERAL: The patient is well developed [...] has no apparent deficits with short or intermediate accountant memory. She has appropriate fund of knowledge Cranial nerves 2-12 appear grossly intact. Sensory exam does not show diminished sensation to light touch in the lower extremities. MUSCULOSKELETAL There is no major palpable deformity of the spine. Straight leg raise and slump-sit are negative. Ga's maneuver and impingement testing were negative for any groin pain. There was no tenderness to palpation over the greater tr ochanters or sacral sulci. The patient localized the majority of the pain to the L3-L5 gilma on and bilateral SI region. Lumbar facet loading was positive. Strength testing showed 5/5 strength throughout the lower extremities. The patient was able to heel and toe walk witho ut difficulty. There was no redness, effusion, warmth or joint line tenderness in the knees or ankles. RADIOGRAPHIC REVIEW: The patient's imaging was reviewed in detail with the patient today during the visit. Lumba r MRI from 10/2015 shows mild DDD, there is facet arthritis at multiple levels. ASSESSMENT: 1. Sacroiliac pain PLAN: 1. The patient did improve greatly from the bilateral SI joint injections. We discussed apple roid duration and frequency. 2. Medications have been reviewed at today's visit with no changes made at this time. 3. She will follow up PRN 4. I did fill out a housing authority request for her, indicating for her to live in a one level apartment, with a washing machine on the same level along with her service dog. ELECTRONICALLY SIGNED BY: Tavia Buck PA-C, 08/05/2016 CC: Omi do cumented in this encounter Plan of Treatment Not on filedocumented as of this encounter Visit Diagnoses + + | Diagnosis | + + | Sacroiliac pain - Primary Disorders of sacrum | + + documented in this encounter
--- OUTSIDE RECORDS SUMMARY | ~2020-01-29 | XMS | Encounter Summary ---
Demographics + + + | Address | [address] | | | [place] [address] | + + + | Home Phone | | + + + | Preferred Language | Unknown | + + + | Marital Status | | + + + | Holiness Affiliation | Unknown | + + + | Race | White | + + + | Ethnic Group | Not or | + + + Author + + + | Author | [facility] | | | and [place] | + + + | Organization | [facility] | | | and [...] [place] | | | | | [address] | | + + + + + Care Team Providers + +------+ + | Care Program Facilitator Name | Role | Phone | + +------+ + | Nathan Kent | PCP | | | MD | | | + +------+ + Reason for Visit + + + | Reason | Comments | + + + | Follow-up | Post Injection: Left L4-L5 TFESI | + + + Encounter Details +--------+---------+ + + + | Date | Type | Department | Care Team | Description | +--------+---------+ + + + | 12/14/ | Office | [facility] | Ryne Magaña PA-C | Popliteal pain | | 2019 | Visit | PHYSIATRY [address] | [address] | (Primary Dx); | | | | [address] | [address] [place], [place] | Dyspnea on exertion; | | | | [place] | [phone] | Facet arthritis of | | | | [address] | | lumbar region; Skin | | | | [phone] | | abnormalities | +--------+---------+ + + + Social History [...] + + + | Blood Pressure | 162/73 | 12/14/2018 3:35 PM | | | | | PDT | | + + + + + | Pulse | 73 | 12/14/2018 3:35 PM | | | | | PDT [...] Weight | 108.4 kg (239 lb) | 12/14/2018 3:35 PM | | | | | PDT | | + + + + + | Height | 162.6 cm (5' 4") | 12/14/2018 3:35 PM | | | | | PDT | | + + + + + | Body Mass Index | 41.02 | 12/14/2018 3:35 PM | | | | | PDT [...] documented as of this encounter Progress Notes Ryne Magaña PA-C - 12/14/2018 3:40 PM PDT Ryne Magaña PA-C [address] [facility], [address] [place], [place] [id number] FAX: CHIEF COMPLAINT: Chief Complaint Patient presents with Follow-up Post Injection: Left L4-L5 TFESI HISTORY OF PRESENT ILLNESS: The patient is a 63 y.o. female being seen today in follow-up for complaints of Bilateral L 4-L5 TFESI done by Dr. Ferraro on 11/21/2018. She reports that the treatment was not effe ctive and has had increased back pain; Moreover, patient also reports having shortness of br eath throughout the past 3 weeks since the procedure until the past couple of days when shor tness of breath began to subside. She states that today she is feeling better than she had t he previous 3 weeks. Patient goes further that she would use her C-pap machine at home since procedure every time she was feeling shortness of breath because it was the only thing that would help her feel better. Mrs. Santiago explains she began to feel fatigued since stopped 10 days before the procedure her clopidogrel 75 mg that she takes daily. She began taking clopidogrel again after the pr ocedure on 11/21/18. She and her daughter were concerned that after the procedure she was all owed to go home with her blood pressure as elevated as it was that day (according to EHR vit als on 11/21/18: time 1608 BP: 216/92 pulses 70 and then at 1625 BP: 227/88 pulses 70). However Patient admits that she did not read the information she was given about possible r eactions, side effects and things to look for after procedure until 2 days ago when she noti rafita it said shortness of breath could be a side effect. Patient adds she has been having increased shortness of breath on exertion. Patient has been taking clopidogrel since about 2007 when she was told she "could have had a clot in my left leg." She adds that she has a Hx of "mini strokes" diagnosed in 1993 and 2 012 in [place]. Patient has a Hx of HTN, hypothyroidism, anxiety, hyperlipidemia, hyst erectomy, cholecystectomy and spine surgery. She currently denies any SOB, chest pain, visual changes, dizziness. CURRENT MEDICATIONS: Current Outpatient Medications Medication Sig [...] by mouth 2 times daily. (Patient katelynn jorge differently: Take 600 mg by mouth 3 [...] Hcl Cymbalta [Duloxetine] Oxycodone-Aspirin REVIEW OF SYSTEMS: GENERALLY: No fever, chills, no night sweats, no fatigue, no weight loss, no weight gain. EYES: No vision changes. EARS, NOSE, AND THROAT: No hearing loss, no ear pain, no nosebleeds, no toothache, no gum p roblems, no significant snoring or sleep apnea, no seasonal allergies, no difficulty swallow ing, no hoarseness. NEUROMUSCULAR: Please see the review of systems discussed above in the history of present illness. In addition, the patient has no dizziness, no blackouts, no headaches. PSYCHIATRIC: No depression, no difficulty sleeping, no anxiety, no memory loss. CARDIOVASCULAR: No chest pain, no palpitations, no swollen ankles. PULMONARY: No shortness of breath, no cough. GASTROINTESTINAL: No poor appetite, no diarrhea, no nausea or vomiting, no bowel incontine nce, no hemorrhoids, no constipation, no abdominal pain. GENITOURINARY: No urinary difficulty and no incontinence. SKIN: No rashes. HEMATOLOGIC/LYMPHATIC: No enlarged lymph nodes or swollen glands. ENDOCRINE: No diabetes, no thyroid disease, no osteopenia or osteoporosis, no breast drain age. RHEUMATOLOGIC: No osteoarthritis, no rheumatoid arthritis. PHYSICAL EXAMINATION: Blood pressure 162/73, pulse 73, height 1.626 m (5' 4"), weight 108.4 kg (239 lb), not curr ently . Body mass index is 41.02 kg/m. GENERAL: The patient is well developed and well nourished. She does appear uncomfortable w hen seated. HEENT: Normocephalic and atraumatic. Normal sclerae without icterus. NECK (ANTERIOR): There is no apparent cervical lymphadenopathy or thyromegaly. PULMONARY: The patient is in no acute respiratory distress with unlabored respirations. CARDIOVASCULAR: Regular rate and rhythm. There is not lower extremity edema. ABDOMEN: Non-distended. SKIN: Please see musculoskeletal physical exam below NEUROLOGIC: MUSCULOSKELETAL : Left Lower Extremity: patient has significant poptilteal area tenderness on palpation. Superior to Left knee skin feels significantly warmer compared to below the left knee, as well as in comparison to the Right Lower Extremity. About posterior left knee Patient stated, "I did realize how much my leg hurt until you pre ssed there." ASSESSMENT: Encounter Diagnoses Name Primary? Popliteal pain Yes Dyspnea on exertion Facet arthritis of lumbar region Skin abnormalities PLAN: 1)Patient was sent over to ER for further evaluation. 2) Patient will follow up with our clinic as needed. 3) Patient was wheeled over to Hospital ED by HAZEL Gallardo and patient's daughter. I spoke/gave report to Physician (Dr. Horner) at [facility] to inform him that patient kristine hernandez be going over to their facility. ELECTRONICALLY SIGNED BY: Ryne Magaña PA-C, 12/14/2018 17:54 documented in this enc ounter Plan of Treatment Not on filedocumented as of this encounter Visit Diagnoses + + | Diagnosis | + + | Popliteal pain - Primary Pain in limb | + + | Dyspnea on exertion Other dyspnea and respiratory abnormality | + + | Facet arthritis of lumbar region Lumbosacral spondylosis without myelopathy | + + | Skin abnormalities Unspecified congenital anomaly of the integument | + + documented in this encounter
--- OUTSIDE RECORDS SUMMARY | ~2020-01-29 | XMS | Encounter Summary ---
Demographics + + + | Address | [address] | | | [place] [address] | + + + | Home Phone | | + + + | Preferred Language | Unknown | + + + | Marital Status | | + + + | Zoroastrianism Affiliation | Unknown | + + + [...] [place] | | | | | [address] | | + + + + + Care Team Providers + +------+ + | Care Automobile Upholstery Trim Installer Name | Role | Phone | + +------+ + | Crow Braga DO | PCP | | + +------+ + Encounter Details +--------+ + + + + | Date | Type | Department | Care Team | Description | +--------+ + + + + | 11/27/ | Orders Only | [facility] | Joel Burger, | Neck pain (Primary | | 2017 | | NEUROSURGERY [address] | DO [address] | Dx) | | | | [address] | [address] [place], [place] | | | | | [place], [place] | [id number] | | | | | [address] | | | | | | [phone] | | | +--------+ + + + [...] | + +---------+--------+ + + | XR Cervical Spine 4 | Imaging | Routin | Neck pain | Expected: | | or 5 Vws | | e | | 11/27/2016, Expires: | | | | | | 11/28/2017 | + +---------+--------+ + + documented as of this encounter Visit Diagnoses + + | Diagnosis | + + | Neck pain - Primary Cervicalgia | + + documented in this encounter"
--- OUTSIDE RECORDS SUMMARY | ~2020-01-29 | XMS | Encounter Summary ---
Demographics + + + | Address | [address] | | | [place] [address] | + + + | Home Phone | | + + + | Preferred Language | Unknown | + + + | Marital Status | | + + + | Restorationist Affiliation | Unknown | + + + | Race | White | + + + | Ethnic Group | Not or | + + + Author + + + | Author | [facility] | | | and [place] | + + + | Organization | [facility] | | [...] [place] | | | | | [address] | | + + + + + Care Team Providers + +------+ + | Care Satellite Manager Name | Role | Phone | + +------+ + | Crow Braga DO | PCP | | + +------+ + Encounter Details +--------+ + + + + | Date | Type | Department | Care Team | Description | +--------+ + + + + | 01/27/ | Hospital | [facility] | Conversion | Pain | | 2016 | Encounter | [address] | Transaction, | | | | | [address] | Provider Unknown | | | | | [place] | [phone] | | | | | [address] | | | | | | [phone] | | | +--------+ + + + [...] SPINE 4 | Routin | 12/18/2015 | | Results for this | | OR 5 VWS | e | 5:26 AM | | procedure are in the | | | | PDT | | results section. | + +--------+ + + + documented in this encounter Results XR Cervical Spine 4 or 5 Vws (12/18/2015 5:26 AM PDT) + + | Specimen | [...]
--- OUTSIDE RECORDS SUMMARY | ~2020-01-29 | XMS | Encounter Summary ---
Demographics + + + | Address | [address] | | | [place] [address] | + + + | Home Phone | | + + + | Preferred Language | Unknown | + + + | Marital Status | | + + + | Buddhism Affiliation | Unknown | + + + | Race | White | + + + | Ethnic Group | Not or | + + + Author + + + | Author | [facility] | | | and [place] | + + + | Organization | [facility] | | | [...] [place] | | | | | [address] | | + + + + + Care Team Providers + +------+ + | Care Exterior Interior Specialist Name | Role | Phone | + +------+ + | Crow Braga DO | PCP | | + +------+ + Reason for Visit +--------+--------+ + | Reason | Onset | Comments | | | Date | | +--------+--------+ + | Other | 04/10/ | Post op call | | | 2015 | | +--------+--------+ + Encounter Details +--------+ + + + + | Date | Type | Department | Care Team | Description | +--------+ + + + + | 04/10/ | Telephone | [facility] | Joel Burger, | Other (Post op call) | | 2015 | | NEUROSURGERY [address] | DO [address] | | | | | [address] [facility] [address] | [address] [place], [place] | | | | | [place], [place] | [address] | | | | | [address] | | | | | | [phone] | | | +--------+ + + + [...] this encounter Miscellaneous Notes Telephone Encounter - Elaine Richmond RN - 04/13/2016 11:25 AM PSTProcedure: C4-5 Anterio r Cervical Discectomy with Fusion and Plating Date of Surgery: 04/03/16 1. How are you feeling-if pain where (legs/surgical site)? Occasional burning in right shou lder blade. 2. Weakness/Numbness (New onset)? No 3.Taking pain meds (Name/Dosage)? Hydrocodone 10/325mg 2 tabs every 4 hours 4.Loss of Bowel or Bladder (When/Chronic)? No Constipation? No 5.Ambulating (How often)? Ambulating at least every 45 mins SURGICAL ISSUES 1.Steri-strips/outer bandages have been removed. [place]/sutures that need to be removed y es. Operative note reviewed yes. 2.Appearance of the site? Clean and dry. Is there drainage from the site? no. 3.Do you have a fever? no. 4.Follow up appointments? 05/21/16 @ 1300. Reminded patient of xrays prior to appointment Staple/suture removal nurse visit? 04/16/16 @ 1000 5.What could we have done to make your visit better? "No, you guys took good care of me" 6. Has preoperative pain improved? Pain in back of neck arms is greatly improving elephone Encounter - Elaine Richmond RN - 04/10/2016 12:21 PM PDTLeft voicemail for post op call return.Electro nically signed by Elaine Richmond RN at 04/10/2016 12:21 PM PDTdocumented in this encounter Plan of Treatment Not on filedocumented as of this encounter Visit Diagnoses Not on filedocumented in this encounter
--- OUTSIDE RECORDS SUMMARY | ~2020-01-29 | XMS | Encounter Summary ---
Demographics + + + | Address | [address] | | | [place] [address] | + + + | Home Phone [...] [place] | | | | | [address] | | + + + + + Care Team Providers + +------+ + | Care Marine Steam Fitter Helper Name | Role | Phone | + +------+ + | Crow Braga DO | PCP | | + +------+ + Reason for Visit +--------+--------+ + | Reason | Onset | Comments | | | Date | | +--------+--------+ + | Other | 03/13/ | Pre op meds to stop | | | 2015 | | +--------+--------+ + Encounter Details +--------+ + + + + | Date | Type | Department | Care Team | Description | +--------+ + + + + | 03/13/ | Telephone | [facility] | Joel Burger, | Other (Pre op meds | | 2015 | | NEUROSURGERY [address] | DO [address] | to stop) | | | | [address] [facility] [address] | [address] [place], [place] | | | | | [place] | [address] | | | | | [address] | | | | | | [phone] | | | +--------+ + + + [...] Telephone Encounter - Elaine Richmond RN - 03/13/2016 1:13 PM PDTPatient in office for pr e op appointment. Patient advised at this time to stop: Plavix (7 days prior); Lisinopril (H old morning of surgery). Patient verbalized understanding. All questions answered at this ti me. documented in this encounter Plan of Treatment Not on filedocumented as of this encounter Visit Diagnoses Not on filedocumented in this encounter"
--- OUTSIDE RECORDS SUMMARY | ~2020-01-29 | XMS | Encounter Summary ---
Demographics + + + | Address | [address] | | | [place] [address] | + + + | Home Phone | | + + + | Preferred Language | Unknown | + + + | Marital Status | | + + + | Druze Affiliation | Unknown | + + + | Race | White | + + + | Ethnic Group | Not or | + + + Author + + + | Author | [facility] | | | and [place] | + + + | Organization | [facility] | | | and [...] [place] | | | | | [address] | | + + + + + Care Team Providers + +------+ + | Care Marketing And Outreach Coordinator Name | Role | Phone | + +------+ + | Crow Braga DO | PCP | | + +------+ + Encounter Details +--------+ + + + + | Date | Type | Department | Care Team | Description | +--------+ + + + + | 01/27/ | Hospital | [facility] | Conversion | Pain | | 2016 | Encounter | [address] | Transaction, | | | | | [address] | Provider Unknown | | | | | [place] | [phone] | | | | | [address] | | | | | | [phone] | | | +--------+ + + + [...] 4 + | Routin | 12/18/2015 | | Results for this | | VW | e | 5:27 AM | | procedure are in the | | | | PDT | | results section. | + +--------+ + + + documented in this encounter Results XR Lumbar Spine 4 + Vw (12/18/2015 5:27 AM PDT) + + | Specimen | [...]
--- OUTSIDE RECORDS SUMMARY | ~2020-01-29 | XMS | Encounter Summary ---
Demographics + + + | Address | [address] | | | [place] [address] | + + + | Home Phone [...] [place] | | | | | [address] | | + + + + + Care Team Providers + +------+ + | Care Outreach Analyst Name | Role | Phone | [...] | Radiology | Diagnoses | | [facility] | | | | | Upper back | [place], | [address] | | | | | pain on | [place], | [place], | | | | | right side | PA-C [address] | [place] | | | | | Neck pain | [address], | [address] | | | | | Shoulder | [address] | Phone: | | | | | pain, right | [place] | [phone] | | | | | Procedures | [address] | Fax: | | | | | MRI | Phone: | [phone] | | | | | Cervical | [phone] | | | | | | Spine wo | Fax: | | | | | | Contrast | [phone] | | +--------+--------+ + + + + Reason for Visit Auth/Cert +--------+--------+ + + + + | Status | Reason | Specialty | Diagnoses / | Referred By | Referred To | | | | | Procedures | Contact | Contact | +--------+--------+ + + + + | Closed | | | | | | +--------+--------+ + + + + Encounter Details +--------+ + + + + | Date | Type | Department | Care Team | Description | +--------+ + + + + | 05/13/ | Hospital | [facility] | Bogdanowicz, | Upper back | | 2015 | Encounter | MED CTR MRI [address] | [place] [address] | pain/posterior | | | | [place], | [address], [address] | shoulder pian on | | | | [place] [address] | [place] [address] | right side; Neck | | | | [phone] | [phone] | pain; Shoulder pain, | | | | | | right | +--------+ + + + + Social [...] CERVICAL SPINE | Routin | 05/13/2015 | Upper back | Results for this | | WO CONTRAST | e | 2:20 PM | pain/posterior | procedure are in the | | | | PST | shoulder pian on | results section. | | | | | right side Neck | | | | | | pain Shoulder pain, | | | | | | right | | + +--------+ + + + documented in this encounter Results MRI Cervical Spine wo Contrast (05/13/2015 2:20 PM PST) + + | Specimen | + + | | + + + + + | Narrative | Performed At | + + + | MRI CERVICAL SPINE WITHOUT CONTRAST: 05/13/2015 1:48 PM CLINICAL | [facility] | | HISTORY: chronic neck pain burning sensation, rad to shoulders | [facility] | | COMPARISON: None TECHNIQUE: Multiplanar, multisequence imaging of [facility] | | the cervical spine is performed. FINDINGS: Cervical spine | - IMAGING | | alignment is within normal limits. Vertebral body heights are normal. | | | No area of abnormal marrow signal. No abnormality is evident in | | | paraspinous soft tissues and included portions of neck and upper | | | chest. Posterior fossa contents and cervical cord show normal signal | | | and appearance. C2-C3: Within normal limits C3-C4: Within | | | normal limits C4-C5: Mild disc space narrowing. Mild broad-based | | | disc bulge. Posterior osteophytic ridging and uncinate hypertrophy | | | left greater than right. No central canal stenosis, but these changes | | | produce moderate bilateral foraminal narrowing, left greater than | | | right. C5-C6: Minimal broad-based disc bulge. Mild bilateral | | | uncinate hypertrophy. No central canal or foraminal narrowing. | | | C6-C7: Minimal broad-based disc bulge. No central canal or foraminal | | | narrowing. C7-T1: Within normal limits. IMPRESSION - 1. Disc | | | osteophyte complex producing moderate bilateral foraminal narrowing, | | | left greater than right, at C4-C5. 2. Minimal degenerative disc | | | changes at C5-C6 and C6-C7, without neural encroachment. Dictated | | | and Signed by: Randell Giron MD Electronically signed: 05/13/2015 | | | 5:15 PM | | + + + + + | Procedure Note | + + | Gianni, Rad Results In - 05/13/2015 5:19 PM PST MRI CERVICAL SPINE WITHOUT CONTRAST: | | 05/13/2015 1:48 PMCLINICAL HISTORY: chronic neck pain burning sensation, rad to | | shouldersCOMPARISON: NoneTECHNIQUE: Multiplanar, multisequence imaging of the cervical | | spine isperformed.FINDINGS:Cervical spine alignment is within normal limits. Vertebral | | body heights arenormal. No area of abnormal marrow signal.No abnormality is evident in | | paraspinous soft tissues and included portions ofneck and upper chest.Posterior fossa | | contents and cervical cord show normal signal and appearance.C2-C3: Within normal | | limitsC3-C4: Within normal limitsC4-C5: Mild disc space narrowing. Mild broad-based disc | | bulge. Posteriorosteophytic ridging and uncinate hypertrophy left greater than right. | | No centralcanal stenosis, but these changes produce moderate bilateral | | foraminalnarrowing, left greater than right.C5-C6: Minimal broad-based disc bulge. Mild | | bilateral uncinate hypertrophy. Nocentral canal or foraminal narrowing.C6-C7: Minimal | | broad-based disc bulge. No central canal or foraminal narrowing.C7-T1: Within normal | | limits.IMPRESSION -1. Disc osteophyte complex producing moderate bilateral foraminal | | narrowing,left greater than right, at C4-C5.2. Minimal degenerative disc changes at | | C5-C6 and C6-C7, without neuralencroachment.Dictated and Signed by: Randell Giron MD | | Electronically signed: 05/13/2015 5:15 PM | |C2-C3: Within normal limits | | | |C3-C4: Within normal limits | | | |C4-C5: Mild disc space narrowing. Mild broad-based disc bulge. Posterior | |osteophytic ridging and uncinate hypertrophy left greater than right. No central | |canal stenosis, but these changes produce moderate bilateral foraminal | |narrowing, left greater than right. | | | |C5-C6: Minimal broad-based disc bulge. Mild bilateral uncinate hypertrophy. No | |central canal or foraminal narrowing. | | | |C6-C7: Minimal broad-based disc bulge. No central canal or foraminal narrowing. | | | |C7-T1: Within normal limits. | | | |IMPRESSION - | |1. Disc osteophyte complex producing moderate bilateral foraminal narrowing, | |left greater than right, at C4-C5. | | | |2. Minimal degenerative disc changes at C5-C6 and C6-C7, without neural | |encroachment. | | | |Dictated and Signed by: Randell Giron MD | | Electronically signed: 05/13/2015 5:15 PM | + + + + + + + | Performing | Address | City/State/Zipcode | Phone Number | | Organization | | | | + + + + + | [facility] | [address] | [place] | [phone] | | [facility] | | [address] | | | - IMAGING | | | | + + + + + documented in this encounter Visit Diagnoses + + | Diagnosis | + + | Upper back pain/posterior shoulder pian on right side Pain in thoracic spine | + + | Neck pain Cervicalgia | + + | Shoulder pain, right Pain in joint, shoulder region | + + documented in this encounter
--- OUTSIDE RECORDS SUMMARY | ~2020-01-29 | XMS | Encounter Summary ---
Demographics + + + | Address | [address] | | | [place] [address] | + + + | Home Phone | | + + + | Preferred Language | Unknown | + + + | Marital Status | | + + + | Anabaptist Affiliation | Unknown | + + + | Race | White | + + + | Ethnic Group | Not or | + + + Author + + + | Author | [facility] | | | and [place] | + + + | Organization | [facility] | | | [...] [place] | | | | | [address] | | + + + + + Care Team Providers + +------+ + | Care Ad Compositor Name | Role | Phone | + +------+ + | Crow Braga DO | PCP | | + +------+ + Encounter Details +--------+ + + + + | Date | Type | Department | Care Team | Description | +--------+ + + + + | 01/27/ | Hospital | [facility] | Conversion | Pain | | 2016 | Encounter | CONVERSION [address] | Transaction, | | | | | [address] | Provider Unknown | | | | | [place] | [phone] | | | | | [address] | | | | | | [phone] | | | +--------+ + + + [...] W WO | Routin | 01/16/2016 | | Results for this | | CONTRAST | e | 5:27 AM | | procedure are in the | | | | PDT | | results section. | + +--------+ + + + documented in this encounter Results MRI Brain w wo Contrast (01/16/2016 5:27 AM PDT) + + | Specimen [...]
--- OUTSIDE RECORDS SUMMARY | ~2020-01-29 | XMS | Encounter Summary ---
Demographics + + + | Address | [address] | | | [place] [address] | + + + | Home Phone | | + + + | Preferred Language | Unknown | + + + | Marital Status | | + + + | Caodaism Affiliation | Unknown | + + + | Race | White | + + + | Ethnic Group | Not or | + + + Author + + + | Author | [facility] | | | and [place] | + + + | Organization | [facility] | | | [...] [place] | | | | | [address] | | + + + + + Care Team Providers + +------+ + | Care Consultants Intern Name | Role | Phone | + +------+ + | Crow Braga DO | PCP | | + +------+ + Encounter Details +--------+ + + + + | Date | Type | Department | Care Team | Description | +--------+ + + + + | 03/11/ | Preadmit | [facility] | Joel Burger, | Cervical | | 2016 | Visit | [facility] | DO [address] | radiculopathy; | | | | CLINIC [address] | [address] [place], [place] | Arthralgia of hip, | | | | [place], [place] | [address] | unspecified | | | | [address] | | laterality; Chronic | | | | [phone] | | low back pain, | | [...] | ECG 12 LEAD | Routin | 03/11/2016 | Cervical | Results for this | | | e | 10:29 AM | radiculopathy | procedure are in [...] + +--------+ + + + | CULTURE, MRSA | Routin | 03/11/2016 | | Results for this | | | e | 10:19 AM | | procedure are in the | | | | PDT | | results section. | + +--------+ + + + | CBC WITH | Routin | 03/11/2016 | Cervical | Results for this | | DIFFERENTIAL | e | 10:19 AM | radiculopathy | procedure are in [...] + | BASIC METABOLIC | Routin | 03/11/2016 | Cervical | Results for this | | PANEL | e | 10:19 AM | radiculopathy | procedure are in [...] in this encounter Results ECG 12 lead (03/11/2016 10:29 AM PDT) + + + + + + | Component | Value | Ref Range | Performed | Pathologist | | | | | At | Signature | + + + + + + | VENTRICULAR | 54 | BPM | [facility] | | | RATE EKG | | | | | + + + + + + | ATRIAL RATE | 54 | BPM | [facility] | | + + + + + + | P-R | 146 | ms | [facility] | | | INTERVAL | | | | | + + + + + + | QRS | 82 | ms | [facility] | | | DURATION | | | | | + + + + + + | Q-T | 460 | ms | [facility] | | | INTERVAL | | | | | + + + + + + | Q-T | 436 | ms | [facility] | | | INTERVAL | | | | | | (CORRECTED) | | | | | + + + + + + | P WAVE AXIS | 2 | degrees | [facility] | | + + + + + + | QRS AXIS | 0 | degrees | [facility] | | + + + + + + | T AXIS | -12 | degrees | [facility] | | + + + + + + | INTERPRETAT | Sinus bradycardiaMinimal | | [facility] | | | ION TEXT | voltage criteria for | | | | | | LVH, may be normal | | | | | | variantNonspecific ST | | | | | | and T wave | | | | | | abnormalityAbnormal | | | | | | ECGNo previous ECGs | | | | | | availableConfirmed by | | | | | | PETRONA SCHULTZ MD ([id number]) | | | | | | on 03/12/2016 7:24:39 AM | | | | + + + + + + + + | Specimen | + + | | + + + + + | Narrative | Performed At | + + + | | | + + + + +---------+ + + | Performing | Address | City/State/Zipcode | Phone Number | | Organization | | | | + +---------+ + + | [facility] | | | | + +---------+ + + Basic Metabolic Panel (03/11/2016 10:19 AM PDT) + + + + + + | Component | Value | Ref Range | Performed | Pathologist | | | | | At | Signature | + + + + + + | Na | 140 | 136 - 149 | [facility] | | | | | mmol/L | [facility] | | | | | | [facility] | | | | | | [facility] - | | | | | | LABORATORY | | + + + + + + | K | 4.1 | 3.5 - 5.1 | [facility] | | | | | mmol/L | [facility] | | | | | | MEDICAL | | | | | | CENTER - | | | | | | LABORATORY | | + + + + + + | Cl | 104 | 98 - 109 mmol/L | [facility] | | | | | | [facility] | | | | | | [facility] | | | | | | CENTER - | | | | | | LABORATORY | | + + + + + + | CO2 | 29 | 24 - 31 mmol/L | [facility] | | | | | | [facility] | | | | | | [facility] | | | | | | C[facility] - | | | | | | LABORATORY | | + + + + + + | Anion Gap | 7 | 3 - 16 mmol/L | [facility] | | | | | | [facility] | | | | | | [facility] | | | | | | CENTER - | | | | | | LABORATORY | | + + + + + + | Glucose | 99 | 70 - 109 mg/dL | [facility] | | | | | | [facility] | | | | | | MED[facility] | | | | | | CENTER - | | | | | | LABORATORY | | + + + + + + | BUN | 15 | 7 - 18 mg/dL | [facility] | | | | | | [facility] | | | | | | [facility] | | | | | | CENTER - | | | | | | LABORATORY | | + + + + + + | Creatinine | 0.92 | 0.60 - 1.30 | [facility] | | | | | mg/dL | [facility] | | | | | | [facility] | | | | | | CENTER - | | | | | | LABORATORY | | + + + + + + | eGFR, | >60Comment: GLOMERULAR | >=60 | [facility] | | | non- | FILTRATION | mL/min/1.73m2 | [facility] | | | [place] | RATE,ESTIMATED | | MEDICAL | | | | mL/min/1.89w9Qrzd than | | CENTER - | | | | 60 Chronic kidney | | LABORATORY | | | | disease,if found over a | | | | | | 3-month period.Less than | | | | | | 15 Kidney failureFor | | | | | | | | | | | | Americans,multiply the | | | | | | calculated GFR by 1.21. | | | | | | | | | | + + + + + + | Calcium | 9.0 | 8.3 - 10.5 | [facility] | | | | | mg/dL | [facility] | | | | | | MEDICAL | | | | | | CENTER - | | | | | | LABORATORY | | + + + + + + | BUN/Creatin | 16.3 | | [facility] | | | ine Ratio | | | [facility] | | [...] + + | [facility] | [address] | [place] | [phone] | | [facility] | | [address] | | | - LABORATORY | | | | + + + + + CBC with Differential (03/11/2016 10:19 AM PDT) + + + + + + | Component | Value | Ref Range | Performed | Pathologist | | | | | At | Signature | + + + + + + | White Blood | 4.6 | 4.0 - 11.0 K/uL | [facility] | | | Cells | | | [facility] | | | | | | MEDICAL | | | | | | CENTER - | | | | | | LABORATORY | | + + + + + + | Red Blood | 3.85 | 3.70 - 5.20 | [facility] | | | Cells | | M/uL | [facility] | | | | | | MEDICAL | | | | | | CENTER - | | | | | | LABORATORY | | + + + + + + | Hemoglobin | 12.3 | 11.5 - 16.0 | [facility] | | | | | g/dL | [facility] | | | | | | MEDICAL | | | | | | CENTER - | | | | | | LABORATORY | | + + + + + + | Hematocrit | 35.8 | 34.0 - 47.0 % | [facility] | | | | | | [facility] | | | | | | [facility] | | | | | | CENTER - | | | | | | LABORATORY | | + + + + + + | MCV | 93.2 | 83.0 - 101.0 fL | [facility] | | | | | | [facility] | | | | | | [facility] | | | | | | CENTER - | | | | | | LABORATORY | | + + + + + + | MCH | 32.1 | 28.0 - 35.0 pg | [facility] | | | | | | [facility] | | | | | | MED[facility] | | | | | | CENTER - | | | | | | LABORATORY | | + + + + + + | MCHC | 34.4 | 32.0 - 36.0 | [facility] | | | | | g/dL | [facility] | | | | | | MEDICAL | | | | | | CENTER - | | | | | | LABORATORY | | + + + + + + | RDW-CV | 12.8 | <15.0 % | [facility] | | | | | | [facility] | | | | | | MEDICAL | | | | | | CENTER - | | | | | | LABORATORY | | + + + + + + | Platelet | 197 | 140 - 440 K/uL | [facility] | | | Count | | | [facility] | | | | | | MEDICAL | | | | | | CENTER - | | | | | | LABORATORY | | + + + + + + | MPV | 10.1 | fL | [facility] | | | | | | [facility] | | | | | | MEDICAL | | | | | | CENTER - | | | | | | LABORATORY | | + + + + + + | % | 44.2 (L) | 45.0 - 82.0 % | [facility] | | | Neutrophils | | | [facility] | | | | | | MEDICAL | | | | | | CENTER - | | | | | | LABORATORY | | + + + + + + | % | 45.3 (H) | 20.0 - 45.0 % | [facility] | | | Lymphocytes | | | [facility] | | | | | | MEDICAL | | | | | | CENTER - | | | | | | LABORATORY | | + + + + + + | % Monocytes | 7.7 | 4.0 - 12.0 % | [facility] | | | | | | [facility] | | | | | | MEDICAL | | | | | | CENTER - | | | | | | LABORATORY | | + + + + + + | % | 1.8 | 0.0 - 5.0 % | [facility] | | | Eosinophils | | | [facility] | | | | | | MEDICAL | | | | | | CENTER - | | | | | | LABORATORY | | + + + + + + | % Basophils | 1.0 | 0.0 - 1.0 % | [facility] | | | | | | [facility] | | | | | | MEDICAL | | | | | | CENTER - | | | | | | LABORATORY | | + + + + + + | Absolute | 2.00 | 1.80 - 8.50 | [facility] | | | Neutrophils | | K/uL | [facility] | | | | | | MEDICAL | | | | | | CENTER - | | | | | | LABORATORY | | + + + + + + | Absolute | 2.10 | 0.60 - 3.20 | [facility] | | | Lymphocytes | | K/uL | [facility] | | | | | | MEDICAL | | | | | | CENTER - | | | | | | LABORATORY | | + + + + + + | Absolute | 0.40 | 0.00 - 1.00 | [facility] | | | Monocytes | | K/uL | [facility] | | | | | | MEDICAL | | | | | | CENTER - | | | | | | LABORATORY | | + + + + + + | Absolute | 0.10 | 0.00 - 0.40 | [facility] | | | Eosinophils | | K/uL | [facility] | | | | | | MEDICAL | | | | | | CENTER - | | | | | | LABORATORY | | + + + + + + | Absolute | 0.00 | 0.00 - 0.10 | [facility] | | | Basophils | | K/uL | [facility] | | | | [...] + | [facility] | [address] | [place] | [phone] | | [facility] | | [address] | | | - LABORATORY | | | | + + + + + Culture, MRSA (03/11/2016 10:19 AM PDT) + + + + + + | Component | Value | Ref Range | Performed | Pathologist | | | | | At | Signature | + + + + + + | Culture | Negative for MRSA by | | [facility] | | | | chromogenic agar method | | [facility] | | | | | | MEDICAL | | | | | | CENTER - | | | | | | LABORATORY | | + + + + + + + + | Specimen | + + | Respiratory - Both | | anterior nares (body | | structure) | + + + + + + + | Performing | Address | City/State/Zipcode | Phone Number | | Organization | | | | + + + + + | [facility] | [address] | [place] | [phone] | | [facility] | | [address] | | | - LABORATORY | | [...] unspecified | + + documented in this encounter"
--- OUTSIDE RECORDS SUMMARY | ~2020-01-29 | XMS | Encounter Summary ---
Demographics + + + | Address | [address] | | | [place] [address] | + + + | Home Phone [...] + + + | Author | [facility] | | | and [place] | + + + | Organization | [facility] | | | [...] [place] | | | | | [address] | | + + + + + Care Team Providers + +------+ + | Care Plastics Fabricator And Assembler Name | Role | Phone | + +------+ + | Crow Braga DO | PCP | | + +------+ + Encounter Details +--------+ + + + + | Date | Type | Department | Care Team | Description | +--------+ + + + + | 10/04/ | Hospital | [facility] | Maged Montgomery MD | Dizziness; | | 2017 | Encounter | [facility] | [address] | Intractable migraine | | | | THERAPY [address] | [place] | with aura without | | | | [place] | [address] | status migrainosus; | | | | [address] | | Post-traumatic | | | | [phone] | | headache, not | | | | | | intractable, | | | | | | unspecified | | | | | | chronicity pattern | +--------+ + + + + Social [...] + + + +---------+ + + | DULoxetine | One cap at bedtime | 60 | 2 | 09/18/19 | | | (CYMBALTA) [address] | for 2 weeks , if | capsule | | 18 | 8 | | capsule | tolerated increase 2 | | | | | | | caps at bedtime | | | | | + + [...] documented as of this encounter Progress Notes Omari Norwood RRT - 10/04/2017 12:36 PM PDTAwake and drowsy EEG performed, patient mina ated study well. docum ented in this encounter Procedure Notes Lois Jaimes MD - 10/04/2017 12:42 PM PDTAssociated Order(s): EEGProcedure(s): EEGP re-Procedure Diagnose(s): Dizziness; Intractable migraine with aura without status migrainos us; Post-traumatic headache, not intractable, unspecified chronicity patternName:Ann nunn :1955 DATE OF SERVICE: 10/04/2017 STUDY: ELECTROENCEPHALOGRAM INTRODUCTION: This is a digital EEG recording with a record length of 20 minutes. The pat ubaldo is a 62 y.o. year-old female with posttraumatic headaches. BACKGROUND RHYTHM: The patient has a well defined background pattern of 9-10 Hz. This act ivity is more prominent posteriorly, symmetrical, and synchronous. It attenuates with eye o pening and returns with eye closing. Drowsiness is appreciated by the attenuation and slowi ng of the patient's background activities. ABNORMAL POTENTIALS: No focal slow waves or epileptiform discharges are seen. HYPERVENTILATION/PHOTIC STIMULATION: Hyperventilation and photic stimulation were without significant effect. IMPRESSION: Normal awake and drowsy EEG. Thank you for the opportunity to participate in the care of this patient. Lois Jaimes MD10/04/201712:42 documented in thi s encounter Plan of Treatment Not on filedocumented as of this encounter Procedures + +--------+ + + + | Procedure Name | Priori | Date/Time | Associated Diagnosis | Comments | | | ty | | | | + +--------+ + + + | EEG | Routin | 10/04/2017 | Dizziness | Results for this | | | e | 12:42 PM | Intractable migraine | procedure are in the | | | | PDT | with aura without | results section. | | | | | status migrainosus | | | | | | Post-traumatic | | | | | | headache, not | | | | | | intractable, | | | | | | unspecified | | | | | | chronicity pattern | | + +--------+ + + + documented in this encounter Results EEG (10/04/2017 12:42 PM PDT) + + + | Narrative | Performed At | + + + | Lois Jaimes MD 10/04/2017 12:42 Name:Ann Santiago | | | :1955 DATE OF SERVICE: 10/04/2017 | | | STUDY: ELECTROENCEPHALOGRAM INTRODUCTION: This is a | | | digital EEG recording with a record length of 20 minutes. The | | | patient is a 62 y.o. year-old female with posttraumatic headaches. | | | BACKGROUND RHYTHM: The patient has a well defined background | | | pattern of 9-10 Hz. This activity is more prominent posteriorly, | | | symmetrical, and synchronous. It attenuates with eye opening and | | | returns with eye closing. Drowsiness is appreciated by the | | | attenuation and slowing of the patient's background activities. | | | ABNORMAL POTENTIALS: No focal slow waves or epileptiform | | | discharges are seen. HYPERVENTILATION/PHOTIC STIMULATION: | | | Hyperventilation and photic stimulation were without significant | | | effect. IMPRESSION: Normal awake and drowsy EEG. Thank you | | | for the opportunity to participate in the care of this patient. | | | Lois Jaimes, 10/04/201712:42 Electronically signed | | + + + documented in this encounter Visit Diagnoses + + | Diagnosis | + + | Dizziness Dizziness and giddiness | + + | Intractable migraine with aura without status migrainosus Migraine with aura, with | | intractable migraine, so stated, without mention of status migrainosus | + + | Post-traumatic headache, not intractable, unspecified chronicity pattern | + + documented in this encounter"
--- OUTSIDE RECORDS SUMMARY | ~2020-01-29 | XMS | Encounter Summary ---
Demographics + + + | Address | [address] | | | [place] [address] | + + + | Home Phone | | + + + | Preferred Language | Unknown | + + + | Marital Status | | + + + | Voodoo Affiliation | Unknown | + + + [...] [place] | | | | | [id number] | | + + + + + Care Team Providers + +------+ + | Care Laborer Sawmill Name | Role | Phone | + +------+ + | Crow Braga DO | PCP | | + +------+ + Reason for Visit + + + | Reason | Comments | + + + | Transient Ischemic | Consult | | Attack | | + + + | Dizziness | | + + + Evaluate & Treat (Routine) +--------+ + + + + + | Status | Reason | Specialty | Diagnoses / | Referred By | Referred To | | | | | Procedures | Contact | Contact | +--------+ + + + + + | Closed | Specialty | Neurology | Diagnoses | Omi, | [place], | | | Services | | Transient | Crow Floyd, | Maged Patino MD | | | Required | | cerebral | DO [address] | | | | | ischemic | [address] | [place] | | | | | attack, | [place] | | | | | unspecified | [address] | [address] Phone: | | | | | Procedures | Phone: | [phone] | | | | | Evaluate & | [phone] | Fax: | | | | | Treat | Fax: | [phone] | | | | | | [phone] | | +--------+ + + + + + Encounter Details +--------+---------+ + + + | Date | Type | Department | Care Team | Description | +--------+---------+ + + + | 09/17/ | Office | [place] [facility] | Maged Montgomery MD | Chronic bilateral | | 2018 | Visit | [facility] | [address] [place] | low back pain with | | | | CLINIC [address] | [place] | bilateral sciatica | | | | DR [place], | [address] | (Primary Dx); Sleep | | | | [place] [address] | | apnea, unspecified | | | | [phone] | | type; Cervical | | | | | | radiculopathy; | | | | | | Bipolar affective | | | | | | disorder, currently | | | | | | depressed, mild | | | | | | (HCC); Post | | | | | | traumatic stress | | | | | | disorder (PTSD); | | | | | | Anxiety; Dizziness; | | | | | | Neck pain; Numbness | | | | | | and tingling; | | | | | | Intractable migraine | | | | | | with aura without | | | | | | status migrainosus; | | | | | | Post-traumatic | | | | | | headache, not | | | | | | intractable, | | | | | | unspecified | | | | | | chronicity pattern; | | | | | | Myalgia ; Sprain of | | | | | | ligaments of lumbar | | | | | | spine, sequela ; | | | | | | Memory loss | +--------+---------+ + + + Social History [...] + + + | Blood Pressure | 120/80 | 09/17/2017 3:31 PM | | | | | PDT | | + + + + + | Pulse | 72 | 09/17/2017 3:31 PM | | | | | PDT | | + + + + + | Temperature | - | - | | + + + + + | Respiratory Rate | 20 | 09/17/2017 3:31 PM | | | | | PDT | | + + + + + | Oxygen Saturation | 96% | 09/17/2017 3:31 PM | | | | | PDT | | + + + + + | Inhaled Oxygen | - | - | | | Concentration | | | | + + + + + | Weight | 108.4 kg (239 lb) | 09/17/2017 3:31 PM | | | | | PDT | | + + + + + | Height | 162.6 cm (5' 4") | 09/17/2017 3:31 PM | | | | | PDT | | + + + + + | Body Mass Index | 41.02 | 09/17/2017 3:31 PM | | | | | PDT [...] of this encounter Patient Instructions Patient Instructions Maged Montgomery MD - 09/17/2017 3:45 PM PDTFormatting of this note jeremy mcnealt be different from the original. Patient Instructions [facility] Dr. Maged Montgomery, Neurologist Date:09/17/2017 Name:Ann Santiago :..1955 Please schedule next follow up appt with Dr.R. 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 magazines, perform word find exercises such as cross word puzz le, and scrabble, other puzzle games like Zauber, [employer]. Play computer/mobile applications such as [employer] and [employer] Duloxetine 30 mg at bedtime for 2 weeks, if tolerated increase to 2 caps at bedtime Vit E and Vit B complexes Any Questions please call CYNTHIA Farmer or Dr. Montgomery at [facility] General Neck and Back Pain Both neck and back pain are usually caused by injury to the muscles or ligaments of the spi ne. Sometimes the disks that separate each bone of the spine may cause pain by pressing on a nearby nerve. Back and neck pain may appear after a sudden twisting or bending force (such as in a car accident), or sometimes after a simple awkward movement. In either case, muscle spasm is often present and adds to the pain. Acute neck and back pain usually gets better in 1 to 2 weeks. Pain related to disk disease, arthritis in the spinal joints or spinal stenosis (narrowing of the spinal canal) can becom e chronic and last for months or years. Back and neck pain are common problems. Most people feel better in 1 or 2 weeks, and most o f the rest in 1 to 2 months. Most people can remain active. People have anddescribe pain differently. Pain can be sharp, stabbing, shooting, aching, cramping, or burning Movement, standing, bending, lifting, sitting, or walking may worsen the pain Pain can be localized to one spot or area, or it can be more generalized Pain can spread or radiate upwards, downwards, to the front, or go down your arms Muscle spasm may occur. Most of the time mechanical problems with the muscles or spine cause the pain. it is usuall y caused by an injury, whether known or not, to the muscles or ligaments. While illnesses ca n cause back pain, it is usually not caused by a serious illness. Pain is usually related to physical activity, whether sports, exercise, work, or normal activity. Sometimes it can occ ur without an identifiable cause. This can happen simply by stretching or moving wrong, with out noting pain at the time. Other causes include: Overexertion, lifting, pushing, pulling incorrectly or too aggressively. Sudden twisting, bending or stretching from an accident (car or fall), or accidental mov ement. Poor posture Poor conditioning, lack of regular exercise Spinal disc disease or arthritis Stress , or illness like appendicitis, bladder or kidney infection, pelvic infections Home care Forneck pain:Use a comfortable pillow that supports the head and keeps the spine in a neutral position. The position of the head should not be tilted forward or backward. When in bed, try to find a position of comfort. A firm mattress is best. Try lying flat on your back with pillows under your knees. You can also try lying on your side with your kn ees bent up towards your chest and a pillow between your knees. At first, do not try to stretch out the sore spots. If there is a strain, it is not like the good soreness you get after exercising without an injury. In this case, stretching may make it worse. Don't sit for long periods, as inlong car rides orother travel. This puts more stres s on the lower back than standing or walking. During the first 24 to 72 hours after an injury, apply an ice pack to the painful area f or 20 minutes and then remove it for 20 minutes over a period of 60 to 90 minutes or several times a day. You can alternate ice and heat therapies. Talk with your healthcare provider about the b est treatment for your back or neck pain. As a safety precaution, do not use a heating pad a t bedtime. Sleeping with a heating pad can lead to skin miller or tissue damage. Therapeutic massage can help relax the back and neck muscles without stretching them. Be aware of safe lifting methods and do not lift anything over 15 pounds until all the p ain is gone. Medicines Talk to your healthcare provider before using medicine, especially if you have other medica l problems or are taking other medicines. You may use utqj-nta-qcedjgu medicine to control pain, unless another pain medicine was prescribed. If you have chronic conditions like diabetes, liver or kidney disease, stomach u lcers, gastrointestinal bleeding, or are taking blood thinner medicines. Be careful if you are given pain medicines, narcotics, or medicine for muscle spasm. The y can cause drowsiness, and can affect your coordination, reflexes, and judgment. Do not dri ve or operate heavy machinery. Follow-up care Follow up with your healthcare provider, or as advised. Physical therapy or further tests m ay be needed. If X-rays were taken, you will be notified of any new findings that may affect your care. Call 911 Call 911 if any of the following occur: Trouble breathing Confusion Very drowsy or trouble awakening Fainting or loss of consciousness Rapid or very slow heart rate Loss of bowel or bladder control When to seek medical advice Call your healthcare provider right away if any of these occur: Pain becomes worse or spreads into your arms or legs Weakness, numbness or pain in one or both arms or legs Numbness in the groin area Difficulty walking Fever of 100.4F (38C) or higher, or as directed by your healthcare provider Date Last Reviewed: 12/06/201519996605-5733 [facility] [employer]. [address] [place] [address], [place] [address]. All righ ts reserved. This information is not intended as a substitute for professional medical care. Always follow your healthcare professional's instructions. Exercises to Strengthen Your Lower Back Strong lower back and abdominal muscles work together to support your spine. The exercises below will help strengthen the lower back. It is important that you begin exercising slowly and increase levels gradually. Always begin any exercise program with stretching. If you feel pain while doing any of thes e exercises, stop and talk to your doctor about a more specific exercise program that better suits your condition. Low back stretch The point of stretching is to makeyou more flexible and increase your range of motion. St retch only as much as you are able. Stretch slowly. Do not push your stretch to the limit. I f at any point you feel pain while stretching, this is your (temporary) limit. Lie on your back with your knees bent and both feet on the ground. Slowly raise your left knee to your chest as you flatten your lower back against the palma or. Hold for 5 seconds. Relax and repeat the exercise with your right knee. Do 10 of these exercises for each leg. Repeat hugging both knees to your chest at the same time. Building lower back strength Start your exercise routine with 10 to 30 minutes a day, 1 to 3 times a day. Initial exercises Lying on your back: 1. Ankle pumps: Move your foot up and down, towards your head, and then away. Repeat 10 josue es with each foot. 2. Heel slides: Slowly bend your knee, drawing the heel of your foot towards you. Then slid e your heel/footfrom you, straightening your knee. Do not lift your foot off the floor (th is is not a leg lift). 3. Abdominal contraction: Bend your knees and put your hands on your stomach. Tighten your stomach muscles. Hold for 5 seconds, then relax. Repeat 10 times. 4. Straight leg raise: Bend one leg at the knee and keep the other leg straight. Tighten yo ur stomach muscles. Slowly lift your straight leg 6 to 12 inches off the floor and hold for up to 5 seconds. Repeat 10 times on each side. Standin. Wall squats: Stand with your back against the wall. Move your feet about 12 inches away from the wall. Tighten your stomach muscles, and slowly bend your knees until they are at ab out a 45 degree angle. Do not go down too far. Hold about 5 seconds. Then slowly return to y our starting position. Repeat 10 times. 2. Heel raises: Stand facing the wall. Slowly raise the heels of your feet up and down, whi le keeping your toes on the floor. If you have trouble balancing, you can touch the wall wit h your hands. Repeat 10 times. More advanced exercises When you feel comfortable enough, try these exercises. 1. Kneeling lumbar extension: Begin on your hands and knees. At the same time, raise and st raighten your right arm and left leg until they are parallel to the ground. Hold for 2 secon ds and come back slowly to a starting position. Repeat with left arm and right leg, alternat ing 10 times. 2. Prone lumbar extension: Lie face down, arms extended overhead, palms on the floor. At th e same time, raise your right arm and left leg as high as comfortably possible. Hold for 10 seconds and slowly return to start. Repeat with left arm and right leg, alternating 10 times . Gradually build up to 20 times. (Advanced: Repeat this exercise raising both arms and both legs a few inches off the floor at the same time. Hold for 5 seconds and release.) 3. Pelvic tilt: Lie on the floor on your back with your knees bent at 90 degrees. Your feet should be flat on the floor. Inhale, exhale, then slowly contract your abdominal muscles br inging your navel toward your spine. Let your pelvis rock back until your lower back is flat on the floor. Hold for 10 seconds while breathing smoothly. 4. Abdominal crunch: Perform a pelvic tilt (above) flattening your lower back against the f radha. Holding the tension in your abdominal muscles, take another breath and raise your shou lder blades off the ground (this is not a full sit-up). Keep your head in line with your bod y (don t bend your neck forward). Hold for 2 seconds, then slowly lower. Date Last Reviewed: 11/06/201519990065-6908 [facility]. [address] [place] [address], [place] [address]. All righ ts reserved. This information is not intended as a substitute for professional medical care. Always follow your healthcare professional's instructions. Relieving Back Pain Back pain is a common problem. You can strain back muscles by lifting too much weight or ju st by moving the wrong way. Back strain can be uncomfortable, even painful. And it can take weeks or monthsto improve. To help yourself feel better and prevent future back strains, t ry these tips. Important Note: Do not give aspirin to children or teens without first discussing it with y our healthcare provider. ?Ice Ice reduces muscle pain and swelling. It helps most during the first 24 to 48 hours after a n injury. Wrap an ice pack or a bag of frozen peas in a thin towel. (Never place ice directly on y our skin.) Place the ice where your back hurts the most. Don t ice for more than 20 minutes at a time. You can use ice several times a day. ?Medicines Wsrk-cap-crjzeuv pain relievers can includeacetaminophen and anti-inflammatory medicines, which includes aspirin or ibuprofen. They can help ease discomfort. Some also reduce swelli ng. Tell your healthcare provider about any medicines you are already taking. Take medicines only as directed. ?Heat After the first 48 hours, heat can relax sore muscles and improve blood flow. Try a warm bath or shower. Or use a heating pad set on low. To prevent a burn, keep a cl oth between you and the heating pad. Don t use a heating pad for more than 15 minutes at a time. Never sleep on a heating p ad. Date Last Reviewed: 02/05/201519999424-9277 [facility]. [address] [place] [address]. All righ ts reserved. This information is not intended as a substitute for professional medical care. Always follow your healthcare professional's instructions. Dizziness (Vertigo) and Balance Problems: Diagnostic Tests An observer gravity prospecting (also called an ENT) is a doctor who specializes in disorders of the ea r, nose, and throat. Your ENT can help find clues to the cause of your dizziness. He or she will examine you and go over your health history. Your ENT may also order certain tests to h elp diagnose your problem. Hearing testing In most cases, you will be referred for hearing testing. This is because the nerve that sen ds balance signals also sends hearing signals. A problem that affects balance can also affec t hearing. Other tests Your doctor may recommend more than one kind of test. The following tests are painless, but may cause dizziness in some cases. MRI creates images of the ear or head. A magnetic field and contrast medium are used to make the image. Electronystagmography (ENG) records eye movement. Small electrodes are put on the skin a round your eyes. Then your ear is filled with warm or cold water. Rotation tests show the relationship between the inner ear and your eyes. You may be ask ed to wear special goggles or sit in a computerized chair. Posturography tests your standing balance under different conditions. You will stand on a platform that measures shifts in your body weight. Electrocochleography (ECoG) measures the fluid pressure in the inner ear. An abnormal EC oG may mean you have Meniere's disease or other conditions. Vestibular evoked myogenic potentials (VEMPs) may be used if your healthcare provider tom spects a rare condition like superior semicircular canal dehiscence. Electrodes are placed o n your neck, and you hear clicks in your ear. Date Last Reviewed: 04/07/201619993515-6974 [facility]. [address] [place] [address], [place] [id number]. All righ ts reserved. This information is not intended as a substitute for professional medical care. Always follow your healthcare professional's instructions. Dizziness (Vertigo) and Balance Problems: Staying Safe Replace burned-out lightbulbs to keep your home safe and well lit. Falls or accidents can lead to pain, broken bones, and fear of future falls. Protect yourse lf and others by preparing for episodes. Simple steps can help you stay safe at home and whe rever you go. Lighting Keep all areas well lit. This helps your eyes send the right signals to the brain. It also makes you less likely to trip and fall. If bright lights make symptoms worse, dim the lights or lie in a dark room until the dizziness passes. Then turn the lights back to their normal level. Tips: Keep a flashlight by the bed. Place nightlights in bathrooms and hallways. Replace burned-out bulbs, or have someone replace them for you. Preventing falls To reduce your risk of falling: Get out of bed or up from achair slowly. Wear low-heeled shoes that fit properly and have slip-resistant soles. Remove throw rugs. Clear clutter from walkways. Use handrails on stairs. Have handrails installed or adjusted if needed. Install grab bars in the bathroom. Don't use towel racks for balance. Use a shower stool. Also put adhesive strips in the shower or on the tub floor. Going out With a little time and preparation, you can get around safely. Tips: Bring a cane or walking aid if needed. Give yourself plenty of time in case you start to get dizzy. Ask your healthcare provider what type of exercise is safe for your condition. Be patient. If an activity such as walking through a crowded shop causes you stress, you may not be ready for it yet. Driving If you become dizzy or disoriented while driving, you could hurt yourself and others. That' s why it's best to not drive until symptoms have gone away. In some cases, your license may be temporarily held until it's safe for you to drive again. For safety: Ask a friend to drive for you. Take public transportation. Walk to stores and other places when you can. Asking for help Don't be afraid to ask for help running errands, cooking meals, and doing exercise. Whether it's a friend, loved one, neighbor, or stranger on the street, a little help can make a wor ld of difference. Date Last Reviewed: 04/07/201619996981-3957 [facility]. [address] [place], [place] [id number]. All righ ts reserved. This information is not intended as a substitute for professional medical care. Always follow your healthcare professional's instructions. Dizziness (Uncertain Cause) Dizziness is a common symptom. It may be described as lightheadedness, spinning, or feeling like you are going to faint. Dizziness can have many causes. Be sure to tell the healthcare provider about: All medicines you take, including prescription, jeqr-ohh-wsitwxu, herbs, and supplements Any other symptoms you have Any health problems you are being treated for Any past major health problems you've had, such as a heart attack, balance issues, heari ng problems, or blood pressure problems Anything that causes the dizziness to get worse or better Today's exam did not show an exact cause for your dizziness.Other tests may be needed. Fo llow up with your healthcare provider. Home care Dizziness that occurs with sudden standing may be a sign of mild dehydration. Drink extr a fluids for the next few days. If you recently started a new medicine, stopped a medicine, or had the dose of a current medicine changed,talk with the prescribing healthcare provider. Your medicine plan may ne ed adjustment. If dizziness lasts more than a few seconds, sit or lie down until it passes. This may he lp prevent injury in case you pass out. Get up slowly when you feel better. Do not drive or use power tools or dangerous equipment until you have had no dizziness f or at least 48 hours. Follow-up care Follow up with your healthcare provider for further evaluation within the next 7 days or as advised. When to seek medical advice Call your healthcare provider for any of the following: Worsening of symptoms or new symptoms Passing out or seizure Repeated vomiting Headache Palpitations (the sense that your heart is fluttering or beating fast or hard) Shortness of breath Blood in vomit or stool (black or red color) Weakness of an arm or leg or 1 side of the face Vision or hearing changes Trouble walking or speaking Chest, arm, neck, back, or jaw pain Date Last Reviewed: 04/07/201719997281-7096 [employer]. [address] [place] [id number]. All righ ts reserved. This information is not intended as a substitute for professional medical care. Always follow your healthcare professional's instructions. Migraine Headache This often severe type of headache is different from other types of headaches in that sympt oms other than pain occur with the headache. Nausea and vomiting, lightheadedness, sensitivi ty to light (photophobia), and other visual disturbances are common migraine symptoms.The pain may last from a few hours to several days. It is not clear why migraines occur but cert ain factors called triggers can raise the risk of having a migraine attack.A migrain e may be triggered by emotional stressor depression, or by hormone changes during the mens trual cycle. Other triggers include control pills, overuse of migraine medicines, alco hol or caffeine, foods with tyramine (such as aged cheese and wine), eyestrain, weather hodge ges, missed meals,or too little or too much sleep. Home care Follow these tips when taking care of yourself at home: Don t drive yourself home if you were given pain medicine for your headache or are hav ing visual symptoms. Instead, have someone else drive you home. Try to sleep when you get ho me. You should feel much better when you wake up. Cold can help ease migraine symptoms. Put an ice pack on your forehead or at the base of your skull. Put heat on the back of your neck to help ease any neck spasm. Drink only clear liquids or eat a light diet until your symptoms get better. This will h elp you avoid nausea and vomiting. How to prevent migraines Pay attention to what seems to trigger your headache. Try to avoid the triggers when you ca n. If you have frequent headaches, consider keeping a headache diary. In it, write down what you were doing, feeling, or eating in the hours before each headache. Show this to your [facility] provider to help find the cause of your headaches. If stress seems to be a trigger for your headaches, figure out what is causing stress in yo ur life. Learn new ways to handle your stress. Ideas include regular exercise, biofeedback, self-hypnosis, yoga, and meditation. Talk with your healthcare provider to find out more inf ormation about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 left leg as high as comfortably possible. Hold for 10 seconds and slowly return to start. Repeat with left arm and right leg, alternating 10 times . Gradually build up to 20 times. (Advanced: Repeat this exercise raising both arms and both legs a few inches off the floor at the same time. Hold for 5 seconds and release.) 3. Pelvic tilt: Lie on the floor on your back with your knees bent at 90 degrees. Your feet should be flat on the floor. Inhale, exhale, then slowly contract your abdominal muscles br inging your navel toward your spine. Let your pelvis rock back until your lower back is flat on the floor. Hold for 10 seconds while breathing smoothly. 4. Abdominal crunch: Perform a pelvic tilt (above) flattening your lower back against the f radha. Holding the tension in your abdominal muscles, take another breath and raise your shou lder blades off the ground (this is not a full sit-up). Keep your head in line with your bod y (don t bend your neck forward). Hold for 2 seconds, then slowly lower. Date Last Reviewed: 11/06/201519992258-7514 [facility]. [address] [place] [address], [place] [address]. All righ ts reserved. This information is not intended as a substitute for professional medical care. Always follow your healthcare professional's instructions. Relieving Back Pain Back pain is a common problem. You can strain back muscles by lifting too much weight or ju st by moving the wrong way. Back strain can be uncomfortable, even painful. And it can take weeks or monthsto improve. To help yourself feel better and prevent future back strains, t ry these tips. Important Note: Do not give aspirin to children or teens without first discussing it with y our healthcare provider. ?Ice Ice reduces muscle pain and swelling. It helps most during the first 24 to 48 hours after a n injury. Wrap an ice pack or a bag of frozen peas in a thin towel. (Never place ice directly on y our skin.) Place the ice where your back hurts the most. Don t ice for more than 20 minutes at a time. You can use ice several times a day. ?Medicines Afsy-pmw-vnpfzad pain relievers can includeacetaminophen and anti-inflammatory medicines, which includes aspirin or ibuprofen. They can help ease discomfort. Some also reduce swelli ng. Tell your healthcare provider about any medicines you are already taking. Take medicines only as directed. ?Heat After the first 48 hours, heat can relax sore muscles and improve blood flow. Try a warm bath or shower. Or use a heating pad set on low. To prevent a burn, keep a cl oth between you and the heating pad. Don t use a heating pad for more than 15 minutes at a time. Never sleep on a heating p ad. Date Last Reviewed: 02/05/201519994322-1754 [facility]. [address] [place] [address]. All righ ts reserved. This information is not intended as a substitute for professional medical care. Always follow your healthcare professional's instructions. Dizziness (Vertigo) and Balance Problems: Diagnostic Tests An observer gravity prospecting (also called an ENT) is a doctor who specializes in disorders of the ea r, nose, and throat. Your ENT can help find clues to the cause of your dizziness. He or she will examine you and go over your health history. Your ENT may also order certain tests to h elp diagnose your problem. Hearing testing In most cases, you will be referred for hearing testing. This is because the nerve that sen ds balance signals also sends hearing signals. A problem that affects balance can also affec t hearing. Other tests Your doctor may recommend more than one kind of test. The following tests are painless, but may cause dizziness in some cases. MRI creates images of the ear or head. A magnetic field and contrast medium are used to make the image. Electronystagmography (ENG) records eye movement. Small electrodes are put on the skin a round your eyes. Then your ear is filled with warm or cold water. Rotation tests show the relationship between the inner ear and your eyes. You may be ask ed to wear special goggles or sit in a computerized chair. Posturography tests your standing balance under different conditions. You will stand on a platform that measures shifts in your body weight. Electrocochleography (ECoG) measures the fluid pressure in the inner ear. An abnormal EC oG may mean you have Meniere's disease or other conditions. Vestibular evoked myogenic potentials (VEMPs) may be used if your healthcare provider tom spects a rare condition like superior semicircular canal dehiscence. Electrodes are placed o n your neck, and you hear clicks in your ear. Date Last Reviewed: 04/07/201619993508-8623 [facility]. [address] [place] [address]. All righ ts reserved. This information is not intended as a substitute for professional medical care. Always follow your healthcare professional's instructions. Dizziness (Vertigo) and Balance Problems: Staying Safe Replace burned-out lightbulbs to keep your home safe and well lit. Falls or accidents can lead to pain, broken bones, and fear of future falls. Protect yourse lf and others by preparing for episodes. Simple steps can help you stay safe at home and whe rever you go. Lighting Keep all areas well lit. This helps your eyes send the right signals to the brain. It also makes you less likely to trip and fall. If bright lights make symptoms worse, dim the lights or lie in a dark room until the dizziness passes. Then turn the lights back to their normal level. Tips: Keep a flashlight by the bed. Place nightlights in bathrooms and hallways. Replace burned-out bulbs, or have someone replace them for you. Preventing falls To reduce your risk of falling: Get out of bed or up from achair slowly. Wear low-heeled shoes that fit properly and have slip-resistant soles. Remove throw rugs. Clear clutter from walkways. Use handrails on stairs. Have handrails installed or adjusted if needed. Install grab bars in the bathroom. Don't use towel racks for balance. Use a shower stool. Also put adhesive strips in the shower or on the tub floor. Going out With a little time and preparation, you can get around safely. Tips: Bring a cane or walking aid if needed. Give yourself plenty of time in case you start to get dizzy. Ask your healthcare provider what type of exercise is safe for your condition. Be patient. If an activity such as walking through a crowded shop causes you stress, you may not be ready for it yet. Driving If you become dizzy or disoriented while driving, you could hurt yourself and others. That' s why it's best to not drive until symptoms have gone away. In some cases, your license may be temporarily held until it's safe for you to drive again. For safety: Ask a friend to drive for you. Take public transportation. Walk to stores and other places when you can. Asking for help Don't be afraid to ask for help running errands, cooking meals, and doing exercise. Whether it's a friend, loved one, neighbor, or stranger on the street, a little help can make a wor ld of difference. Date Last Reviewed: 04/07/201619995603-0049 [facility]. [address] [place], [place] [id number]. All righ ts reserved. This information is not intended as a substitute for professional medical care. Always follow your healthcare professional's instructions. Dizziness (Uncertain Cause) Dizziness is a common symptom. It may be described as lightheadedness, spinning, or feeling like you are going to faint. Dizziness can have many causes. Be sure to tell the healthcare provider about: All medicines you take, including prescription, qxym-xgy-wefhlbj, herbs, and supplements Any other symptoms you have Any health problems you are being treated for Any past major health problems you've had, such as a heart attack, balance issues, heari ng problems, or blood pressure problems Anything that causes the dizziness to get worse or better Today's exam did not show an exact cause for your dizziness.Other tests may be needed. Fo llow up with your healthcare provider. Home care Dizziness that occurs with sudden standing may be a sign of mild dehydration. Drink extr a fluids for the next few days. If you recently started a new medicine, stopped a medicine, or had the dose of a current medicine changed,talk with the prescribing healthcare provider. Your medicine plan may ne ed adjustment. If dizziness lasts more than a few seconds, sit or lie down until it passes. This may he lp prevent injury in case you pass out. Get up slowly when you feel better. Do not drive or use power tools or dangerous equipment until you have had no dizziness f or at least 48 hours. Follow-up care Follow up with your healthcare provider for further evaluation within the next 7 days or as advised. When to seek medical advice Call your healthcare provider for any of the following: Worsening of symptoms or new symptoms Passing out or seizure Repeated vomiting Headache Palpitations (the sense that your heart is fluttering or beating fast or hard) Shortness of breath Blood in vomit or stool (black or red color) Weakness of an arm or leg or 1 side of the face Vision or hearing changes Trouble walking or speaking Chest, arm, neck, back, or jaw pain Date Last Reviewed: 04/07/201719996785-5464 [employer]. [address] [place] [address]. All [facility] ts reserved. This information is not intended as a substitute for professional medical care. Always follow your healthcare professional's instructions. Migraine Headache This often severe type of headache is different from other types of headaches in that sympt oms other than pain occur with the headache. Nausea and vomiting, lightheadedness, sensitivi ty to light (photophobia), and other visual disturbances are common migraine symptoms.The pain may last from a few hours to several days. It is not clear why migraines occur but cert ain factors called triggers can raise the risk of having a migraine attack.A migrain e may be triggered by emotional stressor depression, or by hormone changes during the mens trual cycle. Other triggers include control pills, overuse of migraine medicines, alco hol or caffeine, foods with tyramine (such as aged cheese and wine), eyestrain, weather hodge ges, missed meals,or too little or too much sleep. Home care Follow these tips when taking care of yourself at home: Don t drive yourself home if you were given pain medicine for your headache or are hav ing visual symptoms. Instead, have someone else drive you home. Try to sleep when you get ho me. You should feel much better when you wake up. Cold can help ease migraine symptoms. Put an ice pack on your forehead or at the base of your skull. Put heat on the back of your neck to help ease any neck spasm. Drink only clear liquids or eat a light diet until your symptoms get better. This will h elp you avoid nausea and vomiting. How to prevent migraines Pay attention to what seems to trigger your headache. Try to avoid the triggers when you ca n. If you have frequent headaches, consider keeping a headache diary. In it, write down what you were doing, feeling, or eating in the hours before each headache. Show this to your [facility] provider to help find the cause of your headaches. If stress seems to be a trigger for your headaches, figure out what is causing stress in yo ur life. Learn new ways to handle your stress. Ideas include regular exercise, biofeedback, self-hypnosis, yoga, and meditation. Talk with your healthcare provider to find out more inf ormation about managing stress. Many books and digital media are also available on this subj ect. Tyramine is a substance found in many foods. It can trigger a migraine in some people. Thes e foods contain tyramine: Chocolate Yogurt All cheeses, but especially aged cheeses Smoked or pickled fish and meat, including agee, caviar, bologna, pepperoni, and robinson mi Liver Avocados Bananas Figs Raisins Red wine Try staying away from these foods for 1 to 2 months to see if you have fewer headaches. How to treat future headaches Take time out at the first sign of a headache, if possible. Find a quiet, dark, comforta ble place to sit or lie down. Let yourself relax or sleep. Put an ice pack on your forehead or on the area of greatest pain. A heating pad and mass age may help if you are having a muscle spasm and tightness in your neck. If you have been prescribed a medicine to stop a migraine headache, use this at the firs t warning sign of the headache for best results. First signs may be an aura or pain. If you need to take medicine often for your migraine, talk with your healthcare provider about other ways to prevent your headaches. Follow-up care Follow up with your healthcare provider, or as advised. Talk with your provider if you have frequent headaches. He or she can figure out a treatment plan. Ask if you can have medicine to take at home the next time you get a bad headache. This may keep you from having to visi t the emergency department in the future. You may need to see a headache specialist (neurolo gist) if you continue to have headaches. When to seek medical advice Call your healthcare provider right awayif any of these occur: Your head pain gets worse, or doesn t get better within 24 hours You can t keep liquids down (repeated vomiting) Pain in your sinuses, ears, or throat Fever of 100.4 F (38 C) or higher, or as directed by your healthcare provider Stiff neck Extreme drowsiness, confusion, or fainting Dizziness, or dizziness with spinning sensation (vertigo) Weakness in an arm or leg, or on one side of your face Difficulty talking or seeing Date Last Reviewed: 01/06/201619993587-7753 [facility]. [address] [place] [address]. All righ ts reserved. This information is not intended as a substitute for professional medical care. Always follow your healthcare professional's instructions. Migraine Headache: Stages and Treatment A migraine headache tends to progress in stages. Learning these stages can help you better understand what is happening. Then you can learn ways to reduce pain and relieve other sympt oms. Methods for relieving your symptoms include self-care and medicines. Migraine stages Migraines tend to progress through 4 stages. Many people don't have all stages, and stages may differ with each headache: Prodrome. A few hours to a day or so before the headache, you may feel tired, (yawning m any times),uneasy, or franklin. You may also feel bloated or crave certain foods. Aura. Up to an hour before the headache starts, some migraine sufferers experience aura flashing lights, blind spots, other vision problems, confusion,difficulty speaking, or o ther neurologic symptoms. Headache. Moderate to severe pain affects one side of the head and then can spread to eugenie th sides, often along with nausea. You may be highly sensitive to light, sound, and odors. V omiting or diarrhea may also happen. This stage lasts 4 to 72 hours. Postdrome. After your headache ends, you may feel tired, achy, and "washed out." This ma y last for a day or so. Self-care during a migraine Here is what you can do: Use a cold compress. Wrap a thin cloth around a cold pack, a cold can of soda, or a bag of frozen vegetables. Apply this to your holiness or other pain site. Drink fluids. If nausea makes it hard to drink, try sucking on ice. Rest. If possible, lie down. Try not to bend over, as this may increase your pain. Somet imes laying in a dark quiet room can help the migraine from being aggravated. Try caffeine. Some people find that drinking fluids with caffeine, such as coffee or tea , helps to lessen migraine pain. Using medicines Work with your healthcare provider to find the rightmedicines for you. Medicines for migr vaibhav may relieve pain (analgesics), relieve nausea, or attack the migraine's root causes (mi graine-specific medicines). Rebound headache Taking analgesics each day, or even several times a week, may lead to more frequent and sev ere headaches. These are called rebound headaches. If you think you're having rebound headac hes, tell your healthcare provider. He or she can help you safely decrease your medicine. Re bound caffeine withdrawal headaches can also happen. Date Last Reviewed: 03/15/201519998100-2631 [facility]. [address] [place] [address]. All righ ts reserved. This information is not intended as a substitute for professional medical care. Always follow your healthcare professional's instructions. Preventing Migraine Headaches: Triggers The first step in preventing migraines is to learn what triggers them. You may then be able to control your triggers to avoid or reduce the severity of your migraines. Know your triggers Be aware that you may have more thanone trigger, and that some triggers may work together . Common migraine triggers include: Food and nutrition. Skipping meals or not drinking enough water can trigger headaches. S o can certain foods, such as caffeine, monosodium glutamate (MSG),aged cheese, or sausage. Alcohol. Red wine and other alcoholic beverages are common migraine triggers. Chemicals. Scents, cleaning products, gasoline, glue, perfume, and paint can be triggers . So can tobacco smoke, including secondhand smoke. Emotions. Stress can trigger headaches or make them worse once they begin. Sleep disruption. Staying up late, sleeping late, and traveling across time zones can di srupt your sleep cycle, triggering headaches. Hormones. Many women notice that migraines tend tohappen at a certain point in their m enstrual cycle. control pills or hormone replacement therapy may also trigger migraine s. Environment and weather. Air travel, changes in altitude, air pressure changes, hot sun, or bright or flashing lights can be triggers. Control your triggers These are some of the things you can do to try to control triggers: Avoid triggers if you can. For example, stay clear of alcohol and foods that trigger you r headaches. Use unscented household products. Keep regular sleep habits. Manage stress to h elp control emotional triggers. Change your behavior at times when triggers can't be avoided. For example, make sure to get enough rest and drink plenty of water while you're traveling. Make sure to carry a hat, sunglasses, and your medicines. Be alert for migraine symptoms, so you can treat a migraine early if it happens. Date Last Reviewed: 03/15/201519996686-2777 [facility]. [address] [place] [address]. All righ ts reserved. This information is not intended as a substitute for professional medical care. Always follow your healthcare professional's instructions. Maged Montgomery MD09/17/201716:21 Electronically signed NOTE: Part of this report was transcribed using voice recognition software. Every effort was made to ensure accuracy. However, inadvertent computerize sheet metal assembler and riveter errors may be present documented in this encounter Plan of Treatment + + +--------+ + + | Name | Type | Priori | Associated Diagnoses | Order Schedule | | | | ty | | | + + +--------+ + + | Trigger Point | Procedures | Routin | Sprain of | Ordered: 09/17/2017 | | Injection Procedure | | e | ligaments of lumbar | | | | | | spine, sequela | | | | | | Myalgia Chronic | | | | | | bilateral low back | | | | | | pain with bilateral | | | | | | sciatica | | + + +--------+ + + documented as of this encounter Results EMG Study- Lower Extremity (10/09/2017 9:00 AM PDT) + + + | Narrative | Performed At | + + + | Maged Montgomery MD 10/09/2017 9:37 See scanned chart: NCS/EMG | | | of the lower exztremiites demonstrated mild generalzied axonal | | | sensorimotor polyneuropathy | | + + + NEUROTRAX: COMPUTERIZED NEUROCOGNATIVE TESTING (10/06/2017 9:30 PM [...] 10/06/201715:14 Neurologist | | + + + EEG (10/04/2017 12:42 PM PDT) + + [...] sciatica - Primary | + + | Sleep apnea, unspecified type | + + | Cervical radiculopathy Brachial neuritis or radiculitis nos | + + | Bipolar affective disorder, currently depressed, mild (HCC) Bipolar I disorder, most | | recent episode (or current) depressed, mild | + + | Post traumatic stress disorder (PTSD) Posttraumatic stress disorder | + + | Anxiety Anxiety state, unspecified | + + | Dizziness Dizziness and giddiness | + + | Neck pain Cervicalgia | + + | Numbness and tingling Disturbance of skin sensation | + + | Intractable migraine with aura without status migrainosus Migraine with aura, with | | intractable migraine, so stated, without mention of status migrainosus | + + | Post-traumatic headache, not intractable, unspecified chronicity pattern | + + | Myalgia Mylagia and myositis, unspecified | + + | Sprain of ligaments of lumbar spine, sequela | + + | Memory loss | + + documented in this encounter
--- OUTSIDE RECORDS SUMMARY | ~2020-01-29 | XMS | Encounter Summary ---
Demographics + + + | Address | [address] | | | [place] [address] | + + + | Home Phone | | + + + | Preferred Language | Unknown | + + + | Marital Status | | + + + | Gnosticism Affiliation | Unknown | + + + | Race | White | + + + | Ethnic Group | Not or | + + + Author + + + | Author | [facility] | | | and [place] | + + + | Organization | [facility] | | | [...] [place] | | | | | [address] | | + + + + + Care Team Providers + +------+ + | Care Police Detention Attendant Name | Role | Phone | + +------+ + | Crow Braga DO | PCP | | + +------+ + Reason for Visit +---------+ + | Reason | Comments | +---------+ + | Post Op | 3M PO | +---------+ + Encounter Details +--------+---------+ + + + | Date | Type | Department | Care Team | Description | +--------+---------+ + + + | 07/08/ | Office | [facility] [place] | Joel Burger, | Osteoarthritis of | | 2017 | Visit | NEUROSURGERY [address] | DO [address] | spine with | | | | [address] | [address] [place], [place] | radiculopathy, | | | | [place], [place] | [phone] | cervical region | | | | [address] | | (Primary Dx); S/P | | | | [phone] | | cervical spinal | | | | | | fusion | +--------+---------+ + + + Social History [...] + + + | Blood Pressure | 118/58 | 07/08/2016 3:14 PM | | | | | PST | | + + + + + | Pulse | 63 | 07/08/2016 3:14 PM | | | | | [...] Weight | 105.7 kg (233 lb) | 07/08/2016 3:14 PM | | | | | PST | | + + + + + | Height | 162.6 cm (5' 4") | 07/08/2016 3:14 PM | | | | | PST | | + + + + + | Body Mass Index | 39.99 | 07/08/2016 3:14 PM | | | | | [...] of this encounter Patient Instructions Patient Instructions Joel Burger DO - 07/08/2016 3:50 PM PSTPlease undergo new x-rays of the cervical spine in 3 and 9 months. Please follow-up with me as needed. documented in this encounter Progress Notes Joel Burger DO - 07/08/2016 3:50 PM PSTFormatting of this note might be different fro m the original. Joel Burger DO [address] [facility] [place] [address] [place] [address] FAX: NEUROSURGERY FOLLOW-UP CHIEF COMPLAINT: Chief Complaint Patient presents with Post Op 3M PO HISTORY OF PRESENT ILLNESS: The patient is a 61 y.o. female that had an ACDF C4-5 by me fo r neck pain, arm pain, and arm weakness around 3 months ago. She returns and overall is doi ng fairly well. The patient complains of ongoing but improving muscle spasm. Issues with sw allowing have not been a major issue. Most of the pre- and postsurgical complaints have con tinued to improve overall. She continues to complain of low back and left leg symptoms for which she is seeing physiatry. PAST MEDICAL HISTORY: Past Medical History Diagnosis [...] bilateral C4/C5 05/15/2015 Cervical radiculopathy 07/23/2015 Osteoarthritis Chronic bilateral low back pain with sciatica 06/16/2016 Sacroiliac pain 06/16/2016 Facet arthritis of lumbar region (HCC) 06/16/2016 PAST SURGICAL HISTORY: Past Surgical History Procedure Laterality Date Hysterectomy Gallbladder surgery Ear surgery - ear lobe repair x 2 Meniscus repair Right knee Cyst removal Left knee Joint replacement Right 05/21 knee Lung surgery Shoulder surgery Right Carpal tunnel release Bilateral Cervical spine surgery Anterior 04/03/2016 Procedure: C4-5 Anterior Cervical Discectomy with Fusion and Plating; Surgeon: Joel morales DO; Location: [facility] MAIN OR CURRENT MEDICATIONS: Current Outpatient Prescriptions Medication Sig Dispense Refill atorvaSTATin (LIPITOR) 40 mg tablet Take 40 mg by mouth nightly. diazePAM (VALIUM) 5 mg tablet Take 1 tablet by mouth every 6 hours as needed (muscle sp asm). 90 tablet 1 gabapentin (NEURONTIN) 300 mg capsule Take 300 mg by mouth 2 times daily. (Patient taknilson ng differently: Take 300 mg by mouth [...] a 21 pack-year smoking history. She has never used smokeless tobacco. She re ports that she uses illicit drugs (Marijuana). She reports that she does not drink alcohol. FAMILY HISTORY: Family History Problem Relation Age [...] Arthritis Maternal Aunt Mental illness Maternal Aunt INTERIM PHYSICAL EXAMINATION: Blood pressure 118/58, pulse 63, height 1.626 m (5' 4"), weight 105.688 kg (233 lb), not cu rrently . Body mass index is 39.97 kg/(m^2). GENERAL: Ann Santiago is in no [...] complex commands MOTOR EXAM: Motor strength is 5/5. This is improved from the preoperative exam. SENSORY EXAM: The sensory examination improved from the preoperative exam. REFLEXES: Reflexes are unchanged from her preoperative history and physical. RADIOGRAPHIC REVIEW: The patient s postoperative x-rays show stable instrumentation and alignment and were rev iewed with the patient today. There have been no interval changes since the immediate posto perative films. There has been increased arthrodesis since the patient s last x-ray which was also reviewed for comparison. ASSESSMENT: S/P ACDF C4-5: Encounter Diagnoses Name Primary? Osteoarthritis of spine with radiculopathy, cervical region Yes S/P cervical spinal fusion Past Medical History Diagnosis Date Hypertension Fibromyalgia Hyperlipidemia Stroke ([facility]) Irregular heartbeat Depression Anxiety Anemia Ulcer ([facility]) Thyroid disease Trochanteric bursitis 01/05/2013 Bipolar disorder ([facility]) 01/05/2013 Post traumatic stress disorder (PTSD) 01/05/2013 Fibromyalgia Myofascial pain 04/25/2015 Shoulder pain, right 04/25/2015 Neck pain 05/01/2015 DDD (degenerative disc disease), cervical - C4/C5 05/15/2015 Foraminal stenosis of cervical region- bilateral C4/C5 05/15/2015 Cervical radiculopathy 07/23/2015 Osteoarthritis Chronic bilateral low back pain with sciatica 06/16/2016 Sacroiliac pain 06/16/2016 Facet arthritis of lumbar region (HCC) 06/16/2016 PLAN: Overall, the patient is doing well. The patient's preoperative symptoms are improving at this point. I have increased the patient s activities as of today, and I would like the patient to co ntinue to advance with activities as tolerated. I am hoping to see complete healing in the next 3-9 months time and will continue to follow the patient with x-rays. I hope sincerely that she continues to see further improvement in her symptoms over the course of her recover y. She will undergo repeat x-ray of the neck in 3 and 9 months and follow-up with me as needed . We talked about follow-up for her low back, but she and I would like her to heal more from her neck first. ELECTRONICALLY SIGNED BY: Joel Burger DO, 07/08/2016 15:57 documented in this encounter Plan of Treatment + +---------+--------+ + + | Name | Type | Priori | Associated Diagnoses | Order Schedule | | | | ty | | | + +---------+--------+ + + | XR Cervical Spine 2 | Imaging | Routin | Osteoarthritis of | Expected: 10/08/2016 | | or 3 Views | | e | spine with | (Approximate), | | | | | radiculopathy, | Expires: 07/08/2017 | | | | | cervical region S/P | | | | | | cervical spinal | | | | | | fusion | | + +---------+--------+ + + | XR Cervical Spine 2 | Imaging | Routin | Osteoarthritis of | Expected: 04/10/2017 | | or 3 Views | | e | spine with | (Approximate), | | | | | radiculopathy, | Expires: 07/08/2017 | | | | | cervical region S/P | | | | | | cervical spinal | | | | | | fusion | | + +---------+--------+ + + documented as of this encounter Procedures + +--------+ + + + | Procedure Name | Priori | Date/Time | Associated Diagnosis | Comments | | | ty | | | | + +--------+ + + + | IMAGING REPORT - | | 10/20/2016 | | Results for this | | EXTERNAL SCAN | | 12:00 AM | | procedure are in the | | | | PDT | | results section. | + +--------+ + + + documented in this encounter Results IMAGING REPORT - EXTERNAL SCAN (10/20/2016 12:00 AM PDT) + + + | Narrative | Performed At | + + + | Ordered by an | | | unspecified provider. | | + + + documented in this encounter Visit Diagnoses + + | Diagnosis | + + | Osteoarthritis of spine with radiculopathy, cervical region - Primary | + + | S/P cervical spinal fusion Arthrodesis status | + + documented in this encounter
--- OUTSIDE RECORDS SUMMARY | ~2020-01-29 | XMS | Encounter Summary ---
Demographics + + + | Address | [address] | | | [place] [address] | + + + | Home Phone | | + + + | Preferred Language | Unknown | + + + | Marital Status | | + + + | Quaker Affiliation | Unknown | + + + [...] [place] | | | | | [address] | | + + + + + Care Team Providers + +------+ + | Care Drapery Head Former Name | Role | Phone | + +------+ + | Crow Braga DO | PCP | | + +------+ + Encounter Details +--------+ + + + + | Date | Type | Department | Care Team | Description | +--------+ + + + + | 04/23/ | Imaging | [facility] | Provider, | | | 2017 | Exam | [facility] EXTERNAL | MD [address] | | | | | IMAGING [address] | Annette Prieto | | | | | [address] [place] | [place] [address] | | | | | [place] [address] | | | | | | [phone] | | | +--------+ + + + [...] XR CERVICAL SPINE 4 | Routin | 04/22/2017 | | Results for this | | OR 5 VWS | e | 11:45 AM | | procedure are in the | | | | PST | | results section. | + +--------+ + + + documented in this encounter Results XR Cervical Spine 4 or 5 Vws (04/22/2017 11:45 AM PST) + + | Specimen | + + | | + + + + + | Narrative | Performed At | + + + | External films | [facility] | | for comparison only - no result from [place]. | | + + + + +---------+ + + | Performing | Address | City/State/Zipcode | Phone Number | | Organization | | | | + +---------+ + + | [facility] | | | | + +---------+ + + documented in this encounter Visit Diagnoses Not on filedocumented in this encounter"
--- OUTSIDE RECORDS SUMMARY | ~2020-01-29 | XMS | Encounter Summary ---
Demographics + + + | Address | [address] | | | [place] [address] | + + + | Home Phone | | + + + | Preferred Language | Unknown | + + + | Marital Status | | + + + | Christian Affiliation | Unknown | + + + | Race | White | + + + | Ethnic Group | Not or | + + + Author + + + | Author | [facility] | | | and [place] | + + + | Organization | [facility] | | | [...] [place] | | | | | [address] | | + + + + + Care Team Providers + +------+ + | Care Cotton Puller Name | Role | Phone | + [...] | Cervical | [place], | [address] | | | | | spondylosis | Saúl Rosario MD | [place], | | | | | Procedures | [address] | [place] | | | | | [place] | [facility] | [address] | | | | | [address] | [place], [place] | Phone: | | | | | | [address] | [phone] | | | | | EPIDURAL/SUB | Phone: | Fax: | | | | | [place] | [phone] | [phone] | | | | | LUMBAR/SACRA | Fax: | | | | | | [place] | [phone] | | | | | | TRIAMCINOLON | | | | | | | E ACET INJ | | | | | | | NOS, 10 MG | | | | | | | [place] | | | | | | [...] | +--------+ + + + + | 07/23/ | Hospital | [facility] | Mary Anndanomanishacz, | Cervical | | 2016 | Encounter | MED CTR XRAY [address] | [address] | radiculopathy | | | | [place] | [facility] [address] | (Primary Dx) | | | | [place] [address] | [place] [address] | | | | | [phone] | [phone] | | | | | | | | | | | | Physical Therapy [facility] | | | | | | [place] patela | | +--------+ + + + + [...] +---------+ + + | Blood Pressure | 196/81 | 07/23/2015 12:47 PM | | | | | PST | | + +---------+ + + | Pulse | 75 | 07/23/2015 12:47 PM | | | | | PST [...] Diagnosis | + + | Cervical radiculopathy - Primary Brachial neuritis or radiculitis nos | + + documented in this encounter Administered Medications + +--------+ +------+------+------+ | Medication Order | MAR | Action | Dose | Rate | Site | | | Action | Date | | | | + +--------+ +------+------+------+ | betamethasone (CELESTONE | Given | 07/23/19 | 9 mg | | | | SOLUSPAN) injection 9 mg 9 mg, | | 16 1:12 | | | | | Other, EVERY 24 HOURS INTERVAL, | | PM PST | | | | | First dose on Wed07/23/15 at | | | | | | | 1330, For 2 doses, Shake well. | | | | | | | Not for IV use., Radiology | | | | | | + +--------+ +------+------+------+ +---+---+ | | | +---+---+ + +-------+ +------+---+---+ | iohexol (OMNIPAQUE 300) 300 | Given | 07/23/19 | 1 mL | | | | mg/mL injection 1 mL 1 mL, | | 16 1:10 | | | | | Other, ONCE PRN, Other, Starting | | PM PST | | | | | 07/23/15 at 1300, For 1 dose, | | | | | | | Radiology | | | | | | + +-------+ +------+---+---+ +---+---+ | | | +---+---+ + +-------+ +-------+---+ + | lidocaine buffered 1% injection | Given | 07/23/19 | 6 mLs | | Other | | 6 mL 6 mL, Intradermal, ONCE, | | 16 1:09 | | | (Comment | | 07/23/15 at 1330, For 1 dose, | | PM PST | | | ) | | Radiology | | | | | | + +-------+ +-------+---+ + +---+---+ | | | +---+---+ documented in this encounter
--- OUTSIDE RECORDS SUMMARY | ~2020-01-29 | XMS | Encounter Summary ---
Demographics + + + | Address | [address] | | | [place] [address] | + + + | Home Phone | | + + + | Preferred Language | Unknown | + + + | Marital Status | | + + + | Jainism Affiliation | Unknown | + + + | Race | White | + + + | Ethnic Group | Not or | + + + Author + + + | Author | [facility] | | | and [place] | + + + | Organization | [facility] | | [...] [place] | | | | | [address] | | + + + + + Care Team Providers + +------+ + | Care Horticultural Farmer Name | Role | Phone | + +------+ + | Crow Braga DO | PCP | | + +------+ + Encounter Details +--------+ + + + + | Date | Type | Department | Care Team | Description | +--------+ + + + + | 01/14/ | Hospital | [facility] | Crow Braga | Dizziness and | | 2016 | Encounter | MED CTR ULTRASOUND | E, DO [address] | gijose antonioiness | | | | [address] | [place] | | | | | [place] | [address] | | | | | [address] | [phone] | | | | | [phone] | | | | | | | [place] | | | | | | R, Theatre Manager | | +--------+ + + + + [...] + +--------+ + + + | VAS CAROTID DUPLEX | Routin | 01/15/2016 | Dizziness and | Results for this | | BILATERAL | e | 4:28 PM | giddiness | procedure are in the | | | | PDT | | results section. | + +--------+ + + + documented in this encounter Results VAS Carotid Duplex Bilateral (01/15/2016 4:28 PM PDT) + + | Specimen | + + | | + + + + + | Narrative | Performed At | + + + | EXAM: VAS CAROTID DUPLEX BILATERAL dated 01/15/2016 3:48 PM | [facility] | | HISTORY: Dizziness and giddiness COMPARISON: None | | | TECHNIQUE: Carotid Ultrasound imaging is performed using james scale | | | imaging, Spectral Doppler, and Color flow analysis. FINDINGS: | | | RIGHT: Small amount of calcified plaque in the carotid bulb. | | | CCA: 108 cm/sec PEAK ICA: 106 cm/sec ECA: 112 cm/sec ICA/CCA: | | | Less than 1 LEFT: Intimal thickening in the mid common carotid | | | artery. Small hyperechoic plaque in the carotid bulb. CCA: | | | 95 cm/sec PEAK ICA: 96 cm/sec ECA: 97 cm/sec ICA/CCA: Less than | | | 1 VERTEBRAL ARTERIES: Patent bilaterally. Vertebral flow is | | | antegrade. IMPRESSION - No hemodynamically significant | | | stenosis. Dictated and Signed by: Linden Haynes MD | | | Electronically signed: 01/15/2016 5:03 PM | | + + + + + | Procedure Note | + + | Gianni, Rad Results In - 01/15/2016 5:06 PM PDT EXAM: VAS CAROTID DUPLEX BILATERAL | | dated 01/15/2016 3:48 PMHISTORY: Dizziness and giddinessCOMPARISON: NoneTECHNIQUE: | | Carotid Ultrasound imaging is performed using james scale imaging,Spectral Doppler, and | | Color flow analysis.FINDINGS: RIGHT: Small amount of calcified plaque in the carotid | | bulb. CCA: 108 cm/secPEAK ICA: 106 cm/secECA: 112 cm/secICA/CCA: Less than 1LEFT: | | Intimal thickening in the mid common carotid artery. Small hyperechoicplaque in the | | carotid bulb. CCA: 95 cm/secPEAK ICA: 96 cm/secECA: 97 cm/secICA/CCA: Less than | | 1VERTEBRAL ARTERIES: Patent bilaterally. Vertebral flow is antegrade.IMPRESSION -No | | hemodynamically significant stenosis.Dictated and Signed by: Linden Haynes MD | | Electronically signed: 01/15/2016 5:03 PM | | | |RIGHT: Small amount of calcified plaque in the carotid bulb. | | | |CCA: 108 cm/sec | |PEAK ICA: 106 cm/sec | |ECA: 112 cm/sec | |ICA/CCA: Less than 1 | | | |LEFT: Intimal thickening in the mid common carotid artery. Small hyperechoic | |plaque in the carotid bulb. | | | |CCA: 95 cm/sec | |PEAK ICA: 96 cm/sec | |ECA: 97 cm/sec | |ICA/CCA: Less than 1 | | | |VERTEBRAL ARTERIES: Patent bilaterally. Vertebral flow is antegrade. | | | |IMPRESSION - | | | |No hemodynamically significant stenosis. | | | |Dictated and Signed by: Linden Haynes MD | | Electronically signed: 01/15/2016 5:03 PM | + + + +---------+ + [...]
--- OUTSIDE RECORDS SUMMARY | ~2020-01-29 | XMS | Encounter Summary ---
Demographics + + + | Address | [address] | | | [place] [address] | + + + | Home Phone | | + + + | Preferred Language | Unknown | + + + | Marital Status | | + + + | Buddhist Affiliation | Unknown | + + + | Race | White | + + + | Ethnic Group | Not or | + + + Author + + + | Author | [facility] | | | and [place] | + + + | Organization | [facility] | | | [...] [place] | | | | | [address] | | + + + + + Care Team Providers + +------+ + | Care Copyholder Name | Role | Phone | + +------+ + | Crow Braga DO | PCP | | + +------+ + Encounter Details +--------+ + + + + | Date | Type | Department | Care Team | Description | +--------+ + + + + | 01/27/ | Hospital | [facility] | Conversion | Diagnosis unknown | | 2016 | Encounter | CONVERSION [address] | Transaction, | | | | | [address] | Provider Unknown | | | | | [place] | [phone] | | | | | [address] | | | | | | [phone] | | | +--------+ + + + [...] | | WO CONTRAST | e | 3:00 PM | | procedure are in the | | | | PST | | results section. | + +--------+ + + + documented in this encounter Results MRI Cervical Spine wo Contrast (05/13/2015 3:00 PM PST) + + | Specimen | + + | | + + + + + | Narrative | Performed At | + + + | This is a non-reportable procedure without a radiologist report and | | | is used for image storage only | | + + + + + | Procedure Note | + + | Avi Archer Conversion - 01/19/2019 8:49 PM PDT This is a non-reportable procedure | | without a radiologist report and isused for image storage only | + + documented in this encounter Visit Diagnoses + + | Diagnosis | + + | Diagnosis unknown Other unknown and unspecified cause of morbidity or mortality | + + documented in this encounter
--- OUTSIDE RECORDS SUMMARY | ~2020-01-29 | XMS | Encounter Summary ---
Demographics + + + | Address | [address] | | | [place] [address] | + + + | Home Phone | | + + + | Preferred Language | Unknown | + + + | Marital Status | | + + + | Anabaptist Affiliation | Unknown | + + + | Race | White | + + + | Ethnic Group | Not or | + + + Author + + + | Author | [facility] | | | and [place] | + + + | Organization | [facility] | | [...] [place] | | | | | [address] | | + + + + + Care Team Providers + +------+ + | Care Sound System Installer Name | Role | Phone | + +------+ + | Crow Braga DO | PCP | | + +------+ + Encounter Details +--------+ + + + + | Date | Type | Department | Care Team | Description | +--------+ + + + + | 01/27/ | Hospital | [facility] | Conversion | Pain | | 2016 | Encounter | CONVERSION [address] | Transaction, | | | | | [address] | Provider Unknown | | | | | [place] | [phone] | | | | | [address] | | | | | | [phone] | | | +--------+ + + + [...] MRI LUMBAR SPINE WO | Routin | 10/18/2015 | | Results for this | | CONTRAST | e | 5:26 AM | | procedure are in the | | | | PDT | | results section. | + +--------+ + + + documented in this encounter Results MRI Lumbar Spine wo Contrast (10/18/2015 5:26 AM PDT) + + | Specimen [...]
--- OUTSIDE RECORDS SUMMARY | ~2020-01-29 | XMS | Encounter Summary ---
Demographics + + + | Address | [address] | | | [place] [address] | + + + | Home Phone | | + + + | Preferred Language | Unknown | + + + | Marital Status | | + + + | Yarsanism Affiliation | Unknown | + + + | Race | White | + + + | Ethnic Group | Not or | + + + Author + + + | Author | [facility] | | | and [place] | + + + | Organization | [facility] | | | [...] [place] | | | | | [address] | | + + + + + Care Team Providers + +------+ + | Care Judicial Assistant Name | Role | Phone | + +------+ + | Crow Braga DO | PCP | | + +------+ + Encounter Details +--------+ + + + + | Date | Type | Department | Care Team | Description | +--------+ + + + + | 11/20/ | Abstract | [facility] | Brody Steiner, | | | 2015 | | PHYSIATRY [address] | PA-C [address] | | | | | [address] | [address] [place] | | | | | [place] | [place] [address] | | | | | [address] | [phone] | | | | | [phone] | | | +--------+ + + + [...]
--- OUTSIDE RECORDS SUMMARY | ~2020-01-29 | XMS | Encounter Summary ---
Demographics + + + | Address | [address] | | | [place] [address] | + + + | Home Phone [...] [place] | | | | | [address] | | + + + + + Care Team Providers + +------+ + | Care Pump Attendant Name | Role | Phone | + +------+ + | Crow Braga DO | PCP | | + +------+ + Reason for Visit + + + | Reason | Comments | + + + | Follow-up | Discuss Surgery | + + + Encounter Details +--------+---------+ + + + | Date | Type | Department | Care Team | Description | +--------+---------+ + + + | 01/06/ | Office | [facility] | Joel Burger, | Osteoarthritis of | | 2016 | Visit | NEUROSURGERY [address] | DO [address] | spine with | | | | [address] | [address] [place], [place] | radiculopathy, | | | | [place], [place] | [address] | cervical region | | | | [address] | | (Primary Dx); | | | | [phone] | | Cervical stenosis of | | | | | | spinal canal; | | | | | | Cervical radicular | | | | | | pain; Cervicalgia | +--------+---------+ + + + Social History [...] + + + | Blood Pressure | 125/63 | 01/07/2016 9:47 AM | | | | | PDT | | + + + + + | Pulse | 69 | 01/07/2016 9:47 AM | | | | | PDT | | + + + + + | Temperature | - | - | | + + + + + | Respiratory Rate | 12 | 01/07/2016 9:47 AM | | | | | PDT | | + + + + + | Oxygen Saturation | - | - | | + + + + + | Inhaled Oxygen | - | - | | | Concentration | | | | + + + + + | Weight | 103.4 kg (228 lb) | 01/07/2016 9:47 AM | | | | | PDT | | + + + + + | Height | 162.6 cm (5' 4") | 01/07/2016 9:47 AM | | | | | PDT | | + + + + + | Body Mass Index | 39.14 | 01/07/2016 9:47 AM | | | | | PDT | | + + + + + documented in this encounter Patient Instructions Patient Instructions Joel Burger DO - 01/07/2016 10:33 AM PDTPlease follow-up with you r primary care physician for preoperative clearance. Please present for surgery when scheduled. documented in this encounter Progress Notes Joel Burger DO - 01/07/2016 10:33 AM PDTFormatting of this note might be different fro m the original. Joel Burger DO [address] [facility], [address] [place], [place] [address] FAX: NEUROSURGERY HISTORY AND PHYSICAL EXAMINATION CHIEF [...] does not hel p her pain significantly. Since her last visit [...] has no apparent deficits with short or nursing home memory. CRANIAL NERVES: II: Acuity is intact. [...] Intrinsics 5 5 Ulnar Intrinsics 5 5 Equipment Tester Strength 4 4 Hip Flexion 5 5 [...] her MRI shows generalized lumbar spondylosis with [id number] bulging disks at L4-L5 and L5-S1. I [...] not limited to , stroke, heart attack, numb ness, weakness, paralysis, failure of fusion, failure of hardware, subsidence, adjacent segm ent degeneration, cerebrospinal fluid leak, bleeding, infection, injury to surrounding tissu es and organs, injury from positioning, injury to the nerves, difficulty with breathing, dif ficulty with swallowing, difficulty with voice change, and [...] that although some patients may obtain 100% sym ptom relief, it is realistic to anticipate that some symptoms will continue postoperatively despite a successful surgery. We also discussed that there is no guarantee that surgery will provide improvement in her c ondition, and indeed may even worsen the symptoms. We also discussed that in the course of the procedure the operative plan may be altered to include more, less, or different levels d epending upon findings in order to provide her with the best possible outcome. I recommend and would prescribe a cervical collar before surgery to improve her stability n ow to support her weak muscles and to reduce pain by restricting mobility. For multiple (more than 1 level fusions), I recommend the use of a bone growth stimulator p ostoperatively. This is to improve the probability and rate of fusion. She will follow-up with her primary care provider for preoperative clearance and optimizati on prior to presenting for surgery. ELECTRONICALLY SIGNED BY: Joel Burger DO, 01/07/2016 10:36 documented in this en counter Plan of Treatment Not on filedocumented as of this encounter Visit Diagnoses + + | Diagnosis | + + | Osteoarthritis of spine with radiculopathy, cervical region - Primary | + + | Cervical stenosis of spinal canal Spinal stenosis in cervical region | + + | Cervical radicular pain Brachial neuritis or radiculitis nos | + + | Cervicalgia | + + documented in this encounter
--- OUTSIDE RECORDS SUMMARY | ~2020-01-29 | XMS | Encounter Summary ---
Demographics + + + | Address | [address] | | | [place] [address] | + + + | Home Phone | | + + + | Preferred Language | Unknown | + + + | Marital Status | | + + + | Samaritan Affiliation | Unknown | + + + | Race | White | + + + | Ethnic Group | Not or | + + + Author + + + | Author | [facility] | | | and [place] | + + + | Organization | [facility] | | [...] [place] | | | | | [address] | | + + + + + Care Team Providers + +------+ + | Care Loom Operator Name | Role | Phone | + +------+ + PCP | Unavailable | + +------+ + Encounter Details +--------+ + + + + | Date | Type | Department | Care Team | Description | +--------+ + + + + | 10/01/ | Hospital | [facility] | Unknown, | | | 1994 | Encounter | MED CTR XRAY [address] | MD Millie . | | | | | [address] [place] | | | | | | [place] [address] | (Fax) | | | | | [phone] | | | +--------+ + + + [...]
--- OUTSIDE RECORDS SUMMARY | ~2020-01-29 | XMS | Encounter Summary ---
Demographics + + + | Address | [address] | | | [place] [address] | + + + | Home Phone [...] [place] | | | | | [address] | | + + + + + Care Team Providers + +------+ + | Care Occupational Health Technician Name | Role | Phone | + +------+ + | Crow Braga DO | PCP | | + +------+ + Encounter Details +--------+ + + + + | Date | Type | Department | Care Team | Description | +--------+ + + + + | 11/04/ | Orders Only | [facility] | Joel Burger, | Chronic back pain, | | 2016 | | NEUROSURGERY [address] | DO [address] | unspecified back | | | | [address] | [address] [place], [place] | pain laterality, | | | | [place], [place] | [id number] | unspecified location | | | | [address] | | (Primary Dx) | | | | [phone] | | | +--------+ + + + [...] filedocumented as of this encounter Results XR Lumbar Spine 4 [...] + | [address] | [address] | [place] | [phone] | | [facility] | | [address] | | | - IMAGING | | | | + + + + + documented in this encounter Visit Diagnoses + + | Diagnosis | + + | Chronic back pain, unspecified back pain laterality, unspecified location - Primary | + + documented in this encounter"
--- OUTSIDE RECORDS SUMMARY | ~2020-01-29 | XMS | Encounter Summary ---
Demographics + + + | Address | [address] | | | [place] [address] | + + + | Home Phone | | + + + | Preferred Language | Unknown | + + + | Marital Status | | + + + | Amish Affiliation | Unknown | + + + [...] [place] | | | | | [address] | | + + + + + Care Team Providers + +------+ + | Care Director Of Enterprise Architecture Name | Role | Phone | + +------+ + | Crow Braga DO | PCP | | + +------+ + Reason for Visit + + + | Reason | Comments | + + + | Follow-up | 4W PO | + + + Encounter Details +--------+---------+ + + + | Date | Type | Department | Care Team | Description | +--------+---------+ + + + | 05/27/ | Office | [facility] | Ronald Song | S/P cervical spinal | | 2015 | Visit | NEUROSURGERY [address] | D, P[facility] [address] | fusion (Primary Dx); | | | | [address] | [address] | Cervical | | | | [place] | [place] | radiculopathy | | | | [address] | [address] | | | | | [phone] | | | +--------+---------+ + + + [...] + + + | Blood Pressure | 135/62 | 05/27/2016 9:34 AM | | | | | PST | | + + + + + | Pulse | 69 | 05/27/2016 9:34 AM | | | | | PST [...] + + + + | Weight | 108.1 kg (238 lb 6.4 | 05/27/2016 9:34 AM | | | | oz) | PST | | + + + + + | Height | 162.6 cm (5' 4") | 05/27/2016 9:34 AM | | | | | PST | | + + + + + | Body Mass Index | 40.92 | 05/27/2016 9:34 AM | | | | | PST [...] Instructions Patient Instructions Ronald Song PA-C - 05/27/2016 9:53 AM PSTIncrease your act ivities at home as your neck and shoulders can tolerate Continue to wean out of your brace if you haven't done so already You will see Dr. Burger in two more months with xrays prior documented in this encounter Progress Notes Ronald Song PA-C - 05/27/2016 9:58 AM PSTFormatting of this note might be diffe rent from the original. Ronald Song PA-C [address] [facility], [address] [place], [place] [id number] FAX: NEUROSURGERY FOLLOW-UP CHIEF COMPLAINT: Chief Complaint Patient presents with Follow-up 4W PO HISTORY OF PRESENT ILLNESS: The patient is a 60 y.o. female that had a cervical fusion for neck and arm pain around 6 weeks ago. She returns and overall is doing good. The patient complains of some continuing pain in her back, just below her right shoulder blade. She desc ribes it as a muscle spasm that feels tight anytime she moves and uses her right arm. . The patient has been walking as much as directed. She is still taking pain medications at thi s point. Swallowing has not been a major problem. The patient has had no issues with her s urgical site. CURRENT MEDICATIONS: Current Outpatient Prescriptions Medication Sig [...] reports that she does not drink alcohol. INTERIM PHYSICAL EXAMINATION: Blood pressure 135/62, pulse 69, height 1.626 m (5' 4"), weight 108.138 kg (238 lb 6.4 oz), not currently . Body mass index is 40.9 kg/(m^2). GENERAL: Ann Santiago is in no acute distress with unlabored respirations. SPINE: The patient s incision is healing well without drainage, significant erythema, or discharge. EXTREMITIES: No lower extremity edema. NEUROLOGICAL EXAMINATION: MENTAL STATUS: The patient is awake, alert, and oriented. She follows simple and complex commands MOTOR EXAM: Motor strength is 4/5 right UE. 5/5 left UE. This is unchanged when compared t o the preoperative exam. SENSORY EXAM: The sensory examination is improved when compared to the preoperative exam. RADIOGRAPHIC REVIEW: The patient s x-rays show stable instrumentation and alignment and were reviewed with the patient today. There have been no interval changes since the immediate postoperative films . Complete fusion has not yet occurred, but this is normal and would not be expected at thi s time. ASSESSMENT: Encounter Diagnoses Name Primary? S/P cervical spinal fusion Yes Cervical radiculopathy Past Medical History Diagnosis Date Hypertension Fibromyalgia Hyperlipidemia Stroke ([facility]) Irregular heartbeat Depression Anxiety Anemia Ulcer ([facility]) Thyroid disease Trochanteric bursitis 01/05/2013 Bipolar disorder (HCC) 01/05/2013 Post traumatic stress disorder (PTSD) 01/05/2013 Fibromyalgia Myofascial pain 04/25/2015 Shoulder pain, right 04/25/2015 Neck pain 05/01/2015 DDD (degenerative disc disease), cervical - C4/C5 05/15/2015 Foraminal stenosis of cervical region- bilateral C4/C5 05/15/2015 Cervical radiculopathy 07/23/2015 Osteoarthritis PLAN: Overall, the patient is doing fairly well. Some of the preoperative symptoms are improved. She is still concerned about this muscle spasm in her right shoulder blade. She feels that she needs to keep strengthening her back and arm she returns. She understands that the nerv e will need time to heal as she progresses. I increased the patient s activities now allowing 15 pound lifting. The patient should i ncrease range of motion activities as tolerated. I would like the patient to advance slowly with this process and discussed this at length during today's visit. I would also like the patient to continue with postoperative rehabilitation and to advance with therapy as tolera timi.. She feels that she does not need any formal physical rehab at this time. Her current home regimen with strength training and range of motion will be enough in her recovery. oysterman pain medication should be continued and tapered by their primary care provider or pain management. The patient currently has a contract with pain management. She is not re ceiving pain medicine from our office. I am hoping to see improvement over the coming weeks to months and plan to continue to foll ow this patient. The patient will follow-up in clinic in around 8 weeks for re-evaluation.. ELECTRONICALLY SIGNED BY: Ronald Song PA-C, 05/27/2016 9:58 documented in this encounter Plan of Treatment Not on filedocumented as of this encounter Results XR Cervical Spine 2 [...] lateral views of the cervical spine | [facility] | | COMPARISON: 05/27/2016. FINDINGS: Status post [...] + | Avi Archer Results In - 07/08/2016 3:04 PM PST [...] + + | [address] | [address] | [place] | [phone] | | [facility] | | [address] | | | - IMAGING | | | | + + + + + documented in this encounter Visit Diagnoses + + | Diagnosis | + + | S/P cervical spinal fusion - Primary Arthrodesis status | + + | Cervical radiculopathy Brachial neuritis or radiculitis nos | + + documented in this encounter
--- OUTSIDE RECORDS SUMMARY | ~2020-01-29 | XMS | Encounter Summary ---
Demographics + + + | Address | [address] | | | [place] [address] | + + + | Home Phone | | + + + | Preferred Language | Unknown | + + + | Marital Status | | + + + | Gnosticism Affiliation | Unknown | + + + | Race | White | + + + | Ethnic Group | Not or | + + + Author + + + | Author | [facility] | | | and [place] | + + + | Organization | [facility] | | | and [...] [place] | | | | | [address] | | + + + + + Care Team Providers + +------+ + | Care Endodontic Assistant Name | Role | Phone | [...] + + | Closed | Specialty | Neurosurgery | Diagnoses | | [place], | | | Services | | | [place], | Joel Honeycutt, | | | Required | | Radiculopath | [place], | [address] | | | | | y, cervical | PA-C [address] | [address] | | | | | region | [address], | [place] | | | | | Cervicalgia | [address] | [address] Phone: | | | | | Other | [place] | [phone] | | | | | cervical | [address] | Fax: | | | | | disc | Phone: | [phone] | | | | | degeneration | [phone] | | | | | | , | Fax: | | | | | | unspecified | [phone] | | | | | | cervical | | | | | | | region | | | | | | | Other | | | | | | | biomechanica | | | | | | | l lesions of | | | | | | | cervical | | | | | | | region | | | +--------+ + + + + + Reason for Visit + + + | Reason | Comments | + + + | Neck Pain | radiating into right shoulder | + + + Encounter Details +--------+---------+ + + + | Date | Type | Department | Care Team | Description | +--------+---------+ + + + | 10/08/ | Office | [facility] | Heber, | Neck pain (Primary | | 2016 | Visit | PHYSIATRY [address] | [address] | Dx); DDD | | | | [address] | [address] | (degenerative disc | | | | [place], [place] | [place] [address] | disease), cervical - | | | | [address] | [phone] | C4/C5; Foraminal | | | | [phone] | | stenosis of cervical | | | | | | region- bilateral | | | | | | C4/C5; Cervical | | | | | | [...] + + + | Blood Pressure | 158/80 | 10/09/2015 2:23 PM | | | | | PDT | | + + + + + | Pulse | 74 | 10/09/2015 2:23 PM | | | | | PDT [...] + + + + | Weight | 100.7 kg (222 lb) | 10/09/2015 2:23 PM | | | | | PDT | | + + + + + | Height | 160 cm (5' 3") | 10/09/2015 2:23 PM | | | | | PDT | | + + + + + | Body Mass Index | 39.33 | 10/09/2015 2:23 PM | | | | | PDT | | + + + + + documented in this encounter Patient Instructions Patient Instructions Tavia Buck PA-C - 10/09/2015 2:50 PM PDT1) Neurosurgery vel l call you documented in this encounter Progress Notes Tavia Buck PA-C - 10/09/2015 2:50 PM PDTFormatting of this note might be differe nt from the original. CHIEF COMPLAINT: Chief Complaint Patient presents with Neck Pain radiating into right shoulder HISTORY OF PRESENT ILLNESS: The patient is a 60 y.o. female being seen today for complaint s of neck pain and right shoulder pain that began over 2 years ago from no injury or insult. She has seen me in the past and has received a right subacromial steroid injection which g ave her good relief into the shoulder joint. She has also had a trial of trigger point inje ctions with no relief, and then had a cervical epidural injection with Dr. Ferraro 016. She states to have had good relief but only for 1 week until her symptoms returned. Since the symptoms began, she has noticed that symptoms have been chronic and constant to t he right shoulder and by the spine and shoulder blade. She describes the pain as a burning f eeling. She rates the pain as moderate. Her symptoms worsen with movement of the shoulder, r eaching over head, turning her neck, she actually has the most pain with cervical extension. Her symptoms improve with rest, being still, flexing her neck. She denies any pain down t he arms. The patient does not describe numbness of the arms or legs. She does report weakness of t he arms stating she cannot open jars anymore. She does not have bowel and bladder dysfuncti on. She does not have saddle anesthesia. Treatments for these complaints have included physical therapy, aquatic therapy, use of NSA IDS and tylenol, use of gabapentin. Patient's medications, allergies, past medical, surgical, social [...] Bupropion Bupropion Hcl Duloxetine Oxycodone-Aspirin REVIEW OF SYSTEMS: A multisystem review of system checklist was reviewed with the patient and shows only the p ain and/or parasthesias and other complaints as in HPI. All remaining review of systems was negative. PHYSICAL EXAMINATION: Filed Vitals: 10/09/15 1423 BP: 158/80 Pulse: 74 PainSc: 6 PainLoc: Neck Body mass index is 39.34 kg/(m^2). GENERAL: The patient is well developed [...] apparent deficits with short or fpc memory. She has appropriate fund of knowledge [...] shoulder xray shows AC arthritis. ASSESSMENT: 1. Neck pain 2. DDD (degenerative disc disease), cervical - C4/C5 3. Foraminal stenosis of cervical region- bilateral C4/C5 4. Cervical radiculopathy PLAN: 1. The patient has tried conservative therapies to include PT, massage therapy, use of NSA IDS, narcotics, neuropathic pain medications, both subacromial and cervical epidural steroid injections and trigger point injections. Nothing has given her good relief except for a 1- week window after the epidural steroid injection. We discussed surgery as she does have a d isc bulge at C4-C5 with some spinal stenosis and foraminal stenosis. She would like a referr al to the neurosurgeons. This has been made. 2. Medications have been reviewed at today's visit with no changes made at this time. ELECTRONICALLY SIGNED BY: Tavia Buck PA-C, 10/09/2015 CC: [facility]ed in this encounter Plan of Treatment + + +--------+ + + | Name | Type | Priori | Associated Diagnoses | Order Schedule | | | | ty | | | + + +--------+ + + | AMB REFERRAL TO [facility] | Outpatient | Routin | Neck pain DDD | Ordered: 10/09/2015 | | [facility] [place] [facility] | Referral | e | (degenerative disc | | | | | | disease), cervical - | | | | | | C4/C5 Foraminal | | | | | | stenosis of cervical | | | | | | region- bilateral | | | | | | C4/C5 Cervical | | | | | | radiculopathy | | + + +--------+ + + documented as of this encounter Visit Diagnoses + + | Diagnosis | + + | Neck pain - Primary Cervicalgia | + + | DDD (degenerative disc disease), cervical - C4/C5 Degeneration of cervical | | intervertebral disc | + + | Foraminal stenosis of cervical region- bilateral C4/C5 Spinal stenosis in cervical | | region | + + | Cervical radiculopathy Brachial neuritis or radiculitis nos | + + documented in this encounter
--- OUTSIDE RECORDS SUMMARY | ~2020-01-29 | XMS | Encounter Summary ---
Demographics + + + | Address | [address] | | | [place] [address] | + + + | Home Phone [...] | + + + + + | Kiesha Franki | ECON | Unknown | | + + + + + | Amina Contreras | ECON | [address] | | | | | [place] | | | | | [address] | | + + + + + Care Team Providers + +------+ + | Care Medical Artist Name | Role | Phone | [...] Closed | | Radiology | Diagnoses | Montgomery, | Cc Wgr Mri | | | | | Dizziness | Maged R, | [address] | | | | | Intractable | MD [address] | [place] | | | | | migraine | [address], | [place], [place] | | | | | with aura | [place] | [address] | | | | | without | [place], [place] | Phone: | | | | | status | [phone] | [phone] | | | | | migrainosus | Phone: | Fax: | | | | | | [phone] | [phone] | | | | | Post-traumat | Fax: | | | | | | ic headache, | [phone] | | | | | | not | | | | | | | intractable, | | | | | | | unspecified | | | | | | | chronicity | | | | | | | pattern | | | | | | | Procedures | | | | | | | MRI Brain wo | | | | | | | Contrast | | | | | | | MRI Brain w | | | | | | | wo Contrast | | | +--------+--------+ + + + + Encounter Details +--------+ + + + + | Date | Type | Department | Care Team | Description | +--------+ + + + + | 10/04/ | Hospital | [facility] | Maged Montgomery MD | Dizziness; | | 2018 | Encounter | Hospital MRI [address] | [address] | Intractable migraine | | | | [place] | [place] | with aura without | | | | [place], [place] | [address] | status migrainosus; | | | | [address] | | Post-traumatic | | | | [phone] | | headache, not | | | [...] +--------+ + + + | MRI BRAIN WO | Routin | 10/04/2017 | Dizziness | Results for this | | CONTRAST | e | 10:25 AM | Intractable migraine | procedure are in [...] documented in this encounter Results MRI Brain wo Contrast (10/04/2017 10:25 AM PDT) + + | Specimen | + + | | + + + + + | Impressions | Performed At | + + + | IMPRESSION: 1. No acute finding. 2. Mild white matter changes not | [facility] | | specific but most commonly associated with small-vessel post ischemic | | | change. 3. Apparent paranasal sinus surgery. Dictated by: Nicko | | | Raghu | | | AM | | + + + + + + | Narrative | Performed At | + + + | EXAMINATION: MRI BRAIN WO CONTRAST HISTORY: pesistent | [facility] | | headaches and dizziness, recurrent COMPARISON STUDY: None | | | TECHNIQUE: Multiplanar multi sequence MRI of the brain is performed | | | without contrast. Renal function screening laboratories are not | | | obtained prior to the study acquisition therefore contrast is not | | | utilized. FINDINGS: Diffusion-weighted images show no evidence | | | of restricted diffusion. The james-white matter interface is intact. | | | No acute intracranial hemorrhage, mass lesion, or midline shift. | | | Basilar cisterns are patent. Ventricles are symmetric. Sulci are age | | | appropriate. Cerebellum volume is normal. Major flow voids are | | | present. Mild periventricular and subcortical white matter | | | hyperintensity is present on the FLAIR and T2 series images. Apparent | | | paranasal sinus surgery noted with absence of ethmoid air cell wall | | | roe. The mastoid and middle ears are clear. The pituitary gland | | | is unremarkable. Corpus callosum is unremarkable. Brainstem is | | | unremarkable. | | + + + + + | Procedure Note | + + | Gianni, Rad Results In - 10/04/2017 11:00 AM PDT EXAMINATION:MRI BRAIN WO | | CONTRASTHISTORY:pesistent headaches and dizziness, recurrentCOMPARISON | | STUDY:NoneTECHNIQUE:Multiplanar multi sequence MRI of the brain is performed without | | contrast. Renal function screening laboratories are not obtained prior to the study | | acquisition therefore contrast is not utilized.FINDINGS:Diffusion-weighted images show | | no evidence of restricted diffusion.The james-white matter interface is intact.No acute | | intracranial hemorrhage, mass lesion, or midline shift.Basilar cisterns are | | patent.Ventricles are symmetric.Sulci are age appropriate.Cerebellum volume is | | normal.Major flow voids are present.Mild periventricular and subcortical white matter | | hyperintensity is present on the FLAIR and T2 series images.Apparent paranasal sinus | | surgery noted with absence of ethmoid air cell wall roe. The mastoid and middle ears | | are clear.The pituitary gland is unremarkable.Corpus callosum is unremarkable.Brainstem | | is unremarkable.IMPRESSION: IMPRESSION:1. No acute finding.2. Mild white matter changes | | not specific but most commonly associated with small-vessel post ischemic change.3. | | Apparent paranasal sinus surgery.Dictated by: Nicko Krishnamurthy | |The james-white matter interface is intact. | |No acute intracranial hemorrhage, mass lesion, or midline shift. | |Basilar cisterns are patent. | |Ventricles are symmetric. | |Sulci are age appropriate. | |Cerebellum volume is normal. | |Major flow voids are present. | |Mild periventricular and subcortical white matter hyperintensity is present on the FLAIR an d T2 series images. | |Apparent paranasal sinus surgery noted with absence of ethmoid air cell wall roe. The ma stoid and middle ears are clear. | |The pituitary gland is unremarkable. | |Corpus callosum is unremarkable. | |Brainstem is unremarkable. | | | |IMPRESSION: | |IMPRESSION: | |1. No acute finding. | |2. Mild white matter changes not specific but most commonly associated with small-vessel po st ischemic change. | |3. Apparent paranasal sinus surgery. | | | |Dictated by: Nicko Krishnamurthy | | | | | + + [...]
--- OUTSIDE RECORDS SUMMARY | ~2020-01-29 | XMS | Encounter Summary ---
Demographics + + + | Address | [address] | | | [place] [address] | + + + | Home Phone | | + + + | Preferred Language | Unknown | + + + | Marital Status | | + + + | Faith Affiliation | Unknown | + + + | Race | White | + + + | Ethnic Group | Not or | + + + Author + + + | Author | [facility] | | | and [place] | + + + | Organization | [facility] | | | and [...] [place] | | | | | [address] | | + + + + + Care Team Providers + +------+ + | Care It Security Project Manager Name | Role | Phone | + +------+ + | Crow Braga DO | PCP | | + +------+ + Encounter Details +--------+ + + + + | Date | Type | Department | Care Team | Description | +--------+ + + + + | 03/25/ | Orders Only | [facility] [place] | Joel Burger, | Cervical spondylosis | | 2016 | | NEUROSURGERY [address] | DO [address] | with radiculopathy | | | | [address] | [address] [place], [place] | (Primary Dx); Status | | | | [place], [place] | [phone] | post cervical | | | | [address] | | spinal fusion | | | | [phone] | | | +--------+ + + + [...] 2 or 3 Views (05/27/2016 8:08 AM [facility]) + + | Specimen | + + | | + + + + + | Narrative | Performed At | + + + | CERVICAL SPINE: 05/27/2016 8:08 AM CLINICAL HISTORY: s/p | [facility] | | cervical fusion COMPARISON: 04/03/2016 FINDINGS: Upright AP | [facility] | | and lateral views of the cervical spine. Anterior compression | [facility] | | plate and screws and interbody [...] + | Gianni, Rad Results In - 05/27/2016 9:37 AM PST [...] [address] | [address] | [place], [place] | [phone] | | [facility] | | [address] | | | - IMAGING | | | | + + + + + documented in this encounter Visit Diagnoses + + | Diagnosis | + + | Cervical spondylosis with radiculopathy - Primary Cervical spondylosis with | | myelopathy | + + | Status post cervical spinal fusion Arthrodesis status | + + documented in this encounter"
--- OUTSIDE RECORDS SUMMARY | ~2020-01-29 | XMS | Encounter Summary ---
Demographics + + + | Address | [address] | | | [place] [address] | + + + | Home Phone | | + + + | Preferred Language | Unknown | + + + | Marital Status | | + + + | Jew Affiliation | Unknown | + + + | Race | White | + + + | Ethnic Group | Not or | + + + Author + + + | Author | [facility] | | | and [place] | + + + | Organization | [facility] | | [...] [place] | | | | | [address] | | + + + + + Care Team Providers + +------+ + | Care Quality Improvement Engineer Name | Role | Phone | + [...] | | | [address] | [place] [address] | | | | | [place] [address] | | | | | | [phone] | | | +--------+ + + + [...] MRI LUMBAR SPINE WO | Routin | 07/08/2018 | | Results for this | | CONTRAST | e | 3:30 PM | | procedure are in the | | | | PST | | results section. | + +--------+ + + + documented in this encounter Results MRI Lumbar Spine wo Contrast (07/08/2018 3:30 PM PST) + + | Specimen | [...]
--- OUTSIDE RECORDS SUMMARY | ~2020-01-29 | XMS | Encounter Summary ---
Demographics + + + | Address | [address] | | | [place] [address] | + + + | Home Phone | | + + + | Preferred Language | Unknown | + + + | Marital Status | | + + + | Faith Affiliation | Unknown | + + + | Race | White | + + + | Ethnic Group | Not or | + + + Author + + + | Author | [facility] | | | and [place] | + + + | Organization | [facility] | [...] [place] | | | | | [address] | | + + + + + Care Team Providers + +------+ + | Care Door Frame Builder Name | Role | Phone | + +------+ + | Crow Braga DO | PCP | | + +------+ + Reason for Visit +--------+--------+ + | Reason | Onset | Comments | | | Date | | +--------+--------+ + | Other | 03/12/ | | | | 2015 | | +--------+--------+ + Encounter Details +--------+ + + + + | Date | Type | Department | Care Team | Description | +--------+ + + + + | 03/12/ | Telephone | [facility] | Joel Burger, | Other | | 2015 | | NEUROSURGERY [address] | DO [address] | | | | | [address] | [address] [place], [place] | | | | | [place], [place] | [id number] | | | | | [address] | | | | | | [phone] | | | +--------+ + + + [...] Encounter - Rambo Cullen Cert MA - 03/13/2016 10:22 AM PDTI called and let Rupa taylor know that her Rx for Keflex was sent to her [facility] pharmacy. She was advised to start ta jean this 7 days prior to surgery RAMBO CULLEN elephone Joel Ryan DO - 03/13/2016 6:18 AM PDTDone. Thanks. elephone Encounter - Rambo Cullen Cert MA - 03/12 4:30 PM PDTPlease sign Rx. RAMBO CULLEN elephone Joel Ryan DO - 03/12/2016 2:00 PM PDTOK. Please do keflex 500mg PO QID #[address] [facility] a week before her surgery. Thanks. elephone Enco unter - Rambo Cullen Cert MA - 03/12/2016 11:38 AM PDTPeggy called today stating that her Orthopaedic physician told her that she needs to be placed on antibiotics 1 week before surg marisol due to her having a knee surgery last May. Her orthopaedic surgeon is Dr. Brooke in [place]. She is scheduled to have a C4-5 ACDF on 04/03/2016. Please advise. RAMBO CULLEN documented in this encounter Plan of Treatment Not on filedocumented as of this encounter Visit Diagnoses Not on filedocumented in this encounter"
--- OUTSIDE RECORDS SUMMARY | ~2020-01-29 | XMS | Encounter Summary ---
Demographics + + + | Address | [address] | | | [place] [address] | + + + | Home Phone | | + + + | Preferred Language | Unknown | + + + | Marital Status | | + + + | Voodoo Affiliation | Unknown | + + + | Race | White | + + + | Ethnic Group | Not or | + + + Author + + + | Author | [facility] | | | and [place] | + + + | Organization | [facility] | | [...] [place] | | | | | [address] | | + + + + + Care Team Providers + +------+ + | Care Integrated Pest Management Technician Name | Role | Phone | + +------+ + | Crow Braga DO | PCP | | + +------+ + Encounter Details +--------+ + + + + | Date | Type | Department | Care Team | Description | +--------+ + + + + | 01/29/ | Hospital | [facility] | Conversion | Pain | | 2016 | Encounter | CONVERSION [address] | Transaction, | | | | | [address] | Provider Unknown | | | | | [place] | [phone] | | | | | [address] | | | | | | [phone] | | | +--------+ + + + [...] EPIDURAL STEROID | Routin | 07/23/2015 | | Results for this | | INJ CERVICAL | e | 10:19 PM | | procedure are in the | | THORACIC | | PST | | results section. | | INTERLAMINAR | | | | | + +--------+ + + + documented in this encounter Results FL HARMONY Cervical Thoracic Interlaminar (07/23/2015 10:19 PM PST) + + | Specimen | + + | | + + + + + | Narrative | Performed At | + + + | This is a non-reportable procedure without a radiologist report and | | | is used for image storage only | | + + + + + | Procedure Note | + + | Gianni Avi Kamar - 01/19/2019 8:49 PM PDT This is a non-reportable procedure | | without a radiologist report and isused for image storage only | + + documented in this encounter Visit Diagnoses + + | Diagnosis | + + | Pain Generalized pain | + + documented in this encounter
--- OUTSIDE RECORDS SUMMARY | ~2020-01-29 | XMS | Encounter Summary ---
Demographics + + + | Address | [address] | | | [place] [address] | + + + | Home Phone [...] [place] | | | | | [address] | | + + + + + Care Team Providers + +------+ + | Care Core Drilling Supervisor Name | Role | Phone | + +------+ + | Crow Braga DO | PCP | | + +------+ + Reason for Visit +---------+--------+ + | Reason | Onset | Comments | | | Date | | +---------+--------+ + | Results | 05/13/ | | | | 2014 | | +---------+--------+ + Encounter Details +--------+ + + + + | Date | Type | Department | Care Team | Description | +--------+ + + + + | 05/13/ | Telephone | [facility] | [place], | Results | | 2014 | | PHYSIATRY [address] | [address] | | | | | [address] | [address] | | | | | [place] | [place] [address] | | | | | [address] | [phone] | | | | | [phone] | | | +--------+ + + + [...] Miscellaneous Notes Telephone Encounter - Verenice Wang CMA - 05/15/2015 2:37 PM PSTInformation relayed. Roma horan voiced understanding. Referral submitted. Electronically signed by Verenice Wang CMA at 2:38 PM PSTTelephone Encounter - Tavia Buck PA-C - 05/15/2015 9:59 AM Elizabeth Alec cervical MRI does show a posterior disc bulge at C4-C5 which is producing moderate for aminal stenosis bilaterally - pinches the nerves on both sides. This can definitely be the reason for her neck pain on both sides, we can try a cervical epidural injection with Dr. Ian devine. I have ordered it and it will need to be done after her surgery and pre-approval needs to be done first. elephone Encounter - Verenice Wang CMA - 05/13/2015 3:17 PM PSTPatient will be call ed with results once they have been reviewed. Electronically signed by Verenice Wang CMA at 1 07/16/2014 9:39 AM PSTTelephone Encounter - Maura Mcadams - 05/13/2015 2:53 PM Ann Romo Marie Female, 59 y.o., 1955 Called to say that she completed her MRI today 05/13/15 and her surgery is scheduled for Wed05/20/15. documented in this encounter Plan of Treatment Not on filedocumented as of this encounter Results FL HARMONY Cerv Thor Interlaminar (07/23/2015 1:10 PM PST) + + | Specimen | + + | | + + + + + | Narrative | Performed At | + + + | 07/23/2015 CERVICAL INTERLAMINAR EPIDURAL STEROID INJECTION | [facility] | | CLINICAL HISTORY: ICD-10 CODE M54.12 CERVICAL RADICULOPATHY Ann | [facility] | | Marie Santiago presents to the fluoroscopy suite for a [facility] | | fluoroscopically-guided C7-T1 interlaminar epidural steroid [...] + | [address] | [address] | [place], [place] | [phone] | | [facility] | | [address] | | | - IMAGING | | | | + + + + + documented in this encounter Visit Diagnoses + + | Diagnosis | + + | Upper back pain/posterior shoulder pian on right side - Primary Pain in thoracic | | spine | + + | Neck pain Cervicalgia | + + | DDD (degenerative disc disease), cervical - C4/C5 Degeneration of cervical | | intervertebral disc | + + | Foraminal stenosis of cervical region- bilateral C4/C5 Spinal stenosis in cervical | | region | + + documented in this encounter"
--- OUTSIDE RECORDS SUMMARY | ~2020-01-29 | XMS | Encounter Summary ---
Demographics + + + | Address | [address] | | | [place] [address] | + + + | Home Phone | | + + + | Preferred Language | Unknown | + + + | Marital Status | | + + + | Sabianist Affiliation | Unknown | + + + | Race | White | + + + | Ethnic Group | Not or | + + + Author + + + | Author | [facility] | | | and [place] | + + + | Organization | [facility] | | | [...] [place] | | | | | [address] | | + + + + + Care Team Providers + +------+ + | Care Information Security Architect Name | Role | Phone | + +------+ + | Crow Braga DO | PCP | | + +------+ + Reason for Visit + +--------+ + | Reason | Onset | Comments | | | Date | | + +--------+ + | Leg Pain | 12/13/ | bilateral | | | 2017 | | + +--------+ + | Tingling | 12/13/ | perineal | | | 2017 | | + +--------+ + | Numbness | 12/13/ | thighs and left foot | | | 2017 | | + +--------+ + | Coordination Of Care | 12/14/ | physiatry | | | 2017 | | + +--------+ + Encounter Details +--------+ + + + + | Date | Type | Department | Care Team | Description | +--------+ + + + + | 12/13/ | Telephone | [facility] [place] | Joel Burger, | Leg Pain (bilateral | | 2018 | | NEUROSURGERY [address] | DO [address] | ); [place] | | | | [address] | [address] [place], [place] | (perineal); Numbness | | | | [place] | [address] | (thighs and left | | | | [address] | | foot); Coordination | | | | [phone] | | Of Care (physiatry) | +--------+ + + + + Social [...] this encounter Miscellaneous Notes Telephone Encounter - Darlene Jackson RN - 12/20/2017 9:00 AM PDTConfirmed patient is sc heduled for PA appointment 12/28 in physiatry elephone Encounter - Darlene Jackson RN - 12/14/2017 1:18 PM PDTR outing to physiatry to call patient to offer an appointment to evaluate and discuss options elephone Encounter - Brody Steiner PA - 12/14/2017 11:16 AM PDTPatient has not been found to have a surgic al target from her last visit with Nu Burger. A NCS showed neurological abnormalities NOT consistent with a spinal cord being pinched or a nerve root being pinched. Dr. Burger recomm ended the patient follow up with physiatry, but I don't see where the patient has been seen by anyone in physiatry since that visit in December of 2016. Before patient is seen in our offic e, which probably isn't necessary I would recommend patient go up there first as previously instructed. elephon e Encounter - aDrlene Jackson RN - 12/13/2017 9:59 AM PDTPost op: Yes 04/03/2016 C4-5 Anterior Cervical Discectomy with Fusion and Plating Initially evaluated for lumbar radiculopathy 11/12/2016 (Duncan) Last seen 12/18/2016 (Jennyfer)- see note copied below 04/08/[address] Burger's review of 1 yr PO cervical spine XR and 11/20/2016 lumbar spine MRI results with recommendation to f/u with physiatry, "Her MRI of t he lumbar spine from 11/20/16 looks okay. I don't see anything that would explain her numbnes s. Please have her follow-up with physiatry to discuss. She has seen them before." Patient called to report leg electrical shocks that are impairing ability to walk, sit, sle ep; left is worse than right side Electrical shocks have more than doubled in the past 2 weeks Low abdominal aching intolerably Pain causes nausea Numbness in bilateral upper leg (top of thighs) and left foot (outer aspect) Started 4 years ago and has been progressively worsening, especially for the past year; bertin conner expressed frustration that an answer for her symptoms has not yet been found Denies changes in bowel/ bladder control; denies trauma, fall, injury Acknowledges some perineal tingling (but no numbness) with standing, bending or walking "to o long" - clarified more than a 1/4 block (was walking 5-6 blocks 5 times/ day)- this decrea se in ambulation occurred 3-4 months ago (patient stated she gave up at this point, but symp toms were intolerable for months preceding this change in activities) Last seen 12/18/2016 (Jennyfer)- Discussed "diffuse spondylosis with minimal stenosis predomin ately at L4-5 and L5-S1. She also has mild spondylolisthesis at L5-S1. This may be contribut ing to her back and leg symptoms. We discussed options that include: observation, medical pa in management, bracing, physical therapy, steroid injections, chiropractics, acupuncture, ma ssage, and pain management referral. She would like to try bracing, which is appropriate for external stabilization. I will orde r an LSO for her. She would also like a referral to [facility] for medical pain management and dis cussion of steroid injection. I will facilitate that referral. She will follow-up with me as needed." Patient reported that her insurance was not accepted by [facility]; referral not e indicated that patient would have needed to pay 20% at [employer] and was unable to afford this. Hip injections (Dr. Brooke, orthopedist ordered) about a month ago but that did not do anyth ing for the back and leg symptoms; some relief in hip pain for about 2 weeks Patient has also been evaluated recently by Dr. Montgomery and LE EMG was completed in October 2017 (n otes and results available to review in EHR) Reviewed notes and recommendations noted with patient. She reported that she had not f/u w ith physiatry and did not recall that this was recommended. Provided patient with physiatry # to call to schedule and if a new referral is needed, advised patient that neurosurgery pr kali will be happy to help with this as it had been recommended by Dr. Burger as a next s tep. Advised patient that this message would be sent to providers to review EMG results and repo rt of worsening symptoms for advice on further evaluation and next steps. In the meanwhile, patient will schedule appointment for evaluation in physiatry. documented in this e ncounter Plan of Treatment Not on filedocumented as of this encounter Visit Diagnoses Not on filedocumented in this encounter
--- OUTSIDE RECORDS SUMMARY | ~2020-01-29 | XMS | Encounter Summary ---
Demographics + + + | Address | [address] | | | [place] [address] | + + + | Home Phone | | + + + | Preferred Language | Unknown | + + + | Marital Status | | + + + | Druze Affiliation | Unknown | + + + | Race | White | + + + | Ethnic Group | Not or | + + + Author + + + | Author | [facility] | | | and [place] | + + + | Organization | [facility] | | | [...] [place] | | | | | [address] | | + + + + + Care Team Providers + +------+ + | Care Periodicals Library Assistant Name | Role | Phone | [...] | | | | | Lumbar | [place], | [address] | | | | | radiculopath | Saúl Rosario MD | [place], | | | | | y | [address] | [place] | | | | | Procedures | [place] | [address] | | | | | [place] INJECT | [facility], [place] | Phone: | | | | | ANES/STEROID | [address] | [phone] | | | | | FORAMEN | Phone: | Fax: | | | | | LUMBAR/SACRA | [phone] | [phone] | | | | | L W IMG | Fax: | | | | | | GUIDE ,1 | [phone] | | | | | | LEVEL SD | | | | | | | TRIAMCINOLON | | | | | | | E ACET INJ | | | | | | | NOS, 10 MG | | | | | | | Appt. 02/08/18 | | | | | | | Bilat. | | | | | | | L5-S1 TFESI | | | +--------+--------+ + + + + Encounter Details +--------+ + + + + | Date | Type | Department | Care Team | Description | +--------+ + + + + | 02/21/ | [facility] | [facility] | Omar Dumont, | Lumbar radiculopathy | | 2018 | Encounter | MED CTR XRAY [address] | PA-C [address] | | | | | [place] | [address] [place] | | | | | [place] [address] | [place] [address] | | | | | [phone] | [phone] | | | | | | | | | | | | [employer] [employer] [facility], [place] | | | | | | [place] [...] +---------+ + + | Blood Pressure | 165/72 | 02/21/2018 2:23 PM | | | | | PDT | | + +---------+ + + | Pulse | 54 | 02/21/2018 2:23 PM | | | | | [...] | FL EPIDURAL STEROID | Routin | 02/21/2018 | Lumbar | Results for this | | INJECTION LUMBAR | e | 2:21 PM | radiculopathy | procedure are in [...] | | | + +--------+ +-------+------+------+ | betamethasone (CELESTONE | Given | 02/22/20 | 12 mg | | | | SOLUSPAN) injection 12 mg 12 mg, | | 18 2:35 | | | | | Intra-articular, ONCE, Mon | | PM PDT | | | | | 02/21/18 at 1445, For 1 dose, | | | | | | | Shake well. Not for IV use., | | | | | | + +--------+ +-------+------+------+ +---+---+ | | | +---+---+ + +-------+ +-------+---+---+ | iohexol (OMNIPAQUE 300) 300 | Given | 02/22/20 | 4 mLs | | | | mg/mL injection 4 mL 4 mL, | | 18 2:30 | | | | | Other, ONCE, 02/21/18 at 1445, | | PM PDT | | | | | For 1 dose | | | | | | + +-------+ +-------+---+---+ +---+---+ | | | +---+---+ + +-------+ +-------+---+---+ | lidocaine (PF) 2% injection 3 | Given | 02/22/20 | 3 mLs | | | | mL 3 mL, Other, ONCE, Mon | | 18 2:35 | | | | | 02/21/18 at 1445, For 1 dose | | PM PDT | | | | + +-------+ +-------+---+---+ +---+---+ | | | +---+---+ + +-------+ +-------+---+---+ | lidocaine buffered 1.3% | Given | 02/22/20 | 6 mLs | | | | injection 6 mL 6 mL, Other, | | 18 2:45 | | | | | ONCE, 02/21/18 at 1445, For 1 | | PM PDT | | | | | dose, INTRADERMAL, | | | | | | + +-------+ +-------+---+---+ +---+---+ | | | +---+---+ documented in this encounter"
--- OUTSIDE RECORDS SUMMARY | ~2020-01-29 | XMS | Encounter Summary ---
Demographics + + + | Address | [address] | | | [place] [address] | + + + | Home Phone [...] | Author | [facility] | | | and [place] | + + + | Organization | [facility] | | | and [...] [place] | | | | | [address] | | + + + + + Care Team Providers + +------+ + | Care Starting Sheet Tank Operator Name | Role | Phone | + +------+ + | Crow Braga DO | PCP | | + +------+ + Reason for Visit + + + | Reason | Comments | + + + | Pre-op Exam | C4-5 ACDF on 04/03/16 | + + + Encounter Details +--------+---------+ + + + | Date | Type | Department | Care Team | Description | +--------+---------+ + + + | 03/11/ | Office | [facility] [place] | Ronald Song | Cervicalgia (Primary | | 2016 | Visit | NEUROSURGERY [address] | D, [address] | Dx); Osteoarthritis | | | | [address] | [address] | of spine with | | | | [place], [place] | [place] | radiculopathy, | | | | [address] | [address] | cervical region; | | | | [phone] | | Cervical spinal | | | | | | stenosis; Cervical | | | | | | [...] + + + | Blood Pressure | 145/75 | 03/11/2016 8:30 AM | | | | | PDT | | + + + + + | Pulse | 63 | 03/11/2016 8:30 AM | | | | | PDT | | + + + + + | Temperature | - | - | | + + + + + | Respiratory Rate | 16 | 03/11/2016 8:30 AM | | | | | PDT | | + + + + + | Oxygen Saturation | - | - | | + + + + + | Inhaled Oxygen | - | - | | | Concentration | | | | + + + + + | Weight | 104.9 kg (231 lb 3.2 | 03/11/2016 8:30 AM | | | | oz) | PDT | | + + + + + | Height | 162.6 cm (5' 4") | 03/11/2016 8:30 AM | | | | | PDT | | + + + + + | Body Mass Index | 39.69 | 03/11/2016 8:30 AM | | | | | PDT | | + + + + + documented in this encounter Patient Instructions Patient Instructions Ronald Song PA-C - 03/11/2016 8:51 AM PDTPlease remember n ot to take any anti-inflammatories within 7 days of surgery. This includes ibuprofen, Motri n, Advil, aspirin, naproxen, and Aleve. You may have a small glass of water on the morning of surgery to take your normal morning medications. Otherwise, nothing to eat or drink afte r midnight. If you have any change in your health status, please call and let us know. Last ly, If you have any questions, please feel free to give our office a call. Otherwise, we wi ll see you on the morning of surgery. I will also make note of your allergies to adhesive tape and dissolving sutures.Electronica lly signed by Ronald Song PA-C at 03/11/2016 8:55 AM PDT documented in this encounter Progress Notes Ronald Song PA-C - 03/11/2016 8:56 AM PDTFormatting of this note might be diffe rent from the original. Ronald Song PA-C [address] [facility], [address] [place], [place] [address] FAX: NEUROSURGERY HISTORY AND PHYSICAL EXAMINATION CHIEF COMPLAINT: Chief Complaint Patient presents with Pre-op Exam C4-5 ACDF on 04/03/16 HISTORY OF PRESENT ILLNESS: Today was the patient's preoperative exam for her upcoming karen alejandra. She is scheduled to have a C4-C5 ACDF on 04/03/2016. She has not had any changes in her health or medications since her previous office visit. She is dressed her questions for the upcoming surgery including recovery and bracing. She is noticing that her gait is stil l quite unbalanced and she is relying on her cane more. She is motivated to recover from th is and move forward with her lumbar procedure in the future. She addressed her concerns for the use of dissolvable sutures and adhesive tape during the surgery. She states in the pas t that she has broke out in hives all over her body when they used dissolvable sutures. The patient is a 60 y.o. female with the complaint of neck pain, left arm pain, right arm p ain, hand numbness, headaches, arm weakness, coordination problems and clumsiness symptoms t hat began Several years ago. The patient describes constant aching neck pain with regular sh erin shooting pain going into her right shoulder and right shoulder blade. The symptoms have been gradually worsening. [...] no rheumatoid arthritis. PHYSICAL EXAMINATION: Blood pressure 145/75, pulse 63, resp. rate 16, height 1.626 m (5' 4"), weight 104.872 kg ( 231 lb 3.2 oz). Body mass index is 39.67 kg/(m^2). GENERAL: Ann Santiago is in no [...] has no apparent deficits with short or terminal superintendent memory. CRANIAL NERVES: II: Acuity is intact. [...] Intrinsics 5 5 Ulnar Intrinsics 5 5 Penology Teacher Strength 4 4 Hip Flexion 5 5 [...] 2+ ACHILLES 1+ 1+ VALERO'S ABSENT ABSENT GAIT: Gait is steady. PERIPHERAL NERVE/MISC: Tinel is negative at the wrists and elbows bilaterally. Phalen is negative. Straight leg raise is negative bilaterally. TEST AND RADIOGRAPHIC REVIEW: [...] her MRI shows generalized lumbar spondylosis with [id number] bulging disks at L4-L5 and L5-S1. I do not appreciate any significant spinal canal stenosis. The david ing nerves do not appear to be significantly affected. There is moderate foraminal stenosis on the right at L4-L5 and L5-S1. Her more symptomatic left side does not show significant foraminal stenosis affecting the L5 nerve. ASSESSMENT: NEUROSURGICAL DIAGNOSES: No diagnosis found. GENERAL DIAGNOSES: Past Medical History Diagnosis Date [...] C4/C5 05/15/2015 Cervical radiculopathy 07/23/2015 Osteoarthritis PLAN: I have addressed and answered all the patient's questions and concerns regarding her upcomi ng procedure. She seemed to understand the procedure a lot more once I used the cervical mo del. We will be sure to address her concerns of dissolvable sutures and adhesive tape durin g surgery. After her office visit today she will be going to her appointment for preop lab testing. Ann Santiago presented today, and it was [...] to presenting for surgery. ELECTRONICALLY SIGNED BY: Ronald Song PA-C, 03/11/2016 9:00 documented in this encounter Plan of Treatment Not on filedocumented as of this encounter Visit Diagnoses + + | Diagnosis | + + | Cervicalgia - Primary | + + | Osteoarthritis of spine with radiculopathy, cervical region | + + | Cervical spinal stenosis Spinal stenosis in cervical region | + + | Cervical radiculopathy Brachial neuritis or radiculitis nos | + + documented in this encounter
--- OUTSIDE RECORDS SUMMARY | ~2020-01-29 | XMS | Encounter Summary ---
Demographics + + + | Address | [address] | | | [place] [address] | + + + | Home Phone [...] [place] | | | | | [phone] | | + + + + + Care Team Providers + +------+ + | Care Sr. Payroll Manager Name | Role | Phone | [...] + + | Closed | Specialty | Pain Medicine | Diagnoses | [place], | [place], | | | Services | | | Joel Honeycutt DO | Mina Small DO | | | Required | | Spondylolist | [address] | [address] | | | | | hesis of | [address] | [address] | | | | | lumbar | [place] | [address] | | | | | region | [address] | [place], [place] | | | | | Chronic | Phone: | [phone] | | | | | midline low | [phone] | Phone: | | | | | back pain | Fax: | [phone] | | | | | with | [phone] | Fax: | | | | | bilateral | | [phone] | | | | | sciatica | | | | | | | S/P cervical | | | | | | | spinal | | | | | | | fusion | | | +--------+ + + + + + Reason for Visit + + + | Reason | Comments | + + + | Follow-up | Discuss MRI | + + + Encounter Details +--------+---------+ + + + | Date | Type | Department | Care Team | Description | +--------+---------+ + + + | 12/18/ | Office | [facility] | Joel Burger, | Spondylolisthesis of | | 2017 | Visit | NEUROSURGERY [address] | DO [address] | lumbar region | | | | [address] | [address] [place], [place] | (Primary Dx); | | | | [place], [place] | [address] | Chronic midline low | | | | [address] | | back pain with | | | | [phone] | | bilateral sciatica; | | | | | | S/P cervical spinal | | | | | [...] + + + | Blood Pressure | 135/69 | 12/18/2016 8:07 AM | | | | | PDT | | + + + + + | Pulse | 67 | 12/18/2016 8:07 AM | | | | | PDT | | + + + + + | Temperature | - | - | | + + + + + | Respiratory Rate | 20 | 12/18/2016 8:07 AM | | | | | PDT | | + + + + + | Oxygen Saturation | - | - | | + + + + + | Inhaled Oxygen | - | - | | | Concentration | | | | + + + + + | Weight | 107 kg (236 lb) | 12/18/2016 8:07 AM | | | | | PDT | | + + + + + | Height | 162.6 cm (5' 4") | 12/18/2016 8:07 AM | | | | | PDT | | + + + + + | Body Mass Index | 40.51 | 12/18/2016 8:07 AM | | | | | PDT [...] Instructions Patient Instructions Joel Burger DO - 12/18/2016 8:55 AM PDTPlease obtain and use LSO for your comfort. Please follow-up with [facility]. Please follow-up with me as needed. Back Care Tips Caring for your back These are things you can do to prevent a recurrence of acute back pain and to reduce sympto ms from chronic back pain: Maintain a healthy weight. If you are overweight, losing weight will help most types of back pain. Exercise is an important part of recovery from most types of back pain. The muscles behi nd and in front of the spine support the back. This means strengthening both the back muscle s and the abdominal muscles will provide better support for your spine. Swimming and brisk walking are good overall exercises to improve your fitness level. Practice safe lifting methods (below). Practice good posture when sitting, standing and walking. Avoid prolonged sitting. This puts more stress on the lower back than standing or walking. Wear quality shoes with sufficient arch support. Foot and ankle alignment can affect chelsy k symptoms. Women should avoid wearing high heels. Therapeutic massage can help relax the back muscles without stretching them. During the first 24 to 72 hours after an acute injury or flare-up of chronic back pain, apply an ice pack to the painful area for 20 minutes and then remove it for 20 minutes, over a period of 60 to 90 minutes, or several times a day. As a safety precaution, do not use a heating pad at bedtime. Sleeping on a heating pad can lead to skin miller or tissue damage. You can alternate ice and heat therapies. Medications Talk to your healthcare provider before using medicines, especially if you have other medic al problems or are taking other medicines. You may use acetaminophen or ibuprofen to control pain, unless your healthcare provider prescribed other pain medicine. If you have chronic conditions like diabetes, liver or kidne y disease, stomach ulcers, or gastrointestinal bleeding, or are taking blood thinners, talk with your healthcare provider before taking any medicines. Be careful if you are given prescription pain medicines, narcotics, or medicine for musc le spasm. They can cause drowsiness, affect your coordination, reflexes, and judgment. Do no t drive or operate heavy machinery while taking these types of medicines. Take prescription pain medicine only as prescribed by your healthcare provider. Lumbar stretch Here is a simple stretching exercise that will help relax muscle spasm and keep your back m ore limber. If exercise makes your back pain worse, don t do it. Lie on your back with your knees bent and both feet on the ground. Slowly raise your left knee to your chest as you flatten your lower back against the palma or. Hold for 5 seconds. Relax and repeat the exercise with your right knee. Do 10 of these exercises for each leg. Safe lifting method Don t bend over at the waist to lift an object off the floor. Instead, bend your kne es and hips in a squat. Keep your back and head upright Hold the object close to your body, directly in front of you. Straighten your legs to lift the object. Lower the object to the floor in the reverse fashion. If you must slide something across the floor, push it. Posture tips Sitting Sit in chairs with straight backs or low-back support. Keep your knees lower than your hips , with your feet flat on the floor. When driving, sit up straight. Adjust the seat forward so you are not leaning toward the [employer] wheel. A small pillow or rolled towel behind your lower back may help if you are dr iving long distances. Standing When standing for long periods, shift most of your weight to one leg at a time. Alternate l egs every few minutes. Sleeping The best way to sleep is on your side with your knees bent. Put a low pillow under your hea d to support your neck in a neutral spine position. Avoid thick pillows that bend your neck to one side. Put a pillow between your legs to further relax your lower back. If you sleep o n your back, put pillows under your knees to support your legs in a slightly flexed position . Use a firm mattress. If your mattress sags, replace it, or use a 1/2-inch plywood board un jamal the mattress to add support. Follow-up care Follow up with yourhealthcare provider, or as advised. If X-rays, a CT scan or an MRI scan were taken, they will be reviewed by a radiologist. You will be notified of any new findings that may affect your care. Call 911 Seek emergency medical care if any of the following occur: Trouble breathing Confusion Very drowsy Fainting or loss of consciousness Rapid or very slow heart rate Loss of bowel or bladder control When to seek medical care Call your healthcare provider if any of the following occur: Pain becomes worse or spreads to your arms or legs Weakness or numbness in one or both arms or legs Numbness in the groin area Date Last Reviewed: 11/06/201519991063-5861 [employer]. [address] [place] [address]. All righ ts reserved. This information is not intended as a substitute for professional medical care. Always follow your healthcare professional's instructions. documented in this encounter Progress Notes Joel Burger DO - 12/18/2016 8:30 AM PDTFormatting of this note might be different fro m the original. Joel Burger DO [address] [facility], [address] [place], [place] [id number] FAX: NEUROSURGERY FOLLOW-UP CHIEF COMPLAINT: Chief Complaint Patient presents with Follow-up Discuss MRI HISTORY OF PRESENT ILLNESS: The patient is a 61 y.o. female that had a ACDF for neck pain, arm pain, and arm weakness 04/03/16. She is healing well from her cervical fusion. 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 Since her last visit she continues to do well from her cervical fusion. Her low back and le g issues persist. She is having trouble sleeping and performing her activities of daily jackie ng. Her back and leg bother her equally. The leg symptoms are variable in side and location. Currently she is experiencing pain along the inner aspect of her left leg. She is walking w ith a walker. PAST MEDICAL HISTORY: Past Medical History: Diagnosis Date Anemia Anxiety Bipolar disorder ([facility]) 01/05/2013 Cervical radiculopathy 07/23/2015 Chronic bilateral low back pain with sciatica 06/16/2016 DDD (degenerative disc disease), cervical - C4/C5 05/15/2015 Depression Facet arthritis of lumbar region ([facility]) 06/16/2016 Fibromyalgia Fibromyalgia Foraminal stenosis of cervical region- bilateral C4/C5 05/15/2015 Hyperlipidemia Hypertension Irregular heartbeat Myofascial pain 04/25/2015 Neck pain 05/01/2015 Osteoarthritis Post traumatic stress disorder (PTSD) 01/05/2013 Sacroiliac pain 06/16/2016 Shoulder pain, right 04/25/2015 Stroke ([facility]) Thyroid disease Trochanteric bursitis 01/05/2013 Ulcer ([facility]) PAST SURGICAL HISTORY: Past Surgical History: Procedure Laterality Date CARPAL TUNNEL RELEASE Bilateral CERVICAL SPINE SURGERY Anterior 04/03/2016 Procedure: C4-5 Anterior Cervical Discectomy with Fusion and Plating; Surgeon: Joel bay DO; Location: [facility] MAIN OR CYST REMOVAL Left knee EAR [...] no night sweats, no anemia, + fatigue, no recent profound weight rhea nges. EYES: No eye problems, + use of corrective lenses, no eye injury, no double vision, no bli ndness. EARS, NOSE, AND THROAT: No changes in taste or smell, + hearing difficulty, no ringing in the ears, no ear drainage, no dizziness, no voice changes, no difficulty swallowing, no sign ificant snoring, + sleep apnea, + sinus problems, no major dental work. NEUROLOGICALLY: Please see the review of systems discussed above in the history of present illness. In addition, the patient has numbness/pain of arms and legs, awake with numbness/ pain, weakness, muscle aching, change in walk, pain in neck, pain in back, headaches, numbne ss of face. PSYCHIATRIC: + depression, no sleep disorders, + [...] incontinence, no liver disease, no gallbladder disease, + abdominal pain, no ulcers. KIDNEY DISEASE: No urinary frequency, no painful or difficult urination, no incontinence. ENDOCRINE: No diabetes, no thyroid disease, no osteopenia or osteoporosis, no breast drain age. SKIN: No breast lumps, no skin changes, no rashes, no itches. HEMATOLOGIC/LYMPHATIC: No enlarged lymph nodes, no easy or unusual bleeding, no personal h istory of cancer. RHEUMATOLOGIC: No joint arthritis, no rheumatoid arthritis. INTERIM PHYSICAL EXAMINATION: Blood pressure 135/69, pulse 67, resp. rate 20, height 1.626 m (5' 4"), weight 107 kg (236 lb), not currently . Body mass index is 40.51 kg/m. GENERAL: Ann Santiago is in no [...] rev iewed with the patient today. There has been interval arthrodesis since the immediate posto perative films. MRI of the lumbar spine from 11/20/16 demonstrates diffuse spondylosis with minimal central and lateral recess stenosis at L4-5 and L5-S1. Dynamic lumbar x-rays demonstrate mild spondylolisthesis L5-S1. ASSESSMENT: S/P ACDF C4-5: Encounter Diagnoses Name Primary? Spondylolisthesis of lumbar region Yes Chronic midline low back pain with bilateral sciatica S/P cervical spinal fusion Past Medical History: Diagnosis Date Anemia Anxiety Bipolar disorder ([facility]) 01/05/2013 Cervical radiculopathy 07/23/2015 Chronic bilateral low back pain with sciatica 06/16/2016 DDD (degenerative disc disease), cervical - C4/C5 05/15/2015 Depression Facet arthritis of lumbar region ([facility]) 06/16/2016 Fibromyalgia Fibromyalgia Foraminal stenosis of cervical region- bilateral C4/C5 05/15/2015 Hyperlipidemia Hypertension Irregular heartbeat Myofascial pain 04/25/2015 Neck pain 05/01/2015 Osteoarthritis Post traumatic stress disorder (PTSD) 01/05/2013 Sacroiliac pain 06/16/2016 Shoulder pain, right 04/25/2015 Stroke ([facility]) Thyroid disease Trochanteric bursitis 01/05/2013 Ulcer ([facility]) PLAN: Overall, the patient is doing well with respect to the cervical fusion. The patient's cer vical preoperative symptoms are improving at this point. She does have diffuse spondylosis with minimal stenosis predominately at L4-5 and L5-S1. Marshall hensley also has mild spondylolisthesis at L5-S1. This may be contributing to her back and leg sym ptoms. We discussed options that include: observation, medical pain management, bracing, physical therapy, steroid injections, chiropractics, acupuncture, massage, and pain management referr al. She would like to try bracing, which is appropriate for external stabilization. I will orde r an LSO for her. She would also like a referral to [facility] for medical pain management and dis cussion of steroid injection. I will facilitate that referral. She will follow-up with me as needed. ELECTRONICALLY SIGNED BY: Joel Burger DO, 12/18/2016 8:47 documented in this encounter Plan of Treatment + + +--------+ + + | Name | Type | Priori | Associated Diagnoses | Order Schedule | | | | ty | | | + + +--------+ + + | Pain Clinic, | Outpatient | Routin | Spondylolisthesis | Ordered: 12/18/2016 | | External - AMB | Referral | e | of lumbar region | | | Referral | | | Chronic midline low | | | | | | back pain with | | | | | | bilateral sciatica | | | | | | S/P cervical spinal | | | | | | fusion | | + + +--------+ + + documented as of this encounter Procedures + +--------+ + + + | Procedure Name | Priori | Date/Time | Associated Diagnosis | Comments | | | ty | | | | + +--------+ + + + | IMAGING REPORT - | | 12/16/2016 | | Results for this | | EXTERNAL SCAN | | 12:00 AM | | procedure are in the | | | | PDT | | results section. | + +--------+ + + + documented in this encounter Results IMAGING REPORT - EXTERNAL SCAN (12/16/2016 12:00 AM PDT) + + + | Narrative | Performed At | + + + | Ordered by an | | | unspecified provider. | | + + + documented in this encounter Visit Diagnoses + + | Diagnosis | + + | Spondylolisthesis of lumbar region - Primary Acquired spondylolisthesis | + + | Chronic midline low back pain with bilateral sciatica | + + | S/P cervical spinal fusion Arthrodesis status | + + documented in this encounter
--- OUTSIDE RECORDS SUMMARY | ~2020-01-29 | XMS | Encounter Summary ---
Demographics + + + | Address | [address] | | | [place] [address] | + + + | Home Phone | | + + + | Preferred Language | Unknown | + + + | Marital Status | | + + + | Jain Affiliation | Unknown | + + + [...] [place] | | | | | [address] | | + + + + + Care Team Providers + +------+ + | Care Electromechanical Assembly Technician Name | Role | Phone | + +------+ + | Crow Braga DO | PCP | | + +------+ + Encounter Details +--------+ + + + + | Date | Type | Department | Care Team | Description | +--------+ + + + + | 10/09/ | Procedure | [facility] | Maged Montgomery MD | Idiopathic | | 2018 | visit | [facility] | [address] | peripheral | | | | CLINIC [address] | [place], [place] | neuropathy (Primary | | | | [address] [place], | [address] | Dx); Numbness and | | | | [place] [address] | | tingling; Other | | | | [phone] | | fatigue; Chronic | | | | | | bilateral low back | | | | | | pain with bilateral | | | | | | sciatica | +--------+ + + + + Social [...] documented as of this encounter Procedure Notes Maged Montgomery MD - 10/09/2017 9:00 AM PDTAssociated Order(s): EMG STUDYProcedure(s): EMG STUDYPre-Procedure Diagnose(s): Chronic bilateral low back pain with bilateral sciatica; Nu mbness and tinglingSee scanned chart: NCS/EMG of the lower exztremiites demonstrated mild ge neralzied axonal sensorimotor polyneuropathyElectronically signed by Maged Montgomery MD at 9:37 AM PDTdocumented in this encounter Plan of Treatment Not on filedocumented as of this encounter Procedures + +--------+ + + + | Procedure Name | Priori | Date/Time | Associated Diagnosis | Comments | | | ty | | | | + +--------+ + + + | EMG STUDY | Routin | 10/09/2017 | Chronic bilateral | Results for this | | | e | 9:00 AM | low back pain with | procedure are in the | | | | PDT | bilateral sciatica | results section. | | | | | Numbness and | | | | | | tingling | | + +--------+ + + + | EMG STUDY | Routin | 10/09/2017 | Chronic bilateral | Results for this | | | e | 9:00 AM | low back pain with | procedure are in the | | | | PDT | bilateral sciatica | results section. | | | | | Numbness and | | | | | | tingling | | + +--------+ + + + documented in this encounter Results Vitamin B-12 (10/09/2017 10:03 AM PDT) + +-------+ + + + | Component | Value | Ref Range | Performed | Pathologist | | | | | At | Signature | + +-------+ + + + | VITAMIN | 431 | 211 - 911 pg/mL | [facility] | | | B-12 | | | [facility] | | | | [facility] | | | | | | [facility] | | + +-------+ + + + + + | Specimen | + + | Blood | + + + + + + + | Performing | Address | City/State/Zipcode | Phone Number | | Organization | | | | + + + + + | [facility] | [address] | [place] | [phone] | | [facility] | | [address] | | + + + + + TSH (10/09/2017 10:03 AM PDT) + +-------+ + + + | Component | Value | Ref Range | Performed | Pathologist | | | | | At | Signature | + +-------+ + + + | TSH | 1.79 | 0.36 - 3.74 | [facility] | | | | | uIU/mL | [facility] | | [facility] | | | | | | [facility] | | + +-------+ + + + + + | Specimen | + + | Blood | + + + + + + + | Performing | Address | City/State/Zipcode | Phone Number | | Organization | | | | + + + + + | [facility] | [address] | [place] | [phone] | | [facility]OS[facility] | | [address] | | + + + + + Protein Electrophoresis, Serum (10/09/2017 10:03 AM PDT) + + + + + + | Component | Value | Ref Range | Performed | Pathologist | | | | | At | Signature | + + + + + + | ELP Total | 6.9Comment: SAMPLE | 6.1 - 8.1 g/dL | REFERENCE | | | Protein | SLIGHTLY | | [facility] | | | | HEMOLYZED.Reference | | DIAGNOSTICS | | | | Range: 6.1-8.1SAMPLE | | - [place] | | | | SLIGHTLY HEMOLYZED. | | [place] | | | | | | | | + + + + + + | ELP Albumin | 4.0Comment: | 3.8 - 4.8 g/dL | REFERENCE | | | | | | [facility] | | | | | | [facility] | | | | | | - [place] | | | | | | [place] | | + + + + + + | Alpha-1-Anna | 0.3Comment: | 0.2 - 0.3 g/dL | REFERENCE | | | bulin | | | [facility] | | | | | | [facility] | | | | | | - [place] | | | | | | [place] | | + + + + + + | Alpha-2-Anna | 0.9Comment: | 0.5 - 0.9 g/dL | REFERENCE | | | bulin | | | [facility] | | | | | | [facility] | | | | | | - [place] | | | | | | [place] | | + + + + + + | Beta 1 | 0.4Comment: | 0.4 - 0.6 g/dL | REFERENCE | | | Globulin | | | [facility] | | | | | | [facility] | | | | | | - [place] | | | | | | [place] | | + + + + + + | BETA 2 | 0.4Comment: | 0.2 - 0.5 g/dL | REFERENCE | | | GLOBULIN | | | [facility] | | | | | | [facility] | | | | | | - [place] | | | | | | [place] | | + + + + + + | Gamma | 0.9Comment: | 0.8 - 1.7 g/dL | REFERENCE | | | Globulin | | | [facility] | | | | | | [facility] | | | | | | - [place] | | | | | | [place] | | + + + + + + | SPEP | SEE NOTEComment: Normal | | REFERENCE | | | Interpretat | Electrophoretic Pattern. | | [facility] | | | ion | Test(s) performed at: | | DIAGNOSTICS | | | | [facility] | | - [place] | | | | [facility] | | [place] | | | | Jessica Hwang, | | | | | | Maurisio, Ph.D., KIMI, | | | | | | Certified Nuclear Medicine Technologist | | | | | | [address] [facility] | | | | | | [place] | | | | | | [place] [address] | | | | | | LIA #[id number] | | | | + + + + + + + + | Specimen | + + | Blood | + + + + + | Narrative | Performed At | + + + | Performing Organization Information: Site ID: PROTEIN, TOTAL | REFERENCE LAB | | AND PROTEIN ELECTROPHORESIS Name: Address: , | [facility] | | Director: | DIAGNOSTICS - | | | [place] | | | [place] | + + + + + + + + | Performing | Address | City/State/Zipcode | Phone Number | | Organization | | | | + + + + + | REFERENCE LAB | [address] | [place], [place] | | | [facility] - | | [address] | | | [place] | | | | + + + + + YODIT Screen, Qual, Reflex (10/09/2017 10:03 AM PDT) + + + + + + | Component | Value | Ref Range | Performed | Pathologist | | | | | At | Signature | + + + + + + | YODIT Screen, | NegativeComment: YODIT | Negative | REFERENCE | | | Qual | IFA is a first line | | [facility] | | | | screen for detecting the | | DIAGNOSTICS | | | | presence of up to | | - [place] | | | | approximately 150 | | [place] | | | | autoantibodies in | | | | | | various autoimmune | | | | | | diseases. A negative YODIT | | | | | | IFA result suggests | | | | | | YODIT-associated | | | | | | autoimmune diseases are | | | | | | not present at this | | | | | | time. @ Test Performed | | | | | | By: Raymond Boston | | | | | | Auer[facility] Garcia | | | | | | Vern Taylor M.D., | | | | | | Ph.D., Laboratory | | | | | | Director [id number] | | | | | | [facility] | | | | | | [place] [address] | | | | | | LIA #[id number] | | | | + + + + + + + + | Specimen | + + | Blood | + + + + + | Narrative | Performed At | + + + | Performing Organization Information: Site ID: YODIT SCREEN, | REFERENCE LAB | | IFA, WITH REFLEX TO TITER AND PATTERN Name: Address: | [facility] | | , Director: | DIAGNOSTICS - | | | [place] | | | [place] | + + + + + + + + | Performing | Address | City/State/Zipcode | Phone Number | | Organization | | | | + + + + + | REFERENCE LAB | [address] | [place], [place] | | | [facility] - | | [address] | | | [place] | | | | + + + + + Comprehensive Metabolic Panel (10/09/2017 10:03 AM PDT) + + + + + + | Component | Value | Ref Range | Performed | Pathologist | | | | | At | Signature | + + + + + + | Na | 141 | 132 - 143 | [facility] | | | | | mmol/L | [facility] | | | | | | [facility]ATORY | | + + + + + + | K | 4.1 | 3.3 - 4.9 | [facility] | | | | | mmol/L | [facility] | | | | | | [facility]ATORY | | + + + + + + | Cl | 105 | 95 - 108 mmol/L | [facility] | | | | | | [facility] | | | | | | [facility] | | + + + + + + | CO2 | 31 | 23 - 34 mmol/L | [facility] | | | | | | [facility] | | | | | | [facility] | | + + + + + + | Anion Gap | 5 (L) | 7 - 16 mmol/L | [facility] | | | | | | [facility] | | | | | | [facility] | | + + + + + + | Glucose | 86 | 70 - 110 mg/dL | [facility] | [facility] | | | [facility] | | | | | | [facility] | | + + + + + + | BUN | 17 | 5 - 26 mg/dL | [facility] | | | | [facility] | | | | | | [facility] | | + + + + + + | Creatinine | 0.85 | 0.60 - 1.30 | [facility] | | | | | mg/dL | [facility] | | | | | | [facility]ATORY | | + + + + + + | eGFR, | >60Comment: GLOMERULAR | >=60 | [facility] | | | non- | FILTRATION | mL/min/1.73m2 | [facility] | | | [place] | RATE,ESTIMATED | | HOSPITAL | | | | mL/min/1.52y5Vfzt than | | LABORATORY | | | | 60 Chronic kidney | | | | | | disease,if found over [...] + + + + | Calcium | 8.5 | 8.3 - 10.0 | [facility] | | | | | mg/dL | [facility] | | | | | | [facility] | | + + + + + + | Albumin | 4.1 | 3.0 - 4.5 g/dL | [facility] | | | | | | [facility] | | | | | | [facility] | | + + + + + + | Bilirubin | 0.5 | 0.0 - 1.2 mg/dL | [facility] | | | Total | | | [facility] | | | | | | [facility] | | + + + + + + | Total | 7.2 | 6.6 - 8.5 g/dL | [facility] | | | Protein | | | [facility] | | [facility] | | | | | | [facility]ATORY | | + + + + + + | AST | 110 (H) | 0 - 38 U/L | [facility] | | | | | | [facility] | | | | | | [facility] | | + + + + + + | ALT | 136 (H) | 14 - 59 U/L | [facility] | | | | | [facility] | | | | | | [facility] | | + + + + + + | Alkaline | 77 | 46 - 116 U/L | [facility] | | | Phosphatase | | | [facility] | [facility] | | | | | | [facility]ORY | | + + + + + + | Globulin | 3.1 | g/dL | [facility] | | | | | | [facility] | | | | | | [facility] | | + + + + + + | Albumin/Anna | 1.3 | | [facility] | | | bulin Ratio | | | [facility] | [facility] | | | | | | [facility]ATORY | | + + + + + + | BUN/Creatin | 20.0 | 7.0 - 24.0 | [facility] | | | ine Ratio | | | [facility] | | | | | | [facility] | | + + + + + + + + | Specimen | + + | Blood | + + + + + + + | Performing | Address | City/State/Zipcode | Phone Number | | Organization | | | | + + + + + | [facility] | [address] | [place] | [phone] | | HOSPITAL [facility] | | [address] | | + + + + + CBC with Differential (10/09/2017 10:03 AM PDT) + + + + + + | Component | Value | Ref Range | Performed | Pathologist | | | | | At | Signature | + + + + + + | White Blood | 4.7 | 4.3 - 10.4 K/uL | [facility] | | | Cells | | | [facility] | | | | | | [facility] | | + + + + + + | Red Blood | 4.04 (L) | 4.12 - 5.30 | [facility] | | | Cells | | M/uL | [facility] | | | | | | [facility] | | + + + + + + | Hemoglobin | 12.7 | 12.4 - 15.7 | [facility] | | | | | g/dL | [facility] | | | | | | [facility] | | + + + + + + | Hct | 38.9 | 37.7 - 47.0 % | [facility] | | | | | | [facility] | | | | | | [facility] | | + + + + + + | MCV | 96.3 | 82.0 - 97.0 fL | [facility] | | | | | [facility] | | | | | | [facility] | | + + + + + + | MCH | 31.4 | 27.1 - 32.3 pg | [facility] | | | | | | [facility] | | | | | | [facility] | | + + + + + + | MCHC | 32.6 | 32.0 - 36.9 | [facility] | | | | | g/dL | [facility] | | | | | | [facility] | | + + + + + + | RDW-CV | 12.0 | 0.0 - 17.0 % | [facility] | | | | | | [facility] | | | | | | [facility] | | + + + + + + | Platelet | 211 | 150 - 450 K/uL | [facility] | | | Count | | | [facility] | | | | | | [facility] | | + + + + + + | MPV | 11.3 | 9.4 - 12.3 fL | [facility] | | | | | [facility] | | | | | | [facility] | | + + + + + + | % | 36.8 (L) | 42.0 - 76.0 % | [facility] | | | Neutrophils | | | [facility] | | | | | | [facility] | | + + + + + + | % | 52.7 (H) | 20.0 - 40.0 % | [facility] | | | Lymphocytes | | | [facility] | | | | | | [facility] | | + + + + + + | % Monocytes | 6.8 | 0.0 - 12.0 % | [facility] | | | | | | [facility] | | | | | | [facility] | | + + + + + + | % | 2.7 | 0.0 - 7.0 % | [facility] | | | Eosinophils | | | [facility] | | | | | | [facility] | | + + + + + + | % Basophils | 0.8 | 0.0 - 2.0 % | [facility] | | | | | | [facility] | | | | | | [facility] | | + + + + + + | % Immature | 0.2 | 0.0 - 0.5 % | [facility] | | | Granulocyte | | | [facility] | | | s | | | [facility]OSP[facility] | | | | | | LABORATORY | | + + + + + + | Absolute | 1.74 (L) | 2.50 - 8.50 | [facility] | | | Neutrophils | | K/uL | [facility] | | | | | | [facility] | | + + + + + + | Absolute | 2.50 | 1.00 - 3.80 | [facility] | | | Lymphocytes | | K/uL | [facility] | | | | | | [facility] | | + + + + + + | Absolute | 0.32 | 0.00 - 1.60 | [facility] | | | Monocytes | | K/uL | [facility] | | | | | | [facility] | | + + + + + + | Absolute | 0.13 | 0.00 - 0.70 | [facility] | | | Eosinophils | | K/uL | [facility] | | | | | | [facility] | | + + + + + + | Absolute | 0.04 | 0.00 - 0.20 | [facility] | | | Basophils | | K/uL | [facility] | | | | | | [facility] | | + + + + + + | Absolute | 0.01 | 0.00 - 0.15 | [facility] | | | Immature | | K/UL | [facility] | | | Granulocyte | | | HOSPITAL | | | s | | | LABORATORY | | + + + + + + | % nRBC | 0 | 0 - 0 per 100 | [facility] | | | | | WBC's | [facility] | | | | | | [facility] | | + + + + + + | Absolute | 0.00 | 0.00 - 0.01 | [facility] | | | nRBC | | K/UL | [facility] | | | | | | [facility] | | + + + + + + + + | Specimen | + + | Blood | + + + + + + + | Performing | Address | City/State/Zipcode | Phone Number | | Organization | | | | + + + + + | [facility] | [address] | [place] | [phone] | | HOSP[facility] | | [address] | | + + + + + documented in this encounter Visit Diagnoses + + | Diagnosis | + + | Idiopathic peripheral neuropathy - Primary Unspecified hereditary and idiopathic | | peripheral neuropathy | + + | Numbness and tingling Disturbance of skin sensation | + + | Other fatigue | + + | Chronic bilateral low back pain with bilateral sciatica | + + documented in this encounter"
--- OUTSIDE RECORDS SUMMARY | ~2020-01-29 | XMS | Encounter Summary ---
Demographics + + + | Address | [address] | | | [place] [address] | + + + | Home Phone | | + + + | Preferred Language | Unknown | + + + | Marital Status | | + + + | Hindu Affiliation | Unknown | + + + [...] [place] | | | | | [address] | | + + + + + Care Team Providers + +------+ + | Care Sausage Cutter Name | Role | Phone | + +------+ + | Nathan Kent | PCP | | | MD | | | + +------+ + Reason for Visit + + + | Reason | Comments | + + + | Leg Pain | Bilateral leg pain | + + + | Numbness | bilateral legs | + + + Evaluate & [...] [address] | | | | | [address] | [address] | [place], [place] | | | | | EM[facility] EA | [place], | [address] Phone: | | | | | EXTREMITY | [place] [address] | [phone] | | | | | W/PARASPINL | Phone: | Fax: | | | | | AREA LIMITED | [phone] | [phone] | | | | | NE MOTOR | Fax: | | | | | | &/SENS 13/> | [phone] | | | | | | NRV CNDJ | | | | | | | PRECONF | | | | | | | [place] | | | +--------+ + + + + + Encounter Details +--------+ + + + + | Date | Type | Department | Care Team | Description | +--------+ + + + + | 12/21/ | Procedure | [facility] | Saúl Ferraro | Chronic left-sided | | 2019 | visit | PHYSIATRY [address] | T[address] | low back pain with | | | | [address] | [address] [place] | left-sided sciatica | | | | [place] | [address] | (Primary Dx) | | | | [address] | | | | | | [phone] | | | +--------+ + + + [...] + + + | Blood Pressure | - | - | | + [...] documented as of this encounter Progress Notes Saúl Ferraro MD - 12/21/2018 8:30 AM PDT [facility] Mus[facility], Sports [facility] Spine, Physiatry [facility] [address] [address] Test Date: 12/21/2018 Patient Name: Ann Santiago : 1955 Physician: Saúl Ferraro MD MR #: [id number] Sex: Female Referring Physician: Omar Dumont PA-C HISTORY: Ms. Ann Santiago is a 63 year-old female being seen today for complaints of low back and l eft leg/hip pain. The patient is being seen at the request of Omar Dumont PA-C for furthe r work-up. A recent MRI failed to show any pathology that would explain these symptoms. Pl ease see Omar's note for further details. Nerve Conduction Studies Anti Sensory Summary Table Site NR Peak (ms) Norm Peak (ms) P-T Amp (V) Norm P-T Amp Site1 Site2 Delta-P (ms) Dist (cm) Hesham (m/s) Norm Hesham (m/s) Left Sup Peron Anti Sensory (Ant Lat Mall) 14 cm 3.2 <4.4 6.3 >5.0 14 cm Ant Lat Mall 3.2 14.0 44 >32 Left Sural Anti Sensory (Lat Mall) Calf 3.4 <4.0 5.8 >5.0 Calf Lat Mall 3.4 14.0 41 >35 Motor Summary Table Site NR Onset (ms) Norm Onset (ms) O-P Amp (mV) Norm O-P Amp Site1 Site2 Delta-0 (ms) Dist (cm) Hesham (m/s) Norm Hesham (m/s) Left Peroneal Motor (Ext Dig Brev) Ankle 3.7 <6.1 4.4 >2.5 B Fib Ankle 6.6 32.0 48 >38 B Fib 10.3 3.8 Poplt B Fib 1.8 10.0 56 >40 Poplt 12.1 3.5 Left Tibial Motor (Abd Hutchins Brev) Ankle 4.9 <6.1 7.0 >3.0 Knee Ankle 7.9 33.0 42 >35 Knee 12.8 4.6 EMG Side Muscle Nerve Root Ins Act Fibs Psw Amp Dur Poly Recrt Int Pat Comment Left VastusMed Femoral L2-4 Nml Nml Nml Nml Nml 0 Nml Nml Left AntTibialis Dp Br Peron L4-5 Nml Nml Nml Nml Nml 0 Nml Nml Left ExtHallLong Dp Br Peron L5, S1 Nml Nml Nml Nml Nml 0 Nml Nml Left Gastroc Tibial S1-2 Nml Nml Nml Nml Nml 0 Nml Nml Left Flex Dig Long Tibial L5-S2 Nml Nml Nml Nml Nml 0 Nml Nml Left TensorFascLat SupGluteal L4-5, S1 Nml Nml Nml Nml Nml 0 Nml Nml Nerve Conduction Studies Motor Left/Right Comparison Site L Lat (ms) R Lat (ms) L-R Lat (ms) L Amp (mV) R Amp (mV) L-R Amp (%) Site1 Site2 L Ve l (m/s) R Hesham (m/s) L-R Hesham (m/s) Peroneal Motor (Ext Dig Brev) Ankle 3.7 4.4 B Fib Ankle 48 B Fib 10.3 3.8 Poplt B Fib 56 Poplt 12.1 3.5 Tibial Motor (Abd Hutchins Brev) Ankle 4.9 7.0 Knee Ankle 42 Knee 12.8 4.6 Anti Sensory Left/Right Comparison Site L Lat (ms) R Lat (ms) L-R Lat (ms) L Amp (V) R Amp (V) L-R Amp (%) Site1 Site2 L Hesham (m/s) R Hesham (m/s) L-R Hesham (m/s) Sup Peron Anti Sensory (Ant Lat Mall) 14 cm 3.2 6.3 14 cm Ant Lat Mall 44 Sural Anti Sensory (Lat Mall) Calf 3.4 5.8 Calf Lat Mall 41 NCV FINDINGS: All nerve conduction studies (as indicated in the preceding tables) were within normal limi ts. EMG FINDINGS: All examined muscles (as indicated in the preceding table) showed no evidence of electrical instability. IMPRESSION: There was no electrodiagnostic evidence of peripheral neuropathy, lumbar radiculopathy or o ther peripheral nerve/plexus injury. At present the patient's pain symptoms appear most consistent with trochanteric bursitis/IT band syndrome. She does also have pain that appears primarily to be coming from her SI rustam nt. I recommend that the patient aggressively pursue PT treatments for these issues. She may f ollow-up in our office on an as-needed basis. Thank you for allowing me to perform neurodiagnostic testing on your patient. If you have a ny further questions or comments, please do not hesitate to call. Saúl Ferraro MD Fellow, [employer]. documented in this encounter Plan of Treatment Not on filedocumented as of this encounter Visit Diagnoses + + | Diagnosis | + + | Chronic left-sided low back pain with left-sided sciatica - Primary | + + documented in this encounter
--- OUTSIDE RECORDS SUMMARY | ~2020-01-29 | XMS | Encounter Summary ---
Demographics + + + | Address | [address] | | | [place] [address] | + + + | Home Phone | | + + + | Preferred Language | Unknown | + + + | Marital Status | | + + + | Mandaeism Affiliation | Unknown | + + + | Race | White | + + + | Ethnic Group | Not or | + + + Author + + + | Author | [facility] | | | and [place] | + + + | Organization | [facility] | | | [...] [place] | | | | | [address] | | + + + + + Care Team Providers + +------+ + | Care Snake Charmer Name | Role | Phone | + [...] Upper back | [place], | [address] | | | | | pain on | Mark, | [place], | | | | | right side | PA-C [address] | [place] | | | | | Neck pain | [address], | [address] | | | | | Shoulder | [address] | Phone: | | | | | pain, right | [place] | [phone] | | | | | Procedures | [address] | Fax: | | | | | MRI | Phone: | [phone] | | | | | Cervical | [phone] | | | | | | Spine wo | Fax: | | | | | | Contrast | [phone] | | +--------+--------+ + + + + Reason for Visit +--------+--------+ + | Reason | Onset | Comments | | | Date | | +--------+--------+ + | Other | 04/29/ | | | | 2014 | | +--------+--------+ + Encounter Details +--------+ + + + + | Date | Type | Department | Care Team | Description | +--------+ + + + + | 04/29/ | Telephone | [facility] | [place], | Other | | 2014 | | PHYSIATRY [address] | [address] | | | | | [address] | [place] [address] | | | | | [place], [place] | [place] [address] | | | | | [address] | [phone] | | | | | [phone] | | | +--------+ + + + [...] Telephone Encounter - Verenice Wang CMA - 05/01/2015 2:05 PM PSTInformation relayed. Elect ronically signed by Verenice Wang CMA at 05/01/2015 2:06 PM PSTAddendum Note - Mark Mendosa PA-C - 05/01/2015 10:45 AM PST Addended by: MARK MENDOSA on: 05/01/2015 10:45 Modules accepted: Orders elephone Enc ountkendrick - Mark Mendosa PA-C - 05/01/2015 10:44 AM PSTI discussed with her here in the office if the trigger points did not work we'd order an cervical MRI. This has been ordere d. I will follow up with her once images are done. elephone Encounter - Roxann Gorman - 2014 2:04 PM PSTPatient called back to check in & wanted to ad she is scheduled for surgery 05/22. elephon e Encounter - Verenice Wang CMA - 04/29/2015 10:57 AM PSTPatient states she continues to hav e a burning pain in the right shoulder blade and states her shoulder feels great. Patient xavier s continued to ice the area since 04/25/15 and still has not had any relief. elephone Encounter - Jazz Mendosa PA-C - 04/29/2015 10:50 AM PSTBoth trigger point and shoulder steroid injection?Electron ically signed by Mark Mendosa PA-C at 04/29/2015 10:50 AM PSTTelephone Encounter - Verenice Olsen CMA - 04/29/2015 10:45 AM PSTTrigger point injections 04/25/15.Electronically si gned by Verenice Wang CMA at 04/29/2015 10:45 AM PSTTelephone Encounter - [place] Gorman - 04/29/2015 9:44 AM PSTPatient called to report no relief after injections 04/25. Please advise. d ocumented in this encounter Plan of Treatment Not on filedocumented as of this encounter Results MRI Cervical Spine wo Contrast (05/13/2015 2:20 PM PST) + + | Specimen | + + | | + + + + + | Narrative | Performed At | + + + | MRI CERVICAL SPINE WITHOUT CONTRAST: 05/13/2015 1:48 PM CLINICAL | [facility] | | HISTORY: chronic neck pain burning sensation, rad to shoulders | [facility] | | COMPARISON: None TECHNIQUE: Multiplanar, multisequence imaging of | [facility] | | the cervical spine is performed. [...] ST. | [address] | [place] | [phone] | | [facility] | | [id number] | | | - IMAGING | | [...]
--- OUTSIDE RECORDS SUMMARY | ~2020-01-29 | XMS | Encounter Summary ---
Demographics + + + | Address | [address] | | | [place] [address] | + + + | Home Phone | | + + + | Preferred Language | Unknown | + + + | Marital Status | | + + + | Taoist Affiliation | Unknown | + + + | Race | White | + + + | Ethnic Group | Not or | + + + Author + + + | Author | [facility] | | | and [place] | + + + | Organization | [facility] | | | [...] [place] | | | | | [address] | | + + + + + Care Team Providers + +------+ + | Care Pharmacy Stock Clerk Name | Role | Phone | + +------+ + | Crow Braga DO | PCP | | + +------+ + Encounter Details +--------+ + + + + | Date | Type | Department | Care Team | Description | +--------+ + + + + | 02/18/ | Orders Only | [facility] [place] | Joel Burger, | Cervical | | 2016 | | NEUROSURGERY [address] | DO [address] | radiculopathy | | | | [address] | [address] [place] | (Primary Dx); | | | | [place], [place] | [id number] | Arthralgia of hip, | | | | [address] | | unspecified | | | | [phone] | | laterality; Chronic | | | | | | [...] filedocumented as of this encounter Results XR Chest PA and Lateral (03/11/2016 10:44 AM PDT) + + | Specimen | + + | | + + + + + | Narrative | Performed At | + + + | EXAM: XR CHEST PA AND LATERAL HISTORY: PRE OPERATIVE EXAM | [facility] | | TECHNIQUE: Upright PA and Lateral Chest COMPARISON: None. | [facility] | | FINDINGS: Heart appears mildly enlarged.. [...] + | Gianni, Rad Results In - 03/11/2016 10:53 AM PDT [...] [address] | [place] | [phone] | | [facility] | | [address] | | | - IMAGING | | | | + + + + + ECG 12 lead (03/11/2016 10:29 AM PDT) [...] | | | | PETRONA SCHULTZ MD ([id number]) | | | | | | on [...] | | | | | mg/dL | [facility] | | | | | | MEDICAL | | | | | | CENTER - | | | | | | LABORATORY | | + + + + + + | eGFR, | >60Comment: GLOMERULAR | >=60 | [facility] | | | non- | FILTRATION | mL/min/1.73m2 | [facility] | | | [place] | RATE,ESTIMATED | | MEDICAL | | | | mL/min/1.98v9Oasb than | | CENTER - | | [...] + | [facility] | [address] | [place] | [phone] | | [facility] | | [address] | | | - LABORATORY | | [...] 4.6 | 4.0 - 11.0 K/uL | [facility] | | | Cells | | | [facility] | | | | | | MEDICAL | | | | | | CENTER - | | | | | | LABORATORY | | + + + + + + | Red Blood | 3.85 | 3.70 - 5.20 | [facility] | | | Cells | | M/uL | [facility] | | | | | | [...] [address] | [place] | [phone] | | [facility] | | [address] | | | - LABORATORY | | [...]
--- OUTSIDE RECORDS SUMMARY | ~2020-01-29 | XMS | Encounter Summary ---
Demographics + + + | Address | [address] | | | [place] [address] | + + + | Home Phone | | + + + | Preferred Language | Unknown | + + + | Marital Status | | + + + | Denominational Affiliation | Unknown | + + + [...] [place] | | | | | [address] | | + + + + + Care Team Providers + +------+ + | Care Template Fitter Name | Role | Phone | + +------+ + | Crow Braga DO | PCP | | + +------+ + Reason for Visit + + + | Reason | Comments | + + + | Back Pain | Low back pain that radiates into both hips and both thighs | + + + | Shoulder Pain | Left hip and left thigh | + + + Evaluate & Treat (Routine) +--------+--------+ + + + + | Status | Reason | Specialty | Diagnoses / | Referred By | Referred To | | | | | Procedures | Contact | Contact | +--------+--------+ + + + + | Closed | | Physical | Diagnoses | Omi, | Jasmine, | | | | Medicine and | Chronic | Crow Floyd, | Saúl Rosario MD | | | | Rehabilitatio | back pain | DO [address] | [address] | | | | n | Degeneration | [address] | [place] | | | | | of lumbar | [place], [place] | [place] | | | | | or | [address] | [address] Phone: | | | | | lumbosacral | Phone: | [phone] | | | | | intervertebr | [phone] | Fax: | | | | | al disc | Fax: | [phone] | | | | | Procedures | [phone] | | | | | | 12/05 PEND | | | | | | | REF FROM PCP | | | | | | | BHUPENDRA MCFARLAND | | | | | | | 01/05/13 | | | +--------+--------+ + + + + Encounter Details +--------+---------+ + + + | Date | Type | Department | Care Team | Description | +--------+---------+ + + + | 01/05/ | Office | [facility] | Saúl Ferraro | Trochanteric | | 2012 | Visit | PHYSIATRY [address] Rosario MD [address] | bursitis (Primary | | | | [address] | [place] | Dx); Upper back | | | | [place], [place] | [address] | pain/posterior | | | | [address] | | shoulder pian on | | | | [phone] | | right side; | | | | | | Fibromyalgia; | | | | | | Bipolar disorder | | | | | | ([facility]); Depression; | | | | | | Anxiety; Post | | | | | | traumatic stress | | | | | | disorder (PTSD) | +--------+---------+ + + + Social History [...] + + + | Blood Pressure | 124/71 | 01/05/2013 10:07 AM | | | | | PDT | | + + + + + | Pulse | 85 | 01/05/2013 10:07 AM | | | | | PDT [...] + + + + | Weight | 89.8 kg (198 lb) | 01/05/2013 10:07 AM | | | | | PDT | | + + + + + | Height | 160 cm (5' 3") | 01/05/2013 10:07 AM | | | | | PDT | | + + + + + | Body Mass Index | 35.07 | 01/05/2013 10:07 AM | | | | | PDT | | + + + + + documented in this encounter Progress Notes Saúl Ferraro MD - 01/05/2013 10:22 AM PDT Subjective: Patient ID: Ann Santiago is a 57 y.o. female. Chief Complaint Patient presents with Back Pain Low back pain that radiates into both hips and both thighs Shoulder Pain Left hip and left thigh HPI The patient is being seen today at the request of Dr. Clayton Braga for complaints of l ow back pain . She also has complaints of pain near the right shoulder blade and up into the right sided of the neck. She also has chronic bursitis of both hips and has been diagnosed with Fibromyalgia. The patient's symptoms began many years ago and have been a chronic issue since that time. She indicates increased pain over the last 4 months. She describes her symptoms as intermittently aching, burning, sharp and dull. Her symptoms have been constant. Her symptoms worsen with walking, standing, bending and with sitting. He r symptoms improve with an ice pack, the pain medications and when leaning over a pillow. Marshall floyd describes numbness in the legs, especially the left thigh. She denies focal weakness. She denies bowel and bladder dysfunction. She also denies saddle anesthesia at this time, although she did report one day of some num bness in the groin. Treatments for these complaints have included physical therapy in the past, prior trochante carito bursa injections as well as the use of Hydrocodone, Gabapentin, Flexeril and Celexa. Elizabeth adams trochanteric bursitis injections by another provider provided her with no relief. MRI of the lumbar spine was reviewed today in detail with the patient. Past Medical History Diagnosis Date Hypertension Fibromyalgia Hyperlipidemia Stroke Irregular heartbeat Depression Anxiety Anemia Ulcer Thyroid disease Past Surgical History Procedure Date Hysterectomy Gallbladder surgery Ear surgery - ear lobe repair x 2 Meniscus repair Right knee Cyst removal Left knee No family history on file. History Social History Marital Status: Single Spouse Name: N/A Number of Children: N/A Years of Education: N/A Social History Main Topics Smoking status: Current Everyday Smoker -- 0.5 packs/day for 42 years Types: Cigarettes Smokeless tobacco: None Alcohol Use: None Drug Use: None Sexually Active: None Other Topics Concern None Social History Narrative None Current Outpatient Prescriptions on File Prior to Visit Medication Sig Dispense Refill amitriptyline (ELAVIL) 25 mg tablet Take 25 mg by mouth nightly as needed. gabapentin (NEURONTIN) 300 mg capsule Take 300 mg by mouth 2 times daily. lisinopril (PRINIVIL, ZESTRIL) 20 mg tablet Take 20 mg by mouth Daily. Review of Systems Constitutional: Positive for fever, chills and fatigue. Negative for activity change and un expected weight change. HENT: Negative for hearing loss, trouble swallowing, neck pain and neck stiffness. Eyes: Positive for visual disturbance. Respiratory: Positive for apnea and cough. Negative for chest tightness, shortness of breat h and wheezing. Cardiovascular: Negative for chest pain, palpitations and leg swelling. Gastrointestinal: Positive for nausea and diarrhea. Negative for vomiting. Genitourinary: Negative for difficulty urinating. Musculoskeletal: Positive for back pain and arthralgias. Neurological: Negative for dizziness, speech difficulty, weakness and numbness. Psychiatric/Behavioral: Positive for dysphoric mood. Negative for sleep disturbance. The pa tient is nervous/anxious. All other systems reviewed and are negative. Objective: Physical Exam Nursing note and vitals reviewed. Constitutional: She is oriented to person, place, and time. She appears well-developed and well-nourished. HENT: Head: Normocephalic and atraumatic. Neck: No tracheal deviation present. Cardiovascular: Normal rate and regular rhythm. Pulmonary/Chest: Effort normal and breath sounds normal. No respiratory distress. Lymphadenopathy: She has no cervical adenopathy. Neurological: She is alert and oriented to person, place, and time. She has normal strength . No cranial nerve deficit or sensory deficit. She displays no Babinski's sign on the right side. She displays no Babinski's sign on the left side. Reflex Scores: Patellar reflexes are 2+ on the right side and 2+ on the left side. Achilles reflexes are 1+ on the right side and 1+ on the left side. Skin: Skin is warm, dry and intact. No abrasion, no bruising, no ecchymosis, no laceration and no rash noted. Psychiatric: She has a normal mood and affect. Her speech is normal and behavior is normal. Thought content normal. Cognition and memory are normal. Musculoskeletal: Straight leg raise and slump-sit are negative. Ga's maneuver and im pingement testing were negative for any groin pain. There was tenderness to palpation ove r the greater trochanters bilaterally as well as the sacral sulci bilaterally. The patient localized the majority of the pain to the L5-S1 region and down into the coccyx region. She is also very tender along the medial border of the right scapula. Lumbar facet loading was positive to the left. Strength testing showed 5/5 strength throughout the lower extremities . The patient was able to heel and toe walk without difficulty. There was no redness, effu daniela, warmth or joint line tenderness in the knees or ankles. She can lean forward to approx imately 65 degrees but had increased low back pain. Extension to approximately 10 degrees ca used low back pain. Assessment: 1. Chronic low back pain 2. 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 Trochanteric bursitis 4. Upper back pain/posterior shoulder pain on right side 5. Fibromyalgia 6. Bipolar disorder 7. Depression 8. Anxiety 9. Post traumatic stress disorder (PTSD) Plan: 1. We discussed getting her into aquatic therapy. She was given a prescription for aquatic therapy today. 2. We discussed the patient's medications today. Options would include increasing gabapenti n or possibly changing her anti depressant to Cymbalta. She may want to discuss this with h er mental health provider. She states that she sees a Dr. Elaine Vigil (sp?). We were unable to find contact information for this provider. 3. We discussed that interventional procedures such as epidural steroid injections don't u sually help with back pain from annular tears. She may be a candidate for trochanteric burs a injections or other procedures depending on how she responds to PT. 4. The patient will follow-up with me on an as-needed basis. documented in this encounter Miscellaneous Notes Miscellaneous - ONBASE SCAN [facility] - 01/05/2013 12:00 AM PDT iscellaneous - ONBASE SCAN [facility] - 12/14/2012 12:00 AM PDTEle ctronically signed by Renato Lyons at 01/09/2013 7:58 AM PDTdocumented in this encounter Plan of Treatment Not on filedocumented as of this encounter Visit Diagnoses + + | Diagnosis | + + | Trochanteric bursitis - Primary Enthesopathy of hip region | + + | Upper back pain/posterior shoulder pian on right side Pain in thoracic spine | + + | Fibromyalgia Mylagia and myositis, unspecified | + + | Bipolar disorder (HCC) Bipolar disorder, unspecified | + + | Depression Depressive disorder, not elsewhere classified | + + | Anxiety Anxiety state, unspecified | + + | Post traumatic stress disorder (PTSD) Posttraumatic stress disorder | + + documented in this encounter
[~2020-01-29 10:36] MED LIST changes: +CELEBREX200 MG PO; +CHLORTHALIDONE25 MG PO; +K-TAB ER20 MEQ PO; +LASIX20 MG PO; +NEURONTIN300 MG PO
--- OUTSIDE RECORDS SUMMARY | 2020-01-29 10:40 | XMS ---
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 Mindy VISIT COUNT (12 MO.) 2 RUPALI Gaspar TOTAL 2 NOTE: Visits indicate total known visits. ED/UCC VISIT TRACKING (12 MO.) 01/29/2020 10:37 [facility] Chi [place] TYPE: Emergency COMPLAINT: - SOB 08/13/2019 10:35 [facility] [place] TYPE: Emergency COMPLAINT: - SOB, CHEST PAIN DIAGNOSES: - Other nonmedicinal substance allergy status - Allergy status to analgesic agent status - Other detention (current) drug therapy - Allergy status to narcotic agent status - Sleep apnea, unspecified - Personal history of transient ischemic attack (TIA), and cere - Personal history of nicotine dependence - Allergy status to other drugs, medicaments and biological sub - Heart failure, unspecified - Chest pain, unspecified - Hypertensive heart disease with heart failure - Hypothyroidism, unspecified - Radiographic dye allergy status INPATIENT VISIT TRACKING (12 MO.) No inpatient visits to display in this time frame [email or web address]
[2020-01-29] MEDS ORDERED: SPIRONOLACTONE25 MG PO (11:06)
--- NOTE | 2020-01-30 11:00 | EKG ---
[facility] [address] [facility] [place] [address] Signed Sinus br[address]cardia Nonspecific ST abnormality Abnormal ECG When compared with ECG of 13-AUG-2019 11:08, No significant change was found Confirmed by SARITA MELGAR MD ([id number]) on 01/30/2020 11:00:01 AM Electronically Signed By: SARITA MELGAR MD 01/30/20 1100 PATIENT NAME: NOHEMY ASHTON MAHIN Electrocardiogram DATE OF : 57 PHYSICIAN: SARITA MELGAR MD REPORT #: [id number] REPORT IS CONFIDENTIAL AND NOT TO BE RELEASED WITHOUT AUTHORIZATION
== END 2020-01-29 13:46 | disposition home or self-care (01) ==
LOC: ED 10:36
DX: R07.9 Chest pain, unspecified (principal); E03.9 Hypothyroidism, unspecified; I11.0 Hypertensive heart disease with heart failure; I50.9 Heart failure, unspecified; Z87.891 Personal history of nicotine dependence; Z91.048 Other nonmedicinal substance allergy status; Z88.5 Allergy status to narcotic agent; Z88.8 Allergy status to other drugs, medicaments and biological substances; Z79.899 Other long term (current) drug therapy
CPT/HCPCS: 71045; 80053; 83735; 83880; 84484; 85025; 93005; 93010; 94640; 94664; 99285-25

== ENCOUNTER 2020-11-25 09:27 | Emergency (ER) | payer MEDICARE, OTHER ==
[~2020-11-25] VITALS: Ht 162.6 cm; Wt 122.5 kg
[~2020-11-25 09:27] MED LIST changes: +KEFLEX500 MG PO; +SPIRONOLACTONE25 MG PO
--- OUTSIDE RECORDS SUMMARY | 2020-11-25 10:46 | XMS ---
PreManage Notification: NOHEMY ASHTON Security Programming Internship Events No recent Security Events currently on file CRITERIA MET - [facility] CEFERINO COLLADO Family [facility] Current PHONE: [phone] SCARLET DEAL [facility] Current PHONE: [phone] Elizabeth has no Care Guidelines for this patient. Mindy VISIT COUNT (12 MO.) 3 [facility] TOTAL 3 NOTE: Visits indicate total known visits. ED/UCC VISIT TRACKING (12 MO.) 11/25/2020 09:28 [facility] [place] TYPE: Emergency COMPLAINT: - CHEST PAIN, SHORTNESS OF BREATH 03/11/2020 12:50 [facility] [place] TYPE: Emergency COMPLAINT: - SOB, DIZZINESS DIAGNOSES: - Acute kidney failure, unspecified - Shortness of breath - Urinary tract infection, site not specified - Acute upper respiratory infection, unspecified 01/29/2020 10:37 [facility] [place] TYPE: Emergency COMPLAINT: - SOB DIAGNOSES: - Other retirement (current) drug therapy - Hypothyroidism, unspecified - Allergy status to narcotic agent - Personal history of nicotine dependence - Heart failure, unspecified - Other nonmedicinal substance allergy status - Allergy status to other drugs, medicaments and biological substances - Hypertensive heart disease with heart failure - Chest pain, unspecified - Chest pain, unspecified INPATIENT VISIT TRACKING (12 MO.) No inpatient visits to display in this time frame [email or web address]
--- NOTE | 2020-11-25 18:08 | EKG ---
[facility] [address] [facility] [place], [place] [address] Signed Sinus bradycardia Otherwise normal ECG No previous ECGs available Confirmed by SARITA MELGAR MD ([id number]) on 11/25/2020 6:08:10 PM Electronically Signed By: SARITA MELGAR MD 11/25/20 1808 PATIENT NAME: NOHEMY ASHTON MAHIN Electrocardiogram DATE OF : 57 PHYSICIAN: SARITA MELGAR MD REPORT #: [id number] REPORT IS CONFIDENTIAL AND NOT TO BE RELEASED WITHOUT AUTHORIZATION
== END 2020-11-25 15:50 | disposition home or self-care (01) ==
LOC: ED 09:27
DX: R07.2 Precordial pain (principal); J02.9 Acute pharyngitis, unspecified; G47.30 Sleep apnea, unspecified; I11.0 Hypertensive heart disease with heart failure; E03.9 Hypothyroidism, unspecified; Z20.822 Contact with and (suspected) exposure to COVID-19; I50.9 Heart failure, unspecified; Z91.041 Radiographic dye allergy status; Z88.6 Allergy status to analgesic agent; Z88.8 Allergy status to other drugs, medicaments and biological substances; Z88.5 Allergy status to narcotic agent; Z91.040 Latex allergy status; Z79.899 Other long term (current) drug therapy
CPT/HCPCS: 71045; 80053; 83735; 84484; 85025; 87081; 87147; 87880; 93005; 93010; 99285-25; U0003

== ENCOUNTER 2021-03-01 06:24 | Emergency (ER) | payer MEDICARE, OTHER ==
[~2021-03-01] VITALS: Ht 162.6 cm; Wt 120.7 kg
--- OUTSIDE RECORDS SUMMARY | 2021-03-01 06:28 | XMS ---
PreManage Notification: NOHEMY ASHTON Security Spare Parts Clerk Events No recent Security Events currently on file CRITERIA MET - [facility] CEFERINO COLLADO Family Medicine 11/26/2020-Current PHONE: [phone] SCARLET DEAL Family [facility] Current PHONE: [phone] Elizabeth has no Care Guidelines for this patient. Mindy VISIT COUNT (12 MO.) 3 [facility] [place] TOTAL 3 NOTE: Visits indicate total known visits. ED/UCC VISIT TRACKING (12 MO.) 03/01/2021 06:25 [facility] [place] TYPE: Emergency COMPLAINT: - SKIN PROBLEM 11/25/2020 09:28 [facility] [place] TYPE: Emergency COMPLAINT: - CHEST PAIN, SHORTNESS OF BREATH DIAGNOSES: - Allergy status to analgesic agent - Heart failure, unspecified - Hypertensive heart disease with heart failure - Radiographic dye allergy status - Sleep apnea, unspecified - Allergy status to narcotic agent - Acute pharyngitis, unspecified - Hypothyroidism, unspecified - Latex allergy status - Allergy status to other drugs, medicaments and biological substances - Other bed bug exterminator (current) drug therapy - Precordial pain 03/11/2020 12:50 [facility] [place] TYPE: Emergency COMPLAINT: - SOB, DIZZINESS DIAGNOSES: - Acute kidney failure, unspecified - Shortness of breath - Urinary tract infection, site not specified - Acute upper respiratory infection, unspecified INPATIENT VISIT TRACKING (12 MO.) No inpatient visits to display in this time frame [email or web address]
[2021-03-01] MEDS ORDERED: FLOMAX0.4 MG PO (06:44)
[2021-03-01] MEDS ORDERED: CEPHALEXIN500 MG PO (06:52)
[2021-03-01] MEDS ORDERED: BACTRIM DS TAB1 EACH PO (06:52)
== END 2021-03-01 07:15 | disposition home or self-care (01) ==
LOC: ED 06:24
DX: L03.116 Cellulitis of left lower limb (principal); G47.30 Sleep apnea, unspecified; M79.7 Fibromyalgia; E03.9 Hypothyroidism, unspecified; M19.90 Unspecified osteoarthritis, unspecified site; I11.0 Hypertensive heart disease with heart failure; I50.9 Heart failure, unspecified; Z86.73 Personal history of transient ischemic attack (TIA), and cerebral infarction without residual deficits; Z88.8 Allergy status to other drugs, medicaments and biological substances; Z88.5 Allergy status to narcotic agent; Z91.041 Radiographic dye allergy status; Z91.048 Other nonmedicinal substance allergy status; Z88.6 Allergy status to analgesic agent; Z79.899 Other long term (current) drug therapy
CPT/HCPCS: 99283

== ENCOUNTER 2021-08-11 20:22 | Emergency (ER) | payer MEDICARE, OTHER ==
[~2021-08-11] VITALS: Ht 162.6 cm; Wt 116.1 kg
[~2021-08-11 20:22] MED LIST changes: +BACTRIM DS TAB1 EACH PO; +CEPHALEXIN500 MG PO; +FLOMAX0.4 MG PO
--- OUTSIDE RECORDS SUMMARY | 2021-08-11 20:24 | XMS ---
PreManage Notification: NOHEMY ASHTON Security Taker Off Drying Kiln Events No recent Security Events currently on file CRITERIA MET - [facility] CEFERINO COLLADO Family Medicine 11/26/2020-Current PHONE: Unknown SCARLET DEAL [facility] Current PHONE: Unknown ADA LINK Family [facility] Current PHONE: [phone] Elizabeth has no Care Guidelines for this patient. Mindy VISIT COUNT (12 MO.) [address] [facility] [address] [facility] TOTAL 3 NOTE: Visits indicate total known visits. ED/UCC VISIT TRACKING (12 MO.) 08/11/2021 20:22 [facility] [place] TYPE: Emergency COMPLAINT: - FALL 03/01/2021 06:25 [facility] [place] TYPE: Emergency COMPLAINT: - SKIN PROBLEM DIAGNOSES: - Allergy status to analgesic agent - Allergy status to other drugs, medicaments and biological substances - Hypertensive heart disease with heart failure - Personal history of transient ischemic attack (TIA), and cerebral infarction without residual deficits - Hypothyroidism, unspecified - Allergy status to narcotic agent - Unspecified osteoarthritis, unspecified site - Sleep apnea, unspecified - Fibromyalgia - Other nonmedicinal substance allergy status - Heart failure, unspecified - Cellulitis of left lower limb - Other specified local infections of the skin and subcutaneous tissue - Radiographic dye allergy status - Other long wall shear 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
[2021-08-11] MEDS ORDERED: ULTRAM50 MG PO (23:18)
== END 2021-08-12 00:18 | disposition home or self-care (01) ==
LOC: ED 20:22
DX: S16.1XXA Strain of muscle, fascia and tendon at neck level, initial encounter (principal); S70.01XA Contusion of right hip, initial encounter; S20.229A Contusion of unspecified back wall of thorax, initial encounter; S09.90XA Unspecified injury of head, initial encounter; R50.9 Fever, unspecified; R29.6 Repeated falls; G47.30 Sleep apnea, unspecified; M19.90 Unspecified osteoarthritis, unspecified site; E03.9 Hypothyroidism, unspecified; I11.0 Hypertensive heart disease with heart failure; I50.9 Heart failure, unspecified; Z88.8 Allergy status to other drugs, medicaments and biological substances; Z91.041 Radiographic dye allergy status; Z88.6 Allergy status to analgesic agent; Z88.5 Allergy status to narcotic agent; Z79.899 Other long term (current) drug therapy; W19.XXXA Unspecified fall, initial encounter
CPT/HCPCS: 36415; 70450; 71045; 72125; 72128; 72131; 73502; 80053; 81001; 83605; 85025; 96374; 96375; 99285-25; A9270; C9803; J2270; J2405; J7030; U0003

== ENCOUNTER 2021-08-13 05:41 | Emergency (ER) | payer MEDICARE, OTHER ==
[~2021-08-13] VITALS: Ht 162.6 cm; Wt 116.1 kg
[~2021-08-13 05:41] MED LIST changes: +ULTRAM50 MG PO
--- OUTSIDE RECORDS SUMMARY | 2021-08-13 05:44 | XMS ---
PreManage Notification: NOHEMY ASHTON Security Getter Operator Events No recent Security Events currently on file CRITERIA MET - [facility] - 2 Visits in 30 Days [facility] NAE ROSALES Nurse Practitioner: 08/12/2021-Current PHONE: [phone] SCARLET DEAL [facility] Current [facility]ONE[facility]: Unknown Elizabeth has no Care Guidelines for this patient. Mindy VISIT COUNT (12 MO.) 4 [facility] TOTAL 4 NOTE: Visits indicate total known visits. 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
== END 2021-08-13 16:26 | disposition short-term general hospital (02) ==
LOC: ED 05:41
DX: G06.2 Extradural and subdural abscess, unspecified (principal); G47.30 Sleep apnea, unspecified; M19.90 Unspecified osteoarthritis, unspecified site; E03.9 Hypothyroidism, unspecified; I11.0 Hypertensive heart disease with heart failure; I50.9 Heart failure, unspecified; Z91.041 Radiographic dye allergy status; Z88.8 Allergy status to other drugs, medicaments and biological substances; Z88.5 Allergy status to narcotic agent; Z88.6 Allergy status to analgesic agent; Z79.899 Other long term (current) drug therapy
CPT/HCPCS: 36415; 51701; 51702; 71045; 72157; 72158; 80053; 81001; 83605; 85025; 85610; 85730; 86140; 87040; 99285-25; A9270; A9577; J1170; J2060; J2405; J7030; U0003